=== PATIENT | female | born 1995 | race Caucasian/White ===

== ENCOUNTER 2022-04-16 17:22 | Inpatient (IN) | payer OTHER, SELFPAY ==
--- OUTSIDE RECORDS SUMMARY | 2022-04-16 18:29 | XMS REPORT | Continuity of Care Document ---
:1995 Author Organization [facility] t Address [address] [place] [address] Care Team Providers Name Role Phone Pcp, Does Not Have A Primary Care Physician JARON Attending Clinician Unavailable Jaron TAYLOR Attending Clinician Pob, Lab Main Attending Clinician Unavailable Doctor Unassigned, Name Attending Clinician Unavailable Payers Payer Name Policy Type Policy Number Effective Date Expiration Date Roly waldron [facility] STAR [id number] 2022 00:00:00 Problems Condition Condition Condition Status Onset Resolution Last Treating Co mments Source Name Details Category Date Date Treatment Clinician Date History of History of Disease Active U nivers gestationa gestationa 04-02 it y of l l 00:00: [place] hypertensi hypertensi 00 Me dical on on Branch Obesity in Obesity in Disease Active U nivers 03 ity of 00:00: [place] 00 Medical Branch Supervisio Supervisio Disease Active U nivers n of high n of high 04-02 ity of risk risk 00:00: [place] 00 Medi enrique in third in third Branch trimester trimester Allergies, Adverse Reactions, Alerts Allergy Allergy Status Severity Reaction(s) Onset Inactive Treating Comm ents Source Name Type Date Date Clinician NO KNOWN Drug Active Univers ALLERGIE Class ity of S [facility] Social History Social Habit Start Date Stop Date Quantity Comments Source ASSERTION 2021-08-19 University 00:00:00 [facility] Alcohol intake 2022-04-02 2022-04-02 Ex-drinker [facility] 00:00:00 00:00:00 (finding) [facility] Tobacco use and 2022-04-01 2022-04-01 Never used Universit y of exposure 00:00:00 00:00:00 [facility] Exposure to 2022-03-21 2022-03-31 Not sure [facility]-CoV-2 00:00:00 09:57:00 [place] Medical (event) Branch Sex Assigned At [birth year] Universit y of 00:00:00 00:00:00 [facility] Branch Smoking Status Start Date Stop Date Source Unknown if ever smoked Universit y of [facility] Never smoker [facility] Medications Ordered Filled Start Stop Current Ordering Indication Dosage Frequency Signature Comments Components Source Medication Medication Date Date Medication? Clinician (SIG) Name Name Yes Take by Unive rs vit,calc76/ 6-02 mouth. ity of iron/folic 09:04: [place] (PNV 29-1 31 Medical ORAL) Branch Yes Take by Unive rs vit,calc76/ 6-02 mouth. ity of iron/folic 09:04: [place] (PNV 29-1 31 Medical ORAL) Branch Yes Take by Unive rs vit,calc76/ 6-02 mouth. ity of iron/folic 09:04: [place] (PNV 29-1 31 Medical ORAL) Branch omeprazole Yes [id number] 40mg Take 1 Univers 40 mg 6-02 capsule by ity of capsule 00:00: mouth [place] 00 daily. Medical Branch omeprazole Yes [id number] 40mg Take 1 Univers 40 mg 6-02 capsule by ity of capsule 00:00: mouth [place] 00 daily. Medical Branch omeprazole Yes [id number] 40mg Take 1 Univers 40 mg 6-02 capsule by ity of capsule 00:00: mouth [place] 00 daily. Medical Branch Immunizations Ordered Filled Immunization Date Status Comments Sourc e Immunization Name Name TDAP 2022-04-01 Completed [facility] 00:00:00 [facility] TDAP 2022-04-01 Completed [facility] 00:00:00 [facility] TDAP 2022-04-01 Completed [facility] 00:00:00 [facility] Vital Signs Vital Name Observation Time Observation Value Comments Source Systolic blood 2022-04-01 13:34:00 127 mm[Hg] Univer sity of pressure [facility] Diastolic blood 2022-04-01 13:34:00 71 mm[Hg] [facility] [place] [facility] rsity of pressure [facility] Heart rate 2022-04-01 13:34:00 90 /min [facility] Body temperature 2022-04-01 13:34:00 36.89 Mallory [facility] Respiratory rate 2022-04-01 13:34:00 18 /min [facility] Body height 2022-04-01 13:34:00 160 cm [facility] Body weight 2022-04-01 13:34:00 93.895 kg [facility] BMI 2022-04-01 13:34:00 36.67 kg/m2 [facility] Procedures Procedure Date / Time Performed Performing Clinician Sourc e TDAP VACCINE, >11 YRS, 2022-04-01 14:30:35 Radha Salmeron [facility] ASSIGNMENT OF BENEFITS 2022-04-01 13:32:25 Doctor Unassigned, No [facility] POCT URINALYSIS W/O 2022-04-01 00:00:00 Radha Salmeron [facility] SPECIFIC GRAVITY [facility] Encounters Start End Encounter Admission Attending Care Care Encounter Source Date/Time Date/Time Type Type Clinicians Facility Department ID 2022-04-26 2022-04-26 Outpatient R RADHA SALMERON [facility] [id number] [facility] 16:00:00 16:00:00 [id number] [facility] 2022-04-26 2022-04-26 Outpatient R RADHA SALMERON [facility] [id number] [facility] 13:00:00 13:00:00 ity [facility] 2022-04-13 2022-04-13 Patient Radha Salmeron [facility] WOLF 1.2.840.114 [id number] Univers 00:00:00 00:00:00 Secure Msg RAMIREZ 350.1.13.10 ity of [place]2.[place] [id number] [place] [address] Branch 2022-04-02 2022-04-02 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, 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 Lab Main [facility] 1.2.8 40.114 [id number] [facility] 11:45:00 12:00:00 Visit Radha Salmeron 350.1.13.10 ity of [place].2.[place].2.[place] PROF[place] [id number] Ny dical NAL 353 [facility] 2022-04-02 2022-04-02 Outpatient R [facility] [id number] Univers 11:45:00 11:45:00 [id number] ity [facility] 2022-04-02 2022-04-02 Outpatient R RADHA SALMERON [facility] [id number] Univers 11:45:00 11:45:00 ity [facility] 2022-04-01 2022-04-01 Outpatient R RADHA SALMERON [facility] [id number] Univers 08:30:00 09:43:27 [facility] 2022-04-01 2022-04-01 Initial Radha Salmeron [facility] 1.2.840.114 [id number] Univers 08:30:00 09:43:27 JAMES 350.1.13.10 i ty of Visit [place].2.[place] [id number] [facility] 134 Branch 2022-04-01 2022-04-01 Orders Doctor TERI 1.2.840.114 [id number] Univers 00:00:00 00:00:00 Only Unassigned, MAGNUS 350.1.13.10 ity of Angie [facility] 4.2.7.2.686 [place] [id number] [facility] 009 Branch Results Test Description Test Time Test Comments Results Result Comments Source POCT URINALYSIS W/O SPECIFIC GRAVITY 2022-04-01 14:10:00 Test Item Value Reference Range Interpretation Comme nts POCT PH U (test code = 3254) n/a 5-8 POCT U LEUK EST (test code = 3263) n/a Negative - Negative POCT U NIT (test code = 3262) n/a Negative - Negative POCT U PROT (test code = 3259) neg Negative - Negative POCT U GLU (test code = 3256) neg Negative - Negative POCT U KETONE (test code = 3258) n/a Negative - Negative POCT U BLD (test code = 3257) n/a Negative - Negative [facility] [place] [facility]
[2022-04-16 18:59] LABS: Urine Appearance Cloudy (Clear); Urine Blood Negative (Negative); Urine Color Orange (Yellow); Urine Glucose Negative (Negative); Urine Protein 1+ (Negative); Urine Specific Gravity >=1.030 (1.005-1.030); Urine Urobilinogen 0.2 mg/dL (0.2-1.0); Urine pH 5.5 (5.0-7.0)
[2022-04-16 18:59] LABS: Absolute Lymphocytes (CBC) 2.2 K/uL (0.7-4.9); Hematocrit 38.2 % (36.0-45.0); Lymphocytes % 15.5 % (15.3-44.8); MPV 6.7 fL (7.6-11.3); RBC Red Blood Cell Count 4.38 M/uL (3.86-4.86)
[2022-04-16] MEDS ORDERED: OXYTOCIN/LR 20 UNIT/1,000 ML BAG IV ONE (19:02)
[2022-04-16 19:03] LABS: Barbiturates NEGATIVE (NEGATIVE); Benzodiazepines NEGATIVE (NEGATIVE); Cocaine NEGATIVE (NEGATIVE); METHAMPHETAM NEGATIVE (NEGATIVE); Methadone NEGATIVE (NEGATIVE); Opiates NEGATIVE (NEGATIVE); Phencyclidine NEGATIVE (NEGATIVE); THC Cannibis NEGATIVE (NEGATIVE)
[2022-04-16] MEDS ORDERED: METHYLERGONOVINE 0.2MG/ML AMP IM ONE (19:03)
[2022-04-16] MEDS ORDERED: CARBOPROST TROME 250 MCG/ML IM ONE (19:03)
[2022-04-16 19:07] LABS: Urine Bacteria <20 /HPF (<20); Urine Bilirubin 1+ (Negative); Urine Mucus 2+ /HPF (NONE SEEN); Urine RBC <5 /HPF (NONE SEEN)
[2022-04-16] MEDS ORDERED: PENICILLIN G POT 5 MU/VIAL IV ONE ×2 (19:14→22:31)
[2022-04-16] MEDS ORDERED: NA CHLORIDE 0.9% 50 ML ONE (19:14)
[2022-04-16] MEDS ORDERED: PENICILLIN 5 MU in NA CHLORIDE 0.9% 100 ML IV ONE (19:15)
[2022-04-16] MEDS ORDERED: OXYTOCIN/LR 20 UNIT/1,000 ML BAG IV SCH ×2 (19:36→23:45)
[2022-04-16] MEDS ORDERED: CARBOPROST TROME 250 MCG/ML IM PRN (20:08)
[2022-04-16] MEDS ORDERED: METHYLERGONOVINE 0.2MG/ML AMP IM PRN (20:08)
[2022-04-16] MEDS ORDERED: PROMETHAZINE INJ 25 MG/ML AMP IM PRN (20:08)
[2022-04-16] MEDS ORDERED: Ringers Lactate 1,000 ML IV PRN (20:08)
[2022-04-16] MEDS ORDERED: BUTORPHANOL 1 MG/ML INJ IV PRN (20:08)
[2022-04-16] MEDS ORDERED: LIDOCAINE 1% MPF 30 ML VIAL SQ ONE (20:20)
[2022-04-16] MEDS ORDERED: Ringers Lactate 1,000 ML IV SCH (21:00)
[2022-04-16 21:01] VITALS: BMI 36.5
[2022-04-16] MEDS ORDERED: NA CHLORIDE 0.9% 0 ML ONE (21:03)
[2022-04-16] MEDS ORDERED: NA CHLORIDE 0.9% 100 ML ONE (22:32)
--- NOTE | 2022-04-16 23:00 | PREOPHP ---
Date of Admission: 04/16/2022 History Of Present Illness: A 27-year-old 3, para 2, 36 weeks 2 days by best estimates, [place], was apparently seen by [facility] Mary 1 visit, says at first she had high blood pressure and therefore as a precaution on this she has been taking baby aspirin. Thought she had rupture of membranes 2 to 3 hours ago. Called [facility]. They told her to go to [facility]. She said she did not want to go to [place] and came here. Indeed, she has rupture of membran es. She is 4.5 to 5 cm, 70% effaced, vertex, -1 station, sandor very irregularly at this point. She does not know her beta strep status. We have offered her penicillin. She has no penicillin al lergies and she said she would like penicillin. We will move her to her room, start penicillin, star t light Pitocin. Anticipate delivery sometime later today. Family History: Noncontributory. Past Surgical History: No past surgeries. Social History: Denies drug taking. Physical Examination: HEENT: Clear. Pupils equal, round, reactive to light and accommodation. Conjunctivae well perfused . No oral, lingual, buccal lesions . Chest and Lungs: Grossly clear. Breasts: Not examined. Abdomen: 36-week size. Extremities: Clear without edema, cyanosis, or clubbing. Pelvic: As stated 4.5 to 5 cm, 70%, -1 station. Anticipate delivery sometime later today. NOAH/HI Voice ID: [id number]
[2022-04-16] MEDS ORDERED: LIDOCAINE 1% 20 ML MDV ONE (23:25)
[2022-04-16] MEDS ORDERED: ACETAMINOPHEN 500 MG TAB PO PRN (23:42)
[2022-04-16] MEDS ORDERED: DOCUSATE NA/SENNA CONC 1 TAB PO PRN (23:42)
[2022-04-16] MEDS ORDERED: DIPHENHYDRAMINE 25 MG TAB/CAP PO PRN (23:42)
[2022-04-16] MEDS ORDERED: Oxycodone HCl/Acetaminophen 1 TAB TAB PO PRN (23:42)
[2022-04-16] MEDS ORDERED: BISACODYL 10 MG RECTAL SUPP PR PRN (23:42)
--- NOTE | 2022-04-16 23:53 | PN ---
The patient is now on 18 milliunits sandor regularly. For a long time the patient was not contr acting well at all and was in no discomfort. She has just been given 1 mg of Stadol. She is on her second dose of penicillin. She is 7 cm 90% effaced, 0 station. Anticipate rapid delivery. We will check her in 15 minutes and see if we have time for an epidural. NOAH/HI Voice ID: [id number] Report ID: [id number]
[2022-04-17] MEDS: Oxycodone HCl/Acetaminophen 1 TAB TAB PO PRN ×3 (00:24→14:14)
--- NOTE | 2022-04-17 01:08 | DN ---
Surgeon: Kodi De La Torre MD History: A 27-year-old 3, para 2, came in from out of [facility] 1 time, experienced sponta neous rupture of membranes this morning, she called her [facility] people and they told her to go to [facility], she did not want to go to [place]. She came here. On admission, definite rupture of membranes, 4-5 cm vertex. FHTs normal, reactive. Vital signs are all stable. Unknown penicillin status. Patient requested penicillin. She received 1 to 1-1/2 doses during the labor. She received Stadol 1 mg IV, Phenergan 25 mg IM after reaching 6-7 cm went to [facility] spontaneous vaginal delivery, precipitous, but controlled of a 6-pound 11-ounce female, Apgars 9 and 9. No episiotomy. No laceration. Schultze delivery of the placenta inspected and noted to be intact and normal. Less than 300 cc blood loss. The patient tolerated all procedures well. Laboratory Data: The patient is A positive. SARS, negative. HIV nonreactive. Drug screen all nega tive. Final Diagnoses: Intrauterine gestation 36 weeks, approximately 3 days at time of delivery. Drop-in with minimal care. NOAH/SANTYL Voice ID: [id number] Report ID: [id number]
[2022-04-17] MEDS: IBUPROFEN 200 MG TAB PO PRN ×3 (02:37→18:21)
--- NOTE | 2022-04-17 19:27 | DS ---
Hospital Course: 27-year-old 3, para 2, followed antepartum at [facility] Clinic 1 visit, came in from [place]. Came to our institution with rupture of membranes, early labor. Says she did not want to go to [facility] in [place] or [place]. Was started on penicillin prophylaxis as she was unawa re of her strep status and was not allergic to penicillin. Received 1-1/2 doses during the labor. S tadol 1 mg IV, Phenergan 25 mg IM. When she reached 7, she went to complete precipitous, but control led vaginal delivery of a 6-pound 11-ounce female. Apgars 9 and 9. No episiotomy. No laceration. Schultze delivery of the placenta. Less than 300 cc blood loss. Rh positive, immune to Rubella. Un known strep. Negative COVID. afebrile, ambulating, voiding. Lochia is normal. She will be dismissed tomorrow. 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 Dr. Ramos apparently will be her grocery packer. Full dismissal i nstructions given. The patient has had her Tdap shot during the as well as her . Final Diagnoses: Intrauterine at 36 weeks 3 days, precipitous but controlled vaginal deliv iban. Penicillin prophylaxis. Follow up at [facility]. NOAH/HI Voice ID: [id number] Report ID: [id number]
[2022-04-17] MEDS ORDERED: PENICILLIN 2.5 MU in NA CHLORIDE 0.9% 100 ML IV SCH (22:55)
[2022-04-18] MEDS: IBUPROFEN 200 MG TAB PO PRN (07:24)
[2022-04-18 07:29] VITALS: TEMP 97.3
[2022-04-18 08:31] LABS: Urine Appearance CLEAR (Clear); Urine Bacteria NONE SEEN /HPF (<20); Urine Bilirubin NEGATIVE (Negative); Urine Blood TRACE (Negative); Urine Color YELLOW (Yellow); Urine Glucose NEGATIVE (Negative); Urine Protein NEGATIVE (Negative); Urine RBC <5 /HPF (NONE SEEN); Urine Specific Gravity 1.025 (1.005-1.030); Urine Urobilinogen 0.2 mg/dL (0.2-1.0)
[2022-04-18 09:58] VITALS: BP 140/83
[2022-04-21 02:41] LABS: HBsAG Nonreactive (Nonreactive)
== END 2022-04-18 10:25 | disposition home or self-care (01) | DRG 807 ==
LOC: L&D 17:22 → 2ND-WC 18:27
PROVIDERS: ADMIT Specialist; ATTEND Specialist
PROC: 10E0XZZ Delivery of Products of Conception, External Approach (ICD-10-PCS; principal; 2022-04-16)
DX: O99.824 Streptococcus B carrier state complicating childbirth (principal); Z37.0 Single live birth; Z3A.36 36 weeks gestation of pregnancy; Z20.822 Contact with and (suspected) exposure to COVID-19
CPT/HCPCS: 36415; 80307; 81001; 85025; 86762; 86850; 86900; 86901; 87340; G0433; J0595; J2210; J2540; J2550; J2590; U0003

== ENCOUNTER 2022-12-05 16:21 | Emergency (ER) | payer OTHER ==
--- OUTSIDE RECORDS SUMMARY | 2022-12-05 16:24 | XMS REPORT | Continuity of Care Document ---
:1995 Author Organization [facility] t Address [address] [place] [address] Care Team Providers Name Role Phone PCP, PATIENT DOES NOT HAVE A Primary Care Physician Unavaila TAYA Bustos Attending Clinician Unavailable TAYA STEVENS Attending Clinician Unavailable BRADEN SALMERON Attending Clinician Unavailable Braden Salmeron MD Attending Clinician Pob, Adc Lab Main Attending Clinician Unavailable Nurse, Shelly [facility] Attending Clinician Unavailable Case RNJaclyn Attending Clinician Unavailable Doctor Unassigned, [place] Attending Clinician Unavailable Payers Payer Name Policy Type Policy Number Effective Date Expiration Date S chivo [facility] STAR [id number] 2022 00:00:00 Problems Condition Condition Condition Status Onset Resolution Last Treating Co mments Source Name Details Category Date Date Treatment Clinician Date History of History of Disease Active U nivers gestationa gestationa 04-02 it y of l l 00:00: [place] hypertensi hypertensi 00 Me dical on on Branch Obesity in Obesity in Disease Active U nivers 04-02 ity of 00:00: [place] 00 Medical Branch Supervisio Supervisio Disease Active U nivers n of high n of high 03 ity of risk risk 00:00: [place] 00 Medi enrique in third in third Branch trimester trimester Allergies, Adverse Reactions, Alerts Allergy Allergy Status Severity Reaction(s) Onset Inactive Treating Comm ents Source Name Type Date Date Clinician NO KNOWN Drug Active Univers ALLERGIE Class ity of S [facility] [place] Social History Social Habit Start Date Stop Date Quantity Comments Source Exposure to 2022-06-26 2022-07-06 Not sure University of SARS-CoV-2 00:00:00 10:35:00 [place] [facility] (event) Branch Alcohol intake 2022-07-06 2022-07-06 Ex-drinker [facility] 00:00:00 00:00:00 (finding) [facility] [place] Tobacco use and 2022-06-07 2022-06-07 Smokeless tobacco Un iversity of exposure 00:00:00 00:00:00 non-user [facility] [place] Sex Assigned At [birth year] Universit y of 00:00:00 00:00:00 [facility] [place] Smoking Status Start Date Stop Date Source Never smoked tobacco [facility] Medications Ordered Filled Start Stop Current Ordering Indication Dosage Frequency Signature Comments Components Source Medication Medication Date Date Medication? Clinician (SIG) Name Name DULoxetine Yes [id number] 20mg Take 1 U nivers (CYMBALTA) 9-06 capsule by ity of 20 mg 00:00: mouth in [place] capsule 00 the Medical morning. Branch Yes Take by Clicknationer s vit,calc76/ 8-08 mouth. ity of iron/folic 16:04: [place] (PNV 29-1 56 Medical ORAL) Branch Yes Take by [employer] [place] s vit,calc76/ 8-08 mouth. ity of iron/folic 16:04: [place] (PNV 29-1 56 Medical ORAL) Branch norelgestro Yes [id number] 1{patch Apply 1 Univers min-ethinyl 8-08 } Patch to ity of estradiol 00:00: skin [place] 150-35 00 weekly. Medical mcg/24 hr Branch patch DULoxetine Yes [id number] 20mg Take 1 U nivers (CYMBALTA) 8-08 capsule by ity of 20 mg 00:00: mouth in [place] capsule 00 the Medical morning. Branch norelgestro Yes [id number] 1{patch Apply 1 Univers min-ethinyl 8-08 } Patch to ity of estradiol 00:00: skin [place] 150-35 00 weekly. Medical mcg/24 hr Branch patch DULoxetine 2021- No [id number] 20mg Take 1 Univers (CYMBALTA) 8-08 09-06 capsule by it y of 20 mg 00:00: 00:00 mouth in [place] capsule 00 :00 the Medical morning. Branch SERTraline 2021- No [id number] 50mg Take 2 Univers 25 mg 05-06 tablets by ity of tablet 00:00: 00:00 mouth [place] 00 :00 daily. Medical Branch omeprazole Yes [id number] 40mg Take 1 Univers 40 mg 6-02 capsule by ity of capsule 00:00: mouth [place] 00 daily. Medical Branch omeprazole Yes [id number] 40mg Take 1 Univers 40 mg 6-02 capsule by ity of capsule 00:00: mouth [place] 00 daily. Medical Branch Immunizations Ordered Filled Immunization Date Status Comments Sour e Immunization Name Name TD 2022-04-01 Completed [facility] 00:00:00 [facility] 2022-04-01 Completed [facility] 00:00:00 [facility] [place] Vital Signs Vital Name Observation Time Observation Value Comments Source Systolic blood 2022-07-06 16:12:00 137 mm[Hg] Univer sity [facility] Diastolic blood 2022-07-06 16:12:00 90 mm[Hg] [facility] Heart rate 2022-07-06 16:12:00 96 /min [facility] Body temperature 2022-07-06 16:12:00 37.06 Mallory [facility] Respiratory rate 2022-07-06 16:12:00 18 /min [facility] Body height 2022-07-06 16:12:00 161.3 cm [facility] Body weight 2022-07-06 16:12:00 81.466 kg [facility] BMI 2022-07-06 16:12:00 31.32 kg/m2 [facility] Systolic blood 2022-06-07 21:04:00 130 mm[Hg] Univer sity [facility] Diastolic blood 2022-06-07 21:04:00 87 mm[Hg] [facility] Heart rate 2022-06-07 21:02:00 75 /min [facility] Body temperature 2022-06-07 21:02:00 36.78 Mallory [facility] Respiratory rate 2022-06-07 21:02:00 18 /min [facility] Body height 2022-06-07 21:02:00 161.3 cm [facility] Body weight 2022-06-07 21:02:00 85.276 kg [facility] BMI 2022-06-07 21:02:00 32.78 kg/m2 [facility] Procedures This patient has no known procedures. Encounters Start End Encounter Admission Attending Care Care Encounter Source Date/Time Date/Time Type Type Clinicians Facility Department ID 2022-07-06 2022-07-06 Outpatient R BRADEN SALMERON [facility] [id number] Univers 10:30:00 [facility]30[facility] 2022-07-06 2022-07-06 Routine Braden Salmeron [place] 1.2.840.114 [id number] Univers 10:30:00 11:30:42 JAMES 350.1.13.10 i ty of Visit WOMEN'S 4.2.7.2.686 [facility] [id number] [address] 2022-06-22 2022-06-22 Outpatient R BRADEN SALMERON [facility] [id number] Univers 16:15:00 16:15:00 [facility] 2022-06-07 2022-06-07 Outpatient R BRADEN SALMERON [facility] [id number] Univers 16:15:00 16:27:50 [facility] 2022-06-07 2022-06-07 Routine Braden Salmeron [place] 1.2.840.114 [id number] Univers 16:15:00 16:27:50 JAMES 350.1.13.10 i ty of Visit WOMEN'S 4.2.7.2.686 [facility] [id number] [address] 2022-06-07 2022-06-07 Outpatient R BRADEN SALMERON [facility] [id number] Univers 16:15:00 16:27:50 [facility] 2022-05-22 2022-05-22 Material [employer] Deepa Vela Lab Main [facility] 1.2.8 40.114 [id number] Univers 10:45:00 11:00:00 Visit Braden Salmeron 350.1.13.10 ity [facility] 4.2.7.2.[place] [id number] Mo dic[address] 2022-05-22 2022-05-22 Outpatient R BRADEN SALMERON [facility] [id number] Univers 10:45:00 10:45:00 ity [facility] 2022-05-20 2022-05-20 Outpatient R BRADEN SALMERON [facility] [id number] Univers 16:15:00 16:15:00 ity [facility] 2022-05-06 2022-05-06 Outpatient R BRADEN SALMERON [facility] [id number] Univers 14:30:00 14:55:36 ity [facility] 2022-05-06 2022-05-06 Routine Braden Salmeron [facility] 1.2.840.114 [id number] Univers 14:30:00 14:55:36 JAMES 350.1.13.10 i ty of Visit [place] 4[place]2.7.2.[place] [id number] [address] 2022-04-26 2022-04-26 Outpatient R BRADEN SALMERON [facility] [id number] Univers 16:00:00 16:00:00 ity [facility] 2022-04-26 2022-04-26 Outpatient R BRADEN SALMERON [facility] [id number] Univers 13:00:00 13:00:00 ity [facility] 2022-04-21 2022-04-21 Nurse Nurse, Lkj [facility] 1.2.840.114 [id number] Univers 10:00:00 10:00:00 Visit Braden Salmeron 350.1.13.10 ity of [place] 4[place]2.[place] [id number] [address] 2022-04-21 2022-04-21 Outpatient R BRADEN SALMERON [facility] [id number] Univers 10:00:00 09:53:48 ity [facility] 2022-04-19 2022-04-19 Patient Case, Jaclyn [facility] 1.2.840.114 [id number] Univers 00:00:00 00:00:00 Secure Msg Ollie DEJESUS 350.1.13.10 ity [facility] 4.2.7.2.[place] [id number] Mo dical NAL 134 [facility] 2022-04-13 2022-04-13 Patient Braden Salmeron 1.2.840.114 [id number] Univers 00:00:00 00:00:00 Secure Msg JAMES 350.1.13.10 ity [place].2.[place] [facility] [id number] [address] 2022-04-02 2022-04-02 Material [employer] Mirian, Deepa Lab Main [facility] 1.2.8 40.114 [id number] Univers 11:45:00 12:00:00 Visit Braden Salmeron 350.1.13.10 ity of [place] 4.2.7.2.686 [place] [id number] [facility] 353 [facility] 2022-04-02 2022-04-02 Outpatient R BRADEN SALMERON [facility] [id number] Univers 11:45:00 11:45:00 ity of [facility] [place] 2022-04-01 2022-04-01 Outpatient R BRADEN SALMERON [facility] [id number] Univers 08:30:00 09:43:27 ity of [facility] [place] 2022-04-01 2022-04-01 Initial Braden Salmeron [facility] [place] 1.2.840.114 [id number] Univers 08:30:00 09:43:27 JAMES 350.1.13.10 i ty of Visit W[place] 4[place]2.7.2.[place] [id number] [address] 2022-04-01 2022-04-01 Orders Doctor TERI 1.2.840.114 [id number] Univers 00:00:00 00:00:00 Only Unassigned, MAGNUS 350.1.13.10 ity of [place] [facility] 4.2.7.2.686 [place] as [id number] Medi enrique 009 Branch Results This patient has no known results.
[2022-12-05 18:40] LABS: SARS-COV-2 RT PCR NEGATIVE (NEGATIVE)
--- NOTE | 2022-12-05 19:01 | ER ---
Nurse's Notes [facility] Name: Alyx Noriega Age: 27 yrs Sex: Female : 1995 Arrival Date: 12/05/2022 Time: 16:24 Bed 23 Private MD: Diagnosis: Streptococcal pharyngitis;Nasal congestion Presentation: 12/05 16:46 Chief complaint: Patient states: Sore throat for 1 day. Congestion for 1 week. ll1 Coronavirus screen: Vaccine status: Patient reports receiving the 2nd dose of the covid vaccine. Client denies travel out of the [place] in the last 14 days. congestion, sore throat, Client presents with at least one sign or symptom that may indicate coronavirus-19. Standard/surgical mask placed on the client. Ebola Screen: Patient denies travel to an Ebola-affected area in the 21 days before illness onset. Initial Sepsis Screen: Does the patient meet any 2 criteria? HR > 90 bpm. No. Patient's initial sepsis screen is negative. Does the patient have a suspected source of infection? Yes: Other: sore throat. Risk Assessment: Do you want to hurt yourself or someone else? Patient reports no desire to harm self or others. Onset of symptoms was November 29, 2022. 16:46 Method Of Arrival: Ambulatory ll1 16:46 Acuity: SHAWN 4 ll1 Historical: - Allergies: 16:46 No Known Allergies; ll1 - PMHx: 16:46 HTN during ; ll1 - PSHx: 16:46 None; ll1 - Immunization history:: Client reports receiving the 2nd dose of the Covid vaccine. - Social history:: Smoking status: Patient denies any tobacco usage or history of. Vital Signs: 16:46 BP 138 / 98; Pulse 116; Resp 18; Temp 98.6; Pulse Ox 100% ; Height 5 ft. 3 in. (160.02 ll1 cm); Pain 8/10; ED Course: 16:24 Patient arrived in ED. as 16:48 Triage completed. ll1 16:48 Arm band placed on. ll1 17:14 Johan Delacruz PA is PHCP. cp 17:14 Tavo Isidro MD is Attending Physician. cp 17:23 Cee Manley, GIGI is Primary Nurse. iw Administered Medications: No medications were administered Outcome: 19:00 Discharge ordered by . cp 19:17 Discharged to home ambulatory, with family. iw 19:17 Condition: good 19:17 Discharge instructions given to patient, family, Instructed on discharge instructions, follow up and referral plans. medication usage, Demonstrated understanding of instructions, follow-up care, medications, Prescriptions given X 1. 19:17 Patient left the ED. iw Signatures: Shereen Quinteros Irene RN RN iw Johan Delacruz PA PA cp Lewis, Lynsay, RN RN ll1
--- NOTE | 2022-12-05 19:01 | EDPHYS ---
Physician Documentation [facility] Name: Alyx Noriega Age: 27 yrs Sex: Female : 1995 Arrival Date: 12/05/2022 Time: 16:24 Bed 23 Private MD: ED Physician Tavo Isidro HPI: 12/05 17:30 This 27 yrs old Female presents to ER via Ambulatory with complaints of Sore Throat, cp Congestion. 17:30 The patient presents with sore throat, nasal congestion. The patient describes throat cp pain as constant. Onset: The symptoms/episode began/occurred 1 week(s) ago. 17:30 Associated signs and symptoms: Pertinent negatives diarrhea, dysphagia, fever, flu-like cp symptoms, vomiting. Historical: - Allergies: 16:46 No Known Allergies; ll1 - PMHx: 16:46 HTN during ; ll1 - PSHx: 16:46 None; ll1 - Immunization history:: Client reports receiving the 2nd dose of the Covid vaccine. - Social history:: Smoking status: Patient denies any tobacco usage or history of. ROS: 17:35 Constitutional: Negative for body aches, chills, fever, poor PO intake. cp 17:35 Eyes: Negative for injury, pain, redness, and discharge. cp 17:35 ENT: Positive for rhinorrhea, sore throat, Negative for drainage from ear(s), ear pain, difficulty swallowing, difficulty handling secretions. 17:35 Respiratory: Negative for cough, shortness of breath, wheezing. 17:35 Abdomen/GI: Negative for abdominal pain, vomiting, diarrhea, constipation. 17:35 : Negative for urinary symptoms, vaginal bleeding. 17:35 Neuro: Negative for altered mental status, headache, weakness. 17:35 All other systems are negative. Exam: 17:40 Constitutional: The patient appears in no acute distress, alert, awake, comfortable, cp non-toxic, well developed, well nourished. 17:40 Head/Face: Normocephalic, atraumatic. cp 17:40 Eyes: Periorbital structures: appear normal, Conjunctiva: normal, no exudate, no injection, Sclera: no appreciated abnormality, Lids and lashes: appear normal. 17:40 ENT: External ear(s): are unremarkable, Ear canal(s): are normal, clear, TM's: dullness, bilaterally, Nose: is normal, Mouth: Lips: moist, Oral mucosa: moist, Posterior pharynx: Airway: no evidence of obstruction, patent, Tonsils: bilaterally enlarged, with erythema, no exudate, Uvula: midline, erythema, that is moderate, exudate, is not appreciated. 17:40 Neck: ROM/movement: is normal, is supple, no meningismus, no nuchal rigidity, Lymph nodes: lymphadenopathy is appreciated, anterior cervical nodes. 17:40 Chest/axilla: Inspection: normal. 17:40 Cardiovascular: Rate: tachycardic, Rhythm: regular. 17:40 Respiratory: the patient does not display signs of respiratory distress, Respirations: normal, no use of accessory muscles, no retractions, labored breathing, is not present, Breath sounds: are clear throughout, no decreased breath sounds, no stridor, no wheezing. 17:40 Abdomen/GI: Exam negative for discomfort, distension, guarding, Inspection: abdomen appears normal. 17:40 Skin: no rash present. Vital Signs: 16:46 BP 138 / 98; Pulse 116; Resp 18; Temp 98.6; Pulse Ox 100% ; Height 5 ft. 3 in. (160.02 ll1 cm); Pain 8/10; MDM: 17:15 Patient medically screened. cp 18:00 Differential diagnosis: influenza, mononucleosis, peritonsillar abscess pharyngitis, cp retropharyngeal abcess tonsillitis, upper respiratory infection, uvulitis, COVID-19. 19:00 Data reviewed: vital signs, nurses notes, lab test result(s). cp 19:00 Consideration of Admission/Observation Escalation of care including cp admission/observation considered. Test considered but Not performed: Labs: cbc, bmp. Counseling: I had a detailed discussion with the patient and/or guardian regarding: the historical points, exam findings, and any diagnostic results supporting the discharge/admit diagnosis, lab results, to return to the emergency department if symptoms worsen or persist or if there are any questions or concerns that arise at home. 12/05 17:23 Order name: Strep; Complete Time: 18:36 cp 12/05 18:36 Interpretation: Reviewed. 12/05 17:23 Order name: COVID-19/FLU A+B; Complete Time: 18:59 cp 12/05 18:59 Interpretation: Reviewed. cp Administered Medications: No medications were administered Disposition Summary: 12/05/22 19:00 Discharge Ordered Location: Home cp Problem: new cp Symptoms: are unchanged cp Condition: Stable cp Diagnosis - Streptococcal pharyngitis cp - Nasal congestion cp Followup: cp - With: Private Physician - When: 2 - 3 days - Reason: Worsening of condition Discharge Instructions: - Discharge Summary Sheet cp - Strep Throat, Adult cp Forms: - Medication Reconciliation Form cp - Thank You Letter cp - Antibiotic Education cp - Prescription Opioid Use cp Prescriptions: - Amoxicillin 875 mg Oral Tablet - take 1 tablet by ORAL route every 12 hours for 10 days; 20 tablet; Refills: 0, cp Product Selection Permitted Signatures: Dispatcher [employer] EDMS Johan Delacruz PA PA cp Lewis, Lynsay RN RN ll1 Corrections: (The following items were deleted from the chart) 12/06 15:41 12/05 17:30 The patient presents with sore throat, cp cp
[2022-12-05 19:27] VITALS: BP 138/98; TEMP 98.6; O2SAT 100
== END 2022-12-05 19:17 | disposition home or self-care (01) ==
LOC: ER 16:21
DX: J02.0 Streptococcal pharyngitis (principal); R09.81 Nasal congestion; Z20.822 Contact with and (suspected) exposure to COVID-19
CPT/HCPCS: 87081; 0240U; 99282

== ENCOUNTER 2023-03-27 13:00 | Emergency (ER) | payer OTHER ==
--- OUTSIDE RECORDS SUMMARY | 2023-03-27 13:05 | XMS REPORT | Continuity of Care Document ---
:1995 Author Organization [facility] t Address [address] [place] [address] [address] [place] [address] Care Team Providers Name Role Phone PCP, PATIENT DOES NOT HAVE A Primary Care Physician Unavaila CAROLYN Bustos Attending Clinician Unavailable CAROLYN STEVENS Attending Clinician Unavailable Deborah Castellanos RN Attending Clinician Unavailable 2, [facility] Attending Clinician Unavailable Doctor Unassigned, [place] Attending Clinician Unavailable Pob, [facility] Main Attending Clinician Unavailable BRADEN SALMERON Attending Clinician Unavailable Braden Salmeron MD Attending Clinician Nurse, Shelly [facility] Attending Clinician Unavailable Jaclyn Fernandes RN Attending Clinician Unavailable CAROLYN STEVENS Admitting Clinician Unavailable Payers Payer Name Policy Type Policy Number Effective Date Expiration Date S chivo [facility] [id number] 2022 00:00:00 Problems Condition Condition Condition Status Onset Resolution Last Treating Co mments Source Name Details Category Date Date Treatment Clinician Date Gastroesop Gastroesop Disease Active U nivers hageal hageal 5- ity of reflux reflux 00:00: [place] disease disease 00 Medical without without Branch esophagiti esophagiti s s Missed Missed Disease Active Univers menses menses 2-08 ity of 00:00: [place] 00 Medical Branch Disease Active Uni vers examinatio examinatio 2-08 it y of n [place] test, [place] test, [place] positive positive 00 Medica l result result Branch History of History of Disease Active U nivers 2-08 it [place] of depression depression 00:00[place] , , 00 Medical currently currently Bran ch Disease Active Uni vers with with 04-02 ity of inconclusi inconclusi 00:00[place] ve ve 00 Medica l viability, viability, Br anch single or single or unspecifie unspecifie d fetus d fetus History of History of Disease Active U nivers gestationa gestationa 04-02 it y of l l 00:00: [place] hypertensi hypertensi 00 Me dical on on Branch Obesity in Obesity in Disease Active U nivers , , 04-02 [place] of antepartum antepartum [place] 00 [place] Supervisio Supervisio Disease Active U nivers n of other n of other 04-02 it y of high risk high risk [place] , [place] antepartum antepartum Br anch Allergies, Adverse Reactions, Alerts Allergy Allergy Status Severity Reaction(s) Onset Inactive Treating Comm ents Source Name Type Date Date Clinician NO KNOWN Drug Active Univers ALLERGIE Class ity of S [facility] Social History Social Habit Start Date Stop Date Quantity Comments Source ASSERTION 2022-11-12 [facility] 00:00:00 [facility] Exposure to 2023-02-18 2023-02-28 Not sure [facility] SARS-CoV-2 00:00:00 10:37:00 [facility] (event) [place] Alcohol intake 2023-02-28 2023-02-28 Ex-drinker [facility] 00:00:00 00:00:00 (finding) [facility] Tobacco use and 2022-06-07 2022-06-07 Smokeless tobacco Un iversity of exposure 00:00:00 00:00:00 non-user [facility] Sex Ass[birth year] At [birth year] Universit y of 00:00:00 00:00:00 [facility] Smoking Status Start Date Stop Date Source Never smoked tobacco [facility] Medications Ordered Filled Start Stop Current Ordering Indication Dosage Frequency Signature Comments Components Source Medication Medication Date Date Medication? Clinician (SIG) Name Name aspirin 81 Yes [id number] 81mg Take 1 Univers mg EC 5 tablet by ity of tablet 00:00: mouth in [place] 00 the Medical morning. Branch omeprazole Yes [id number] 40mg Take 1 Univers 40 mg 5-01 capsule by ity of capsule 00:00: mouth in [place] 00 the Medical morning. Branch PNV 67-iron 2022-0 Yes TAKE 1 Univ ers ps-folate 3-31 CAPSULE BY ity of no.1-dha 00:00: MOUTH IN [place] (VITAFOL 00 THE Medical ULTRA) 29 MORNING Branch mg iron- 1 mg-200 mg Cap PNV 67-iron 2022-0 Yes TAKE 1 Univ ers ps-folate 3-31 CAPSULE BY ity of no.1-dha 00:00: MOUTH IN [place] (VITAFOL 00 THE Medical ULTRA) 29 MORNING Branch mg iron- 1 mg-200 mg Cap PNV 67-iron 2022-0 Yes TAKE 1 Univ ers ps-folate 3-31 CAPSULE BY ity of no.1-dha 00:00: MOUTH IN [place] (VITAFOL 00 THE Medical ULTRA) 29 MORNING Branch mg iron- 1 mg-200 mg Cap PNV 67-iron 2022-0 Yes TAKE 1 Univ ers ps-folate 3-31 CAPSULE BY ity of no.1-dha 00:00: MOUTH IN [place] (VITAFOL 00 THE Medical ULTRA) 29 MORNING Branch mg iron- 1 mg-200 mg Cap PNV 67-iron 2022-0 Yes TAKE 1 Univ ers ps-folate 3-31 CAPSULE BY ity of no.1-dha 00:00: MOUTH IN [place] (VITAFOL 00 THE Medical ULTRA) 29 MORNING Branch mg iron- 1 mg-200 mg Cap PNV 67-iron 2022-0 Yes TAKE 1 Univ ers ps-folate 3-31 CAPSULE BY ity of no.1-dha 00:00: MOUTH IN [place] (VITAFOL 00 THE Medical ULTRA) 29 MORNING Branch mg iron- 1 mg-200 mg Cap PNV 67-iron 2022-0 Yes TAKE 1 Univ ers ps-folate 3-31 CAPSULE BY ity of no.1-dha 00:00: MOUTH IN [place] (VITAFOL 00 THE Medical ULTRA) 29 MORNING Branch mg iron- 1 mg-200 mg Cap ampicillin 2023-0 2023- Yes [id number] 500mg Take 1 Univers 500 mg 3-24 04-04 capsule by ity of capsule 00:00: 04:59 mouth [place] 00 :00 every 6 Medical (six) Branch hours for 10 days. ampicillin 2023-0 2023- Yes [id number] 500mg Take 1 Univers 500 mg 3-24 04-04 capsule by ity of capsule 00:00: 04:59 mouth [place] 00 :00 every 6 Medical (six) Branch hours for 10 days. ampicillin 2022-0 2022- Yes [id number] 500mg Take 1 Univers 500 mg 3-24 04-04 capsule by ity of capsule 00:00: 04:59 mouth [place] 00 :00 every 6 Medical (six) Branch hours for 10 days. ampicillin 2022- Yes [id number] 500mg Take 1 Univers 500 mg 3-24 04-04 capsule by ity of capsule 00:00: 04:59 mouth [place] 00 :00 every 6 Medical (six) Branch hours for 10 days. ampicillin 2022-2022- Yes [id number] 500mg Take 1 Univers 500 mg 3-24 04-04 capsule by ity of capsule 00:00: 04:59 mouth [place] 00 :00 every 6 Medical (six) Branch hours for 10 days. ampicillin 2022-2022- Yes [id number] 500mg Take 1 Univers 500 mg 3-24 04-04 capsule by ity of capsule 00:00: 04:59 mouth [place] 00 :00 every 6 Medical (six) Branch hours for 10 days. ampicillin 2022-2022- Yes [id number] 500mg Take 1 Univers 500 mg 3-24 04-04 capsule by ity of capsule 00:00: 04:59 mouth [place] 00 :00 every 6 Medical (six) Branch hours for 10 days. ampicillin 2022- Yes [id number] 500mg Take 1 Univers 500 mg 3-24 04-04 capsule by ity of capsule 00:00: 04:59 mouth [place] 00 :00 every 6 Medical (six) Branch hours for 10 days. cephALEXin 2022-0 2022- No [id number] 500mg Take 1 Univers 500 mg 3-22 03-24 capsule by ity of capsule 00:00: 00:00 mouth 4 [place] 00 :00 (four) Medical times Branch daily for 7 days. cephALEXin 2022-0 2022- No [id number] 500mg Take 1 Univers 500 mg 3-22 03-24 capsule by ity of capsule 00:00: 00:00 mouth 4 [place] 00 :00 (four) Medical times Branch daily for 7 days. 2022-2022- No Take by [facility] rs vit,calc76/ 2-08 02-08 mouth. ity o f iron/folic 11:19: 00:00 [place] (PNV 29-1 04 :00 Medical ORAL) Branch Yes [id number] 1{tbl} Take 1 U nivers vit 2-08 tablet by ity of no.130-iron 00:00: mouth in [place] -folic 00 the Medical ( morning. Branch VITAMIN) Yes [id number] 1{tbl} Take 1 U nivers vit 2-08 tablet by ity of no.130-iron 00:00: mouth in [place] -folic 00 the Medical ( morning. Branch VITAMIN) Yes [id number] 1{tbl} Take 1 U nivers vit 2-08 tablet by ity of no.130-iron 00:00: mouth in [place] -folic 00 the Medical ( morning. Branch VITAMIN) Yes [id number] 1{tbl} Take 1 U nivers vit 2-08 tablet by ity of no.130-iron 00:00: mouth in [place] -folic 00 the Medical ( morning. Branch VITAMIN) Yes [id number] 1{tbl} Take 1 U nivers vit 2-08 tablet by ity of no.130-iron 00:00: mouth in [place] -folic 00 the Medical ( morning. Branch VITAMIN) VITAFOL Yes TAKE 1 Univers ULTRA 29 mg 2-08 CAPSULE BY it y of iron- 1 00:00: MOUTH IN [place] mg-200 mg 00 THE Medical Cap MORNING Branch VITAFOL Yes TAKE 1 Univers ULTRA 29 mg 2-08 CAPSULE BY it y of iron- 1 00:00: MOUTH IN [place] mg-200 mg 00 THE Medical Cap MORNING Branch VITAFOL 0 Yes TAKE 1 Univers ULTRA 29 mg 2-08 CAPSULE BY it y of iron- 1 00:00: MOUTH IN [place] mg-200 mg 00 THE Medical Cap MORNING Branch VITAFOL 0 Yes TAKE 1 Univers ULTRA 29 mg 2-08 CAPSULE BY it y of iron- 1 00:00: MOUTH IN [place] mg-200 mg 00 THE Medical Cap MORNING Branch VITAFOL 2023-0 Yes TAKE 1 Univers ULTRA 29 mg 2-08 CAPSULE BY it y of iron- 1 00:00: MOUTH IN [place] mg-200 mg 00 THE Medical Cap MORNING Branch VITAFOL Yes TAKE 1 Univers ULTRA 29 mg 2-08 CAPSULE BY it y of iron- 1 00:00: MOUTH IN [place] mg-200 mg 00 THE Medical Cap MORNING Branch VITAFOL 2022- No TAKE 1 Univers ULTRA 29 mg 2-08 03-31 CAPSULE BY i ty of iron- 1 00:00: 00:00 MOUTH IN [place] mg-200 mg 00 :00 THE Medical Cap MORNING Branch VITAFOL 2022- No TAKE 1 Univers ULTRA 29 mg 2-08 03-31 CAPSULE BY i ty of iron- 1 00:00: 00:00 MOUTH IN [place] mg-200 mg 00 :00 THE Medical Cap MORNING Branch 2022- No [id number] 1{tbl} Take 1 Univers vit 2-08 03-22 tablet by ity of no.130-iron 00:00: 00:00 [place] -folic 00 :00 the Medical ( morning. Branch VITAMIN) amoxicillin Yes TAKE 1 Univ ers 875 mg 2-06 TABLET BY ity of tablet 00:00: MOUTH [place] 00 EVERY 12 Medical HOURS FOR Branch 10 DAYS amoxicillin 2022-0 Yes TAKE 1 Univ ers 875 mg 2-06 TABLET BY ity of tablet 00:00: MOUTH [place] 00 EVERY 12 Medical HOURS FOR Branch 10 DAYS amoxicillin 2022-0 Yes TAKE 1 Univ ers 875 mg 2-06 TABLET BY ity of tablet 00:00: MOUTH [place] 00 EVERY 12 Medical HOURS FOR Branch 10 DAYS amoxicillin 2022-0 Yes TAKE 1 Univ ers 875 mg 2-06 TABLET BY ity of tablet 00:00: MOUTH [place] 00 EVERY 12 Medical HOURS FOR Branch 10 DAYS amoxicillin 2022-0 Yes TAKE 1 Univ ers 875 mg 2-06 TABLET BY ity of tablet 00:00: MOUTH [place] 00 EVERY 12 Medical HOURS FOR Branch 10 DAYS amoxicillin 2022-0 2022- No TAKE 1 Uni vers 875 mg 2-06 03-22 TABLET BY ity of tablet 00:00: 00:00 MOUTH [place] 00 :00 EVERY 12 Medical HOURS FOR Branch 10 DAYS DULoxetine 2021-0 Yes [id number] 20mg Take 1 U nivers (CYMBALTA) 9-06 capsule by ity of 20 mg 00:00: mouth in [place] capsule 00 the Medical morning. Branch DULoxetine 2022-0 Yes [id number] 20mg Take 1 U nivers (CYMBALTA) 9-06 capsule by ity of 20 mg 00:00: mouth in [place] capsule 00 the Medical morning. Branch DULoxetine 2022-0 Yes [id number] 20mg Take 1 U nivers (CYMBALTA) 9-06 capsule by ity of 20 mg 00:00: mouth in [place] capsule 00 the Medical morning. Branch DULoxetine 2022-0 Yes [id number] 20mg Take 1 U nivers (CYMBALTA) 9-06 capsule by ity of 20 mg 00:00: mouth in [place] capsule 00 the Medical morning. Branch DULoxetine 2022-0 Yes [id number] 20mg Take 1 U nivers (CYMBALTA) 9-06 capsule by ity of 20 mg 00:00: mouth in [place] capsule 00 the Medical morning. Branch DULoxetine 2022-0 Yes [id number] 20mg Take 1 U nivers (CYMBALTA) 9-06 capsule by ity of 20 mg 00:00: mouth in [place] capsule 00 the Medical morning. Branch DULoxetine 2022-0 Yes [id number] 20mg Take 1 U nivers (CYMBALTA) 9-06 capsule by ity of 20 mg 00:00: mouth in [place] capsule 00 the Medical morning. Branch DULoxetine 2022-0 Yes [id number] 20mg Take 1 U nivers (CYMBALTA) 9-06 capsule by ity of 20 mg 00:00: mouth in [place] capsule 00 the Medical morning. Branch DULoxetine 2022-0 Yes [id number] 20mg Take 1 U nivers (CYMBALTA) 9-06 capsule by ity of 20 mg 00:00: mouth in [place] capsule 00 the Medical morning. Branch DULoxetine 2022-0 Yes [id number] 20mg Take 1 U nivers (CYMBALTA) 9-06 capsule by ity of 20 mg 00:00: mouth in [place] capsule 00 the Medical morning. Branch DULoxetine 2022-0 Yes [id number] 20mg Take 1 U nivers (CYMBALTA) 9-06 capsule by ity of 20 mg 00:00: mouth in [place] capsule 00 the Medical morning. Branch DULoxetine 2021-0 Yes [id number] 20mg Take 1 U nivers (CYMBALTA) 9-06 capsule by ity of 20 mg 00:00: mouth in [place] capsule 00 the Medical morning. Branch DULoxetine 2-0 Yes [id number] 20mg Take 1 U nivers (CYMBALTA) 9-06 capsule by ity of 20 mg 00:00: mouth in [place] capsule 00 the Medical morning. Branch DULoxetine 2021-0 Yes [id number] 20mg Take 1 U nivers (CYMBALTA) 9-06 capsule by ity of 20 mg 00:00: mouth in [place] capsule 00 the Medical morning. Branch DULoxetine 2021-0 Yes [id number] 20mg Take 1 U nivers (CYMBALTA) 9-06 capsule by ity of 20 mg 00:00: mouth in [place] capsule 00 the Medical morning. Branch DULoxetine 2021-0 Yes [id number] 20mg Take 1 U nivers (CYMBALTA) 9-06 capsule by ity of 20 mg 00:00: mouth in [place] capsule 00 the Medical morning. Branch DULoxetine 2021-0 Yes [id number] 20mg Take 1 U nivers (CYMBALTA) 9-06 capsule by ity of 20 mg 00:00: mouth in [place] capsule 00 the Medical morning. Branch DULoxetine 2021-0 Yes [id number] 20mg Take 1 U nivers (CYMBALTA) 9-06 capsule by ity of 20 mg 00:00: mouth in [place] capsule 00 the Medical morning. Branch DULoxetine 2021-0 Yes [id number] 20mg Take 1 U nivers (CYMBALTA) 9-06 capsule by ity of 20 mg 00:00: mouth in [place] capsule 00 the Medical morning. Branch DULoxetine 2021-0 Yes [id number] 20mg Take 1 U nivers (CYMBALTA) 9-06 capsule by ity of 20 mg 00:00: mouth in [place] capsule 00 the Medical morning. Branch 2021-0 Yes Take by Univer s vit,calc76/ 8-08 mouth. ity of iron/folic 16:04: [place] (PNV 29-1 56 Medical ORAL) Branch 2021-0 Yes Take by Univer s vit,calc76/ 8-08 mouth. ity of iron/folic 16:04: [place] (PNV 29-1 56 Medical ORAL) Branch norelgestro 0 Yes [id number] 1{patch Apply 1 Univers min-ethinyl 8-08 } Patch to ity of estradiol 00:00: skin [place] 150-35 00 weekly. Medical mcg/24 hr Branch patch DULoxetine 0 Yes [id number] 20mg Take 1 U nivers (CYMBALTA) 8-08 capsule by ity of 20 mg 00:00: mouth in [place] capsule 00 the Medical morning. Branch norelgestro 0 Yes [id number] 1{patch Apply 1 Univers min-ethinyl 8-08 } Patch to ity of estradiol 00:00: skin [place] 150-35 00 weekly. Medical mcg/24 hr Branch patch norelgestro 2022- No [id number] 1{patch Apply 1 Univers min-ethinyl 8-08 02-08 } Patch to ity of estradiol 00:00: 00:00 skin [place] 150-35 00 :00 weekly. Medical mcg/24 hr Branch patch DULoxetine 2021- No [id number] 20mg Take 1 Univers (CYMBALTA) 8-08 09-06 capsule by it y of 20 mg 00:00: 00:00 mouth in [place] capsule 00 :00 the Medical morning. Branch SERTraline 2021- No [id number] 50mg Take 2 Univers 25 mg 05-06 08-08 tablets by ity of tablet 00:00: 00:00 mouth [place] 00 :00 daily. Medical Branch omeprazole 2021-0 Yes [id number] 40mg Take 1 Univers 40 mg 6-02 capsule by ity of capsule 00:00: mouth [place] 00 daily. Medical Branch omeprazole 2021-0 Yes [id number] 40mg Take 1 Univers 40 mg 6-02 capsule by ity of capsule 00:00: mouth [place] 00 daily. Medical Branch omeprazole 2021-0 Yes [id number] 40mg Take 1 Univers 40 mg 6-02 capsule by ity of capsule 00:00: mouth [place] 00 daily. Medical Branch omeprazole 2021-0 Yes [id number] 40mg Take 1 Univers 40 mg 6-02 capsule by ity of capsule 00:00: mouth [place] 00 daily. Medical Branch omeprazole 2022-0 Yes [id number] 40mg Take 1 Univers 40 mg 6-02 capsule by ity of capsule 00:00: mouth [place] 00 daily. Medical Branch omeprazole 2021-0 Yes [id number] 40mg Take 1 Univers 40 mg 6-02 capsule by ity of capsule 00:00: mouth [place] 00 daily. Medical Branch omeprazole 2021-0 Yes [id number] 40mg Take 1 Univers 40 mg 6-02 capsule by ity of capsule 00:00: mouth [place] 00 daily. Medical Branch omeprazole 2021-0 Yes [id number] 40mg Take 1 Univers 40 mg 6-02 capsule by ity of capsule 00:00: mouth [place] 00 daily. Medical Branch omeprazole 2021-0 Yes [id number] 40mg Take 1 Univers 40 mg 6-02 capsule by ity of capsule 00:00: mouth [place] 00 daily. Medical Branch omeprazole 2021-0 Yes [id number] 40mg Take 1 Univers 40 mg 6-02 capsule by ity of capsule 00:00: mouth [place] 00 daily. Medical Branch omeprazole 2021-0 Yes [id number] 40mg Take 1 Univers 40 mg 6-02 capsule by ity of capsule 00:00: mouth [place] 00 daily. Medical Branch omeprazole 2021-0 Yes [id number] 40mg Take 1 Univers 40 mg 6-02 capsule by ity of capsule 00:00: mouth [place] 00 daily. Medical Branch omeprazole 2021-0 Yes [id number] 40mg Take 1 Univers 40 mg 6-02 capsule by ity of capsule 00:00: mouth [place] 00 daily. Medical Branch omeprazole 2021-0 Yes [id number] 40mg Take 1 Univers 40 mg 6-02 capsule by ity of capsule 00:00: mouth [place] 00 daily. Medical Branch omeprazole 2021-0 Yes [id number] 40mg Take 1 Univers 40 mg 6-02 capsule by ity of capsule 00:00: mouth [place] 00 daily. Medical Branch omeprazole 2021-0 Yes [id number] 40mg Take 1 Univers 40 mg 6-02 capsule by ity of capsule 00:00: mouth [place] 00 daily. Medical Branch omeprazole 2021-0 Yes [id number] 40mg Take 1 Univers 40 mg 6-02 capsule by ity of capsule 00:00: mouth [place] 00 daily. Medical Branch omeprazole 2022-0 Yes [id number] 40mg Take 1 Univers 40 mg 6-02 capsule by ity of capsule 00:00: mouth [place] 00 daily. Medical Branch omeprazole 2021-0 Yes [id number] 40mg Take 1 Univers 40 mg 6-02 capsule by ity of capsule 00:00: mouth [place] 00 daily. Medical Branch omeprazole 2021-0 Yes [id number] 40mg Take 1 Univers 40 mg 6-02 capsule by ity of capsule 00:00: mouth [place] 00 daily. Medical Branch omeprazole 0 3- No [id number] 40mg Take 1 Univers 40 mg 6-02 05- capsule by ity of capsule 00:00: 00:00 mouth [place] 00 :00 daily. Medical Branch Immunizations Ordered Filled Immunization Date Status Comments [facility] e Immunization Name Name Influenza Virus 2022-12-08 Completed Universit y of Vaccine Quad IM, 00:00:00 [place] Me dical Preserv and ABX Branch Free 6 MO-64 YRS Influenza Virus 2022-12-08 Completed Universit y of Vaccine Quad IM, 00:00:00 [place] Me dical Preserv and ABX Branch Free 6 MO-64 YRS Influenza Virus 2022-12-08 Completed Universit y of Vaccine Quad IM, 00:00:00 [place] Me dical Preserv and ABX Branch Free 6 MO-64 YRS Influenza Virus 2022-12-08 Completed Universit y of Vaccine Quad IM, 00:00:00 [place] Me dical Preserv and ABX Branch Free 6 MO-64 YRS Influenza Virus 2022-12-08 Completed Universit y of Vaccine Quad IM, 00:00:00 [place] Me dical Preserv and ABX Branch Free 6 MO-64 YRS Influenza Virus 2022-12-08 Completed Universit y of Vaccine Quad IM, 00:00:00 [place] Me dical Preserv and ABX Branch Free 6 MO-64 YRS Influenza Virus 2022-12-08 Completed Universit y of Vaccine Quad IM, 00:00:00 [place] Me dical Preserv and ABX Branch Free 6 MO-64 YRS Influenza Virus 2022-12-08 Completed Universit y of Vaccine Quad IM, 00:00:00 [place] Me dical Preserv and ABX Branch Free 6 MO-64 YRS Influenza Virus 2022-12-08 Completed Universit y of Vaccine Quad IM, 00:00:00 [place] Me dical Preserv and ABX Branch Free 6 MO-64 YRS Influenza Virus 2022-12-08 Completed Universit y of Vaccine Quad IM, 00:00:00 [place] Me dical Preserv and ABX Branch Free 6 MO-64 YRS Influenza Virus 2022-12-08 Completed Universit y of Vaccine Quad IM, 00:00:00 [place] Me dical Preserv and ABX Branch Free 6 MO-64 YRS Influenza Virus 2022-12-08 Completed Universit y of Vaccine Quad IM, 00:00:00 [place] Me dical Preserv and ABX Branch Free 6 MO-64 YRS Influenza Virus 2022-12-08 Completed Universit y of Vaccine Quad IM, 00:00:00 [place] Me dical Preserv and ABX Branch Free 6 MO-64 YRS Influenza Virus 2022-12-08 Completed Universit y of Vaccine Quad IM, 00:00:00 [place] Me dical Preserv and ABX Branch Free 6 MO-64 YRS Influenza Virus 2022-12-08 Completed Universit y of Vaccine Quad IM, 00:00:00 [place] Me dical Preserv and ABX Branch Free 6 MO-64 YRS Influenza Virus 2022-12-08 Completed Universit y of Vaccine Quad IM, 00:00:00 [place] Me dical Preserv and ABX Branch Free 6 MO-64 YRS Influenza Virus 2022-12-08 Completed Universit y of Vaccine Quad IM, 00:00:00 [place] Me dical Preserv and ABX Branch Free 6 MO-64 YRS Influenza Virus 2022-12-08 Completed Universit y of Vaccine Quad IM, 00:00:00 [place] Me dical Preserv and ABX Branch Free 6 MO-64 YRS Influenza Virus 2022-12-08 Completed Universit y of Vaccine Quad IM, 00:00:00 [place] Me dical Preserv and ABX Branch Free 6 MO-64 YRS TDAP 2022-04-01 Completed University of 00:00:00 [facility] TDAP 2022-04-01 Completed University of 00:00:00 [facility] TDAP 2022-04-01 Completed University of 00:00:00 [facility] TDAP 2022-04-01 Completed University of 00:00:00 [facility] TDAP 2022-04-01 Completed University of 00:00:00 [facility] TDAP 2022-04-01 Completed University of 00:00:00 [facility] TDAP 2022-04-01 Completed University of 00:00:00 [facility] TDAP 2022-04-01 Completed University of 00:00:00 [place] [facility] [place] TDAP 2022-04-01 Completed University of 00:00:00 [place] [facility] [place] TDAP 2022-04-01 Completed University of 00:00:00 [facility] TDAP 2022-04-01 Completed University of 00:00:00 [facility] TDAP 2022-04-01 Completed University of 00:00:00 [facility] TDAP 2022-04-01 Completed University of 00:00:00 [facility] TDAP 2022-04-01 Completed University of 00:00:00 [facility] TDAP 2022-04-01 Completed University of 00:00:00 [facility] TDAP 2022-04-01 Completed University of 00:00:00 [facility] TDAP 2022-04-01 Completed University of 00:00:00 [facility] TDAP 2022-04-01 Completed University of 00:00:00 [facility] TDAP 2022-04-01 Completed University of 00:00:00 [facility] TDAP 2022-04-01 Completed University of 00:00:00 [facility] TDAP 2022-04-01 Completed University of 00:00:00 [facility] SARS-COV-2 COVID-19 2021-08-08 Completed Unive rsity of PFIZER VACCINE 00:00:00 [facility] SARS-COV-2 COVID-19 2021-08-08 Completed Unive rsity of PFIZER VACCINE 00:00:00 [facility] SARS-COV-2 COVID-19 2021-08-08 Completed Unive rsity of PFIZER VACCINE 00:00:00 [facility] SARS-COV-2 COVID-19 2021-08-08 Completed Unive rsity of PFIZER VACCINE 00:00:00 [facility] SARS-COV-2 COVID-19 2021-08-08 Completed Unive rsity of PFIZER VACCINE 00:00:00 [facility] SARS-COV-2 COVID-19 2021-08-08 Completed Unive rsity of PFIZER VACCINE 00:00:00 [facility] SARS-COV-2 COVID-19 2021-08-08 Completed Unive rsity of PFIZER VACCINE 00:00:00 [facility] SARS-COV-2 COVID-19 2021-08-08 Completed Unive rsity of PFIZER VACCINE 00:00:00 [facility] SARS-COV-2 COVID-19 2021-08-08 Completed Unive rsity of PFIZER VACCINE 00:00:00 [facility] SARS-COV-2 COVID-19 2021-08-08 Completed Unive rsity of PFIZER VACCINE 00:00:00 [facility] SARS-COV-2 COVID-19 2021-08-08 Completed Unive rsity of PFIZER VACCINE 00:00:00 [facility] SARS-COV-2 COVID-19 2021-08-08 Completed Unive rsity of PFIZER VACCINE 00:00:00 [facility] SARS-COV-2 COVID-19 2021-08-08 Completed Unive rsity of PFIZER VACCINE 00:00:00 [facility] SARS-COV-2 COVID-19 2021-08-08 Completed Unive rsity of PFIZER VACCINE 00:00:00 [facility] SARS-COV-2 COVID-19 2021-08-08 Completed Unive rsity of PFIZER VACCINE 00:00:00 [facility] SARS-COV-2 COVID-19 2021-08-08 Completed Unive rsity of PFIZER VACCINE 00:00:00 [facility] SARS-COV-2 COVID-19 2021-08-08 Completed Unive rsity of PFIZER VACCINE 00:00:00 [facility] SARS-COV-2 COVID-19 2021-08-08 Completed Unive rsity of PFIZER VACCINE 00:00:00 [facility] SARS-COV-2 COVID-19 2021-08-08 Completed Unive rsity of PFIZER VACCINE 00:00:00 [facility] SARS-COV-2 COVID-19 2021-07-16 Completed Unive rsity of PFIZER VACCINE 00:00:00 [facility] SARS-COV-2 COVID-19 2021-07-16 Completed Unive rsity of PFIZER VACCINE 00:00:00 [facility] SARS-COV-2 COVID-19 2021-07-16 Completed Unive rsity of PFIZER VACCINE 00:00:00 [facility] SARS-COV-2 COVID-19 2021-07-16 Completed Unive rsity of PFIZER VACCINE 00:00:00 [facility] SARS-COV-2 COVID-19 2021-07-16 Completed Unive rsity of PFIZER VACCINE 00:00:00 [facility] SARS-COV-2 COVID-19 2021-07-16 Completed Unive rsity of PFIZER VACCINE 00:00:00 [facility] SARS-COV-2 COVID-19 2021-07-16 Completed Unive rsity of PFIZER VACCINE 00:00:00 [facility] SARS-COV-2 COVID-19 2021-07-16 Completed Unive rsity of PFIZER VACCINE 00:00:00 [facility] SARS-COV-2 COVID-19 2021-07-16 Completed Unive rsity of PFIZER VACCINE 00:00:00 [facility] SARS-COV-2 COVID-19 2021-07-16 Completed Unive rsity of PFIZER VACCINE 00:00:00 [facility] SARS-COV-2 COVID-19 2021-07-16 Completed Unive rsity of PFIZER VACCINE 00:00:00 [facility] SARS-COV-2 COVID-19 2021-07-16 Completed Unive rsity of PFIZER VACCINE 00:00:00 [facility] SARS-COV-2 COVID-19 2021-07-16 Completed Unive rsity of PFIZER VACCINE 00:00:00 [facility] SARS-COV-2 COVID-19 2021-07-16 Completed Unive rsity of PFIZER VACCINE 00:00:00 [facility] SARS-COV-2 COVID-19 2021-07-16 Completed Unive rsity of PFIZER VACCINE 00:00:00 [facility] SARS-COV-2 COVID-19 2021-07-16 Completed Unive rsity of PFIZER VACCINE 00:00:00 [facility] SARS-COV-2 COVID-19 2021-07-16 Completed Unive rsity of PFIZER VACCINE 00:00:00 [facility] SARS-COV-2 COVID-19 2021-07-16 Completed Unive rsity of PFIZER VACCINE 00:00:00 [facility] SARS-COV-2 COVID-19 2021-07-16 Completed Unive rsity of PFIZER VACCINE 00:00:00 [facility] Vital Signs Vital Name Observation Time Observation Value Comments Source Systolic blood 2023-02-28 15:44:00 127 mm[Hg] Univer sity of pressure [facility] Diastolic blood 2023-02-28 15:44:00 87 mm[Hg] Unive rsity of pressure [facility] Heart rate 2023-02-28 15:44:00 83 /min Universi ty of [facility] Body temperature 2023-02-28 15:44:00 36.83 [facility] Univ ersity of [facility] Respiratory rate 2023-02-28 15:44:00 17 /min Univ ersity of [facility] Body height 2023-02-28 15:44:00 161.3 cm Universi ty of [facility] Body weight 2023-02-28 15:44:00 85.73 kg [facility]i ty [facility] BMI 2023-02-28 15:44:00 32.95 kg/m2 [facility] Systolic blood 2023-01-19 14:20:00 132 mm[Hg] Univer sity of pressure [facility] Diastolic blood 2023-01-19 14:20:00 89 mm[Hg] Unive rsity of pressure [facility] Heart rate 2023-01-19 14:20:00 88 /min [facility] ty [facility] Body temperature 2023-01-19 14:20:00 36.67 [facility] Univ ersity of [facility] Respiratory rate 2023-01-19 14:20:00 16 /min Univ ersity of [facility] Body height 2023-01-19 14:20:00 161.3 cm Universi ty of [facility] Body weight 2023-01-19 14:20:00 84.46 kg Universi ty of [facility] BMI 2023-01-19 14:20:00 32.47 kg/m2 Universi ty of [facility] Oxygen saturation in 2023-01-19 14:20:00 98 /min [facility] Arterial blood by [facility] Pulse oximetry Branch Systolic blood 2022-12-08 16:01:00 134 mm[Hg] Univer sity of pressure [facility] Diastolic blood 2022-12-08 16:01:00 89 mm[Hg] Unive rsity of pressure [facility] Heart rate 2022-12-08 16:01:00 89 /min [facility] Body temperature 2022-12-08 16:01:00 36.67 [facility] Univ ersity of [facility] Respiratory rate 2022-12-08 16:01:00 18 /min Univ [facility] Body height 2022-12-08 16:01:00 161.3 cm [facility] Body weight 2022-12-08 16:01:00 83.008 kg [facility] BMI 2022-12-08 16:01:00 31.91 kg/m2 [facility] ty [facility] Systolic blood 2022-07-06 16:12:00 137 mm[Hg] Univer sity of pressure [facility] Diastolic blood 2022-07-06 16:12:00 90 mm[Hg] Unive rsity of pressure [facility] Heart rate 2022-07-06 16:12:00 96 /min Universi ty [facility] Body temperature 2022-07-06 16:12:00 37.06 [facility] Univ ers[facility] Respiratory rate 2022-07-06 16:12:00 18 /min Univ ersity of [facility] Body height 2022-07-06 16:12:00 161.3 cm [facility] Body weight 2022-07-06 16:12:00 81.466 kg [facility] BMI 2022-07-06 16:12:00 31.32 kg/m2 [facility] Systolic blood 2022-06-07 21:04:00 130 mm[Hg] Univer sity of [facility] Diastolic blood 2022-06-07 21:04:00 87 mm[Hg] Unive rsity of [facility] Heart rate 2022-06-07 21:02:00 75 /min [facility] Body temperature 2022-06-07 21:02:00 36.78 [facility] Respiratory rate 2022-06-07 21:02:00 18 /min Univ ersity of [facility] Body height 2022-06-07 21:02:00 161.3 cm [facility] Body weight 2022-06-07 21:02:00 85.276 kg [facility] BMI 2022-06-07 21:02:00 32.78 kg/m2 [facility] Procedures Procedure Date / Time Performing Clinician Source Performed POCT URINALYSIS W/O 2023-02-28 00:00:00 Carolyn Stevens [facility] ASSIGNMENT OF BENEFITS 2023-01-22 15:26:52 Doctor Unassigned, No [facility] URINE CULTURE 2023-01-19 14:30:00 Carolyn Stevens [facility] POCT URINALYSIS W/O 2023-01-19 00:00:00 Carolyn Stevens [facility] US FIRST 2022-12-20 17:48:00 [facility] [place] WEEKS WITH TRANSVAGINAL CBC WITH DIFF 2022-12-11 17:05:00 Carolyn Stevens [facility] ASSIGNMENT OF BENEFITS 2022-12-11 16:06:02 Doctor Unassigned, No [facility] FLU VACC ([phone]), 6 2022-12-08 16:15:24 Carolyn Stevens [facility] MO-62 YRS, .5ML, IM, Medical [facility] QUAD (FLUCELVAX) POCT TEST 2022-12-08 00:00:00 Carolyn Stevens [facility] POCT URINALYSIS W/O 2022-12-08 00:00:00 Carolyn Stevens [facility] Encounters Start End Encounter Admission Attending Care Care Encounter Source Date/Time Date/Time Type Type Clinicians Facility Department ID 2023-04-07 2023-04-07 Outpatient R CAROLYN STEVENS [facility] B [id number] Univers 10:00:00 10:00:00 CAROLYN STEVENS [facility] 2023-03-29 2023-03-29 Outpatient R CAROLYN STEVENS [facility] B [id number] Univers 09:30:00 09:30:00 CAROLYN STEVENS ity [facility] 2023-03-24 2023-03-24 Outpatient P [facility] [id number] Univers 08:00:00 08:00:00 [facility] 2023-02-28 2023-02-28 Outpatient R CAROLYN STEVENS [facility] B [id number] Univers 11:00:00 11:27:15 ANTONIOTAMELA AGUILARZANE downeycintia [facility] 2023-02-28 2023-02-28 Routine [facility] 1.2.840.114 [id number] Univers 11:00:00 11:27:15 Carolyn RAMIREZ 350.1.13.10 i ty [place] [id number] [address] 2023-02-16 2023-02-16 Out[facility] [id number] Univers 10:00:00 10:00:00 ANTONIOTAMELA AGUILARZANE [facility] 2023-02-16 2023-02-16 Telephone [facility] 1.2.840.11 4 [id number] Univers 00:00:00 00:00:00 Carolyn RAMIREZ 350.1.13.10 it y [place] [facility] [place] [facility] [id number] [address] 2023-02-16 2023-02-16 Telephone [facility] 1.2.840.11 4 [id number] Univers 00:00:00 00:00:00 Carolyn RAMIREZ 350.1.13.10 it [place] [id number] [address] 2023-02-07 2023-02-07 Telephone [facility] 1.2.840.11 4 [id number] Univers 00:00:00 00:00:00 Carolyn RAMIREZ 350.1.13.10 it [place] [id number] [address] 2023-01-312023-01-31 Telephone Emanuel [facility] 1.2.840.114 [id number] Univers 00:00:00 00:00:00 Deborah RAMIREZ 350.1.13.10 [place] [facility] [id number] [address] 2023-01-28 2023-01-28 [facility] 1.2.840.114 [id number] Univers 00:00:00 00:00:00 Carolyn JAMES 350.1.13.10 it [place] [id number] [address] 2023-01-26 2023-01-26 Telephone [facility] 1.2.840.11 4 [id number] Univers 00:00:00 00:00:00 Carolyn RAMIREZ 350.1.13.10 [place] [facility] [id number] [address] 2023-01-25 2023-01-25 Outpatient R CAROLYN STEVENS [facility] B [id number] Univers 09:15:00 10:24:30 CAROLYN STEVENS [facility] 2023-01-25 2023-01-25 Nutrition Professor 2, Adc Lab [facility] 1.2.840.114 [id number] Univers 09:15:00 10:24:30 Visit Carolyn Stevens 350.1.13. 10 ity [facility] [place] [id number] De dical REPLACED BY [facility] [address] [facility] 2023-01-24 2023-01-24 Telephone [facility] 1.2.840.11 4 [id number] Univers 00:00:00 00:00:00 Carolyn RAMIREZ 350.1.13.10 [place] [facility] [id number] [address] 2023-01-22 2023-01-22 Outpatient R CAROLYN STEVENS [facility] B [id number] Univers 10:45:00 10:45:00 ANTONIOCAROLYN AGUILAR [facility] 2023-01-22 2023-01-22 Orders Doctor TERI 1.2.840.114 [id number] Univers 00:00:00 00:00:00 Only Unassigned, MAGNUS 350.1.13.10 ity of [facility] 4.2.7.2.686 [place] [id number] [address] 2023-01-21 2023-01-21 Telephone JuliocamdenabbyGURPREET aguilar RICHLAND 1.2.840.11 4 [id number] Univers 00:00:00 00:00:00 Carolyn JAMES 350.1.13.10 it y of [facility]'S 4.2.7.2.686 [facility] s HEALTH [id number] [address] 2023-01-19 2023-01-19 Outpatient R RODNEYCAROLYN [facility] B [id number] Univers 09:30:00 10:23:44 RODNEYCAROLYNcintia [facility] 2023-01-19 2023-01-19 Routine [facility] 1.2.840.114 [id number] Univers 09:30:00 10:23:44 Carolyn RAMIREZ 350.1.13.10 i ty of Visit WOMEN'S 4.2.7.2.686 [facility] [id number] [address] 2023-01-18 2023-01-18 Outpatient R RODNEY CAROLYN [facility] B [id number] Univers 15:30:00 15:30:00 RODNEY CAROLYN helton [facility] 2023-01-05 2023-01-05 Outpatient R RODNEY CAROLYN [facility] B [id number] Univers 10:00:00 10:00:00 RODNEYCAROLYNcintia [facility] 2022-12-21 2022-12-21 Case Juliojonh [facility] 1.2.840.114 [id number] Univers 00:00:00 00:00:00 Management Carolyn RAMIREZ 350.1.13.10 ity of [facility] 4.2.7.2.686 [facility] [id number] [facility] CLINIC [address] 2022-12-20 2022-12-20 Outpatient R RODNEY CAROLYN [facility] B [id number] Univers 10:18:22 23:59:00 RODNEY TAMELAZANE danie [facility] 2022-12-20 2022-12-20 [facility] Juliocamdenjulieth [facility] 1.2.840.114 1 [id number] Univers 10:18:22 23:59:00 Encounter Carolyn ANJELICA 350.1.13.10 ity of [place] 4.2.7.2.686 [facility] [id number] [facility] [address] Branch 2022-12-16 2022-12-16 Outpatient R RODNEY CAROLYN [facility] [place] B [id number] Univers 00:00:00 00:00:00 CAROLYN STEVENS [facility] 2022-12-11 2022-12-11 Nutrition Professor Mirian, Deepa Lab Main [facility] 1.2.8 40.114 [id number] Univers 10:15:00 10:30:00 Visit Carolyn Stevens 350.1.13. 10 ity [facility] 4.2.7.2.686 [facility] [id number] [facility] [address] [facility] 2022-12-11 2022-12-11 Outpatient R RODNEY CAROLYN [facility] [place] B [id number] Univers 10:15:00 10:15:00 CAROLYN STEVENS [facility] 2022-12-11 2022-12-11 Orders Doctor TERI 1.2.840.114 [id number] Univers 00:00:00 00:00:00 Only Unassigned, MAGNUS 350.1.13.10 ity of [facility] 4.2.7.2.686 [place] [id number] [facility] [address] Branch 2022-12-08 2022-12-08 Outpatient R CAROLYN STEVENS [facility] [place] B [id number] Univers 10:00:00 10:26:11 TRITSCHLER[facility]22-[facility]-08 2022-12-08 Initial Rodney [facility] 1.2.840.114 [id number] Univers 10:00:00 10:26:11 Carolyn RAMIREZ 350.1.13.10 i ty [place] [id number] [address] 2022-07-06 2022-07-06 Outpatient R BRADEN SALMERON [facility] [id number] Univers 10:30:00 11:30:42 ity [facility] 2022-07-06 2022-07-06 Routine Braden Salmeron [facility] LUCIANO 1.2.840.114 [id number] Univers 10:30:00 11:30:42 JAMES 350.1.13.10 i ty [place] [id number] [address] 2022-06-22 2022-06-22 Outpatient R BRADEN SALMERON [facility] [id number] Univers 16:15:00 16:15:00 ity [facility] 2022-06-07 2022-06-07 Outpatient R BRADEN SALMERON [facility] [id number] Univers 16:15:00 16:27:50 ity [facility] 2022-06-07 2022-06-07 Routine Braden Salmeron [facility] [place] 1.2.840.114 [id number] Univers 16:15:00 16:27:50 JAMES 350.1.13.10 i ty [place] [id number] [address] 2022-06-07 2022-06-07 Outpatient R BRADEN SALMERON [facility] [id number] Univers 16:15:00 [facility]:27:[facility]22 2022-05-22 Nutrition Professor Mirian, Deepa Lab Main [facility] 1.2.8 40.114 [id number] Univers 10:45:00 11:00:00 Visit Braden Salmeron [facility]EL[facility].1.13.10 [facility] [place] [id number] De dical [address] 2022-05-22 2022-05-22 Outpatient R BRADEN SALMERON [facility] [id number] Univers 10:45:00 10:45:00 ity of [facility] 2022-05-20 2022-05-20 Outpatient R BRADEN SALMERON [facility] [id number] Univers 16:15:00 16:15:00 ity of [facility] 2022-05-06 2022-05-06 Outpatient R BRADEN SALMERON [facility] [id number] Univers 14:30:00 14:55:36 ity of [facility] 2022-05-06 2022-05-06 Routine Braden Salmeron [facility] 1.2.840.114 [id number] Univers 14:30:00 14:55:36 JAMES 350.1.13.10 i ty [place] [id number] [address] 2022-04-26 2022-04-26 Outpatient R BRADEN SALMERON [facility] [id number] Univers 16:00:00 16:00:00 ity of [facility] 2022-04-26 2022-04-26 Outpatient R BRADEN SALMERON [facility] [id number] Univers 13:00:00 13:00:00 ity of [facility] 2022-04-21 2022-04-21 Nurse Nurse, Lkj [facility] 1.2.840.114 [id number] Univers 10:00:00 10:00:00 Visit Braden Salmeron 350.1.13.10 [place] [id number] [address] 2022-04-21 2022-04-21 Outpatient R BRADEN SALMERON [facility] [id number] Univers 10:00:00 09:53:48 ity of [facility] 2022-04-19 2022-04-19 Patient CaseJaclyn [facility] 1.2.840.114 [id number] Univers 00:00:00 00:00:00 Secure Msinderjit DEJESUS 350.1.13.10 ity [place] [id number] De dical NAL [address] [facility] 2022-04-13 2022-04-13 Patient Braden Salmeron 1.2.840.114 [id number] Univers 00:00:00 00:00:00 Secure Msinderjit RAMIREZ 350.1.13.10 [place] [place] [id number] [address] 2022-04-02 2022-04-02 Nutrition Professor Mirian, Adc Lab Main [facility] 1.2.8 40.114 [id number] Univers 11:45:00 12:00:00 Visit Braden Salmeron 350.1.13.10 ity [place] [id number] De dic[address] 2022-04-02 2022-04-02 Outpatient R BRADEN SALMERON [facility] [id number] Univers 11:45:00 11:45:00 ity of [facility] 2022-04-01 2022-04-01 Outpatient R BRADEN SALMERON [facility] [id number] Univers 08:30:00 09:43:27 ity of [facility] 2022-04-01 2022-04-01 Initial Braden Salmeron [facility] 1.2.840.114 [id number] Univers 08:30:00 09:43:27 JAMES 350.1.13.10 i ty [place] [id number] [address] 2022-04-01 2022-04-01 Orders Doctor TERI 1.2.840.114 [id number] Univers 00:00:00 00:00:00 Only Unassigned, MAGNUS 350.1.13.10 ity of [place] 4.2.7.2.686 [place] [id number] [address] Results Test Description Test Time Test Comments Results Result Comments Source POCT URINALYSIS W/O SPECIFIC GRAVITY 2023-02-28 15:41:00 Test Item Value Reference Range Interpretation Comme nts POCT PH U (test code = 3254) n/a 5-8 POCT U LEUK EST (test code = 3263) n/a Negative - Negative POCT U NIT (test code = 3262) n/a Negative - Negative POCT U PROT (test code = 3259) negative Negative - Negative POCT U GLU (test code = 3256) negative Negative - Negative POCT U KETONE (test code = 3258) n/a Negative - Negative POCT U BLD (test code = 3257) n/a Negative - Negative [facility] W/O SPECIFIC [id number] 14:25:00 Test Item Value Reference Range Interpretation Comments POCT PH U (test code = 3254) 6 mg/dl 5-8 POCT U LEUK EST (test code = POSTIVE Negative - Negative 3263) POCT U NIT (test code = 3262) NEGATIVE Negative - Negative POCT U PROT (test code = 3259) TRACE Negative - Negative POCT U GLU (test code = 3256) NEGATIVE Negative - Negative POCT U KETONE (test code = 3258) POSITIVE Negative - Negative POCT U BLD (test code = 3257) NEGATIVE Negative - Negative [facility] [id number] 17:15:24 Test Item Value Reference Range Interpretation Comments WBC (test code = 8.26 See_Comment [Automated 4505-2) message] The sy stem which generated this result transmitted reference range : 4.30 - 11.10 10*3/?L. The reference range was not used to interpret this result as normal/abnormal . RBC (test code = 4.57 See_Comment [Automated 525-8) message] The sy stem which generated this result transmitted reference range : 3.93 - 5.25 10*6/?L. The reference range was not used to interpret this result as normal/abnormal . HGB (test code = 13.5 g/dL 11.6-15.0 718-7) HCT (test code = 41.1 % 35.7-45.2 4544-3) MCV (test code = 89.9 fL 80.6-95.5 787-2) MCH (test code = 29.5 pg 25.9-32.8 785-6) MCHC (test code = 32.8 g/dL 31.6-35.1 786-4) RDW-SD (test code = 42.5 fL 39.0-49.9 74292-2) RDW-CV (test code = 12.9 % 12.0-15.5 788-0) PLT (test code = 328 See_Comment [Automated 777-3) message] The sy stem which generated this result transmitted reference range : 166 - 358 10*3/ ?L. The reference r soni was not used to interpret this result as normal/abnormal . MPV (test code = 8.0 fL 9.5-12.9 L 06914-0) NRBC/100 WBC (test 0.0 See_Comment [Automat ed code = 3016010221) message] The system which generated this result transmitted reference range : 0.0 - 10.0 /100 WBCs. The refer ence range was not u sed to interpret th is result as normal/abnormal . NRBC x10^3 (test code See_Comment [Auto mated = [id number]) message] The s ystem which generated this result transmitted reference range : 10*3/?L. The reference range was not used to interpret this result as normal/abnormal . GRAN MAT (NEUT) % 63.5 % (test code = 770-8) IMM GRAN % (test code 0.20 % = 4810743207) LYMPH % (test code = 28.1 % 736-9) MONO % (test code = 5.9 % 5905-5) EOS % (test code = 1.8 % 713-8) BASO % (test code = 0.5 % 706-2) GRAN MAT x10^3(ANC) 5.24 10*3/uL 1.88-7.09 (test code = 7929582186) IMM GRAN x10^3 (test 0.00-0.06 code = 4437144341) LYMPH x10^3 (test code 2.32 10*3/uL 1.32-3.29 = 731-0) MONO x10^3 (test code 0.49 10*3/uL 0.33-0.92 = 742-7) EOS x10^3 (test code = 0.15 10*3/uL 0.03-0.39 711-2) BASO x10^3 (test code 0.04 10*3/uL 0.01-0.07 = 704-7) Lab Interpretation Abnormal (test code = 88978-7) [facility]/O SPECIFIC [id number] 16:10:00 Test Item Value Reference Range Interpretation Comments POCT PH U (test code = 3254) N/A 5-8 POCT U LEUK EST (test code = N/A Negative - Negative 3263) POCT U NIT (test code = 3262) N/A Negative - Negative POCT U PROT (test code = 3259) Negative Negative - Negative POCT U GLU (test code = 3256) Negative Negative - Negative POCT U KETONE (test code = 3258) N/A Negative - Negative POCT U BLD (test code = 3257) N/A Negative - Negative [facility] [id number] 16:09:00 Test Item Value Reference Range Interpretation Comments POCT PREG (test code = 1605) Positive On board controls acceptable with C Yes Line (test code = 3574) POCT PREG LOT # (test code = 3575) POCT PREG TEST DATE (test code = 3576) [facility]
[2023-03-27 14:54] LABS: SARS-CoV-2 Antigen Rapid Res Negative (Negative)
--- NOTE | 2023-03-27 15:08 | ER ---
Nurse's Notes [facility] Name: Alyx Noriega Age: 28 yrs Sex: Female : 1995 Arrival Date: 03/27/2023 Time: 13:00 Bed DIS5 Private MD: Diagnosis: Cough Presentation: 03/27 14:10 Chief complaint: Patient states: Cough for about a month, not getting better. Making nj1 her chest hurt. 20 wks , advised to come to ED by OBGYN. Has tried Robitussin with no relief. Coronavirus screen: Vaccine status: Patient reports receiving the 2nd dose of the covid vaccine. Ebola Screen: Patient denies travel to an Ebola-affected area in the 21 days before illness onset. Initial Sepsis Screen: Does the patient meet any 2 criteria? HR > 90 bpm. No. Patient's initial sepsis screen is negative. Does the patient have a suspected source of infection? No. Patient's initial sepsis screen is negative. Risk Assessment: Do you want to hurt yourself or someone else? Patient reports no desire to harm self or others. Onset of symptoms was January 2023. 14:10 Method Of Arrival: Ambulatory [facility] 14:10 Acuity: SHAWN 3 nj1 Historical: - Allergies: 14:15 No Known Allergies; nj1 - PMHx: 14:15 HTN during ; nj1 - PSHx: 14:15 None; nj1 - Immunization history:: Client reports receiving the 2nd dose of the Covid vaccine. - Social history:: Smoking status: Patient/guardian denies using tobacco, Stopped _ months ago 5. Screenin:36 [facility] ED Fall Risk Assessment (Adult) Score/Fall Risk Level 0 - 2 = Low Risk hb Oriented to surroundings, Maintained a safe environment. Abuse screen: Denies threats or abuse. Denies injuries from another. Nutritional screening: No deficits noted. Tuberculosis screening: No symptoms or risk factors identified. Assessment: 14:36 General: Appears in no apparent distress. Behavior is calm, cooperative. Pain: Pain hb currently is 5 out of 10 on a pain scale. Neuro: Level of Consciousness is awake, alert, obeys commands, Oriented to person, place, time, situation. Cardiovascular: Patient's skin is warm and dry. Respiratory: Respiratory effort is even, unlabored, Respiratory pattern is regular, symmetrical. 15:16 Reassessment: Patient appears in no apparent distress at this time. Patient and/or hb family updated on plan of care and expected duration. Pain level reassessed. Patient is alert, oriented x 3, equal unlabored respirations, skin warm/dry/pink. Vital Signs: 14:10 BP 115 / 82; Pulse 108; Resp 18; Temp 98.6; Pulse Ox 100% ; Weight 58.97 kg; Height 5 nj1 ft. 3 in. ; Pain 5/10; 14:10 Body Mass Index 23.03 (58.97 kg, 160.02 cm) nj1 14:10 Pain Scale: Adult ca1 ED Course: 13:03 Patient arrived in ED. am2 13:35 Johan Delacruz PA is PHCP. cp 13:35 Johan Esquivel MD is Attending Physician. cp 14:14 Triage completed. nj1 14:15 Arm band placed on left wrist. nj1 14:35 SARS RAPID Sent. hb 14:35 Influenza Screen (a \T\ B) Sent. hb 14:36 Patient has correct armband on for positive identification. hb 15:16 No provider procedures requiring assistance completed. Patient did not have IV access hb during this emergency room visit. Administered Medications: No medications were administered Medication: 14:37 VIS not applicable for this client. hb Outcome: 15:07 Discharge ordered by . cp 15:16 Discharged to home ambulatory. hb 15:16 Condition: stable 15:16 Discharge instructions given to patient, Instructed on discharge instructions, follow up and referral plans. medication usage, Demonstrated understanding of instructions, follow-up care, medications, Prescriptions given X 2. 15:17 Patient left the ED. hb Signatures: Johan Delacruz PA PA Radha Izquierdo, RN RN hb Nicolette Jain am2 Vania Cardoza RN RN nj1 Corrections: (The following items were deleted from the chart) 14:14 14:10 Pulse 108bpm; Resp 18bpm; Pulse Ox 100%; Temp 98.6F; 58.97 kg; Height 5 ft. 3 nj1 in.; BMI: 23.0; Pain 5/10, Adult; nj1 14:16 14:15 Social history: Smoking status: Patient denies any tobacco usage or history of. nj1 nj1
--- NOTE | 2023-03-27 15:08 | EDPHYS ---
Physician Documentation [facility] Name: Alyx Noriega Age: 28 yrs Sex: Female : 1995 Arrival Date: 03/27/2023 Time: 13:00 Bed DIS5 Private MD: ED Physician Johan Esquivel HPI: 03/27 14:25 This 28 yrs old Female presents to ER via Ambulatory with complaints of Cough, Chest cp Congestion, Chest Pain. 14:25 The patient or guardian reports cough, that is intermittent. Onset: The cp symptoms/episode began/occurred 1 month(s) ago. Severity of symptoms: in the emergency department the symptoms are unchanged, despite home interventions. Associated signs and symptoms: Pertinent positives: chest pain, with cough, Pertinent negatives: diarrhea, fever, sore throat, vomiting. Historical: - Allergies: 14:15 No Known Allergies; nj1 - PMHx: 14:15 HTN during ; nj1 - PSHx: 14:15 None; nj1 - Immunization history:: Client reports receiving the 2nd dose of the Covid vaccine. - Social history:: Smoking status: Patient/guardian denies using tobacco, Stopped _ months ago 5. ROS: 14:30 Constitutional: Negative for body aches, chills, fever, poor PO intake. cp 14:30 Eyes: Negative for injury, pain, redness, and discharge. cp 14:30 ENT: Negative for drainage from ear(s), ear pain, sore throat, difficulty swallowing, difficulty handling secretions. 14:30 Cardiovascular: Positive for chest pain, with cough, Negative for edema, palpitations. 14:30 Respiratory: Positive for cough, with no reported sputum, shortness of breath, Negative for wheezing. 14:30 Abdomen/GI: Negative for abdominal pain, vomiting, diarrhea, constipation, anorexia. 14:30 Back: Negative for pain at rest, pain with movement. 14:30 Neuro: Negative for altered mental status, dizziness, headache, syncope. 14:30 All other systems are negative. Exam: 14:33 Constitutional: The patient appears in no acute distress, alert, awake, cp non-diaphoretic, non-toxic, well developed, well nourished. 14:33 Head/Face: Normocephalic, atraumatic. cp 14:33 Eyes: Periorbital structures: appear normal, Conjunctiva: normal, no exudate, no injection, Sclera: no appreciated abnormality, Lids and lashes: appear normal, bilaterally. 14:33 ENT: External ear(s): are unremarkable, Ear canal(s): are normal, clear, TM's: dullness, bilaterally, Nose: is normal, Mouth: Lips: moist, Oral mucosa: pink and intact, moist, Posterior pharynx: Airway: no evidence of obstruction, patent, Tonsils: no enlargement, no erythema, no exudate. 14:33 Chest/axilla: Inspection: normal. 14:33 Cardiovascular: Rate: tachycardic, Rhythm: regular, Edema: is not appreciated, JVD: is not appreciated. 14:33 Respiratory: the patient does not display signs of respiratory distress, Respirations: normal, no use of accessory muscles, no retractions, labored breathing, is not present, Breath sounds: decreased breath sounds, are not appreciated, stridor, is not appreciated, wheezing: is not appreciated. 14:33 Abdomen/GI: Inspection: gravid appearance, is noted. Vital Signs: 14:10 BP 115 / 82; Pulse 108; Resp 18; Temp 98.6; Pulse Ox 100% ; Weight 58.97 kg; Height 5 nj1 ft. 3 in. ; Pain 5/10; 14:10 Body Mass Index 23.03 (58.97 kg, 160.02 cm) nj1 14:10 Pain Scale: Adult nj1 MDM: 14:19 Patient medically screened. [facility] 14:30 Differential Diagnosis: Bronchitis Influenza Upper Respiratory Infection Sinusitis cp Pharyngitis Otitis Media Viral Syndrome Pneumonia. 15:06 Data reviewed: vital signs, nurses notes, lab test result(s). 15:06 Counseling: I had a detailed discussion with the patient and/or guardian regarding: the cp historical points, exam findings, and any diagnostic results supporting the discharge/admit diagnosis, lab results, the need for outpatient follow up, an OB/Gyne specialist, to return to the emergency department if symptoms worsen or persist or if there are any questions or concerns that arise at home. 03/27 14:20 Order name: Influenza Screen (a \T\ B) 03/27 14:32 Order name: SARS RAPID; Complete Time: 14:56 hb 03/27 14:56 Interpretation: Reviewed. cp Administered Medications: No medications were administered Disposition Summary: 03/27/23 15:07 Discharge Ordered Location: Home cp Problem: new cp Symptoms: are unchanged cp Condition: Stable cp Diagnosis - Cough cp Followup: cp - With: Private Physician - When: 2 - 3 days - Reason: Worsening of condition Discharge Instructions: - Discharge Summary Sheet cp - Cough, Adult cp Forms: - Medication Reconciliation Form cp - Thank You Letter cp - Antibiotic Education cp - Prescription Opioid Use cp Prescriptions: - albuterol sulfate 90 mcg/actuation Inhalation HFA Aerosol Inhaler - inhale 1 puff by INHALATION route every 6 hours administer via ventilator; 1 cp unit; Refills: 0, Product Selection Permitted - Zithromax Z-Zan 250 mg Oral Tablet - take 1 tablet by ORAL route as directed for 5 days Day 1 - take two (2) tablets cp one time. Day 2, 3, 4 , 5 take one (1) tablet once daily.; 6 tablet; Refills: 0, Product Selection Permitted Signatures: Dispatcher [employer] EDMN Johan Esquivel MD MD cha Page, Corey, PA PA cp Vania Cardoza, RN RN nj1 Corrections: (The following items were deleted from the chart) 14:16 14:15 Social history: Smoking status: Patient denies any tobacco usage or history of. nj1 nj1
[2023-03-27 15:25] VITALS: BP 115/82; TEMP 98.6; O2SAT 100
== END 2023-03-27 15:17 | disposition home or self-care (01) ==
LOC: ER 13:00
DX: O99.512 Diseases of the respiratory system complicating pregnancy, second trimester (principal); R05.9 Cough, unspecified; O16.2 Unspecified maternal hypertension, second trimester; Z20.822 Contact with and (suspected) exposure to COVID-19
CPT/HCPCS: 36415; 87804; 87811; 99283

== ENCOUNTER 2024-06-10 11:50 | Emergency (ER) | payer OTHER ==
--- OUTSIDE RECORDS SUMMARY | 2024-06-10 11:58 | XMS REPORT | Continuity of Care Document ---
Author Name Unknown Address [address] [facility] [address] [place] [address] [facility] thconnect Address [address] [facility] [address] [place] [address] Care Team Providers Care Stave Jointer Name Role Phone Jayashree Rodriguez MD Primary Care Physician [phone] JAYASHREE RODRIGUEZ Attending Clinician UnavailJAYASHREE Leggett Attending Clinician UnavailVAISHALI Mtz Attending Clinician Unavailable VAISHALI CURTIS Attending Clinician Unavailable Doctor Unassigned, [place] Attending Clinician U MILE Sands Attending Clinician MILE Ramirez Attending Clinician Arlyn moran Pcp, Patient Does Not Have A Attending Clinician TAYA STEVENS Attending Clinician UnavailTAYA Ta Attending Clinician UnavailIDALIA Lee Attending Clinician Unavailable Idalia Grullon MD Attending Clinician [phone] [facility] Attending Clinician Unavailable Ultrasound, [facility] Attending Clinician UnavailFariba Guzman MD Attending Clinician [phone] FARIBA CALHOUN Attending Clinician Unavailable FARIBA CALHOUN Attending Clinician Unavailable Doctor Unassigned, [place] Attending Clinician [facility] Attending Clinician Unavailable MINERVA GONSALEZ Attending Clinician Unavailable MINEVRA GONSALEZ Attending Clinician Unavailable Minerva Gonsalez MD Attending Clinician [phone] Lab, Doc - Db Attending Clinician Unavailable Fariba Castellanos RN Attending Clinician Unavailantwon Vela, [facility] Attending Clinician UnavailBraden Velasquez MD Attending Clinician Unavailable BRADEN DHILLON Attending Clinician Unavailable Nurse, [facility] Attending Clinician Unavailable Case RN, Jaclyn Levin Attending Clinician Unavailable VAISHALI CURTIS Admitting Clinician Unavailable IDALIA GRULLON Admitting Clinician Unavailable Idalia Grullon MD Admitting Clinician [phone] Vaishali Curtis MD Admitting Clinician [phone] TAYA STEVENS Admitting Clinician Unavaila ble Payers Payer Name Policy Type Policy Number Effective Date Expirati on Date Source [facility] [id number] 2022 00:00:00 Problems Condition Name Condition Details Condition Category Status Onset Date Resolution Date Last Treatment Date Treating Clinician Comments Source Obesity (BMI 30-39.9) Obesity (BMI 30-39.9) Disease Active 03-23 00:00: 00 [facility] Mild pre-eclamp mireille in third trimester Mild pre-eclamp mireille in third trimester Disease Active 9- 00:00: 00 [facility] Gastroesop hageal reflux disease without esophagiti s Gastroesop hageal reflux disease without esophagiti s Disease Active 02-28 00:00: 00 [facility] with inconclusi ve viability, single or unspecifie d fetus with inconclusi ve viability, single or unspecifie d fetus Disease Active 6-03 00:00: 00 [facility] Encounter for routine follow-up Encounter for routine follow-up Disease Resolve d 2022-10 0-11 00:00: 00 2024-03-23 00:00:00 2024-03-23 13:22:44 [facility] Positive depression screening Positive depression screening Disease Resolve d 2022-10 0-11 00:00: 00 2024-03-23 00:00:00 2024-03-23 13:23:11 [facility] Depo-Prove ra contracept nell status Depo-Prove ra contracept nell status Disease Resolve d 2022-10 0-11 00:00: 00 2024-03-23 00:00:00 2024-03-23 13:22:49 [facility] Depressed mood with onset Depressed mood with onset Disease Resolve d 2022-0 9-20 00:00: 00 2024-03-23 00:00:00 2024-03-23 13:22:45 [facility] Visit for wound check Visit for wound check Disease Resolve d 3-0 9-20 00:00: 00 2024-03-23 00:00:00 2024-03-23 13:23:18 [facility] Liveborn , of jara , born in hospital by delivery Liveborn infant, of jara , born in hospital by delivery Disease Resolve d 2022-0 9-12 00:00: 00 2024-03-23 00:00:00 2024-03-23 13:22:35 [facility] Non-reassu ring heart tones complicati ng , antepartum Non-reassu ring heart tones complicati ng , antepartum Disease Resolve d 2022-0 9-11 00:00: 00 2024-03-23 00:00:00 2024-03-23 13:22:38 [facility] Poor growth affecting management of mother in third trimester Poor growth affecting management of mother in third trimester Disease Resolve d 2022-0 9-11 00:00: 00 2024-03-23 00:00:00 2024-03-23 13:23:08 [facility] 36 weeks gestation of 36 weeks gestation of Disease Resolve d 2022-0 9-11 00:00: 00 2024-03-23 00:00:00 2024-03-23 13:22:51 [facility] BV (bacterial vaginosis) BV (bacterial vaginosis) Disease Resolve d 2022-0 9-11 00:00: 00 2024-03-23 00:00:00 2024-03-23 13:23:00 [facility] Severe preeclamps ia, third trimester Severe preeclamps ia, third trimester Disease Resolve d 3-0 9-11 00:00: 00 2024-03-23 00:00:00 2024-03-23 13:23:15 [facility] BMI 32.0-32.9, adult BMI 32.0-32.9, adult Disease Resolve d 2022-0 8-25 00:00: 00 2024-03-23 00:00:00 2024-03-23 13:22:54 [facility] Insufficie nt care, third trimester Insufficie nt care, third trimester Disease Resolve d 0 8-01 00:00: 00 2024-03-23 00:00:00 2024-03-23 13:22:37 [facility] Uterine size-date discrepanc y in third trimester Uterine size-date discrepanc y in third trimester Disease Resolve d 0 8-01 00:00: 00 2024-03-23 00:00:00 2024-03-23 13:22:55 [facility] Preeclamps ia in period Preeclamps ia in period Disease Resolve d 0 8-01 00:00: 00 2024-03-23 00:00:00 2024-03-23 13:23:11 [facility] Group B streptococ enrique bacteriuri a Group B streptococ enrique bacteriuri a Disease Resolve d 0 8-01 00:00: 00 2024-03-23 00:00:00 2024-03-23 13:22:43 [facility] headache in third trimester headache in third trimester Disease Resolve d 0 8-01 00:00: 00 2024-03-23 00:00:00 2024-03-23 13:23:14 [facility] uterine contractio ns, antepartum , third trimester uterine contractio ns, antepartum , third trimester Disease Resolve d 0 8-01 00:00: 00 2024-03-23 00:00:00 2024-03-23 13:22:56 [facility] Inability to access health care due to transporta tion insecurity Inability to access health care due to transporta tion insecurity Disease Resolve d 2022-0 6-08 00:00: 00 2024-03-23 00:00:00 2024-03-23 13:22:39 [facility] Abdominal pain, epigastric Abdominal pain, epigastric Disease Resolve d 6-08 00:00: 00 2024-03-23 00:00:00 2024-03-23 13:22:50 [facility] Missed menses Missed menses Disease Resolve d 2-08 00:00: 00 2024-03-23 00:00:00 2024-03-23 13:23:01 [facility] examinatio n or test, positive result examinatio n or test, positive result Disease Resolve d 2-08 00:00: 00 2024-03-23 00:00:00 2024-03-23 13:23:12 [facility] History of depression , currently History of depression , currently Disease Resolve d 2-08 00:00: 00 2024-03-23 00:00:00 2024-03-23 13:22:41 [facility] History of gestationa l hypertensi on History of gestationa l hypertensi on Disease Resolve d 6-03 00:00: 00 2024-03-23 00:00:00 2024-03-23 13:22:42 [facility] Obesity in , antepartum Obesity in , antepartum Disease Resolve d 6-03 00:00: 00 2024-03-23 00:00:00 2024-03-23 13:23:07 [facility] Supervisio n of other high risk , antepartum Supervisio n of other high risk , antepartum Disease Resolve d 6-03 00:00: 00 2024-03-23 00:00:00 2024-03-23 13:23:16 [facility] Allergies, Adverse Reactions, Alerts Allergy Name Allergy Type Status Severity Reaction(s) Onset Date Inactive Date Treating Clinician Comments Source NO KNOWN ALLERGIE S Drug Class Active [facility] Social History Social Habit Start Date Stop Date Quantity Comments Source ASSERTION 2022-11-12 00:00:00 [facility] Gender identity [facility] Alcoholic beverage intake 2024-04-03 00:00:00 2024-04-03 00:00:00 Ex-drinker (finding) [facility] History of Social function 2024-04-03 00:00:00 2024-04-03 00:00:00 [facility] Alcohol intake 2023-08-10 00:00:00 2023-08-10 00:00:00 Ex-drinker (finding) [facility] Exposure to SARS-CoV-2 (event) 2023-02-18 00:00:00 2023-02-28 10:37:00 Not sure [facility] Tobacco use and exposure 2022-06-07 00:00:00 2022-06-07 00:00:00 Smokeless tobacco non-user [facility] Sex assigned at 1995 00:00:00 1995 00:00:00 [facility] Smoking Status Start Date Stop Date Source Never smoked tobacco [facility] Medications Ordered Medication Name Filled Medication Name Start Date Stop Date Current Medication? Ordering Clinician Indication Dosage Frequency Signature (SIG) Comments Components Source lisinopriL 5 mg tablet 04-03 00:00: 00 Yes [id number] 5mg Take 1 tablet by mouth in the morning. [facility] SERTraline 25 mg tablet 04-03 00:00: 00 Yes [id number] 25mg Take 1 tablet by mouth in the morning. [facility] medroxyPROG ESTERone (DEPO-PROVE RA) syringe 150 mg 03-23 19:00: 00 03-23 18:17 :00 No [id number] 150mg 150 mg, Intramuscu lar, ONCE, 1 dose, On Tue03/23/24 at 1400, Routine [facility] hydroCHLORO thiazide 12.5 mg tablet 07-29 00:00: 00 08-29 04:59 :00 No [id number] 12.5mg Take 1 tablet by mouth in the morning for 30 days. [facility] hydroCHLORO thiazide 12.5 mg tablet 07-20 00:00: 00 Yes [id number] 12.5mg Take 1 tablet by mouth in the morning. [facility] DULoxetine 20 mg capsule 07-20 00:00: 00 03-23 00:00 :00 No [id number] 20mg Take 1 capsule by mouth in the morning. [facility] hydroCHLORO thiazide (ESIDRIX) tablet 12.5 mg 07-16 23:00: 00 Yes 12.5mg 12.5 mg, Oral, DAILY, First dose on 07/16/23 at 1800, Until Discontinu ed, Routine [facility] hydroCHLORO thiazide 12.5 mg tablet 07-16 00:00: 00 Yes [id number] 12.5mg Take 1 tablet by mouth in the morning. [facility] docusate 100 mg capsule 07-16 00:00: 00 03-23 00:00 :00 No [id number] 200mg Take 2 capsules by mouth once daily as needed for Constipati on. [facility] ferrous sulfate 325 mg (65 mg iron) tablet 07-16 00:00: 00 03-23 00:00 :00 No [id number] 325mg Take 1 tablet by mouth in the morning and 1 tablet in the evening. [facility] ibuprofen 600 mg tablet 07-16 00:00: 00 03-23 00:00 :00 No [id number] 600mg Take 1 tablet by mouth every 6 (six) hours as needed (Pain). Take with food or milk. [facility] gabapentin 300 mg capsule 07-16 00:00: 00 03-23 00:00 :00 No [id number] 300mg Take 1 capsule by mouth in the morning and 1 capsule at noon and 1 capsule in the evening. [facility] HYDROcodone -acetaminop hen 5-325 mg tablet 07-16 00:00: 00 07-24 04:59 :00 No [id number] 1{tbl} Take 1 tablet by mouth every 6 (six) hours as needed (Pain scale above 4) for up to 7 days. Do not exceed 3 grams of acetaminop hen in 24 hours. Indication s: acute pain [facility] iopamidol (ISOVUE 370-500 mL) injection 80 mL 07-15 01:00: 00 07-15 01:00 :00 No [id number] 80mL 80 mL, Intravenou s, ONCE, 1 dose, On Tue07/14/23 at 2000, Routine [facility] butalbital- acetaminoph en-caff (ESGIC) 50-325-40 mg tablet 1 tablet 07-14 21:00: 00 07-14 20:27 :00 No 1{tbl} 1 tablet, Oral, ONCE, 1 dose, On Tue07/14/23 at 1600, Routine [facility] magnesium sulfate in water for injection 20 gram/500 mL (4 %) IV infusion 07-14 17:30: 00 Yes 2g/h 2 g/hr (50 mL/hr), IV Infusion, CONTINUOUS , Starting on Tue07/14/23 at 1230, Until Discontinu ed, ZARI [facility] D5W-LR IV infusion 1,000 mL 07-14 17:00: 00 Yes 1000mL at 75 mL/hr, IV Infusion, CONTINUOUS , Starting on Tue07/14/23 at 1200, Until Discontinu ed, ZARI [facility] calcium gluconate 100 mg/mL (10%) injection 1,000 mg 07-14 16:50: 30 Yes 1000mg 1,000 mg, Slow IV Push, PRN - SEE INSTRUCTIO NS, Starting on Tue07/14/23 at 1150, Until Discontinu ed, Routine, magnesium toxicity [facility] magnesium sulfate 4 mEq/mL (50 %) injection 32.48 mEq 07-14 16:50: 30 Yes 4g 32.48 mEq (4 g), Slow IV Push, PRN - SEE INSTRUCTIO NS, Starting on Tue07/14/23 at 1150, Until Discontinu ed, Routine, For seizure activity (patient not on magnesium sulfate) [facility] magnesium sulfate 4 mEq/mL (50 %) injection 16.24 mEq 07-14 16:50: 30 Yes 2g 16.24 mEq (2 g), Slow IV Push, PRN - SEE INSTRUCTIO NS, 2 doses, Starting on Tue07/14/23 at 1150, Until Discontinu ed, Routine, For seizure activity (patient already on magnesium sulfate) [facility] medroxyPROG ESTERone (DEPO-PROVE RA) injection 150 mg 07-14 14:15: 00 Yes 150mg 150 mg, Intramuscu lar, [id number], First dose on Tue07/14/23 at 0915, Until Discontinu ed, Routine [facility] cyclobenzap rine (FLEXERIL) tablet 5 mg 07-14 13:30: 00 07-14 18:53 :27 No 5mg 5 mg, Oral, TID, First dose on Tue07/14/23 at 0830, Until Discontinu ed, [facility] 600 mg 07-14 05:00: 00 Yes 600mg 600 mg, Oral, Q6H ABX, First dose on Tue07/14/23 at 0000, Until Discontinu ed, Routine [facility] acetaminoph en (TYLENOL) tablet 650 mg 07-13 19:00: 00 Yes 650mg 650 mg, Oral, Q6H ABX, First dose on Tue07/13/23 at 1400, Until Discontinu ed, [facility] HYDROcodone -acetaminop hen (NORCO 5) 5-325 mg tablet 1 tablet 07-12 23:00: 00 Yes 1{tbl} 1 tablet, Oral, Q6HPRN, Starting on Tue07/12/23 at 1800, Until Discontinu ed, Routine, Pain (scale 7-10), Alternate with Ibuprofen [facility] lactated ringers IV infusion 500 mL 07-12 22:15: 00 Yes 500mL at 250 mL/hr, 500 mL, IV Infusion, CONTINUOUS , Starting on Tue07/12/23 at 1715, Until Discontinu ed, [facility] acetaminoph en ADULT (OFIRMEV) injection 1,000 mg 07-12 19:00: 00 07-12 21:49 :22 No 1000mg 1,000 mg, IV Infusion, at 400 mL/hr Administer over 15 Minutes, Q8H, 3 doses, First dose on Tue07/12/23 at 1400, Last dose on Tue07/13/23 at 0600, Routine
Indicatio n: Perioperat nell Patient [facility] ketorolac (TORADOL) injection 30 mg 07-12 13:30: 00 07-13 13:29 :00 No 30mg 30 mg, Slow IV Push, Q6H ABX, 4 doses, First dose on Tue07/12/23 at 0830, Last dose on Tue07/13/23 at 0230, Routine [facility] gabapentin (NEURONTIN) capsule 300 mg 07-12 13:00: 00 Yes 300mg 300 mg, Oral, TID, First dose on Tue07/12/23 at 0800, Until Discontinu ed, Routine [facility] sodium chloride 0.9 % irrigation solution 07-12 12:53: 00 Yes PRN, Starting on Tue07/12/23 at 0753, Until Discontinu ed, Intra-op [facility] lactated ringers IV infusion 1,000 mL 07-12 12:00: 00 07-12 17:19 :02 No 1000mL at 125 mL/hr, 1,000 mL, IV Infusion, ONCE, 1 dose, On Tue07/12/23 at 0700, Routine [facility] ondansetron (ZOFRAN (PF)) injection 4 mg 07-12 11:45: 00 07-12 12:21 :00 No 4mg 4 mg, Slow IV Push, ONCE, 1 dose, On Tue07/12/23 at 0645, Routine [facility] mupirocin (BACTROBAN OINT) 2 % skin ointment 07-12 11:43: 00 Yes Intra-op [facility] diphenhydrA MINE (BENADRYL) tablet 25 mg 2023-0 9-12 11:29: 42 07-13 23:13 :54 No 25mg 25 mg, Oral, Q4HPRN, Starting on Tue07/12/23 at 0629, Until 07/13/23 at 1813, Routine, Itching [facility] naloxone (NARCAN) injection 0.4 mg 07-12 11:29: 18 07-14 23:14 :19 No .4mg 0.4 mg, Slow IV Push, PRN - SEE INSTRUCTIO NS, Starting on Tue07/12/23 at 0629, Until Claudia 07/14/23 at 1814, Routine, Analgesia Recovery [facility] rho(D) immune globulin (RHOGAM) syringe 300 mcg 07-12 11:06: 17 Yes 300ug 300 mcg, Intramuscu lar, ONCE, For 1 dose, Conditiona l, Routine [facility] diphenhydrA MINE (BENADRYL) injection 25 mg 07-12 11:04: 41 Yes 25mg 25 mg, Slow IV Push, Q6HPRN, Starting on Tue07/12/23 at 0604, Until Discontinu ed, Routine, Itching [facility] diphenhydrA MINE (BENADRYL) tablet 25 mg 07-12 11:04: 41 Yes 25mg 25 mg, Oral, Q6HPRN, Starting on Tue07/12/23 at 0604, Until Discontinu ed, Routine, Sleep, Itching [facility] ondansetron (ZOFRAN (PF)) injection 4 mg 07-12 11:04: 41 Yes 4mg 4 mg, Slow IV Push, Q8HPRN, Starting on Tue07/12/23 at 0604, Until Discontinu ed, Routine, Nausea and Vomiting (N/V) [facility] bisacodyL (DULCOLAX) suppository 10 mg 07-12 11:04: 41 Yes 10mg 10 mg, Rectal, QDAILYPRN, Starting on Tue07/12/23 at 0604, Until Discontinu ed, Routine, Constipati on [facility] simethicone (GAS RELIEF (SIMETHICON E)) chewable tablet 160 mg 07-12 11:04: 41 Yes 160mg 160 mg, Oral, PC+HSPRN, Starting on Tue07/12/23 at 0604, Until Discontinu ed, Routine, Gas [facility] docusate (COLACE) capsule 200 mg 07-12 11:04: 41 Yes 200mg 200 mg, Oral, QDAILYPRN, Starting on Tue07/12/23 at 0604, Until Discontinu ed, Routine, Constipati on [facility] magnesium hydroxide (MILK OF MAGNESIA) 400 mg/5 mL suspension 30 mL 07-12 11:04: 41 Yes 30mL 30 mL, Oral, QDAILYPRN, Starting on Tue07/12/23 at 0604, Until Discontinu ed, Routine, Constipati on [facility] lactated ringers IV infusion 1,000 mL 07-12 11:04: 41 Yes 1000mL at 125 mL/hr, 1,000 mL, IV Infusion, PRN, 1 dose, Starting on Tue07/12/23 at 0604, Until Discontinu ed, Routine [facility] metroNIDAZO LE (FLAGYL) tablet 500 mg 07-12 10:00: 00 07-15 21:59 :00 No 500mg 500 mg, Oral, Q12H ABX, 7 doses, First dose (after last reorder) on Tue07/12/23 at 0500, Last dose on Tue07/15/23 at 0500, Routine
Reason for Anti-Infec tive: Documented Infection< br>Documen hemalatha Infection Site: Other
O ther site: BV
Dura tion of Therapy: Other (see Comments) [facility] sodium citrate-cit selina acid (BICITRA) 500-334 mg/5 mL solution 30 mL 07-12 09:53: 29 07-12 10:30 :00 No 30mL 30 mL, Oral, PRE-PROCED URE ONCE, 1 dose, Starting on Tue07/12/23 at 0453, Until Tue07/12/23 at 0530, Routine, Surgery/Pr ocedure [facility] lactated ringers IV infusion 500 mL 07-12 06:55: 00 07-12 06:58 :04 No 500mL at 999 mL/hr, 500 mL, IV Infusion, ONCE, 1 dose, On Tue07/12/23 at 0200, STAT [facility] lactated ringers IV infusion 500 mL 07-12 04:22: 00 07-12 04:27 :12 No 500mL at 999 mL/hr, 500 mL, IV Infusion, ONCE, 1 dose, On Tue07/11/23 at 2330, STAT [facility] betamethaso ne acet,sod phos (CELESTONE SOLUSPAN) 6 mg/mL injection 12 mg 07-11 23:00: 00 07-12 11:06 :15 No 12mg 12 mg, Intramuscu lar, Q24H, First dose on Tue07/11/23 at 1800, Until Discontinu ed, Routine [facility] metroNIDAZO LE (FLAGYL) tablet 500 mg 07-11 23:00: 00 07-11 22:04 :00 No 500mg 500 mg, Oral, ONCE, 1 dose, On Tue07/11/23 at 1800, Routine
Reason for Anti-Infec tive: Documented Infection< br>Documen hemalatha Infection Site: Urine
D uration of Therapy: Other (see Comments) [facility] NaCl 0.9% (NS) bolus infusion 1,000 mL 07-11 21:48: 00 07-11 22:05 :00 No 1000mL at 999 mL/hr, 1,000 mL, IV Infusion, ONCE, 1 dose, On Tue07/11/23 at 1700, STAT [facility] OMEPRAZOLE 40 mg capsule 07-07 00:00: 00 04-03 00:00 :00 No [id number] 40mg Take 1 capsule by mouth in the morning [facility] metroNIDAZO LE (FLAGYL) tablet 500 mg 06-08 22:00: 00 06-08 22:16 :00 No 500mg 500 mg, Oral, ONCE, 1 dose, On Tue06/08/23 at 1700, Routine
Reason for Anti-Infec tive: Empiric Therapy for Suspected Infection< br>Empiric Therapy Site: Pelvic
Duration of therapy: 5 days [facility] metroNIDAZO LE (FLAGYL) 500 mg tablet 06-08 00:00: 00 06-26 00:00 :00 No [id number] 500mg Take 1 tablet by mouth every 12 (twelve) hours. [facility] OMEPRAZOLE 40 mg capsule 05-18 00:00: 00 07-07 00:00 :00 No [id number] 40mg Take 1 capsule by mouth in the morning [facility] PNV 67-iron ps-folate no.1-dha (VITAFOL ULTRA) 29 mg iron- 1 mg-200 mg Cap 04-27 00:00: 00 Yes Take 1 capsule by mouth in the morning [facility] PNV 67-iron ps-folate no.1-dha (VITAFOL ULTRA) 29 mg iron- 1 mg-200 mg Cap - 00:00: 00 03-23 00:00 :00 No Take 1 capsule by mouth in the morning [facility] aspirin 81 mg EC tablet 5- 00:00: 00 07-16 00:00 :00 No [id number] 81mg Take 1 tablet by mouth in the morning. [facility] omeprazole 40 mg capsule 5- 00:00: 00 05-18 00:00 :00 No [id number] 40mg Take 1 capsule by mouth in the morning. [facility] PNV 67-iron ps-folate no.1-dha (VITAFOL ULTRA) 29 mg iron- 1 mg-200 mg Cap 3-31 00:00: 00 04-27 00:00 :00 No TAKE 1 CAPSULE BY MOUTH IN THE MORNING [facility] ampicillin 500 mg capsule 3-24 00:00: 00 02-01 04:59 :00 No [id number] 500mg Take 1 capsule by mouth every 6 (six) hours for 10 days. [facility] cephALEXin 500 mg capsule - 00:00: 00 01-21 00:00 :00 No [id number] 500mg Take 1 capsule by mouth 4 (four) times daily for 7 days. [facility] vit,calc76/ iron/folic (PNV 29-1 ORAL) 2- 11:19: 04 12-08 00:00 :00 No Take by mouth. [facility] VITAFOL ULTRA 29 mg iron- 1 mg-200 mg Cap 2- 00:00: 00 01-28 00:00 :00 No TAKE 1 CAPSULE BY MOUTH IN THE MORNING [facility] vit no.130-iron -folic ( VITAMIN) 2- 00:00: 00 01-19 00:00 :00 No [id number] 1{tbl} Take 1 tablet by mouth in the morning. [facility] amoxicillin 875 mg tablet 2- 00:00: 00 01-19 00:00 :00 No TAKE 1 TABLET BY MOUTH EVERY 12 HOURS FOR 10 DAYS [facility] DULoxetine (CYMBALTA) 20 mg capsule 9- 00:00: 00 04-03 00:00 :00 No [id number] 20mg Take 1 capsule by mouth in the morning. [facility] vit,calc76/ iron/folic (PNV 29-1 ORAL) 8-08 16:04: 56 Yes Take by mouth. [facility] DULoxetine (CYMBALTA) 20 mg capsule 8- 00:00: 00 Yes [id number] 20mg Take 1 capsule by mouth in the morning. [facility] norelgestro min-ethinyl estradiol 150-35 mcg/24 hr patch 8- 00:00: 00 12-08 00:00 :00 No [id number] 1{patch } Apply 1 Patch to skin weekly. [facility] SERTraline 25 mg tablet 05-06 00:00: 00 06-07 00:00 :00 No [id number] 50mg Take 2 tablets by mouth daily. [facility] omeprazole 40 mg capsule 04-01 00:00: 00 02-28 00:00 :00 No [id number] 40mg Take 1 capsule by mouth daily. [facility] Immunizations Ordered Immunization Name Filled Immunization Name Date Status Comments Source TDAP 2023-06-24 00:00:00 Completed [facility] TDAP 2023-06-24 00:00:00 Completed [facility] TDAP 2023-06-24 00:00:00 Completed [facility] TDAP 2023-06-24 00:00:00 Completed [facility] TDAP 2023-06-24 00:00:00 Completed [facility] TDAP 2023-06-24 00:00:00 Completed [facility] TDAP 2023-06-24 00:00:00 Completed [facility] TDAP 2023-06-24 00:00:00 Completed [facility] TDAP 2023-06-24 00:00:00 Completed [facility] TDAP 2023-06-24 00:00:00 Completed [facility] TDAP 2023-06-24 00:00:00 Completed [facility] TDAP 2023-06-24 00:00:00 Completed [facility] TDAP 2023-06-24 00:00:00 Completed [facility] TDAP 2023-06-24 00:00:00 Completed [facility] TDAP 2023-06-24 00:00:00 Completed [facility] TDAP 2023-06-24 00:00:00 Completed [facility] TDAP 2023-06-24 00:00:00 Completed [facility] TDAP 2023-06-24 00:00:00 Completed [facility] Influenza Virus Vaccine Quad IM, Preserv and ABX Free 6 MO-64 YRS 2022-12-08 00:00:00 Completed [facility] Influenza Virus Vaccine Quad IM, Preserv and ABX Free 6 MO-64 YRS (FLUCELVAX) 2022-12-08 00:00:00 Completed [facility] Influenza Virus Vaccine Quad IM, Preserv and ABX Free 6 MO-64 YRS (FLUCELVAX) 2022-12-08 00:00:00 Completed [facility] Influenza Virus Vaccine Quad IM, Preserv and ABX Free 6 MO-64 YRS (FLUCELVAX) 2022-12-08 00:00:00 Completed [facility] Influenza Virus Vaccine Quad IM, Preserv and ABX Free 6 MO-64 YRS (FLUCELVAX) 2022-12-08 00:00:00 Completed [facility] Influenza Virus Vaccine Quad IM, Preserv and ABX Free 6 MO-64 YRS (FLUCELVAX) 2022-12-08 00:00:00 Completed [facility] Influenza Virus Vaccine Quad IM, Preserv and ABX Free 6 MO-64 YRS (FLUCELVAX) 2022-12-08 00:00:00 Completed [facility] Influenza Virus Vaccine Quad IM, Preserv and ABX Free 6 MO-64 YRS (FLUCELVAX) 2022-12-08 00:00:00 Completed [facility] Influenza Virus Vaccine Quad IM, Preserv and ABX Free 6 MO-64 YRS (FLUCELVAX) 2022-12-08 00:00:00 Completed [facility] Influenza Virus Vaccine Quad IM, Preserv and ABX Free 6 MO-64 YRS (FLUCELVAX) 2022-12-08 00:00:00 Completed [facility] Influenza Virus Vaccine Quad IM, Preserv and ABX Free 6 MO-64 YRS (FLUCELVAX) 2022-12-08 00:00:00 Completed [facility] Influenza Virus Vaccine Quad IM, Preserv and ABX Free 6 MO-64 YRS (FLUCELVAX) 2022-12-08 00:00:00 Completed [facility] Influenza Virus Vaccine Quad IM, Preserv and ABX Free 6 MO-64 YRS 2022-12-08 00:00:00 Completed [facility] Influenza Virus Vaccine Quad IM, Preserv and ABX Free 6 MO-64 YRS 2022-12-08 00:00:00 Completed [facility] Influenza Virus Vaccine Quad IM, Preserv and ABX Free 6 MO-64 YRS 2022-12-08 00:00:00 Completed [facility] Influenza Virus Vaccine Quad IM, Preserv and ABX Free 6 MO-64 YRS 2022-12-08 00:00:00 Completed [facility] Influenza Virus Vaccine Quad IM, Preserv and ABX Free 6 MO-64 YRS 2022-12-08 00:00:00 Completed [facility] Influenza Virus Vaccine Quad IM, Preserv and ABX Free 6 MO-64 YRS 2022-12-08 00:00:00 Completed [facility] Influenza Virus Vaccine Quad IM, Preserv and ABX Free 6 MO-64 YRS 2022-12-08 00:00:00 Completed [facility] Influenza Virus Vaccine Quad IM, Preserv and ABX Free 6 MO-64 YRS 2022-12-08 00:00:00 Completed [facility] Influenza Virus Vaccine Quad IM, Preserv and ABX Free 6 MO-64 YRS 2022-12-08 00:00:00 Completed [facility] Influenza Virus Vaccine Quad IM, Preserv and ABX Free 6 MO-64 YRS 2022-12-08 00:00:00 Completed [facility] Influenza Virus Vaccine Quad IM, Preserv and ABX Free 6 MO-64 YRS 2022-12-08 00:00:00 Completed [facility] Influenza Virus Vaccine Quad IM, Preserv and ABX Free 6 MO-64 YRS 2022-12-08 00:00:00 Completed [facility] Influenza Virus Vaccine Quad IM, Preserv and ABX Free 6 MO-64 YRS 2022-12-08 00:00:00 Completed [facility] Influenza Virus Vaccine Quad IM, Preserv and ABX Free 6 MO-64 YRS 2022-12-08 00:00:00 Completed [facility] Influenza Virus Vaccine Quad IM, Preserv and ABX Free 6 MO-64 YRS 2022-12-08 00:00:00 Completed [facility] Influenza Virus Vaccine Quad IM, Preserv and ABX Free 6 MO-64 YRS 2022-12-08 00:00:00 Completed [facility] Influenza Virus Vaccine Quad IM, Preserv and ABX Free 6 MO-64 YRS 2022-12-08 00:00:00 Completed [facility] Influenza Virus Vaccine Quad IM, Preserv and ABX Free 6 MO-64 YRS 2022-12-08 00:00:00 Completed [facility] Influenza Virus Vaccine Quad IM, Preserv and ABX Free 6 MO-64 YRS 2022-12-08 00:00:00 Completed [facility] Influenza Virus Vaccine Quad IM, Preserv and ABX Free 6 MO-64 YRS 2022-12-08 00:00:00 Completed [facility] Influenza Virus Vaccine Quad IM, Preserv and ABX Free 6 MO-64 YRS 2022-12-08 00:00:00 Completed [facility] Influenza Virus Vaccine Quad IM, Preserv and ABX Free 6 MO-64 YRS 2022-12-08 00:00:00 Completed [facility] Influenza Virus Vaccine Quad IM, Preserv and ABX Free 6 MO-64 YRS 2022-12-08 00:00:00 Completed [facility] Influenza Virus Vaccine Quad IM, Preserv and ABX Free 6 MO-64 YRS 2022-12-08 00:00:00 Completed [facility] Influenza Virus Vaccine Quad IM, Preserv and ABX Free 6 MO-64 YRS 2022-12-08 00:00:00 Completed [facility] Influenza Virus Vaccine Quad IM, Preserv and ABX Free 6 MO-64 YRS 2022-12-08 00:00:00 Completed [facility] Influenza Virus Vaccine Quad IM, Preserv and ABX Free 6 MO-64 YRS 2022-12-08 00:00:00 Completed [facility] Influenza Virus Vaccine Quad IM, Preserv and ABX Free 6 MO-64 YRS 2022-12-08 00:00:00 Completed [facility] Influenza Virus Vaccine Quad IM, Preserv and ABX Free 6 MO-64 YRS 2022-12-08 00:00:00 Completed [facility] Influenza Virus Vaccine Quad IM, Preserv and ABX Free 6 MO-64 YRS 2022-12-08 00:00:00 Completed [facility] Influenza Virus Vaccine Quad IM, Preserv and ABX Free 6 MO-64 YRS 2022-12-08 00:00:00 Completed [facility] Influenza Virus Vaccine Quad IM, Preserv and ABX Free 6 MO-64 YRS 2022-12-08 00:00:00 Completed [facility] Influenza Virus Vaccine Quad IM, Preserv and ABX Free 6 MO-64 YRS 2022-12-08 00:00:00 Completed [facility] Influenza Virus Vaccine Quad IM, Preserv and ABX Free 6 MO-64 YRS 2022-12-08 00:00:00 Completed [facility] Influenza Virus Vaccine Quad IM, Preserv and ABX Free 6 MO-64 YRS 2022-12-08 00:00:00 Completed [facility] Influenza Virus Vaccine Quad IM, Preserv and ABX Free 6 MO-64 YRS 2022-12-08 00:00:00 Completed [facility] Influenza Virus Vaccine Quad IM, Preserv and ABX Free 6 MO-64 YRS 2022-12-08 00:00:00 Completed [facility] Influenza Virus Vaccine Quad IM, Preserv and ABX Free 6 MO-64 YRS 2022-12-08 00:00:00 Completed [facility] Influenza Virus Vaccine Quad IM, Preserv and ABX Free 6 MO-64 YRS 2022-12-08 00:00:00 Completed [facility] Influenza Virus Vaccine Quad IM, Preserv and ABX Free 6 MO-64 YRS 2022-12-08 00:00:00 Completed [facility] Influenza Virus Vaccine Quad IM, Preserv and ABX Free 6 MO-64 YRS 2022-12-08 00:00:00 Completed [facility] TDAP 2022-04-01 00:00:00 Completed [facility] TDAP 2022-04-01 00:00:00 Completed [facility] TDAP 2022-04-01 00:00:00 Completed [facility] TDAP 2022-04-01 00:00:00 Completed [facility] TDAP 2022-04-01 00:00:00 Completed [facility] TDAP 2022-04-01 00:00:00 Completed [facility] TDAP 2022-04-01 00:00:00 Completed [facility] TDAP 2022-04-01 00:00:00 Completed [facility] TDAP 2022-04-01 00:00:00 Completed [facility] TDAP 2022-04-01 00:00:00 Completed [facility] TDAP 2022-04-01 00:00:00 Completed [facility] TDAP 2022-04-01 00:00:00 Completed [facility] TDAP 2022-04-01 00:00:00 Completed [facility] TDAP 2022-04-01 00:00:00 Completed [facility] TDAP 2022-04-01 00:00:00 Completed [facility] TDAP 2022-04-01 00:00:00 Completed [facility] TDAP 2022-04-01 00:00:00 Completed [facility] TDAP 2022-04-01 00:00:00 Completed [facility] TDAP 2022-04-01 00:00:00 Completed [facility] TDAP 2022-04-01 00:00:00 Completed [facility] TDAP 2022-04-01 00:00:00 Completed [facility] TDAP 2022-04-01 00:00:00 Completed [facility] TDAP 2022-04-01 00:00:00 Completed [facility] TDAP 2022-04-01 00:00:00 Completed [facility] TDAP 2022-04-01 00:00:00 Completed [facility] TDAP 2022-04-01 00:00:00 Completed [facility] TDAP 2022-04-01 00:00:00 Completed [facility] TDAP 2022-04-01 00:00:00 Completed [facility] TDAP 2022-04-01 00:00:00 Completed [facility] TDAP 2022-04-01 00:00:00 Completed [facility] TDAP 2022-04-01 00:00:00 Completed [facility] TDAP 2022-04-01 00:00:00 Completed [facility] TDAP 2022-04-01 00:00:00 Completed [facility] TDAP 2022-04-01 00:00:00 Completed [facility] TDAP 2022-04-01 00:00:00 Completed [facility] TDAP 2022-04-01 00:00:00 Completed [facility] TDAP 2022-04-01 00:00:00 Completed [facility] TDAP 2022-04-01 00:00:00 Completed [facility] TDAP 2022-04-01 00:00:00 Completed [facility] TDAP 2022-04-01 00:00:00 Completed [facility] TDAP 2022-04-01 00:00:00 Completed [facility] TDAP 2022-04-01 00:00:00 Completed [facility] TDAP 2022-04-01 00:00:00 Completed [facility] TDAP 2022-04-01 00:00:00 Completed [facility] TDAP 2022-04-01 00:00:00 Completed [facility] TDAP 2022-04-01 00:00:00 Completed [facility] TDAP 2022-04-01 00:00:00 Completed [facility] TDAP 2022-04-01 00:00:00 Completed [facility] TDAP 2022-04-01 00:00:00 Completed [facility] TDAP 2022-04-01 00:00:00 Completed [facility] TDAP 2022-04-01 00:00:00 Completed [facility] TDAP 2022-04-01 00:00:00 Completed [facility] TDAP 2022-04-01 00:00:00 Completed [facility] TDAP 2022-04-01 00:00:00 Completed [facility] TDAP 2022-04-01 00:00:00 Completed [facility] SARS-COV-2 COVID-19 PFIZER VACCINE 2021-08-08 00:00:00 Completed [facility] SARS-COV-2 COVID-19 PFIZER VACCINE 2021-08-08 00:00:00 Completed [facility] SARS-COV-2 COVID-19 PFIZER VACCINE 2021-08-08 00:00:00 Completed [facility] SARS-COV-2 COVID-19 PFIZER VACCINE 2021-08-08 00:00:00 Completed [facility] SARS-COV-2 COVID-19 PFIZER VACCINE 2021-08-08 00:00:00 Completed [facility] SARS-COV-2 COVID-19 PFIZER VACCINE 2021-08-08 00:00:00 Completed [facility] SARS-COV-2 COVID-19 PFIZER VACCINE 2021-08-08 00:00:00 Completed [facility] SARS-COV-2 COVID-19 PFIZER VACCINE 2021-08-08 00:00:00 Completed [facility] SARS-COV-2 COVID-19 PFIZER VACCINE 2021-08-08 00:00:00 Completed [facility] SARS-COV-2 COVID-19 PFIZER VACCINE 2021-08-08 00:00:00 Completed [facility] SARS-COV-2 COVID-19 PFIZER VACCINE 2021-08-08 00:00:00 Completed [facility] SARS-COV-2 COVID-19 PFIZER VACCINE 2021-08-08 00:00:00 Completed [facility] SARS-COV-2 COVID-19 PFIZER VACCINE 2021-08-08 00:00:00 Completed [facility] SARS-COV-2 COVID-19 PFIZER VACCINE 2021-08-08 00:00:00 Completed [facility] SARS-COV-2 COVID-19 PFIZER VACCINE 2021-08-08 00:00:00 Completed [facility] SARS-COV-2 COVID-19 PFIZER VACCINE 2021-08-08 00:00:00 Completed [facility] SARS-COV-2 COVID-19 PFIZER VACCINE 2021-08-08 00:00:00 Completed [facility] SARS-COV-2 COVID-19 PFIZER VACCINE 2021-08-08 00:00:00 Completed [facility] SARS-COV-2 COVID-19 PFIZER VACCINE 2021-08-08 00:00:00 Completed [facility] SARS-COV-2 COVID-19 PFIZER VACCINE 2021-08-08 00:00:00 Completed [facility] SARS-COV-2 COVID-19 PFIZER VACCINE 2021-08-08 00:00:00 Completed [facility] SARS-COV-2 COVID-19 PFIZER VACCINE 2021-08-08 00:00:00 Completed [facility] SARS-COV-2 COVID-19 PFIZER VACCINE 2021-08-08 00:00:00 Completed [facility] SARS-COV-2 COVID-19 PFIZER VACCINE 2021-08-08 00:00:00 Completed [facility] SARS-COV-2 COVID-19 PFIZER VACCINE 2021-08-08 00:00:00 Completed [facility] SARS-COV-2 COVID-19 PFIZER VACCINE 2021-08-08 00:00:00 Completed [facility] SARS-COV-2 COVID-19 PFIZER VACCINE 2021-08-08 00:00:00 Completed [facility] SARS-COV-2 COVID-19 PFIZER VACCINE 2021-08-08 00:00:00 Completed [facility] SARS-COV-2 COVID-19 PFIZER VACCINE 2021-08-08 00:00:00 Completed [facility] SARS-COV-2 COVID-19 PFIZER VACCINE 2021-08-08 00:00:00 Completed [facility] SARS-COV-2 COVID-19 PFIZER VACCINE 2021-08-08 00:00:00 Completed [facility] SARS-COV-2 COVID-19 PFIZER VACCINE 2021-08-08 00:00:00 Completed [facility] SARS-COV-2 COVID-19 PFIZER VACCINE 2021-08-08 00:00:00 Completed [facility] SARS-COV-2 COVID-19 PFIZER VACCINE 2021-08-08 00:00:00 Completed [facility] SARS-COV-2 COVID-19 PFIZER VACCINE 2021-08-08 00:00:00 Completed [facility] SARS-COV-2 COVID-19 PFIZER VACCINE 2021-08-08 00:00:00 Completed [facility] SARS-COV-2 COVID-19 PFIZER VACCINE 2021-08-08 00:00:00 Completed [facility] SARS-COV-2 COVID-19 PFIZER VACCINE 2021-08-08 00:00:00 Completed [facility] SARS-COV-2 COVID-19 PFIZER VACCINE 2021-08-08 00:00:00 Completed [facility] SARS-COV-2 COVID-19 PFIZER VACCINE 2021-08-08 00:00:00 Completed [facility] SARS-COV-2 COVID-19 PFIZER VACCINE 2021-08-08 00:00:00 Completed [facility] SARS-COV-2 COVID-19 PFIZER VACCINE 2021-08-08 00:00:00 Completed [facility] SARS-COV-2 COVID-19 PFIZER VACCINE 2021-08-08 00:00:00 Completed [facility] SARS-COV-2 COVID-19 PFIZER VACCINE 2021-08-08 00:00:00 Completed [facility] SARS-COV-2 COVID-19 PFIZER VACCINE 2021-08-08 00:00:00 Completed [facility] SARS-COV-2 COVID-19 PFIZER VACCINE 2021-08-08 00:00:00 Completed [facility] SARS-COV-2 COVID-19 PFIZER VACCINE 2021-08-08 00:00:00 Completed [facility] SARS-COV-2 COVID-19 PFIZER VACCINE 2021-08-08 00:00:00 Completed [facility] SARS-COV-2 COVID-19 PFIZER VACCINE 2021-08-08 00:00:00 Completed [facility] SARS-COV-2 COVID-19 PFIZER VACCINE 2021-08-08 00:00:00 Completed [facility] SARS-COV-2 COVID-19 PFIZER VACCINE 2021-08-08 00:00:00 Completed [facility] SARS-COV-2 COVID-19 PFIZER VACCINE 2021-08-08 00:00:00 Completed [facility] SARS-COV-2 COVID-19 PFIZER VACCINE 2021-08-08 00:00:00 Completed [facility] SARS-COV-2 COVID-19 PFIZER VACCINE 2021-07-16 00:00:00 Completed [facility] SARS-COV-2 COVID-19 PFIZER VACCINE 2021-07-16 00:00:00 Completed [facility] SARS-COV-2 COVID-19 PFIZER VACCINE 2021-07-16 00:00:00 Completed [facility] SARS-COV-2 COVID-19 PFIZER VACCINE 2021-07-16 00:00:00 Completed [facility] SARS-COV-2 COVID-19 PFIZER VACCINE 2021-07-16 00:00:00 Completed [facility] SARS-COV-2 COVID-19 PFIZER VACCINE 2021-07-16 00:00:00 Completed [facility] SARS-COV-2 COVID-19 PFIZER VACCINE 2021-07-16 00:00:00 Completed [facility] SARS-COV-2 COVID-19 PFIZER VACCINE 2021-07-16 00:00:00 Completed [facility] SARS-COV-2 COVID-19 PFIZER VACCINE 2021-07-16 00:00:00 Completed [facility] SARS-COV-2 COVID-19 PFIZER VACCINE 2021-07-16 00:00:00 Completed [facility] SARS-COV-2 COVID-19 PFIZER VACCINE 2021-07-16 00:00:00 Completed [facility] SARS-COV-2 COVID-19 PFIZER VACCINE 2021-07-16 00:00:00 Completed [facility] SARS-COV-2 COVID-19 PFIZER VACCINE 2021-07-16 00:00:00 Completed [facility] SARS-COV-2 COVID-19 PFIZER VACCINE 2021-07-16 00:00:00 Completed [facility] SARS-COV-2 COVID-19 PFIZER VACCINE 2021-07-16 00:00:00 Completed [facility] SARS-COV-2 COVID-19 PFIZER VACCINE 2021-07-16 00:00:00 Completed [facility] SARS-COV-2 COVID-19 PFIZER VACCINE 2021-07-16 00:00:00 Completed [facility] SARS-COV-2 COVID-19 PFIZER VACCINE 2021-07-16 00:00:00 Completed [facility] SARS-COV-2 COVID-19 PFIZER VACCINE 2021-07-16 00:00:00 Completed [facility] SARS-COV-2 COVID-19 PFIZER VACCINE 2021-07-16 00:00:00 Completed [facility] SARS-COV-2 COVID-19 PFIZER VACCINE 2021-07-16 00:00:00 Completed [facility] SARS-COV-2 COVID-19 PFIZER VACCINE 2021-07-16 00:00:00 Completed [facility] SARS-COV-2 COVID-19 PFIZER VACCINE 2021-07-16 00:00:00 Completed [facility] SARS-COV-2 COVID-19 PFIZER VACCINE 2021-07-16 00:00:00 Completed [facility] SARS-COV-2 COVID-19 PFIZER VACCINE 2021-07-16 00:00:00 Completed [facility] SARS-COV-2 COVID-19 PFIZER VACCINE 2021-07-16 00:00:00 Completed [facility] SARS-COV-2 COVID-19 PFIZER VACCINE 2021-07-16 00:00:00 Completed [facility] SARS-COV-2 COVID-19 PFIZER VACCINE 2021-07-16 00:00:00 Completed [facility] SARS-COV-2 COVID-19 PFIZER VACCINE 2021-07-16 00:00:00 Completed [facility] SARS-COV-2 COVID-19 PFIZER VACCINE 2021-07-16 00:00:00 Completed [facility] SARS-COV-2 COVID-19 PFIZER VACCINE 2021-07-16 00:00:00 Completed [facility] SARS-COV-2 COVID-19 PFIZER VACCINE 2021-07-16 00:00:00 Completed [facility] SARS-COV-2 COVID-19 PFIZER VACCINE 2021-07-16 00:00:00 Completed [facility] SARS-COV-2 COVID-19 PFIZER VACCINE 2021-07-16 00:00:00 Completed [facility] SARS-COV-2 COVID-19 PFIZER VACCINE 2021-07-16 00:00:00 Completed [facility] SARS-COV-2 COVID-19 PFIZER VACCINE 2021-07-16 00:00:00 Completed [facility] SARS-COV-2 COVID-19 PFIZER VACCINE 2021-07-16 00:00:00 Completed [facility] SARS-COV-2 COVID-19 PFIZER VACCINE 2021-07-16 00:00:00 Completed [facility] SARS-COV-2 COVID-19 PFIZER VACCINE 2021-07-16 00:00:00 Completed [facility] SARS-COV-2 COVID-19 PFIZER VACCINE 2021-07-16 00:00:00 Completed [facility] SARS-COV-2 COVID-19 PFIZER VACCINE 2021-07-16 00:00:00 Completed [facility] SARS-COV-2 COVID-19 PFIZER VACCINE 2021-07-16 00:00:00 Completed [facility] SARS-COV-2 COVID-19 PFIZER VACCINE 2021-07-16 00:00:00 Completed [facility] SARS-COV-2 COVID-19 PFIZER VACCINE 2021-07-16 00:00:00 Completed [facility] SARS-COV-2 COVID-19 PFIZER VACCINE 2021-07-16 00:00:00 Completed [facility] SARS-COV-2 COVID-19 PFIZER VACCINE 2021-07-16 00:00:00 Completed [facility] SARS-COV-2 COVID-19 PFIZER VACCINE 2021-07-16 00:00:00 Completed [facility] SARS-COV-2 COVID-19 PFIZER VACCINE 2021-07-16 00:00:00 Completed [facility] SARS-COV-2 COVID-19 PFIZER VACCINE 2021-07-16 00:00:00 Completed [facility] SARS-COV-2 COVID-19 PFIZER VACCINE 2021-07-16 00:00:00 Completed [facility] SARS-COV-2 COVID-19 PFIZER VACCINE 2021-07-16 00:00:00 Completed [facility] SARS-COV-2 COVID-19 PFIZER VACCINE 2021-07-16 00:00:00 Completed [facility] SARS-COV-2 COVID-19 PFIZER VACCINE 2021-07-16 00:00:00 Completed [facility] TDAP Unknown Completed [facility] SARS-COV-2 COVID-19 PFIZER VACCINE Unknown Completed [facility] SARS-COV-2 COVID-19 PFIZER VACCINE Unknown Completed [facility] Influenza Virus Vaccine Quad IM, Preserv and ABX Free 6 MO-64 YRS (FLUCELVAX) Unknown Completed [facility] TDAP Unknown Completed [facility] TDAP Unknown Completed [facility] SARS-COV-2 COVID-19 PFIZER VACCINE Unknown Completed [facility] SARS-COV-2 COVID-19 PFIZER VACCINE Unknown Completed [facility] Influenza Virus Vaccine Quad IM, Preserv and ABX Free 6 MO-64 YRS (FLUCELVAX) Unknown Completed [facility] TDAP Unknown Completed [facility] TDAP Unknown Completed [facility] SARS-COV-2 COVID-19 PFIZER VACCINE Unknown Completed [facility] SARS-COV-2 COVID-19 PFIZER VACCINE Unknown Completed [facility] Influenza Virus Vaccine Quad IM, Preserv and ABX Free 6 MO-64 YRS (FLUCELVAX) Unknown Completed [facility] TDAP Unknown Completed [facility] SARS-COV-2 COVID-19 PFIZER VACCINE Unknown Completed [facility] SARS-COV-2 COVID-19 PFIZER VACCINE Unknown Completed [facility] Influenza Virus Vaccine Quad IM, Preserv and ABX Free 6 MO-64 YRS (FLUCELVAX) Unknown Completed [facility] TDAP Unknown Completed [facility] SARS-COV-2 COVID-19 PFIZER VACCINE Unknown Completed [facility] SARS-COV-2 COVID-19 PFIZER VACCINE Unknown Completed [facility] Influenza Virus Vaccine Quad IM, Preserv and ABX Free 6 MO-64 YRS (FLUCELVAX) Unknown Completed [facility] TDAP Unknown Completed [facility] SARS-COV-2 COVID-19 PFIZER VACCINE Unknown Completed [facility] SARS-COV-2 COVID-19 PFIZER VACCINE Unknown Completed [facility] Influenza Virus Vaccine Quad IM, Preserv and ABX Free 6 MO-64 YRS (FLUCELVAX) Unknown Completed [facility] TDAP Unknown Completed [facility] SARS-COV-2 COVID-19 PFIZER VACCINE Unknown Completed [facility] SARS-COV-2 COVID-19 PFIZER VACCINE Unknown Completed [facility] Influenza Virus Vaccine Quad IM, Preserv and ABX Free 6 MO-64 YRS (FLUCELVAX) Unknown Completed [facility] TDAP Unknown Completed [facility] SARS-COV-2 COVID-19 PFIZER VACCINE Unknown Completed [facility] SARS-COV-2 COVID-19 PFIZER VACCINE Unknown Completed [facility] TDAP Unknown Completed [facility] SARS-COV-2 COVID-19 PFIZER VACCINE Unknown Completed [facility] SARS-COV-2 COVID-19 PFIZER VACCINE Unknown Completed [facility] TDAP Unknown Completed [facility] SARS-COV-2 COVID-19 PFIZER VACCINE Unknown Completed [facility] SARS-COV-2 COVID-19 PFIZER VACCINE Unknown Completed [facility] Influenza Virus Vaccine Quad IM, Preserv and ABX Free 6 MO-64 YRS (FLUCELVAX) Unknown Completed [facility] TDAP Unknown Completed [facility] TDAP Unknown Completed [facility] SARS-COV-2 COVID-19 PFIZER VACCINE Unknown Completed [facility] SARS-COV-2 COVID-19 PFIZER VACCINE Unknown Completed [facility] Influenza Virus Vaccine Quad IM, Preserv and ABX Free 6 MO-64 YRS (FLUCELVAX) Unknown Completed [facility] TDAP Unknown Completed [facility] TDAP Unknown Completed [facility] SARS-COV-2 COVID-19 PFIZER VACCINE Unknown Completed [facility] SARS-COV-2 COVID-19 PFIZER VACCINE Unknown Completed [facility] Influenza Virus Vaccine Quad IM, Preserv and ABX Free 6 MO-64 YRS (FLUCELVAX) Unknown Completed [facility] TDAP Unknown Completed [facility] TDAP Unknown Completed [facility] SARS-COV-2 COVID-19 PFIZER VACCINE Unknown Completed [facility] SARS-COV-2 COVID-19 PFIZER VACCINE Unknown Completed [facility] Influenza Virus Vaccine Quad IM, Preserv and ABX Free 6 MO-64 YRS (FLUCELVAX) Unknown Completed [facility] TDAP Unknown Completed [facility] TDAP Unknown Completed [facility] SARS-COV-2 COVID-19 PFIZER VACCINE Unknown Completed [facility] SARS-COV-2 COVID-19 PFIZER VACCINE Unknown Completed [facility] Influenza Virus Vaccine Quad IM, Preserv and ABX Free 6 MO-64 YRS (FLUCELVAX) Unknown Completed [facility] TDAP Unknown Completed [facility] TDAP Unknown Completed [facility] SARS-COV-2 COVID-19 PFIZER VACCINE Unknown Completed [facility] SARS-COV-2 COVID-19 PFIZER VACCINE Unknown Completed [facility] Influenza Virus Vaccine Quad IM, Preserv and ABX Free 6 MO-64 YRS (FLUCELVAX) Unknown Completed [facility] TDAP Unknown Completed [facility] TDAP Unknown Completed [facility] SARS-COV-2 COVID-19 PFIZER VACCINE Unknown Completed [facility] SARS-COV-2 COVID-19 PFIZER VACCINE Unknown Completed [facility] Influenza Virus Vaccine Quad IM, Preserv and ABX Free 6 MO-64 YRS (FLUCELVAX) Unknown Completed [facility] TDAP Unknown Completed [facility] TDAP Unknown Completed [facility] SARS-COV-2 COVID-19 PFIZER VACCINE Unknown Completed [facility] SARS-COV-2 COVID-19 PFIZER VACCINE Unknown Completed [facility] Influenza Virus Vaccine Quad IM, Preserv and ABX Free 6 MO-64 YRS (FLUCELVAX) Unknown Completed [facility] TDAP Unknown Completed [facility] TDAP Unknown Completed [facility] SARS-COV-2 COVID-19 PFIZER VACCINE Unknown Completed [facility] SARS-COV-2 COVID-19 PFIZER VACCINE Unknown Completed [facility] Influenza Virus Vaccine Quad IM, Preserv and ABX Free 6 MO-64 YRS (FLUCELVAX) Unknown Completed [facility] TDAP Unknown Completed [facility] TDAP Unknown Completed [facility] SARS-COV-2 COVID-19 PFIZER VACCINE Unknown Completed [facility] SARS-COV-2 COVID-19 PFIZER VACCINE Unknown Completed [facility] Influenza Virus Vaccine Quad IM, Preserv and ABX Free 6 MO-64 YRS (FLUCELVAX) Unknown Completed [facility] TDAP Unknown Completed [facility] TDAP Unknown Completed [facility] SARS-COV-2 COVID-19 PFIZER VACCINE Unknown Completed [facility] SARS-COV-2 COVID-19 PFIZER VACCINE Unknown Completed [facility] Influenza Virus Vaccine Quad IM, Preserv and ABX Free 6 MO-64 YRS (FLUCELVAX) Unknown Completed [facility] TDAP Unknown Completed [facility] Vital Signs Vital Name Observation Time Observation Value Comments S chivo Systolic blood pressure 2024-04-03 19:02:00 137 mm[Hg] [facility] Diastolic blood pressure 2024-04-03 19:02:00 89 mm[Hg] [facility] Heart rate 2024-04-03 19:02:00 100 /min [facility] Body temperature 2024-04-03 19:02:00 36.44 Mallory [facility] Respiratory rate 2024-04-03 19:02:00 18 /min [facility] Body height 2024-04-03 19:02:00 153.7 cm [facility] Body weight 2024-04-03 19:02:00 90.22 kg [facility] BMI 2024-04-03 19:02:00 38.21 kg/m2 [facility] Oxygen saturation in Arterial blood by Pulse oximetry 2024-04-03 19:02:00 100 /min [facility] Systolic blood pressure 2024-03-23 18:00:00 134 mm[Hg] [facility] Diastolic blood pressure 2024-03-23 18:00:00 96 mm[Hg] [facility] Heart rate 2024-03-23 17:59:00 88 /min [facility] Body temperature 2024-03-23 17:59:00 36.67 Mallory [facility] Respiratory rate 2024-03-23 17:59:00 18 /min [facility] Body height 2024-03-23 17:59:00 160 cm [facility] Body weight 2024-03-23 17:59:00 90.175 kg [facility] BMI 2024-03-23 17:59:00 35.22 kg/m2 [facility] Systolic blood pressure 2023-08-10 16:24:00 122 mm[Hg] [facility] Diastolic blood pressure 2023-08-10 16:24:00 82 mm[Hg] [facility] Heart rate 2023-08-10 16:24:00 90 /min [facility] Respiratory rate 2023-08-10 16:24:00 18 /min [facility] Body height 2023-08-10 16:24:00 161.3 cm [facility] Body weight 2023-08-10 16:24:00 83.008 kg [facility] BMI 2023-08-10 16:24:00 31.91 kg/m2 [facility] Systolic blood pressure 2023-07-20 18:47:00 131 mm[Hg] [facility] Diastolic blood pressure 2023-07-20 18:47:00 89 mm[Hg] [facility] Heart rate 2023-07-20 18:47:00 71 /min [facility] Body temperature 2023-07-20 18:47:00 36.5 Mallory [facility] Respiratory rate 2023-07-20 18:47:00 16 /min [facility] Body height 2023-07-20 18:47:00 161.3 cm [facility] Body weight 2023-07-20 18:47:00 84.823 kg [facility] BMI 2023-07-20 18:47:00 32.61 kg/m2 [facility] Systolic blood pressure 2023-07-16 13:00:00 139 mm[Hg] [facility] Diastolic blood pressure 2023-07-16 13:00:00 88 mm[Hg] [facility] Heart rate 2023-07-16 13:00:00 77 /min [facility] Body temperature 2023-07-16 13:00:00 37.17 Mallory [facility] Respiratory rate 2023-07-16 13:00:00 18 /min [facility] Oxygen saturation in Arterial blood by Pulse oximetry 2023-07-16 13:00:00 100 /min [facility] Body height 2023-07-11 17:29:00 161.3 cm [facility] Body weight 2023-07-11 17:29:00 87.998 kg [facility] BMI 2023-07-11 17:29:00 33.83 kg/m2 [facility] Systolic blood pressure 2023-07-13 00:35:00 132 mm[Hg] [facility] Diastolic blood pressure 2023-07-13 00:35:00 77 mm[Hg] [facility] Heart rate 2023-07-13 00:35:00 82 /min [facility] Body temperature 2023-07-13 00:35:00 36.72 Mallory [facility] Respiratory rate 2023-07-13 00:35:00 16 /min [facility] Oxygen saturation in Arterial blood by Pulse oximetry 2023-07-12 22:52:00 98 /min [facility] Body height 2023-07-11 17:29:00 161.3 cm [facility] Body weight 2023-07-11 17:29:00 87.998 kg [facility] BMI 2023-07-11 17:29:00 33.83 kg/m2 [facility] Systolic blood pressure 2023-07-08 14:48:00 122 mm[Hg] [facility] Diastolic blood pressure 2023-07-08 14:48:00 82 mm[Hg] [facility] Heart rate 2023-07-08 14:48:00 73 /min [facility] Body temperature 2023-07-08 14:48:00 36.78 Mallory [facility] Respiratory rate 2023-07-08 14:48:00 18 /min [facility] Body height 2023-07-08 14:48:00 161.3 cm [facility] Body weight 2023-07-08 14:48:00 88.542 kg [facility] BMI 2023-07-08 14:48:00 34.04 kg/m2 [facility] Oxygen saturation in Arterial blood by Pulse oximetry 2023-07-08 14:48:00 99 /min [facility] Systolic blood pressure 2023-07-05 15:00:00 119 mm[Hg] [facility] Diastolic blood pressure 2023-07-05 15:00:00 79 mm[Hg] [facility] Heart rate 2023-07-05 14:10:00 70 /min [facility] Respiratory rate 2023-07-05 14:10:00 18 /min [facility] Body height 2023-07-05 14:10:00 161.3 cm [facility] Body weight 2023-07-05 14:10:00 88.451 kg [facility] BMI 2023-07-05 14:10:00 34.00 kg/m2 [facility] Systolic blood pressure 2023-07-01 15:57:00 115 mm[Hg] [facility] Diastolic blood pressure 2023-07-01 15:57:00 79 mm[Hg] [facility] Heart rate 2023-07-01 15:57:00 89 /min [facility] Body temperature 2023-07-01 15:57:00 36.72 Mallory [facility] Respiratory rate 2023-07-01 15:57:00 18 /min [facility] Body height 2023-07-01 15:57:00 161.3 cm [facility] Body weight 2023-07-01 15:57:00 87.998 kg [facility] BMI 2023-07-01 15:57:00 33.83 kg/m2 [facility] Systolic blood pressure 2023-06-28 15:42:00 123 mm[Hg] [facility] Diastolic blood pressure 2023-06-28 15:42:00 80 mm[Hg] [facility] Heart rate 2023-06-28 15:42:00 76 /min [facility] Body temperature 2023-06-28 15:42:00 36.83 Mallory [facility] Respiratory rate 2023-06-28 15:42:00 18 /min [facility] Body height 2023-06-28 15:42:00 161.3 cm [facility] Body weight 2023-06-28 15:42:00 87.998 kg [facility] BMI 2023-06-28 15:42:00 33.83 kg/m2 [facility] Systolic blood pressure 2023-06-24 20:06:00 124 mm[Hg] [facility] Diastolic blood pressure 2023-06-24 20:06:00 84 mm[Hg] [facility] Heart rate 2023-06-24 20:06:00 78 /min [facility] Body temperature 2023-06-24 20:06:00 36.78 Mallory [facility] Respiratory rate 2023-06-24 20:06:00 18 /min [facility] Body height 2023-06-24 20:06:00 160 cm [facility] Body weight 2023-06-24 20:06:00 87.726 kg [facility] BMI 2023-06-24 20:06:00 34.26 kg/m2 [facility] Heart rate 2023-06-08 21:15:00 90 /min [facility] Oxygen saturation in Arterial blood by Pulse oximetry 2023-06-08 21:15:00 99 /min [facility] Systolic blood pressure 2023-06-08 21:00:00 116 mm[Hg] [facility] Diastolic blood pressure 2023-06-08 21:00:00 75 mm[Hg] [facility] Respiratory rate 2023-06-08 21:00:00 18 /min [facility] Body temperature 2023-06-08 20:30:00 37 Mallory [facility] Body height 2023-06-08 20:30:00 160 cm [facility] Body weight 2023-06-08 20:30:00 86.637 kg [facility] BMI 2023-06-08 20:30:00 33.83 kg/m2 [facility] Systolic blood pressure 2023-06-01 02:15:00 112 mm[Hg] [facility] Diastolic blood pressure 2023-06-01 02:15:00 60 mm[Hg] [facility] Heart rate 2023-06-01 02:15:00 73 /min [facility] Oxygen saturation in Arterial blood by Pulse oximetry 2023-06-01 02:15:00 99 /min [facility] Respiratory rate 2023-06-01 01:00:00 16 /min [facility] Body weight 2023-05-31 23:50:00 86.818 kg 191.4lb [facility] BMI 2023-05-31 23:50:00 32.85 kg/m2 [facility] Systolic blood pressure 2023-05-31 21:13:00 121 mm[Hg] [facility] Diastolic blood pressure 2023-05-31 21:13:00 79 mm[Hg] [facility] Heart rate 2023-05-31 21:13:00 76 /min [facility] Body temperature 2023-05-31 21:13:00 36.67 Mallory [facility] Respiratory rate 2023-05-31 21:13:00 16 /min [facility] Body height 2023-05-31 21:13:00 162.6 cm [facility] Body weight 2023-05-31 21:13:00 87.771 kg [facility] BMI 2023-05-31 21:13:00 33.21 kg/m2 [facility] Oxygen saturation in Arterial blood by Pulse oximetry 2023-05-31 21:13:00 100 /min [facility] Systolic blood pressure 2023-04-07 14:52:00 128 mm[Hg] [facility] Diastolic blood pressure 2023-04-07 14:52:00 84 mm[Hg] [facility] Heart rate 2023-04-07 14:52:00 84 /min [facility] Respiratory rate 2023-04-07 14:52:00 18 /min [facility] Body height 2023-04-07 14:52:00 161.3 cm [facility] Body weight 2023-04-07 14:52:00 88.134 kg [facility] BMI 2023-04-07 14:52:00 33.88 kg/m2 [facility] Systolic blood pressure 2023-02-28 15:44:00 127 mm[Hg] [facility] Diastolic blood pressure 2023-02-28 15:44:00 87 mm[Hg] [facility] Heart rate 2023-02-28 15:44:00 83 /min [facility] Body temperature 2023-02-28 15:44:00 36.83 Mallory [facility] Respiratory rate 2023-02-28 15:44:00 17 /min [facility] Body height 2023-02-28 15:44:00 161.3 cm [facility] Body weight 2023-02-28 15:44:00 85.73 kg [facility] BMI 2023-02-28 15:44:00 32.95 kg/m2 [facility] Systolic blood pressure 2023-01-19 14:20:00 132 mm[Hg] [facility] Diastolic blood pressure 2023-01-19 14:20:00 89 mm[Hg] [facility] Heart rate 2023-01-19 14:20:00 88 /min [facility] Body temperature 2023-01-19 14:20:00 36.67 Mallory [facility] Respiratory rate 2023-01-19 14:20:00 16 /min [facility] Body height 2023-01-19 14:20:00 161.3 cm [facility] Body weight 2023-01-19 14:20:00 84.46 kg [facility] BMI 2023-01-19 14:20:00 32.47 kg/m2 [facility] Oxygen saturation in Arterial blood by Pulse oximetry 2023-01-19 14:20:00 98 /min [facility] Systolic blood pressure 2022-12-08 16:01:00 134 mm[Hg] [facility] Diastolic blood pressure 2022-12-08 16:01:00 89 mm[Hg] [facility] Heart rate 2022-12-08 16:01:00 89 /min [facility] Body temperature 2022-12-08 16:01:00 36.67 Mallory [facility] Respiratory rate 2022-12-08 16:01:00 18 /min [facility] Body height 2022-12-08 16:01:00 161.3 cm [facility] Body weight 2022-12-08 16:01:00 83.008 kg [facility] BMI 2022-12-08 16:01:00 31.91 kg/m2 [facility] Systolic blood pressure 2022-07-06 16:12:00 137 mm[Hg] [facility] Diastolic blood pressure 2022-07-06 16:12:00 90 mm[Hg] [facility] Heart rate 2022-07-06 16:12:00 96 /min [facility] Body temperature 2022-07-06 16:12:00 37.06 Mallory [facility] Respiratory rate 2022-07-06 16:12:00 18 /min [facility] Body height 2022-07-06 16:12:00 161.3 cm [facility] Body weight 2022-07-06 16:12:00 81.466 kg [facility] BMI 2022-07-06 16:12:00 31.32 kg/m2 [facility] Systolic blood pressure 2022-06-07 21:04:00 130 mm[Hg] [facility] Diastolic blood pressure 2022-06-07 21:04:00 87 mm[Hg] [facility] Heart rate 2022-06-07 21:02:00 75 /min [facility] Body temperature 2022-06-07 21:02:00 36.78 Mallory [facility] Respiratory rate 2022-06-07 21:02:00 18 /min [facility] Body height 2022-06-07 21:02:00 161.3 cm [facility] Body weight 2022-06-07 21:02:00 85.276 kg [facility] BMI 2022-06-07 21:02:00 32.78 kg/m2 [facility] Procedures Procedure Date / Time Performed Performing Clinician Source POCT TEST 2024-03-23 18:02:00 Adum, Vaishali Tadeo [facility] CT HEAD W CONTRAST 2023-07-15 00:43:00 Adum, Vaishali Tadeo [facility] CT HEAD WO CONTRAST 2023-07-15 00:42:00 Adum, Vaishali Tadeo [facility] SGOT (ASPARTATE AMINO TRANSFER) 2023-07-14 17:16:00 Adum, Vaishali Tadeo [facility] CREATININE 2023-07-14 17:16:00 [facility](SGPT 2023-07-14 17:16:00 Adum, Vaishali Tadeo [facility] LACTATE DEHYDROGENASE 2023-07-14 17:16:00 Adum, Vaishali Tadeo [facility] URIC ACID 2023-07-14 17:16:00 Adum, Vaishali Tadeo [facility] CBC WITH DIFF 2023-07-14 17:16:00 Adum, Vaishali Tadeo [facility] CBC WITH DIFF 2023-07-13 09:47:00 GrullonIdalia Juan José [facility] CBC WITH DIFF 2023-07-13 09:47:00 GrullonJazmynen [facility] HEPATITIS B SURFACE ANTIGEN 2023-07-12 10:03:00 GrullonIdalia [facility] HB ABO GROUPING 2023-07-12 10:03:00 Chauncey Idalia [facility] RHO (D) IMMUNE GLOBULIN 2023-07-12 10:03:00 Chauncey Idalia [facility] ADC OR MIKE ONLY - RPR 2023-07-12 10:03:00 Chauncey Idaliakayy Can [facility] HIV 1/2 AG-AB WITH REFLEX 2023-07-12 10:03:00 GrullonIdalia [facility] HEPATITIS B SURFACE ANTIGEN 2023-07-12 10:03:00 GrullonIdalia [facility] HB ABO GROUPING 2023-07-12 10:03:00 GrullonIdalia [facility] RHO (D) IMMUNE GLOBULIN 2023-07-12 10:03:00 Chauncey Idalia [facility] ADC OR MIKE ONLY - RPR 2023-07-12 10:03:00 Chauncey Idalia [facility] HIV 1/2 AG-AB WITH REFLEX 2023-07-12 10:03:00 Chauncey Idalia [facility] LACTATE DEHYDROGENASE 2023-07-12 00:14:00 Idalia Grullon [facility] CBC WITH DIFF 2023-07-12 00:14:00 Idalia Grullon [facility] URINALYSIS 2023-07-12 00:14:00 Idalia Grullon [facility] PROTEIN CREAT RATIO URINE RANDOM 2023-07-12 00:14:00 Idalia Grullon [facility] LACTATE DEHYDROGENASE 2023-07-12 00:14:00 Idalia Grullon [facility] CBC WITH DIFF 2023-07-12 00:14:00 Idalia Grullon [facility] URINALYSIS 2023-07-12 00:14:00 Idalia Grullon [facility] PROTEIN CREAT RATIO URINE RANDOM 2023-07-12 00:14:00 Idalia Grullon [facility] US BIOPHYSICAL PROFILE 2023-07-11 23:33:11 Idalia Grullon [facility] US BIOPHYSICAL PROFILE 2023-07-11 23:33:11 Idalia Grullon [facility] US PELVIS > 14 WEEKS 2023-07-11 23:32:57 Idalia Grullon [facility] US PELVIS > 14 WEEKS 2023-07-11 23:32:57 Idalia Grullon [facility] ADC CLC OR LCC ONLY - WET PREP 2023-07-11 19:54:00 Idalia Grullon [facility] ADC CLC OR LCC ONLY - WET PREP 2023-07-11 19:54:00 Idalia Grullon [facility] SGOT (ASPARTATE AMINO TRANSFER) 2023-07-11 19:02:00 Idalia Grullon [facility] CREATININE 2023-07-11 19:02:00 Idalia Grullon [facility] ALANINE AMINO TRANSFERASE(SGPT 2023-07-11 19:02:00 Idalia Grullon [facility] URIC ACID 2023-07-11 19:02:00 Idalia Grullon [facility] CBC WITH DIFF 2023-07-11 19:02:00 Idalia Grullon [facility] HB ABO GROUPING 2023-07-11 19:02:00 Idalia Grullon [facility] EXTRA TUBE LT. GREEN 2023-07-11 19:02:00 Idalia Grullon [facility] EXTRA TUBE RED 2023-07-11 19:02:00 Grullon, Idalia Cam [facility] SGOT (ASPARTATE AMINO TRANSFER) 2023-07-11 19:02:00 Idalia Grullon [facility] CREATININE 2023-07-11 19:02:00 Idalia Grullon [facility] ALANINE AMINO TRANSFERASE(SGPT 2023-07-11 19:02[facility]-11 19:02:00 Idalia Grullon [facility] CBC WITH DIFF 2023-07-11 19:02:00 Idalia Grullon [facility] HB ABO GROUPING 2023-07-11 19:02:00 Grullon [facility] EXTRA TUBE LT. GREEN 2023-07-11 19:02:00 Idalia Grullon [facility] EXTRA TUBE RED 2023-07-11 19:02[facility] 2023-07-11 17:03:55 Docto r Unassigned, [place] [facility] ASSIGNMENT OF BENEFITS 2023-07-11 17:03:55 Docto r Unassigned, [place] [facility] CONSENT/REFUSAL FOR DIAGNOSIS AND TREATMENT 2023-07-11 17:03:12 Doctor Unassigned, [place] [facility] CONSENT/REFUSAL FOR DIAGNOSIS AND TREATMENT 2023-07-11 17:03:12 Doctor Unassigned, [place] [facility] NON-STRESS TEST 2023-07-08 15:30:30 Adum, Vaishali Tadeo [facility] POCT URINALYSIS W/O SPECIFIC GRAVITY 2023-07-08 00:00:00 Adum, Vaishali Tadeo [facility] SECOND AND THIRD TRIMESTER ULTRASOUND 2023-07-05 16:16:00 Taya Stevens [facility] NON-STRESS TEST 2023-07-05 15:01:00 Adum, Vaishali Tadeo [facility] DSU PRE-OP 2023-07-05 05:01:00 Doctor Unass igned, [place] [facility] POCT URINALYSIS W/O SPECIFIC GRAVITY 2023-07-05 00:00:00 Adum, Vaishali Tadeo [facility] NON-STRESS TEST 2023-07-01 18:21:34 Adum, Vaishali Tadeo [facility] POCT URINALYSIS W/O SPECIFIC GRAVITY 2023-07-01 00:00:00 Adum, Vaishali Tadeo [facility] NON-STRESS TEST 2023-06-28 16:23:32 Adum, Vaishali Tadeo [facility] CBC WITH DIFF 2023-06-28 15:28:00 Taya Stevens [facility] NON-STRESS TEST 2023-06-24 22:07:08 Adum, Vaishali Tadeo [facility] TDAP VACCINE, >11 YRS, IM 2023-06-24 17:42:22 Adum, Vaishali Carlyle [facility] URINE CULTURE 2023-06-24 17:42:00 Adum, Vaishali Tadeo [facility] SECOND AND THIRD TRIMESTER ULTRASOUND 2023-06-17 14:35:00 Taya Stevens [facility] NON-STRESS TEST 2023-06-08 22:51:08 Idalia Grullon m [facility] ADC ONLY - FERN TEST 2023-06-08 20:28:00 Idalia Grullon [facility] ASSIGNMENT OF BENEFITS 2023-06-08 19:39:56 Docto r Unassigned, [place] [facility] CONSENT/REFUSAL FOR DIAGNOSIS AND TREATMENT 2023-06-08 19:39:37 Doctor Unassigned, [place] [facility] ADC CLC OR LCC ONLY - WET PREP 2023-06-01 00:45:00 Adum, Vaishali Carlyle [facility] POCT URINALYSIS W/O SPECIFIC GRAVITY 2023-05-31 00:00:00 Taya Stevens [facility] POCT URINALYSIS W/O SPECIFIC GRAVITY 2023-04-07 14:55:00 [facility] ASSIGNMENT OF BENEFITS 2023-04-07 14:42:10 Docto r Unassigned, [place] [facility] POCT URINALYSIS W/O SPECIFIC GRAVITY 2023-02-28 00:00:00 Taya Stevens [facility] ASSIGNMENT OF BENEFITS 2023-01-22 15:26:52 Docto r Unassigned, [place] [facility] URINE CULTURE 2023-01-19 14:30:00 Taya Stevens [facility] POCT URINALYSIS W/O SPECIFIC GRAVITY 2023-01-19 00:00:00 Taya Stevens [facility] US FIRST TRIMESTER LESS THAN 14 WEEKS WITH TRANSVAGINAL 2022-12-20 17:48:00 Taya Stevens [facility] CBC WITH DIFF 2022-12-11 17:05:00 [facility] 2022-12-11 16:06:02 Docto r Unassigned, [place] [facility] FLU VACC ([id number]), 6 MO-64 YRS, .5ML, IM, QUAD (FLUCELVAX) 2022-12-08 16:15:24 Taya Stevens [facility] POCT TEST 2022-12-08 00:00:00 Acacia Stevens [facility] POCT URINALYSIS W/O SPECIFIC GRAVITY 2022-12-08 00:00:00 Taya Stevens [facility] SECTION Idalia Grullon [facility] SECTION Idalia Grullon [facility] Encounters Start Date/Time End Date/Time Encounter Type Admission Type Attending Clinicians Care Facility Care Department Encounter ID Source 2023-05-31 22:52:15 Outpatient P [facility] [id number] [facility] 2024-06-26 13:40:00 2024-06-26 13:40:00 Outpatient R OBI-DEE , JAYASHREE OBI-DEE , JAYASHREE [facility] [id number] [facility] 2024-06-15 09:00:00 2024-06-15 09:00:00 Outpatient R ADUMVAISHALI ADVAISHALI PANTOJA [facility] [id number] [facility] 2024-05-08 00:00:00 2024-06-09 18:20:43 Patient Secure Msg Doctor Unassigned, [place] Doctor Unassigned, [place] [facility] 1.2.840.114 350.1.13.10 4.2.7.2.686 [id number] [facility] 2024-05-31 14:40:00 2024-05-31 14:40:00 Outpatient R OBI-DEE , JAYASHREE OBI-DEE , JAYASHREE [facility] [id number] [facility] 2024-05-08 09:40:00 2024-05-08 09:40:00 Outpatient R OBI-DEE , JAYASHREE OBI-DEE , JAYASHREE [facility] [id number] [facility] 2024-05-01 15:45:00 2024-05-01 15:45:00 Outpatient R ADUM, VAISHALI ADUM, VAISHALI [facility] [id number] [facility] 2024-04-30 10:40:00 2024-04-30 10:40:00 Outpatient R OBI-DEE , JAYASHREE OBI-DEE , JAYASHREE [facility] [id number] [facility] 2024-04-19 08:40:00 2024-04-19 08:40:00 Outpatient R OBI-DEE , JAYASHREE OBI-DEE , JAYASHREE [facility] [id number] [facility] 2024-04-16 13:40:00 2024-04-16 13:40:00 Outpatient R OBI-DEE , JAYASHREE OBI-DEE , JAYASHREE [facility] [id number] [facility] 2024-04-03 14:20:00 2024-04-03 14:52:34 Outpatient R OBI-DEE , JAYASHREE OBI-DEE , JAYASHREE [facility] [id number] [facility] 2024-04-03 14:20:00 2024-04-03 14:52:34 Office Visit Jayashree Rodriguez [facility] 1..840.114 350.1.13.10 4.2.7.2.686 [id number] [facility] 2024-03-23 13:00:00 2024-03-23 13:33:59 Outpatient R KIRSTEN [facility] [id number] [facility] 2024-03-23 13:00:00 2024-03-23 13:33:59 Office Visit Kirsten [facility] 1..840.114 350.1.13.10 4.2.7.2.686 [id number] 134 [id number] [facility] 2023-12-27 15:30:00 2023-12-27 15:30:00 Outpatient R VINCENZO-SABA S, MILE VINCENZO-SABA S, MILE [facility] [id number] [facility] 2023-11-10 10:30:00 2023-11-10 10:30:00 Outpatient R KIRSTEN [facility] [id number] [facility] 2023-10-20 00:00:00 2023-10-20 00:00:00 Patient Secure Msg Pcp, Patient Does Not Have A [facility] 1..840.114 350.1.13.10 4.2.7.2.686 [id number] [id number] [facility] 2023-09-14 00:00:00 2023-09-14 00:00:00 Patient Secure Msg Kirsten [facility] 1.2.840.114 350.1.13.10 4.2.7.2.686 [id number] 134 [id number] [facility] 2023-08-30 13:00:00 2023-08-30 13:00:00 Outpatient R KIRSTEN [facility] [id number] [facility] 2023-08-17 11:00:00 2023-08-17 11:00:00 Outpatient R KIRSTEN VAISHALI [facility] [id number] [facility] 2023-08-10 11:15:00 2023-08-10 11:33:50 Outpatient R TAYA STEVENS [facility]ERY[facility] [id number] [facility] 2023-08-10 11:15:00 2023-08-10 11:33:50 Routine Visit Taya Stevens [facility] 1..840.114 350.1.13.10 4.2.7.2.686 [id number] 134 [id number] [facility] 2023-08-03 13:45:00 2023-08-03 14:00:00 Routine Visit Vaishali Curtis [facility] 1..840.114 350.1.13.10 4.2.7.2.686 [id number] 134 [id number] [facility] 2023-08-03 13:45:00 2023-08-03 13:45:00 Outpatient Latasha CURTIS VAISHALI [facility] [id number] [facility] 2023-07-29 00:00:00 2023-07-29 00:00:00 Refill Taya Stevens [facility] 1..840.114 350.1.13.10 4.2.7.2.686 [id number] 134 [id number] [facility] 2023-07-20 13:30:00 2023-07-20 14:07:41 Outpatient R KIRSTEN VAISHALI [facility] [id number] [facility] 2023-07-20 13:30:00 2023-07-20 14:07:41 Nurse Visit Taya Stevens Vivian L [facility] 1.2.84.114 350.1.13.10 4.2.7.2.686 [id number] 134 [id number] [facility] 2023-07-11 12:08:00 2023-07-16 09:35:00 Inpatient X IDALIA GRULLON [facility] [id number] [facility] 2023-07-11 12:08:00 2023-07-16 09:35:00 Hospital Encounter Idalia Grullon [facility] 1.840.114 350.1.13.10 4.2.7.2.686 [id number] [facility] 2023-07-15 10:00:00 2023-07-15 10:00:[address] [facility] [id number] [facility] 2023-07-12 09:00:00 2023-07-12 09:00:[address] [facility] [id number] [facility] 2023-07-12 00:00:00 2023-07-12 00:00:00 Surgery Idalia Grullon [facility] 1.84.114 350.1.13.10 4.2.7.2.686 [id number] [facility] 2023-07-11 00:00:00 2023-07-11 00:00:00 Telephone Vaishali Curtis [facility] 1.284.114 350.1.13.10 4.2.7.2.686 [id number] 134 [id number] [facility] 2023-07-08 10:00:00 2023-07-08 10:40:12 Outpatient R VAISHALI CURTIS [facility] [id number] [facility] 2023-07-08 10:00:00 2023-07-08 10:40:12 Routine Visit Room, 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 [id number] [facility] 2023-07-05 09:00:00 2023-07-05 09:58:21 Routine Visit Room, [facility] 1.2840.114 350.1.13.10 4.2.7.2.686 [id number] 134 [id number] [facility] 2023-07-05 00:00:00 2023-07-05 00:00:00 Orders Only Doctor Unassigned, [place] [facility] 1.2840.114 350.1.13.10 4.2.7.2.686 [id number] [facility] 2023-07-01 11:00:00 2023-07-01 12:03:08 Outpatient R KIRSTEN [facility] [id number] [facility] 2023-07-01 11:00:00 2023-07-01 12:03:08 [facility] L [facility] 1.2.840.114 350.1.13.10 4.2.7.2.686 [id number] 134 [id number] [facility] 2023-07-01 00:00:00 2023-07-01 00:00:00 Telephone Adum, Vaishali Tadeo [facility] 1.2.840.114 350.1.13.10 4.2.7.2.686 [id number] 134 [id number] [facility] 2023-06-28 10:00:00 2023-06-28 11:21:37 Outpatient R ADUM, VAISHALI [facility] [id number] [facility] 2023-06-28 10:00:00 2023-06-28 11:21:37 Routine Visit Room, [facility] N[facility] Adum, Vaishali Tadeo [facility] 1.2840.114 350.1.13.10 4.2.7.2.686 [id number] 134 [id number] [facility] 2023-06-28 09:30:00 2023-06-28 09:45:00 Student Financial Services Counselor Visit 2, [facility] Adum, Vaishali Tadeo [facility] 1.2.840.114 350.1.13.10 4.2.7.2.686 [id number] [facility] 2023-06-28 00:00:00 2023-06-28 00:00:00 Patient Secure Msg Taya Stevens [facility] 1.2840.114 350.1.13.10 4.2.7.2.686 [id number] 134 [id number] [facility] 2023-06-28 00:00:00 2023-06-28 00:00:00 Patient Secure Msg Doctor Unassigned, [place] [facility] 1.2840.114 350.1.13.10 4.2.7.2.686 [id number] 134 [id number] [facility] 2023-06-24 11:00:00 2023-06-24 13:49:21 Outpatient R VAISHALI CURTIS [facility] [id number] [facility] 2023-06-24 11:00:00 2023-06-24 13:49:21 Routine Visit Room, [facility] Vaishali Curtis [facility] 1.840.114 350.1.13.10 4.2.7.2.686 [id number] 134 [id number] [facility] 2023-06-21 10:00:00 2023-06-21 10:00:[address] [facility] [id number] [facility] 2023-06-21 00:00:00 2023-06-21 00:00:00 [facility] 1.840.114 350.1.13.10 4.2.7.2.686 [id number] 134 [id number] [facility] 2023-06-20 16:00:00 2023-06-20 16:00:00 Outpatient R ANTONIOJEFFTAYA [facility] [id number] [facility] 2023-06-20 00:00:00 2023-06-20 00:00:00 Case Management [facility] 1..114 350.1.13.10 4.2.7.2.686 [id number] 134 [id number] [facility] 2023-06-20 00:00:00 2023-06-20 00:00:00 [facility] 1.840.114 350.1.13.10 4.2.7.2.686 [id number] 134 [id number] [facility] 2023-06-20 00:00:00 2023-06-20 00:00:00 Telephone ElyTaya borja [facility] 1..114 350.1.13.10 4.2.7.2.686 [id number] 134 [id number] [facility] 2023-06-17 08:45:00 2023-06-17 09:31:22 Outpatient P [facility] [id number] [facility] 2023-06-17 08:45:00 2023-06-17 09:31:22 Student Financial Services Counselor Visit Ultrasound, Minerva Mcdonald [facility] WATER MANA[employer] [facility] 1.84.114 350.1.13.10 4.2.7.2.686 [id number] [facility] 2023-06-15 16:00:00 2023-06-15 16:00:00 Outpatient R ELYTAYA BORJA ELYERINGISELEJEFF [facility] [id number] [facility] 2023-06-08 15:05:00 2023-06-08 17:55:00 Outpatient P IDALIA GRULLON [facility] [id number] [facility] 2023-06-08 15:05:00 2023-06-08 17:55:00 Hospital Encounter Idalia Grullon [facility] 1.84.114 350.1.13.10 4.2.7.2.686 [id number] [facility] 2023-06-06 00:00:00 2023-06-06 00:00:00 Patient Secure Msg BensongiseleTamela aguilarzane [facility] 1.840.114 350.1.13.10 4.2.7.2.686 [id number] 134 [id number] [facility] 2023-06-01 00:00:00 2023-06-01 00:00:00 Patient Secure Msg [facility] 1.840.114 350.1.13.10 4.2.7.2.686 [id number] 134 [id number] [facility] 2023-05-31 18:40:00 2023-05-31 21:50:00 Outpatient P ADVAISHALI PANTOJA [facility] [id number] [facility] 2023-05-31 18:40:00 2023-05-31 21:50:00 Hospital Encounter Vaishali Curtis [facility] 1.840.114 350.1.13.10 4.2.7.2.686 [id number] [facility] 2023-05-31 16:15:00 2023-05-31 16:46:40 Outpatient R RODNEYTAMELAZANE [facility] [id number] [facility] 2023-05-31 16:15:00 2023-05-31 16:46:40 Routine Visit Rodney [facility] 1.840.114 350.1.13.10 4.2.7.2.686 [id number] [facility] 2023-05-27 08:15:00 2023-05-27 08:15:00 Outpatient R MILE BRODERICK SMILE [facility] [id number] [facility] 2023-05-27 00:00:00 2023-05-27 00:00:00 Telephone Rodney [facility] 1..840.114 350.1.13.10 4.2.7.2.686 [id number] 134 [id number] [facility] 2023-05-18 00:00:00 2023-05-18 00:00:00 Refill [facility] 1.2840.114 350.1.13.10 4.2.7.2.686 [id number] 134 [id number] [facility] 2023-05-17 11:15:00 2023-05-17 11:15:[address] [facility] [id number] [facility] 2023-05-12 11:30:00 2023-05-12 23:59:00 Hospital Encounter Taya Stevens [facility] 1.2840.114 350.1.13.10 4.2.7.2.686 [id number] [facility] 2023-05-12 00:00:00 2023-05-12 23:59:00 Outpatient R TAYA STEVENS [facility]ERY[facility] [id number] [facility] 2023-05-09 11:00:00 2023-05-09 11:00:00 Outpatient R TAYA STEVENS [facility]ERY[facility] [id number] [facility] 2023-04-27 00:00:00 2023-04-27 00:00:00 Refill Rodney [facility] 1.2840.114 350.1.13.10 4.2.7.2.686 [id number] 134 [id number] [facility] 2023-04-27 00:00:00 2023-04-27 00:00:00 Refill Taya Stevens [facility] 1.2840.114 350.1.13.10 4.2.7.2.686 [id number] 134 [id number] [facility] 2023-04-13 12:00:00 2023-04-13 12:15:00 Student Financial Services Counselor Visit Lab, Doc Engjeff [facility] Sheldon?[facility] 1.2840.114 350.1.13.10 4.2.7.2.686 [id number] [facility] 2023-04-13 12:00:00 2023-04-13 12:00:00 Outpatient R TAYA STEVENS [facility] [id number] [facility] 2023-04-13 00:00:00 2023-04-13 00:00:00 Patient Secure Msg Rodney [facility] 1.840.114 350.1.13.10 4.2.7.2.686 [id number] [facility] 2023-04-13 00:00:00 2023-04-13 00:00:00 Patient Secure Msg Doctor Unassigned, [place] [facility] 1.840.114 350.1.13.10 4.2.7.2.686 [id number] [facility] 2023-04-07 10:00:00 2023-04-07 10:29:09 Outpatient R [facility]A [facility] [id number] [facility] 2023-04-07 10:00:00 2023-04-07 10:29:09 Routine Visit [facility] 1.20.114 350.1.13.10 4.2.7.2.686 [id number] 134 [id number] [facility] 2023-04-07 00:00:00 2023-04-07 00:00:00 Orders Only Doctor Unassigned, [place] [facility] 1.2840.114 350.1.13.10 4.2.7.2.686 [id number] [facility] 2023-03-29 09:30:00 2023-03-29 09:30:00 Outpatient R TRITSCHLER, CHERTAYA DUARTE [facility] [id number] [facility] 2023-03-24 08:00:00 2023-03-24 08:00:[address] [facility] [id number] [facility] 2023-03-01 00:00:00 2023-03-01 00:00:00 Patient Secure Msg Taya Stevens [facility] 1.2.840.114 350.1.13.10 4.2.7.2.686 [id number] 134 [id number] [facility] 2023-02-28 11:00:00 2023-02-28 11:27:15 [facility] [id number] 2023-02-28 11:00:00 2023-02-28 11:27:15 Routine Visit Rodney Taya [facility] 1.2840.114 350.1.13.10 4.2.7.2.686 [id number] 134 [id number] [facility] 2023-02-16 10:00:00 2023-02-16 10:00:00 Outpatient R TAYA STEVENS [facility]ERY[facility] [id number] [facility] 2023-02-16 00:00:00 2023-02-16 00:00:00 Telephone [facility] Taya [facility] 1.2.840.114 350.1.13.10 4.2.7.2.686 [id number] 134 [id number] [facility] 2023-02-16 00:00:00 2023-02-16 00:00:00 Telephone [facility] 1.2.840.114 350.1.13.10 4.2.7.2.686 [id number] 134 [id number] [facility] 2023-02-07 00:00:00 2023-02-07 00:00:00 Telephone Rodney Tamelazane [facility] 1.2.840.114 350.1.13.10 4.2.7.2.686 [id number] 134 [id number] [facility] 2023-01-31 00:00:00 2023-01-31 00:00:00 Telephone Fariba Castellanos [facility] 1.2.840.114 350.1.13.10 4.2.7.2.686 [id number] 134 [id number] [facility] 2023-01-28 00:00:00 2023-01-28 00:00:00 Refill Rodney [facility] 1.2.840.114 350.1.13.10 4.2.7.2.686 [id number] 134 [id number] [facility] 2023-01-26 00:00:00 2023-01-26 00:00:00 [facility]phone [facility] 1.2.840.114 350.1.13.10 4.2.7.2.686 [id number] 134 [id number] [facility] 2023-01-25 09:15:00 2023-01-25 10:24:30 Outpatient R TAYA STEVENS [facility]ERY[facility] [id number] [facility] 2023-01-25 09:15:00 2023-01-25 10:24:30 Student Financial Services Counselor Visit 2, [facility] Lab Taya Stevens [facility] 1.2.840.114 350.1.13.10 4.2.7.2.686 [id number] [facility] 2023-01-24 00:00:00 2023-01-24 00:00:00 Telephone Rodney [facility] 1.2.840.114 350.1.13.10 4.2.7.2.686 [id number] 134 [id number] [facility] 2023-01-22 10:45:00 2023-01-22 10:45:00 Outpatient R ELYERINGISELETAYA AGUILAR TAYA STEVENS [facility] [id number] [facility] 2023-01-22 00:00:00 2023-01-22 00:00:00 Orders Only Doctor Unassigned, [place] [facility] 1.2.840.114 350.1.13.10 4.2.7.2.686 [id number] [facility] 2023-01-21 00:00:00 2023-01-21 00:00:00 Telephone Taya Stevens [facility] 1.2.840.114 350.1.13.10 4.2.7.2.686 [id number] 134 [id number] [facility] 2023-01-19 09:30:00 2023-01-19 10:23:44 Outpatient R RODNEY TAYA LI [facility] [id number] [facility] 2023-01-19 09:30:00 2023-01-19 10:23:44 Routine Visit Taya Stevens [facility] 1.2.840.114 350.1.13.10 4.2.7.2.686 [id number] [facility] 2023-01-18 15:30:00 2023-01-18 15:30:00 Outpatient R TAYA STEVENS [facility] [id number] [facility] 2023-01-05 10:00:00 2023-01-05 10:00:00 Outpatient R TAYA STEVENS [facility] [id number] [facility] 2022-12-21 00:00:00 2022-12-21 00:00:00 Case Management Taya Stevens [facility] 1..114 350.1.13.10 4.2.7.2.686 [id number] [facility] 2022-12-20 10:18:22 2022-12-20 23:59:00 Outpatient R TAYA STEVENS [facility] [id number] [facility] 2022-12-20 10:18:22 2022-12-20 23:59:00 Hospital Encounter Taya Stevens [facility] 1.84.114 350.1.13.10 4.2.7.2.686 [id number] [facility] 2022-12-16 00:00:00 2022-12-16 00:00:00 Outpatient R TAYA STEVENS [facility] [id number] [facility] 2022-12-11 10:15:00 2022-12-11 10:30:00 Student Financial [employer] Counselor Visit Pob, Adc Lab Main Taya Stevens [facility] 1.840.114 350.1.13.10 4.2.7.2.686 [id number] [facility] 2022-12-11 10:15:00 2022-12-11 10:15:00 Outpatient R TAYA STEVENS [facility] [id number] [facility] 2022-12-11 00:00:00 2022-12-11 00:00:00 Orders Only Doctor Unassigned, [place] [facility] 1.840.114 350.1.13.10 4.2.7.2.686 [id number] [facility] 2022-12-08 10:00:00 2022-12-08 10:26:11 Outpatient R TAYA STEVENS [facility] [id number] [facility] 2022-12-08 10:00:00 2022-12-08 10:26:11 Initial Visit Taya Stevens [facility] 1.2.840.114 350.1.13.10 4.2.7.2.686 [id number] [facility] 2022-08-03 00:00:00 2022-08-03 00:00:00 Patient Secure Msg Alejo Braden [facility] 1.20.114 350.1.13.10 4.2.7.2.686 [id number] 134 [id number] [facility] 2022-07-06 10:30:00 2022-07-06 11:30:42 Outpatient R BRADEN [facility] [id number] [facility] 2022-07-06 10:30:00 2022-07-06 11:30:42 Routine Visit Alejo Braden [facility] 1.20.114 350.1.13.10 4.2.7.2.686 [id number] [facility] 2022-06-22 16:15:00 2022-06-22 16:15:00 Outpatient R BRADEN [facility] [id number] [facility] 2022-06-07 16:15:00 2022-06-07 16:27:50 Outpatient R BRADEN [facility] [id number] [facility] 2022-06-07 16:15:00 2022-06-07 16:27:50 Routine Visit Alejo Braden [facility] 1.2840.114 350.1.13.10 4.2.7.2.686 [id number] [facility] 2022-06-07 16:15:00 2022-06-07 16:27:50 Outpatient R BRADEN [facility] [id number] [facility] 2022-05-22 10:45:00 2022-05-22 11:00:00 Student Financial Services Counselor Visit Mirian, Deepa Lab Main Braden Dhillon [facility] 1..840.114 350.1.13.10 4.2.7.2.686 [id number] [facility] 2022-05-22 10:45:00 2022-05-22 10:45:00 Outpatient [address] [facility] [id number] [facility] 2022-05-20 16:15:00 2022-05-20 16:15:00 Outpatient R [facility] [id number] [facility] 2022-05-06 14:30:00 2022-05-06 14:55:36 Outpatient [address] [facility] [id number] [facility] 2022-05-06 14:30:00 2022-05-06 14:55:36 Routine Visit Braden Dhillon [facility] 1..840.114 350.1.13.10 4.2.7.2.686 [id number] 134 [id number] [facility] 2022-04-28 00:00:00 2022-04-28 00:00:00 Patient Secure Msg Braden Dhillon [facility] 1..840.114 350.1.13.10 4.2.7.2.686 [id number] 134 [id number] [facility] 2022-04-26 16:00:00 2022-04-26 16:00:00 Outpatient [address] [facility] [id number] [facility] 2022-04-26 13:00:00 2022-04-26 13:00:00 Outpatient [address] [facility] [id number] [facility] 2022-04-21 10:00:00 2022-04-21 10:00:00 Nurse Visit Nurse, José [facility]j [facility] Braden Dhillon [facility] 1.284.114 350.1.13.10 4.2.7.2.686 [id number] 134 [id number] [facility] 2022-04-21 10:00:00 2022-04-21 09:53:[address] [facility] [id number] [facility] 2022-04-19 00:00:00 2022-04-19 00:00:00 Patient Secure Jaclyn Hameed [facility] 1.2.840.114 350.1.13.10 4.2.7.2.686 [id number] [facility] 2022-04-13 00:00:00 2022-04-13 00:00:00 Patient Secure Braden Pierre [facility] 1.2840.114 350.1.13.10 4.2.7.2.686 [id number] 134 [id number] [facility] 2022-04-02 11:45:00 2022-04-02 12:00:00 Student Financial Services Counselor Visit Pob, Adc Lab Main Alejo Braden [facility] 1..840.114 350.1.13.10 4.2.7.2.686 [id number] [facility] 2022-04-02 11:45:00 2022-04-02 11:45:00 Outpatient R [address] [id number] [facility] 2022-04-01 08:30:00 2022-04-01 09:43:27 Outpatient R [facility] [id number] [facility] 2022-04-01 08:30:00 2022-04-01 09:43:27 Initial Visit Braden Dhillon [facility] 1.114 350.1.13.10 4.2.7.2.686 [id number] 134 [id number] [facility] 2022-04-01 00:00:00 2022-04-01 00:00:00 Orders Only Doctor Unassigned, [place] [facility] 1.840.114 350.1.13.10 4.2.7.2.686 [id number] [facility] Results Test Description Test Time Test Comments Results Result Co mments Source [facility] [id number] 18:03:00* Test Item Value Reference Range Interpretation Comme nts POCT PREG (test code = 1605) Negative On board controls acceptable with C Line (test code = 3574) Yes POCT PREG LOT # (test code = 3575) POCT PREG TEST DATE ( test code = 3576) [facility] Hlwa9220-75-90 18:03:00* Test Item Value Reference Range Interpretation Comme nts POCT PREG (test code = 1605) Negative On board controls acceptable with C Line (test code = 3574) Yes POCT PREG LOT # (test code = 3575) POCT PREG TEST DATE ( test code = 3576) [facility] [id number] 18:03:00* Test Item Value Reference Range Interpretation Comme nts POCT PREG (test code = 1605) Negative On board controls acceptable with C Line (test code = 3574) Yes POCT PREG LOT # (test code = 3575) POCT PREG TEST DATE ( test code = 3576) [facility] with Hvimmoyuugpr3892-47-94 11:42:01* Test Item Value Reference Range Interpretation Comme nts WBC (test code = 6690-2) 17.25 See_Comment H [Automated message] The system which generated this result transmitted reference range: 4.30 - 11.10 10*3/?L. The reference range was not used to interpret this result as normal/abnormal. RBC (test code = 789-8) 3.50 See_Comment L [Automated message] The system which generated this result transmitted reference range: 3.93 - 5.25 10*6/?L. The reference range was not used to interpret this result as normal/abnormal. HGB (test code = 718-7) 10.3 g/dL 11.6-15.0 L HCT (test code = 4544-3) 31.1 % 35.7-45.2 L MCV (test code = 787-2) 88.9 fL 80.6-95.5 MCH (test code = 785-6) 29.4 pg 25.9-32.8 MCHC (test code = 786-4) 33.1 g/dL 31.6-35.1 RDW-SD (test code = 17919-3) 43.9 fL 39.0-49.9 RDW-CV (test code = 788-0) 13.5 % 12.0-15.5 PLT (test code = 777-3) 267 See_Comment [Automated message] The system which generated this result transmitted reference range: 166 - 358 10*3/?L. The reference range was not used to interpret this result as normal/abnormal. MPV (test code = 02765-8) 9.2 fL 9.5-12.9 L NRBC/100 WBC (test code = 1627704481) 0.0 See_Comment [Automated message] The system which generated this result transmitted reference range: 0.0 - 10.0 /100 WBCs. The reference range was not used to interpret this result as normal/abnormal. NRBC x10^3 (test code = 0345276896) See_Comment [Automated message] The system which generated this result transmitted reference range: 10*3/?L. The reference range was not used to interpret this result as normal/abnormal. GRAN MAT (NEUT) % (test code = 770-8) 83.2 % IMM GRAN % (test code = 1179055155) 0.70 % LYMPH % (test code = 736-9) 9.9 % MONO % (test code = 5905-5) 6.1 % EOS % (test code = 713-8) 0.0 % BASO % (test code = 706-2) 0.1 % GRAN MAT x10^3(ANC) (test code = 4278706692) 14.35 10*3/uL 1.88-7.09 H IMM GRAN x10^3 (test code = 7074538585) 0.12 10*3/uL 0.00-0.06 H LYMPH x10^3 (test code = 731-0) 1.71 10*3/uL 1.32-3.29 MONO x10^3 (test code = 742-7) 1.05 10*3/uL 0.33-0.92 H EOS x10^3 (test code = 711-2) 0.03-0.39 L BASO x10^3 (test code = 704-7) 0.01-0.07 Lab Interpretation (test code = 19371-1) Abnormal [facility] with Nerjdzaeknoa7661-72-37 11:42:01* Test Item Value Reference Range Interpretation Comme nts WBC (test code = 6690-2) 17.25 See_Comment H [Automated message] The system which generated this result transmitted reference range: 4.30 - 11.10 10*3/?L. The reference range was not used to interpret this result as normal/abnormal. RBC (test code = 789-8) 3.50 See_Comment L [Automated message] The system which generated this result transmitted reference range: 3.93 - 5.25 10*6/?L. The reference range was not used to interpret this result as normal/abnormal. HGB (test code = 718-7) 10.3 g/dL 11.6-15.0 L HCT (test code = 4544-3) 31.1 % 35.7-45.2 L MCV (test code = 787-2) 88.9 fL 80.6-95.5 MCH (test code = 785-6) 29.4 pg 25.9-32.8 MCHC (test code = 786-4) 33.1 g/dL 31.6-35.1 RDW-SD (test code = 30196-3) 43.9 fL 39.0-49.9 RDW-CV (test code = 788-0) 13.5 % 12.0-15.5 PLT (test code = 777-3) 267 See_Comment [Automated message] The system which generated this result transmitted reference range: 166 - 358 10*3/?L. The reference range was not used to interpret this result as normal/abnormal. MPV (test code = 58835-4) 9.2 fL 9.5-12.9 L NRBC/100 WBC (test code = 0422878244) 0.0 See_Comment [Automated message] The system which generated this result transmitted reference range: 0.0 - 10.0 /100 WBCs. The reference range was not used to interpret this result as normal/abnormal. NRBC x10^3 (test code = 9435955086) See_Comment [Automated message] The system which generated this result transmitted reference range: 10*3/?L. The reference range was not used to interpret this result as normal/abnormal. GRAN MAT (NEUT) % (test code = 770-8) 83.2 % IMM GRAN % (test code = 9551468455) 0.70 % LYMPH % (test code = 736-9) 9.9 % MONO % (test code = 5905-5) 6.1 % EOS % (test code = 713-8) 0.0 % BASO % (test code = 706-2) 0.1 % GRAN MAT x10^3(ANC) (test code = 6348258663) 14.35 10*3/uL 1.88-7.09 H IMM GRAN x10^3 (test code = 6264056534) 0.12 10*3/uL 0.00-0.06 H LYMPH x10^3 (test code = 731-0) 1.71 10*3/uL 1.32-3.29 MONO x10^3 (test code = 742-7) 1.05 10*3/uL 0.33-0.92 H EOS x10^3 (test code = 711-2) 0.03-0.39 L BASO x10^3 (test code = 704-7) 0.01-0.07 Lab Interpretation (test code = 92586-9) Abnormal [facility] OR MIKE CERVANTES - [id number] 09:05:14* Test Item Value Reference Range Interpretation Comme nts RPR (Qualitative) (test code = 80188-9) Nonreactive Nonreactive Lab Interpretation (test cod e = 77012-6) Normal [facility] OR MIKE ONLY - [id number] 09:05:14* Test Item Value Reference Range Interpretation Comme nts RPR (Qualitative) (test code = 95645-5) Nonreactive Nonreactive Lab Interpretation (test cod e = 81589-6) Normal [facility] B Surface Ycqzwiy2681-81-23 15:36:07 * Test Item Value Reference Range Interpretation Comme nts HBsAg Semi-Quantitative (fran t code = 5195-3) 0.09 Negative [facility] B Surface Oahhlgb2814-24-38 15:36:07 * Test Item Value Reference Range Interpretation Comme nts HBsAg Semi-Quantitative (fran t code = 5195-3) 0.09 Negative [facility] IMMUNE KWUMWRZN8118-17-94 13:36:45* Test Item Value Reference Range Interpretation Comme nts RHIG CANDIDATE? (test code = 5188) No- see comment Patient is not a candidate for RhIg- Patient is Rh Positive.Performed at [facility] Laboratory [facility] Blood [address] [place] [address] Free: [phone] No. [id number] [facility] (D) IMMUNE KCQKNHOM4215-92-93 13:36:45* Test Item Value Reference Range Interpretation Comme nts RHIG CANDIDATE? (test code = 5188) No- see comment Patient is not a candidate for RhIg- Patient is Rh Positive.Performed at [facility] Laboratory [facility] Blood [address] [place] [address] Free: [phone] No. [id number] [facility] WITH [id number] 12:18:35* Test Item Value Reference Range Interpretation Comme nts HIV Semi-quantitative (test code = 67674-6) 0.11 Negative SOHEILA (test code = SOHEILA) Non-reactive for HIV-1 antigen and HIV-1/HIV-2 antibodies. ?No laboratory evidence of HIV infection. ?Repeat in 2-4 weeks if acute HIV infection is suspected. [facility] WITH MODTDQ9026-22-64 12:18:35* Test Item Value Reference Range Interpretation Comme nts HIV Semi-quantitative (test code = 82408-1) 0.11 Negative SOHEILA (test code = SOHEILA) Non-reactive for HIV-1 antigen and HIV-1/HIV-2 antibodies. ?No laboratory evidence of HIV infection. ?Repeat in 2-4 weeks if acute HIV infection is suspected. [facility] Screen - ONCE [id number] 10:27:00 * Test Item Value Reference Range Interpretation Comme nts ABO & RH (test code = 20) A Positive IAT (test code = 1185) Negative [facility] - ONCE [id number] 10:27:00 * Test Item Value Reference Range Interpretation Comme nts ABO & RH (test code = 20) A Positive IAT (test code = 1185) Negative [facility] CenterLactate Yzflmtwitwmak5322-46-19 00:42:06* Test Item Value Reference Range Interpretation Comme nts LDH (test code = 6701715577) 156 U/L 120-246 Lab Interpretation (test cod e = 92060-8) Normal [facility] CenterLaprate Hnbmbnkechltd4001-90-07 00:42:06* Test Item Value Reference Range Interpretation Comme nts LDH (test code = 3282986352) 156 U/L 120-246 Lab Interpretation (test cod e = 55068-4) Normal [facility] with Waofwrlqugbx3200-46-78 00:35:26* Test Item Value Reference Range Interpretation Comme nts WBC (test code = 6690-2) 11.06 See_Comment [Automated messa ge] The system which generated this result transmitted reference range: 4.30 - 11.10 10*3/?L. The reference range was not used to interpret this result as normal/abnormal. RBC (test code = 789-8) 3.97 See_Comment [Automated messa ge] The system which generated this result transmitted reference range: 3.93 - 5.25 10*6/?L. The reference range was not used to interpret this result as normal/abnormal. HGB (test code = 718-7) 11.5 g/dL 11.6-15.0 L HCT (test code = 4544-3) 34.8 % 35.7-45.2 L MCV (test code = 787-2) 87.7 fL 80.6-95.5 MCH (test code = 785-6) 29.0 pg 25.9-32.8 MCHC (test code = 786-4) 33.0 g/dL 31.6-35.1 RDW-SD (test code = 34899-7) 44.5 fL 39.0-49.9 RDW-CV (test code = 788-0) 13.8 % 12.0-15.5 PLT (test code = 777-3) 267 See_Comment [Automated Talentwirea ge] The system which generated this result transmitted reference range: 166 - 358 10*3/?L. The reference range was not used to interpret this result as normal/abnormal. MPV (test code = 87087-8) 8.4 fL 9.5-12.9 L NRBC/100 WBC (test code = 1626158742) 0.0 See_Comment [Automated Teladoc ssage] The system which generated this result transmitted reference range: 0.0 - 10.0 /100 WBCs. The reference range was not used to interpret this result as normal/abnormal. NRBC x10^3 (test code = 3101402304) See_Comment [Automated Talentwirea ge] The system which generated this result transmitted reference range: 10*3/?L. The reference range was not used to interpret this result as normal/abnormal. GRAN MAT (NEUT) % (test code = 770-8) 83.7 % IMM GRAN % (test code = 2144259616) 0.50 % LYMPH % (test code = 736-9) 12.8 % MONO % (test code = 5905-5) 2.3 % EOS % (test code = 713-8) 0.4 % BASO % (test code = 706-2) 0.3 % GRAN MAT x10^3(ANC) (test code = 2312237841) 9.26 10*3/uL 1.88-7.09 H IMM GRAN x10^3 (test code = 7790452622) 0.06 10*3/uL 0.00-0.06 LYMPH x10^3 (test code = 731-0) 1.42 10*3/uL 1.32-3.29 MONO x10^3 (test code = 742-7) 0.25 10*3/uL 0.33-0.92 L EOS x10^3 (test code = 711-2) 0.04 10*3/uL 0.03-0.39 BASO x10^3 (test code = 704-7) 0.03 10*3/uL 0.01-0.07 Lab Interpretation (test code = 54293-9) Abnormal [facility] with Jeiamsxqjeeh8291-67-62 00:35:26* Test Item Value Reference Range Interpretation Comme nts WBC (test code = 6690-2) 11.06 See_Comment [Automated Talentwirea PicLyf] The system which generated this result transmitted reference range: 4.30 - 11.10 10*3/?L. The reference range was not used to interpret this result as normal/abnormal. RBC (test code = 789-8) 3.97 See_Comment [Automated Talentwirea PicLyf] The system which generated this result transmitted reference range: 3.93 - 5.25 10*6/?L. The reference range was not used to interpret this result as normal/abnormal. HGB (test code = 718-7) 11.5 g/dL 11.6-15.0 L HCT (test code = 4544-3) 34.8 % 35.7-45.2 L MCV (test code = 787-2) 87.7 fL 80.6-95.5 MCH (test code = 785-6) 29.0 pg 25.9-32.8 MCHC (test code = 786-4) 33.0 g/dL 31.6-35.1 RDW-SD (test code = 35552-5) 44.5 fL 39.0-49.9 RDW-CV (test code = 788-0) 13.8 % 12.0-15.5 PLT (test code = 777-3) 267 See_Comment [Automated Talentwirea ge] The system which generated this result transmitted reference range: 166 - 358 10*3/?L. The reference range was not used to interpret this result as normal/abnormal. MPV (test code = 44859-5) 8.4 fL 9.5-12.9 L NRBC/100 WBC (test code = 9780580604) 0.0 See_Comment [Automated me ssage] The system which generated this result transmitted reference range: 0.0 - 10.0 /100 WBCs. The reference range was not used to interpret this result as normal/abnormal. NRBC x10^3 (test code = 4877854313) See_Comment [Automated messa ge] The system which generated this result transmitted reference range: 10*3/?L. The reference range was not used to interpret this result as normal/abnormal. GRAN MAT (NEUT) % (test code = 770-8) 83.7 % IMM GRAN % (test code = 5678840141) 0.50 % LYMPH % (test code = 736-9) 12.8 % MONO % (test code = 5905-5) 2.3 % EOS % (test code = 713-8) 0.4 % BASO % (test code = 706-2) 0.3 % GRAN MAT x10^3(ANC) (test code = 6428299728) 9.26 10*3/uL 1.88-7.09 H IMM GRAN x10^3 (test code = 7135981970) 0.06 10*3/uL 0.00-0.06 LYMPH x10^3 (test code = 731-0) 1.42 10*3/uL 1.32-3.29 MONO x10^3 (test code = 742-7) 0.25 10*3/uL 0.33-0.92 L EOS x10^3 (test code = 711-2) 0.04 10*3/uL 0.03-0.39 BASO x10^3 (test code = 704-7) 0.03 10*3/uL 0.01-0.07 Lab Interpretation (test code = 95541-3) Abnormal [facility] Center[facility] Mcffr2692-17-14 00:04:42* Test Item Value Reference Range Interpretation Comme nts URIC ACID (test code = 8316432345) 4.2 mg/dL 2.9-6.0 Lab Interpretation (test cod e = 17027-8) Normal [facility] (Asparate Amino Transfer)2023-07-12 00:04:42* Test Item Value Reference Range Interpretation Comme nts AST(SGOT) (test code = 5429562877) 31 U/L 13-40 Lab Interpretation (test cod e = 60001-7) Normal [facility] CenterAlanine Amino Transferase (SGPT)2023-07-12 00:04:42* Test Item Value Reference Range Interpretation Comme nts ALTv (test code = 1742-6) 23 U/L 5-35 Lab Interpretation (test cod e = 74046-1) Normal [facility] CenterU[facility] Nicgb7651-15-11 00:04:42* Test Item Value Reference Range Interpretation Comme nts URIC ACID (test code = 1758836939) 4.2 mg/dL 2.9-6.0 Lab Interpretation (test cod e = 06905-8) [facility]2023-[facility]-12 00:04:42* Test Item Value Reference Range Interpretation Comme nts AST(SGOT) (test code = 6045717572) 31 U/L 13-40 Lab Interpretation (test cod e = 49378-9) Normal [facility] CenterAl[facility] Amin[facility] Transferase (SGPT)2023-07-12 00:04:42* Test Item Value Reference Range Interpretation Comme nts ALTv (test code = 1742-6) 23 U/L 5-35 Lab Interpretation (test cod e = 74150-2) Normal [facility] CenterSerum Eqczsdyveh9766-02-31 00:04:21* Test Item Value Reference Range Interpretation Comme [facility] CREATININE (test code = 8358930515) 0.46 mg/dL 0.50-1.04 L eGFR (test code = 0291741997) 159.5 mL/min/1.73m2 SOHEILA (test code = SOHEILA) Association of Glomerular Filtration Rate (GFR) and Staging of Kidney Disease* + --+ --+ ------+| GFR (mL/min/1.73 m2) ?| With Kidney Damage ?| ?Without Kidney Damage+ --------+ --------+ +| ?>90 ?| ?Stage one ?| ? Normal ?+ ---+ ---+ -------+| ?60-89 ?| ?Stage two ?| ? Decreased GFR ? + --+ --+ ------+| ?30-59 ?| ?Stage three ?| ? Stage three ? + --+ --+ ------+| ?15-29 ?| ?Stage four ? | ? Stage four ?+ ---+ ---+ -------+| ?<15 (or dialysis) ? ?| ?Stage five ? | ? Stage five ?+ ---+ ---+ -------+ *Each stage assumes the associated GFR level has been in effect for at least three months. ?Stages 1 to 5, with or without kidney disease, indicate chronic kidney disease. Notes: Determination of stages one and two (with eGFR >59mL/min/1.73 m2) requires estimation of kidney damage for at least three months as defined by structural or functional abnormalities of the kidney, manifested by either:Pathological abnormalities or Markers of kidney damage (including abnormalities in the composition of the blood or urine or abnormalities in imaging tests). Lab Interpretation (test code = 45624-3) Abnormal [facility] Faqlmpatvl3020-30-95 00:04:21* Test Item Value Reference Range Interpretation Comme nts CREATININE (test code = 0269738617) 0.46 mg/dL 0.50-1.04 L eGFR (test code = 4785338233) 159.5 mL/min/1.73m2 SOHEILA (test code = SOHEILA) Association of Glomerular Filtration Rate (GFR) and Staging of Kidney Disease* + --+ --+ ------+| GFR (mL/min/1.73 m2) ?| With Kidney Damage ?| ?Without Kidney Damage+ --------+ --------+ +| ?>90 ?| ?Stage one ?| ? Normal ?+ ---+ ---+ -------+| ?60-89 ?| ?Stage two ?| ? Decreased GFR ? + --+ --+ ------+| ?30-59 ?| ?Stage three ?| ? Stage three ? + --+ --+ ------+| ?15-29 ?| ?Stage four ? | ? Stage four ?+ ---+ ---+ -------+| ?<15 (or dialysis) ? ?| ?Stage five ? | ? Stage five ?+ ---+ ---+ -------+ *Each stage assumes the associated GFR level has been in effect for at least three months. ?Stages 1 to 5, with or without kidney disease, indicate chronic kidney disease. Notes: Determination of stages one and two (with eGFR >59mL/min/1.73 m2) requires estimation of kidney damage for at least three months as defined by structural or functional abnormalities of the kidney, manifested by either:Pathological abnormalities or Markers of kidney damage (including abnormalities in the composition of the blood or urine or abnormalities in imaging tests). Lab Interpretation (test code = 56586-8) Abnormal [facility] WITH FWLS2606-68-78 19:42:18* Test Item Value Reference Range Interpretation Comme nts WBC (test code = 6690-2) 7.45 See_Comment [Automated Talentwirea PicLyf] The system which generated this result transmitted reference range: 4.30 - 11.10 10*3/?L. The reference range was not used to interpret this result as normal/abnormal. RBC (test code = 789-8) 3.82 See_Comment L [Automated messa PicLyf] The system which generated this result transmitted reference range: 3.93 - 5.25 10*6/?L. The reference range was not used to interpret this result as normal/abnormal. HGB (test code = 718-7) 11.0 g/dL 11.6-15.0 L HCT (test code = 4544-3) 33.0 % 35.7-45.2 L MCV (test code = 787-2) 86.4 fL 80.6-95.5 MCH (test code = 785-6) 28.8 pg 25.9-32.8 MCHC (test code = 786-4) 33.3 g/dL 31.6-35.1 RDW-SD (test code = 71058-8) 42.7 fL 39.0-49.9 RDW-CV (test code = 788-0) 13.7 % 12.0-15.5 PLT (test code = 777-3) 259 See_Comment [Automated Talentwirea PicLyf] The system which generated this result transmitted reference range: 166 - 358 10*3/?L. The reference range was not used to interpret this result as normal/abnormal. MPV (test code = 24167-2) 8.5 fL 9.5-12.9 L NRBC/100 WBC (test code = 3073618911) 0.0 See_Comment [Automated me ssage] The system which generated this result transmitted reference range: 0.0 - 10.0 /100 WBCs. The reference range was not used to interpret this result as normal/abnormal. NRBC x10^3 (test code = 8152940010) See_Comment [Automated messa ge] The system which generated this result transmitted reference range: 10*3/?L. The reference range was not used to interpret this result as normal/abnormal. GRAN MAT (NEUT) % (test code = 770-8) 70.0 % IMM GRAN % (test code = 9840238794) 0.30 % LYMPH % (test code = 736-9) 23.6 % MONO % (test code = 5905-5) 5.2 % EOS % (test code = 713-8) 0.8 % BASO % (test code = 706-2) 0.1 % GRAN MAT x10^3(ANC) (test code = 3238560613) 5.21 10*3/uL 1.88-7.09 IMM GRAN x10^3 (test code = 7624686396) 0.00-0.06 LYMPH x10^3 (test code = 731-0) 1.76 10*3/uL 1.32-3.29 MONO x10^3 (test code = 742-7) 0.39 10*3/uL 0.33-0.92 EOS x10^3 (test code = 711-2) 0.06 10*3/uL 0.03-0.39 BASO x10^3 (test code = 704-7) 0.01-0.07 Lab Interpretation (test code = 69209-1) Abnormal [facility] WITH PGLL2659-15-36 19:42:18* Test Item Value Reference Range Interpretation Comme nts WBC (test code = 6690-2) 7.45 See_Comment [Automated messa ge] The system which generated this result transmitted reference range: 4.30 - 11.10 10*3/?L. The reference range was not used to interpret this result as normal/abnormal. RBC (test code = 789-8) 3.82 See_Comment L [Automated messa ge] The system which generated this result transmitted reference range: 3.93 - 5.25 10*6/?L. The reference range was not used to interpret this result as normal/abnormal. HGB (test code = 718-7) 11.0 g/dL 11.6-15.0 L HCT (test code = 4544-3) 33.0 % 35.7-45.2 L MCV (test code = 787-2) 86.4 fL 80.6-95.5 MCH (test code = 785-6) 28.8 pg 25.9-32.8 MCHC (test code = 786-4) 33.3 g/dL 31.6-35.1 RDW-SD (test code = 79660-4) 42.7 fL 39.0-49.9 RDW-CV (test code = 788-0) 13.7 % 12.0-15.5 PLT (test code = 777-3) 259 See_Comment [Automated [employer] ge] The system which generated this result transmitted reference range: 166 - 358 10*3/?L. The reference range was not used to interpret this result as normal/abnormal. MPV (test code = 74353-8) 8.5 fL 9.5-12.9 L NRBC/100 WBC (test code = [id number]) 0.0 See_Comment [Automated Teladoc ssage] The system which generated this result transmitted reference range: 0.0 - 10.0 /100 WBCs. The reference range was not used to interpret this result as normal/abnormal. NRBC x10^3 (test code = 5911115561) See_Comment [Automated Talentwirea ge] The system which generated this result transmitted reference range: 10*3/?L. The reference range was not used to interpret this result as normal/abnormal. GRAN MAT (NEUT) % (test code = 770-8) 70.0 % IMM GRAN % (test code = 6496236997) 0.30 % LYMPH % (test code = 736-9) 23.6 % MONO % (test code = 5905-5) 5.2 % EOS % (test code = 713-8) 0.8 % BASO % (test code = 706-2) 0.1 % GRAN MAT x10^3(ANC) (test code = 8933167530) 5.21 10*3/uL 1.88-7.09 IMM GRAN x10^3 (test code = 3998108618) 0.00-0.06 LYMPH x10^3 (test code = 731-0) 1.76 10*3/uL 1.32-3.29 MONO x10^3 (test code = 742-7) 0.39 10*3/uL 0.33-0.92 EOS x10^3 (test code = 711-2) 0.06 10*3/uL 0.03-0.39 BASO x10^3 (test code = 704-7) 0.01-0.07 Lab Interpretation (test code = 94240-9) [facility] [id number] 19:35:00* Test Item Value Reference Range Interpretation Comme nts ABO & RH (test code = 20) A Positive IAT (test code = 1185) Negative [facility] and Screen - ONCE [id number] 19:35:00* Test Item Value Reference Range Interpretation Comme nts ABO & RH (test code = 20) A Positive IAT (test code = 1185) [facility] [id number] 14:44:00* Test Item Value Reference Range Interpretation Comme nts POCT PH U (test code = 3254) n/a 5-8 POCT U LEUK EST (test code = 3263) n/a Negative - Negative POCT U NIT (test code = 3262) n/a Negative - Negati ve POCT U PROT (test code = 3259) negative Negative - Negat nell POCT U GLU (test code = 3256) negative Negative - Negati ve POCT U KETONE (test code = 3258) n/a Negative - Neg ative POCT U BLD (test code = 3257) n/a Negative - Negati ve [facility] SPECIFIC [id number] 14:44:00* Test Item Value Reference Range Interpretation Comme nts POCT PH U (test code = 3254) N/A 5-8 POCT U LEUK EST (test code = 3263) N/A Negative - Negative POCT U NIT (test code = 3262) N/A Negative - Negati ve POCT U PROT (test code = 3259) Negative Negative - Negat nell POCT U GLU (test code = 3256) 1+ Negative - Negati ve POCT U KETONE (test code = 3258) N/A Negative - Neg ative POCT U BLD (test code = 3257) N/A Negative - Negati ve [facility] URINALYSIS W/O SPECIFIC [id number] 16:17:00* Test Item Value Reference Range Interpretation Comme nts POCT PH U (test code = 3254) n/a 5-8 POCT U LEUK EST (test code = 3263) n/a Negative - Negative POCT U NIT (test code = 3262) n/a Negative - Negati ve POCT U PROT (test code = 3259) negative Negative - Negat nell POCT U GLU (test code = 3256) negative Negative - Negati ve POCT U KETONE (test code = 3258) n/a Negative - Neg ative POCT U BLD (test code = 3257) n/a Negative - Negati ve [facility] URINALYSIS W/O SPECIFIC [id number] 21:15:00* Test Item Value Reference Range Interpretation Comme nts POCT PH U (test code = 3254) n/a 5-8 POCT U LEUK EST (test code = 3263) n/a Negative - Negative POCT U NIT (test code = 3262) n/a Negative - Negati ve POCT U PROT (test code = 3259) negative Negative - Negat nell POCT U GLU (test code = 3256) negative Negative - Negati ve POCT U KETONE (test code = 3258) n/a Negative - Neg ative POCT U BLD (test code = 3257) n/a Negative - Negati ve [facility] URINALYSIS W/O SPECIFIC [id number] 14:56:00* Test Item Value Reference Range Interpretation Comme nts POCT PH U (test code = 3254) na 5-8 POCT U LEUK EST (test code = 3263) na Negative - Negative POCT U NIT (test code = 3262) na Negative - Negative POCT U PROT (test code = 3259) trace Negative - Negative POCT U GLU (test code = 3256) negative Negative - Negative POCT U KETONE (test code = 3258) na Negative - Negative POCT U BLD (test code = 3257) na Negative - Negative SOHEILA (test code = SOHEILA) accurate developme nt and interpretation of all internal controls Lab Interpretation (test code = 62442-7) Abnormal [facility] URINALYSIS W/O SPECIFIC [id number] 15:41:00* Test Item Value Reference Range Interpretation Comme nts POCT PH U (test code = 3254) n/a 5-8 POCT U LEUK EST (test code = 3263) n/a Negative - Negative POCT U NIT (test code = 3262) n/a Negative - Negati ve POCT U PROT (test code = 3259) negative Negative - Negat nell POCT U GLU (test code = 3256) negative Negative - Negati ve POCT U KETONE (test code = 3258) n/a Negative - Neg ative POCT U BLD (test code = 3257) n/a Negative - Negati ve [facility] URINALYSIS W/O SPECIFIC [id number] 14:25:00* Test Item Value Reference Range Interpretation Comme nts POCT PH U (test code = 3254) 6 mg/dl 5-8 POCT U LEUK EST (test code = 3263) POSTIVE Negative - Negative POCT U NIT (test code = 3262) NEGATIVE Negative - Negati ve POCT U PROT (test code = 3259) TRACE Negative - Negat nell POCT U GLU (test code = 3256) NEGATIVE Negative - Negati ve POCT U KETONE (test code = 3258) POSITIVE Negative - Neg ative POCT U BLD (test code = 3257) NEGATIVE Negative - Negati ve [facility] WITH [id number] 17:15:24* Test Item Value Reference Range Interpretation Comme nts WBC (test code = 6690-2) 8.26 See_Comment [Automated messa ge] The system which generated this result transmitted reference range: 4.30 - 11.10 10*3/?L. The reference range was not used to interpret this result as normal/abnormal. RBC (test code = 789-8) 4.57 See_Comment [Automated [employer]entwirea ge] The system which generated this result transmitted reference range: 3.93 - 5.25 10*6/?L. The reference range was not used to interpret this result as normal/abnormal. HGB (test code = 718-7) 13.5 g/dL 11.6-15.0 HCT (test code = 4544-3) 41.1 % 35.7-45.2 MCV (test code = 787-2) 89.9 fL 80.6-95.5 MCH (test code = 785-6) 29.5 pg 25.9-32.8 MCHC (test code = 786-4) 32.8 g/dL 31.6-35.1 RDW-SD (test code = 87931-0) 42.5 fL 39.0-49.9 RDW-CV (test code = 788-0) 12.9 % 12.0-15.5 PLT (test code = 777-3) 328 See_Comment [Automated [employer]entwirea ge] The system which generated this result transmitted reference range: 166 - 358 10*3/?L. The reference range was not used to interpret this result as normal/abnormal. MPV (test code = 79502-9) 8.0 fL 9.5-12.9 L NRBC/100 WBC (test code = 2350391744) 0.0 See_Comment [Automated Teladoc ssage] The system which generated this result transmitted reference range: 0.0 - 10.0 /100 WBCs. The reference range was not used to interpret this result as normal/abnormal. NRBC x10^3 (test code = 8070479940) See_Comment [Automated [employer] ge] The system which generated this result transmitted reference range: 10*3/?L. The reference range was not used to interpret this result as normal/abnormal. GRAN MAT (NEUT) % (test code = 770-8) 63.5 % IMM GRAN % (test code = 3828749251) 0.20 % LYMPH % (test code = 736-9) 28.1 % MONO % (test code = 5905-5) 5.9 % EOS % (test code = 713-8) 1.8 % BASO % (test code = 706-2) 0.5 % GRAN MAT x10^3(ANC) (test code = 3260156468) 5.24 10*3/uL 1.88-7.09 IMM GRAN x10^3 (test code = 7188821615) 0.00-0.06 LYMPH x10^3 (test code = 731-0) 2.32 10*3/uL 1.32-3.29 MONO x10^3 (test code = 742-7) 0.49 10*3/uL 0.33-0.92 EOS x10^3 (test code = 711-2) 0.15 10*3/uL 0.03-0.39 BASO x10^3 (test code = 704-7) 0.04 10*3/uL 0.01-0.07 Lab Interpretation (test code = 17147-8) [facility]normal [facility] SPECIFIC [id number] 16:10:00* Test Item Value Reference Range Interpretation Comme nts POCT PH U (test code = 3254) N/A 5-8 POCT U LEUK EST (test code = 3263) N/A Negative - Negative POCT U NIT (test code = 3262) N/A Negative - Negati ve POCT U PROT (test code = 3259) Negative Negative - Negat nell POCT U GLU (test code = 3256) Negative Negative - Negati ve POCT U KETONE (test code = 3258) N/A Negative - Neg ative POCT U BLD (test code = 3257) N/A Negative - Negati ve [facility] [id number] 16:09:00* Test Item Value Reference Range Interpretation Comme nts POCT PREG (test code = 1605) Positive On board controls acceptable with C Line (test code = 3574) Yes POCT PREG LOT # (test code = 3575) POCT PREG TEST DATE ( test code = 3576) [facility] History and Physical Notes Date/Time Note Provider Source 2023-07-11 17:18:51 Formatting of this n ote is different from the original. TRIAGE HISTORY & PHYSICAL IDENTIFYING DATA Modesto Noriega is 28 year old, /White, 36w3d, female with CINDY 08/05/2023, by Last Menstrual Period. : 1995 Primary Care Physician: PATIENT DOES NOT HAVE A PCP CHIEF COMPLAINT cramping HISTORY OF PRESENT ILLNESS Modesto Noriega is a 28 year old female @ 36w3d presented for cramping. +FM. No VB, LOF, or CTX. No pre-eclampsia sx or other complaints. PAST OBSTETRIC HISTORY OB History Para Term AB Living 4 3 2 1 3 SAB IAB Ectopic Multiple Live Births 3 # Outcome Date GA Lbr Mitchel/2nd Weight Sex Delivery Anes PTL Lv 4 Current 3 04/12/22 32w0d 3487 g NORMAL SPONT NATALIA 2 Term 05/30/21 3941 g M NORMAL SPONT NATALIA 1 Term 01/10/13 3629 g F Vag-Spont NATALIA PAST MEDICAL HISTORY Problem list: Patient Active Problem List Diagnosis Date Noted Maternal care for decelerations during 07/11/2023 Poor growth affecting management of mother in third trimester 07/11/2023 36 weeks gestation of 07/11/2023 BV (bacterial vaginosis) 07/11/2023 Obesity (BMI 30-39.9) 06/24/2023 Insufficient care, third trimester 05/31/2023 Uterine size-date discrepancy in third trimester 05/31/2023 Preeclampsia in period 05/31/2023 Group B streptococcal bacteriuria 05/31/2023 headache in third trimester 05/31/2023 uterine contractions, antepartum, third trimester 05/31/2023 Inability to access health care due to transportation insecurity 04/07/2023 Abdominal pain, epigastric 04/07/2023 Gastroesophageal reflux disease without esophagitis 02/28/2023 Missed menses 12/08/2022 examination or test, positive result 12/08/2022 History of depression, currently 12/08/2022 History of gestational hypertension 04/02/2022 Obesity in , antepartum 04/02/2022 Supervision of other high risk , antepartum 04/02/2022 Operations: No past surgical history on file. No past medical history on file. CURRENT HEALTH STATUS Medications: Current Facility-Administered Medications Medication Dose Route Frequency Last Rate Last Admin betamethasone acet,sod phos (CELESTONE SOLUSPAN) 6 mg/mL injection 12 mg 12 mg Intramuscular Q24H 12 mg at 07/11/23 1704 NaCl 0.9% (NS) injection 5 mL 5 mL Slow IV Push PRN - SEE INSTRUCTIONS Allergies and drug reactions: Patient has no known allergies. HOME MEDICATIONS Medications Prior to Admission Medication Sig Dispense Refill Last Dose OMEPRAZOLE 40 mg capsule Take 1 capsule by mouth in the morning 30 capsule 0 Taking Differently PNV 67-iron ps-folate no.1-dha (VITAFOL ULTRA) 29 mg iron- 1 mg-200 mg Cap Take 1 capsule by mouth in the morning 90 capsule 1 Taking aspirin 81 mg EC tablet Take 1 tablet by mouth in the morning. 30 tablet 3 Taking DULoxetine (CYMBALTA) 20 mg capsule Take 1 capsule by mouth in the morning. 90 capsule 3 Taking SOCIAL HISTORY Tobacco History: Social History Tobacco Use Smoking Status Never Smokeless Tobacco Never Drug History: Social History Substance and Sexual Activity Drug Use Never Alcohol History: Social History Substance and Sexual Activity Alcohol Use Not Currently FAMILY HISTORY Family History Problem Relation Age of Onset No Significant Medical Problems Mother No Significant Medical Problems Father REVIEW OF SYSTEMS General: negative Constitutional: negative Eyes: negative ENT/Mouth: negative Cardiovascular: negative Respiratory: negative Gastrointestinal:negative Genitourinary: see HPI Musculoskeletal: negative Skin/breast: negative Neurological: negative Psychiatric: negative Endocrine: negative Hemat/Lymph: negative Allergic/Immuno:none VITAL SIGNS BP: (107-155)/(76-96) Temp: [36.8 ?C (98.3 ?F)-37 ?C (98.6 ?F)] Temp source: Oral (07/11 1229) Pulse: [81-102] Resp: [18] SpO2: [97 %-100 %] Height: [161.3 cm (5' 3.5")] Weight: [88 kg (194 lb)] BMI (calculated): [0-33.83] PHYSICAL EXAMINATIONS Gen: alert and oriented, well appearing, no distress CV: RRR, normal S1/S2, no m/r/g Resp: normal work of breathing, lungs CTAB Abd: gravid, soft, NTTP Ext: no calf tenderness or edema : SVE /-2 by BULK SAUSAGE CASING TIER OFF OF LABORATORY, PATHOLOGY, AND RADIOLOGY DATA Lab results: Type & Screen HIV Hep B Syphilis Chlamydia ABO & RH Date Value Ref Range Status 07/11/2023 A Positive Final No results found for: "HIVMULTIPLEX" No components found for: "HBSHBSAG" No results found for: "SYPIGG" C. trachomatis Nucleic Acid Date Value Ref Range Status 07/05/2023 Negative Negative Final IAT Date Value Ref Range Status 07/11/2023 Negative Final Varicella Rubella Glucose Group B Strep CBC VZV IgG antibody Date Value Ref Range Status 01/25/2023 Negative Negative Final Rubella screen IgG Date Value Ref Range Status 01/25/2023 Equivocal Negative Final GLUC 1 HR Date Value Ref Range Status 06/28/2023 94 (L) 120 - 170 mg/dL Final No results found for: "CGBS" HGB Date Value Ref Range Status 07/11/2023 11.0 (L) 11.6 - 15.0 g/dL Final HCT Date Value Ref Range Status 07/11/2023 33.0 (L) 35.7 - 45.2 % Final PLT Date Value Ref Range Status 07/11/2023 259 166 - 358 10*3/?L Final Active Hospital Problems Diagnosis Date Noted Maternal care for decelerations during 07/11/2023 Poor growth affecting management of mother in third trimester 07/11/2023 36 weeks gestation of 07/11/2023 BV (bacterial vaginosis) 07/11/2023 Group B streptococcal bacteriuria 05/31/2023 uterine contractions, antepartum, third trimester 05/31/2023 Supervision of other high risk , antepartum 04/02/2022 Resolved Hospital Problems No resolved problems to display. Present on Admission: Group B streptococcal bacteriuria Supervision of other high risk , antepartum uterine contractions, antepartum, third trimester Maternal care for decelerations during Poor growth affecting management of mother in third trimester 36 weeks gestation of ASSESSMENT AND PLAN Modesto Noriega is a 28 year old at 36w3d who presents with cramping. contractions -Irregular -SVE remained at 1 cm -Positive BV: Flagyl prescribed -GBS positive: Will need antibiotics intrapartum decel -Prolonged decel down to the 60s for 4 minutes from baseline of 130s at 1321. Another decel down to the 90s for 1 minute noted at 1516. In between the decels, strip reactive. -BPP ordered -BMZ #1 given FGR -EFW 3 pounds 10 ounces on 06/17/2023, 4th percentile -Dopplers and CONRAD within normal limits on 07/05/2023 -Growth scan ordered Elevated BP without diagnosis of hypertension -Will continue to monitor. If BP persists, will order tox labs. Dispo: Continue in-house obs care with Dr. Kirsten Grullon MD Addendum: patient ruled in for pre-eclampsia without severe features based on mild ranging BPs more than 4 hrs apart and Pr/Cr 0.3. History: growth, conrad . Exam: US PELVIS > 14 WEEKS Date: 07/11/2023 5:00 PM Ordering provider: IDALIA GRULLON Technique: Pelvic ultrasound is performed via the transabdominal approach. Images are permanently saved in the patient's medical records. Technical quality: Adequate Comparison: Ultrasound from 06/08/2023. Findings: There is a single IUP in cephalic presentation. The placenta is fundal. The CONRAD measures 8.7 cm. The following measurements are made: BPD: 9.0 cm, 36 weeks 4 days HC: 32.6 cm, 37 weeks 0 days AC: 26.5 cm, 30 weeks 5 days FL: 6.3 cm, 32 weeks 3 days EGA: 34 weeks 2 days EFW: 1933 g (4 lbs. 4 oz.) CINDY: 08/20/2023 IMPRESSION Impression: Single IUP in cephalic presentation. Estimated gestational age is 34 weeks 2 days. CONRAD measures 8.7 cm. RL: 781 HS: Y Narrative & Impression History: growth conrad . Exam: US BIOPHYSICAL PROFILE Date: 07/11/2023 5:00 PM Ordering provider: IDALIA GRULLON Technique: Biophysical profile ultrasound is performed. Images are permanently saved in the patient's medical records. Technical quality: Adequate Comparison: ultrasound scans from 06/08/2023 and 07/11/2023. Findings: heart rate is shown at 146 and 155 bpm. The CONRAD measures 10.0 cm. Biophysical profile: Tone: 2 Movement: 2 Breathin Fluid: 2 Total score: 8/8 IMPRESSION Impression: Biophysical profile score is 8/8. RL: 781 HS: Y Idalia Grullon MD 07/11/2023 8:16 PM [facility] Notes Date/Time Note Provider Source 2023-07-16 10:22:13 Formatting of this n ote might be different from the original. Problem: Discharge Planning - Goal: Adequate for discharge Outcome: Adequate for discharge Goal: Mood stable Outcome: Adequate for discharge Problem: Pain Goal: Control of pain at or below patient's documented comfort goal Outcome: Adequate for discharge Goal: Reduction in pain sensation Outcome: Adequate for discharge Problem: Falls, Risk of Goal: Absence of falls Outcome: Adequate for discharge Problem: Infection Risk Goal: Absence of infection Outcome: Adequate for discharge Shaunna Trujillo RN [facility] 2023-07-16 06:00:00 Formatting of this n ote might be different from the original. Problem: Discharge Planning - Goal: Adequate for discharge Outcome: Progressing as expected Goal: Mood stable Outcome: Progressing as expected Problem: Pain Goal: Control of pain at or below patient's documented comfort goal Outcome: Progressing as expected Goal: Reduction in pain sensation Outcome: Progressing as expected Problem: Falls, Risk of Goal: Absence of falls Outcome: Progressing as expected Problem: Infection Risk Goal: Absence of infection Outcome: Progressing as expected Caterina Thompson RN [facility] 2023-07-14 07:35:00 Formatting of this n ote might be different from the original. Problem: Discharge Planning - Goal: Adequate for discharge Outcome: Progressing as expected Goal: Mood stable Outcome: Progressing as expected Problem: Pain Goal: Control of pain at or below patient's documented comfort goal Outcome: Progressing as expected Goal: Reduction in pain sensation Outcome: Progressing as expected Problem: Falls, Risk of Goal: Absence of falls Outcome: Progressing as expected Problem: Infection Risk Goal: Absence of infection Outcome: Progressing as expected Nicolette Day RN [facility] 2023-07-13 20:13:15 Formatting of this n ote might be different from the original. Problem: Discharge Planning - Goal: Adequate for discharge Outcome: Progressing as expected Goal: Mood stable Outcome: Progressing as expected Problem: Pain Goal: Control of pain at or below patient's documented comfort goal Outcome: Progressing as expected Goal: Reduction in pain sensation Outcome: Progressing as expected Problem: Falls, Risk of Goal: Absence of falls Outcome: Progressing as expected Problem: Infection Risk Goal: Absence of infection Outcome: Progressing as expected Stephenie Kevin RN [facility] 2023-07-13 18:17:34 Formatting of this n ote might be different from the original. Problem: Discharge Planning - Goal: Adequate for discharge Outcome: Progressing as expected Goal: Mood stable Outcome: Progressing as expected Problem: Pain Goal: Control of pain at or below patient's documented comfort goal Outcome: Progressing as expected Goal: Reduction in pain sensation Outcome: Progressing as expected Problem: Falls, Risk of Goal: Absence of falls Outcome: Progressing as expected Problem: Infection Risk Goal: Absence of infection Outcome: Progressing as expected Ana Ball RN [facility] 2023-07-12 21:12:54 Formatting of this n ote might be different from the original. Problem: Discharge Planning - Goal: Adequate for discharge Outcome: Progressing as expected Goal: Mood stable Outcome: Progressing as expected Problem: Pain Goal: Control of pain at or below patient's documented comfort goal Outcome: Progressing as expected Goal: Reduction in pain sensation Outcome: Progressing as expected Problem: Falls, Risk of Goal: Absence of falls Outcome: Progressing as expected Problem: Infection Risk Goal: Absence of infection Outcome: Progressing as expected Kathe Grant RN [facility] 2023-07-12 07:26:01 Formatting of this n ote is different from the original. Delivery Date: 07/12/2023 Delivery Time: 6:20 AM DELIVERY BY SECTION Date of Service: : 07/12/2023 at 6:20 AM Admitted for: primary CD at 36 wks due to non-reassuring FHTs (repetitive prolonged decels), Primary Lower uterine tranverse section with no extension, no BTL, Pfannenstiel, Closed with suture, QBL see I/O's, No complications, Findings: nuchal x 1 Delivery Summary [place] Sex: male Weight: 2470 g 1 Minute 5 Minute 10 Minute Totals: 8 9 Primary Indication: Modesto Noriega is a 28 year old female @ 36w4d presented for cramping, admitted for delivery due to repetitive prolonged decels and late decels during monitoring. Patient also ruled in for pre-eclampsia without severe features. Intrapartum course is complicated with FGR. The patient was taken to the operating room for a primary section due to: Nonreassuring Conditon - Prolonged deceleration at 36w4d weeks. Procedures: Primary Lower uterine tranverse section with no extension Specimens Removed: Placenta Surgeon: Idalia Grullon MD Report: Prophylactic antibiotic, Ancef was given before patient was taken to OR. After arrival to the operating room patient was placed in the supine position with left lateral tilt after administration of spinal anesthesia. Laparotomy A pfannenstiel incision was made through the anterior abdominal wall with #10 scalpel. The incision was extended sharply with the #10 scalpel through the subcutaneous tissue to the level of fascia. The fascia was entered sharply with a #10 scalpel (Pfannenstiel) in the midline and extended bluntly. The rectus muscles were in the midline bluntly with digits. The peritoneum was then entered bluntly. The peritoneal incision was then extended superiorly and inferiorly under direct visualization with care being taken to avoid bladder and bowel. No adhesions were noted. The peritoneal incision was enlarged bluntly by lateral traction from the surgeon's and first aid instructor's hand. Delivery A bladder flap was developed by grasping with [place] forcep and enter with Metzenbaun scissor. Then sharp and blunt dissection with Metzenbaum scissor and fingers were performed. A low transverse hysterotomy was made then with #10 scalpel and extended laterally and cephalad with fingers in a low transverse fashion with Manu Vega technique with care being taken to avoid injury to the fetus. The amniotic (membranes) were then entered with spontaneous rupture of membrane, and the amniotic fluid was noted to be clear . The head was delivered manually without aid of vaginal hand. The head was flexed and delivered through the hysterotomy incision in a non-traumatic fashion with aid of fundal pressure applied by the acute care nursing assistant surgeon . The body was delivered with traction on the head along with fundal pressure. After delivery of body-bulb suction was performed from oropharynx and nostril with removal of clear amniotic fluid. Fetus was delivered in cephalic presentation. With delivery the baby, no extension was noted. Placenta was delivered spontaneously with steady traction on cord and manual separation of placenta from uterine wall. Closure Uterine cavity was cleaned after placental delivery with lap sponge x 2. The hysterotomy was closed in one layer with stitches using 1-0 Monocryl with continuous locking stitches. Hemostasis was achieved as needed with electrocautery and 2 figure eight suture ligation. The ovaries/tubes/uterine surface were evaluated. They were found to be normal. Rectus muscle was re-approximated with 2-0 Monocryl. Fascia was closed with running stitches using 0-Biosyn . Hemostasis was checked for and found to be adequate. The subcutaneous tissue was irrigated and hemostasis was achieved where needed with electrocautery. The skin was then closed with subcutaneous stitches using 3-0 Vicryl sutures. The incision was cleaned and covered with a compression bandage and the procedure considered to be complete at this time. Intraoperative Complications: None Uterotonics: 30 units of pitocin mixed in 500 cc of LR Disposition: The patient tolerated the procedure well. She was recovered in the Labor and Delivery Room with routine care in stable condition, with a contracted uterus and normal transvaginal bleeding. The infant was sent to Transition [facility]. The placenta was not sent to pathology. Idalia Grullon MD 07/12/2023 7:31 AM Counts include 234 beds at the [facility] 2023-07-12 07:05:00 Formatting of this n ote might be different from the original. Problem: Discharge Planning - Goal: Adequate for discharge Outcome: Progressing as expected Goal: Mood stable Outcome: Progressing as expected Problem: Pain Goal: Control of pain at or below patient's documented comfort goal Outcome: Progressing as expected Goal: Reduction in pain sensation Outcome: Progressing as expected Problem: Falls, Risk of Goal: Absence of falls Outcome: Progressing as expected Problem: Infection Risk Goal: Absence of infection Outcome: Progressing as expected [facility] 2023-07-11 13:18:00 Formatting of this n ote might be different from the original. Pt stated that she was having blood tinged discharge since appt on Tuesday only with wiping. Pt had cervical check done and was 1cm. Advised pt that it should be expected with cervical check. Pt also c/o cramping since then. Pain is 8/10 last 1-2 minutes, 2-3 x/3hrs. Pt stated that abdomen tightens with cramping. Spoke about [address]. Verbalized FM. [place]: Tylenol which helps. Denies back pain and UTI s/s. Pt stated that she believes that her cervix is changing. Advised pt to go to L&D to be evaluated. Spoke to Darling at L&D. Report given. WANDY DELEON RN 07/11/2023 1:20 PM Wandy Deleon RN [facility] 2023-07-11 12:05:37 Formatting of this n ote might be different from the original. Patient to ED for cramping and tightening to abdomen. Reports she is 36 3 days . Saw Adum in office last Tuesday and was 1 cm dilated. Told to go to ER to see if she has progressed any further. Induction is set for 07/21/23. Report called to Caterina YU. Fermin Espinal RN [facility] 2023-07-11 10:19:31 Formatting of this n ote might be different from the original. Pt is 37 weeks gestational an has had cramping, diarrhea, mucus plug gone and little bleeding. Notifying nurse of triage. Vania Jaramillo [facility] 2023-07-08 10:00:00 Formatting of this n ote might be different from the original. Age: [age] year old GA: 36w0d 1. High-risk in third trimester 2. 36 weeks gestation of VE:/-4, cephalic . -Continue with kick count monitoring daily -Labor precautions given as follows: 1. Go to Labor and Delivery when your contractions are 5-7 minutes apart and you have been able to time them for an hour. If you live more than 30 minutes from the hospital, then go when they are 10 minutes apart and you have been able to time them for an hour. 2. BUT, there are 4 reasons to go to Labor and Delivery REGARDLESS of what else is happening, whether you are sandor or not: 1. If your water breaks - - - it may be a gush or a constant trickle. If you are not sure, always come in to be checked. 2. Bleeding like your period. 3. If your baby's movements are less than 10 in an hour. If you are concerned this might be the case, drink a tall glass of cold fluids, lay down on your side on the couch or your bed and see how long it takes to note 10 movements - if less than 10, this needs to be evaluated immediately. 4. Contractions or Pain that is continuous. Normal labor contractions last only 45 seconds - 1 minute. - POCT URINALYSIS W/O SPECIFIC GRAVITY - NON-STRESS TEST 3. Poor growth affecting management of mother in first trimester, single or unspecified fetus Reactive NST Normal dopplers and CONRAD on 07/05 - Strict FKCs stressed - NON-STRESS TEST Continue with weekly doppler and CONRAD, twice weekly NSTs and weekly visits or PRN Vaishali Curtis MD [facility] 2023-07-05 11:15:00 Formatting of this n ote might be different from the original. Reviewed and noted. Patient of Dr. Curtsi for delivery. Taya Stevens NP 07/05/2023 12:48 PM [facility] 2023-07-05 09:00:00 Formatting of this n ote might be different from the original. Age: [age] year old GA: 35w4d 1. High-risk in third trimester 2. 35 weeks gestation of 3. Poor growth affecting management of mother in first trimester, single or unspecified fetus - No concerns - Reports good movements - NST reactive - Has follow up scan today with MFM PTL precautions and FKC's reviewed with patient Monitor for vaginal bleeding, loss of fluid, and/or contractions - Monitor for symptoms of preeclampsia (headache, visual disturbances, epigastric (under right ribs) pain, and increased blood pressure - If there is a perceived decrease in movement, monitor kick counts. Drink glass of water or juice and rest on left side for approximately two hours. If you feel 10 kicks (movements) over a period of two hours, this is normal. If you do not feel the fetus moving, present to OB clinic or antepartum unit at the [facility] - GC & CHLAMYDIA AMPLIFIED ASSAY - TRICHOMONAS AMPLIFIED ASSAY - POCT URINALYSIS W/O SPECIFIC GRAVITY - NON-STRESS TEST Continue with twice weekly NST ASHLYN in 1 week PRN Vaishali Curtis MD [facility] 2023-07-01 14:47:08 Formatting of this n ote might be different from the original. Name and verified. Pt stated that she is worried that child has PWS. Per Dr. Curtis- there is no testing that can be done at this time. She will have to wait until delivery and speak with director talent. Pt advised. Pt is also worried about baby being born at 38 weeks. Advised pt that at 38 weeks- normally lungs should be fully developed. She may speak with provider more at Tuesday's appt. Verbalized understanding. WANDY DELEON RN 07/01/2023 2:53 PM [facility] 2023-07-01 14:09:05 Formatting of this n ote might be different from the original. Pt called and states that Dr. Curtis informed her that pts baby would deliver early. She is wanting to know why, and if PWS could be an issue. She is wanting to know if the baby could survive without any issues. Please advise. Call back number: [phone] Cata Gramajo [facility] 2023-07-01 13:08:33 Formatting of this n ote might be different from the original. Pt fiance calling on behave of the pt to ask Dr curtis a few questions. They want to know since the baby is being delivered early will the baby come out normal. Marivel Marte [facility] 2023-07-01 11:00:00 Formatting of this n ote might be different from the original. Age: [age] year old GA: 35w0d 1. High-risk in third trimester 2. Insufficient care, third trimester 3. 35 weeks gestation of 4. Poor growth affecting management of mother in first trimester, single or unspecified fetus - No concerns today - reports good movements - NST is reactive - Follow up scan already scheduled - PTL precautions and FKC's reviewed with patient Monitor for vaginal bleeding, loss of fluid, and/or contractions - Monitor for symptoms of preeclampsia (headache, visual disturbances, epigastric (under right ribs) pain, and increased blood pressure - If there is a perceived decrease in movement, monitor kick counts. Drink glass of water or juice and rest on left side for approximately two hours. If you feel 10 kicks (movements) over a period of two hours, this is normal. If you do not feel the fetus moving, present to OB clinic or antepartum unit at the [facility] - POCT URINALYSIS W/O SPECIFIC GRAVITY - NON-STRESS TEST ASHLYN in 1week Continue with twice weekly NSTs Vaishali Curtis MD [facility] 2023-06-28 13:02:44 Formatting of this n ote might be different from the original. See [employer] message for today. Fariba Castellanos RN 06/28/2023 1:02 PM Fariba Castellanos RN [facility] 2023-06-28 13:01:32 Formatting of this n ote might be different from the original. Spoke with patient, had question regarding glucose test that was done today. Informed patient that glucose test was normal and that there was still some test processing. Patient verbalized understanding. Fariba Castellanos RN 06/28/2023 1:02 PM Fariba Castellanos RN [facility] 2023-06-28 12:34:27 Formatting of this n ote might be different from the original. Attempted to contact patient by phone to provide test results, no answer, message left on voicemail to call back. Fariba Castellanos RN 06/28/2023 12:34 PM [facility] 2023-06-28 12:27:00 Formatting of this n ote might be different from the original. Attempted to contact patient by phone to provide test results, no answer, message left on voicemail to call back. Fariba Castellanos RN 06/28/2023 12:27 PM [facility] 2023-06-28 10:00:00 Formatting of this n ote might be different from the original. Age: [age] year old GA: 34w4d NST for IUGR Has no concerns NST is reactive Plan: Continue with twice weekly NST with visits as scheduled - Stress [facility] - Call if any concerns Vaishali Curtis MD [facility] 2023-06-28 09:30:00 Formatting of this n ote might be different from the original. Loaded pt w 50gm fruit punch glucola, no issues. T [facility] 2023-06-28 09:30:00 Formatting of this n ote is different from the original. Images from the original note were not included. Venipuncture collection performed by clean technique on the left anticubitus. Total of 1 attempts were made. Slight pressure and a bandage/dressing were applied to the site(s). The patient experienced no complications. The following specimens were processed according to instructions and sent to [facility] laboratories per lab order on 06/28/2023 : LT BLUE SST 2 RED 1 LAV 2 PPT DK GREEN (LiHep) DK GREEN (SodH) EARL DK BLUE (K2) DK BLUE (S) ACD Blood Culture NIPT/NTD [facility] [place] [facility] 2023-06-24 11:00:00 Formatting of this n ote might be different from the original. Age: [age] year old GA: 34w0d 1. High-risk in third trimester 2. Insufficient care, third trimester PTL precautions and FKC's reviewed with patient Monitor for vaginal bleeding, loss of fluid, and/or contractions - Monitor for symptoms of preeclampsia (headache, visual disturbances, epigastric (under right ribs) pain, and increased blood pressure - If there is a perceived decrease in movement, monitor kick counts. Drink glass of water or juice and rest on left side for approximately two hours. If you feel 10 kicks (movements) over a period of two hours, this is normal. If you do not feel the fetus moving, present to OB clinic or antepartum unit at the [facility]; - She plans to get her labs done on Tuesday 3. Poor growth affecting management of mother in first trimester, single or unspecified 4. 30 weeks gestation of fetus - Reviewed her ultrasound report in detail with with patient, explaining the increased risk of adverse outcome with IUGR and the importance of adhering to the plan of twice weekly NSTs, weekly visit and dopplers. Delivery is recommended for after 37 weeks except indicated otherwise -Stressed daily FKC's - NST was reactive today - URINE CULTURE; Future - TDAP VACCINE, >10 YRS, IM - URINE CULTURE - NON-STRESS TEST Continue with twice weekly NSTs with weekly visits. MFM follow up scans are already scheduled Vaishali Curtis MD [facility] 2023-06-21 10:36:07 Formatting of this n ote is different from the original. Chief Complaint Patient presents with Appointment Patient cancelled appt for NST/PN Reached out to patient due to appt today for NST/OB check with Dr Curtis being cancelled and rescheduled to Tuesday. Pt states that she cancelled appt due to transportation issues. Offered to schedule pt another appt this week due to the need for bi-weekly nst's. Pt states that she cannot come any additional days this week due to transportation. (Pt previously declined Medicaid transportation). Importance stressed to patient of compliance with recommendations. Pt verbalizes understanding. Jaclyn Fernandes RN [facility] 2023-06-20 15:46:22 Formatting of this n ote might be different from the original. Dr. Curtis, Ms. Noriega obtained anatomy ultrasound on 06/17/2023 at 33weeks gestation. Patient has had inconsistent care through related to transportation issues. OB labs have not been obtained. I last saw on 05/31/2023 in clinic and then went to L&D for observation. Prior to that, last visit was 04/07/2023. Ultrasound results below and on chart. IUGR 4% tile. NST scheduled with you on 06/20/2023 for evaluation. I have ordered weekly dopplers / CONRAD and every three week growth ultrasounds. Please send Ms. Noriega for labs once this is completed. The patient's identity was confirmed by the dope maintenance worker before the scan. Her name and date of were verified. Patient referred for US For anatomy but IUGR seen. A detailed ultrasound (54671) was performed for this indication ID #: [id number] [facility] REPORT 1 of 1 visit(s) Date: 06/17/2023 Electronically Signed Final Report by Minerva Gonsalez MD 06/17/2023 12:45 pm Copyright 1990 - 2022 [employer]. All Rights Reserved. [email or web address] [email or web address] 7.882 Page 2 of 5 Biometry - Continued Gestational Age Targeted Anatomy Doppler - Vessels Comments The biometry was consistent with 31w5d, 9 days smaller than the dates provided The adnexa were not seen on todays exam unless otherwise specified No obvious malformations or markers of aneuploidy noted. Views of the anatomy were limited on todays ultrasound by maternal habitus and position. Cord Dopplers show an S/D ratio of 3.0 which is WNL. The CONRAD is WNL. BPP is 8/8. 1) Twice wkly NST till delivery. 2) Weekly CONRAD and cord Dopplers. 3) Q3wkly interval growth. Taya Stevens NP 06/20/2023 3:53 PM \\ [facility] 2023-06-20 15:29:44 Formatting of this n ote might be different from the original. Spoke with patient, informed patient of IUGR and that she will need to have NST done twice weekly. Also, notified patient that she will need to select a OB provider for further care and of additional testing that will need to be done to monitor babys growth. Patient verbalized understanding. Notified [facility] [facility] about getting patient in for NST and transfer of care appt tomorrow. Patient scheduled tomorrow for NST and transfer of care with Dr. Curtis. Fariba Castellanos RN 06/20/2023 3:31 PM Fariba Castellanos RN [facility] 2023-06-20 14:39:50 Formatting of this n ote might be different from the original. Patient is returning call for nurse. Jeremy Jennings [facility] 2023-06-20 14:23:48 Formatting of this n ote might be different from the original. Attempted to contact patient by phone, no answer, message left on voicemail to call back. Fariba Castellanos RN 06/20/2023 2:25 PM Counts include 234 beds at the [facility] 2023-06-20 12:56:45 Formatting of this n ote might be different from the original. Fariba, Please contact Ms. Noriega today to inform that fetus is IUGR at 4% tile. She will need to start NST procedures twice weekly, starting tomorrow. She will require weekly CONRAD and cord dopplers. Also, every third week interval growth ultrasounds. She has had inadequate care, therefore she has not been transferred to OB provider. OB labs have not been obtained either. Please assist in scheduling an NST and visit tomorrow in [place] with OB provider who has room to work her in. She should be able to obtain labs at that visit. Please inform her that this is important and Medicaid does offer rides for patients. She has declined this in the past. Taya Stevens NP 06/20/2023 1:01 PM Counts include 234 beds at the [facility] 2023-06-17 08:45:00 Formatting of this n ote might be different from the original. Reviewed and noted. Fariba Castellanos RN to contact patient regarding bi-weekly NST procedures, weekly dopplers, serial growth ultrasounds, OB provider transfer. Taya Stevens NP 06/20/2023 1:06 PM Counts include 234 beds at the [facility] 2023-06-08 14:54:08 Formatting of this n ote might be different from the original. Report given to GIGI Peña in L&D. Patient taken upstairs by tech. Counts include 234 beds at the [facility] 2023-06-08 14:51:02 Formatting of this n ote might be different from the original. 33 weeks preg. - reports water broke ~1330hrs today. Mentions experiencing contractions every 2 min but "they are little". Hx - HTN Angela Avila RN [facility] - [facility] 2023-05-31 16:15:00 Formatting of this n ote might be different from the original. Age: [age] year old GA: 30w4d Modesto Noriega is a 28 y.o. female who presented to clinic for ASHLYN visit at 30w4d gestation, . Last was at 32w0d per patient. Insufficient care (last visit was at 22w6d gestation on 04/07/2023. Patient has not been able to obtain 28 week labs or anatomy ultrasound related to lack of transportation. Patient stated that "I have been having contractions since yesterday with a bad headache". History of epigastric pain, as well. There is also a PMH of preeclampsia with previous . Insufficient care, third trimester 30 weeks gestation of Uterine size - date discrepancy in third trimester - Endorses positive movement - Denies loss of fluid, vaginal bleeding, vaginal discharge - POCT urinalysis w/o specific gravity; negative results - RPR - Glucose 1 hour post prandial - HIV 1/2 - workup, blood bank - CBC with diff - MFM consult for anatomy ultrasound (patient stated that "I will go". Third trimester education - Monitor for vaginal bleeding, loss of fluid, and/or contractions - Monitor for symptoms of preeclampsia (headache, visual disturbances, epigastric (under right ribs) pain, and increased blood pressure - If there is a perceived decrease in movement, monitor kick counts. Drink glass of water or juice and rest on left side for approximately two hours. If you feel 10 kicks (movements) over a period of two hours, this is normal. If you do not feel the fetus moving, present to OB clinic or antepartum unit at the [facility]. - Continue daily vitamins - Continue healthy diet, light exercise, and increased hydration with water (at least 64 ounces daily) - Monitor for healthy weight gain -Contact clinic for any concerns - Consider director talent, breast and/or bottle feeding, and contraception during this time (plan ahead) - Consider birthing class or private education regarding delivery 4. uterine contractions, antepartum, third trimester - Patient endorsed contractions that "started yesterday" - Contractions are irregular, but "feel like when I had delivery" - Cervical exam fingertip to 1 cm / 30% effaced / floating. - Patient being taken to [facility] labor and delivery in [place] for extended observation and lab draw (except for one hour GTT). - L&D contacted per Fariba Castellanos RN, BSN. 5. headache in third trimester 6. Abdominal pain, epigastric 7. Preeclampsia in period (history of) - Complete metabolic panel - Creatinine U 24 hr - Protein quant urine 24 hr - CBC with diff - BP 121/79 today; labs ordered today in the event that patient could not have labs drawn at other time related to transportation concerns. Baseline. - Aspirin 81mg EC tablet, take one tablet, orally, once daily for prevention of preeclampsia 8. Group B strep bacteriuria - during this 9. Inability to access health care due to transportation insecurity - One vehicle with partner who works long shifts at plant. - Unable to go further than [place] per patient. 10. Obesity in , antepartum - Maintain healthy diet with elevated protein, whole grain foods, vegetables, and fruit - Increase water for hydration - Daily exercise as tolerated RTC in two weeks; sooner as indicated. I have seen and examined the patient and agreed with the note above Taya Stevens NP 05/31/2023 5:13 PM [facility] 2023-05-27 14:57:04 Formatting of this n ote might be different from the original. Spoke with provider on-call Dr. Joshi in regards to patients concerns. Patient notified per provider, patient to take magnesium otc to help with headache, drink plenty of water, continue to take tylenol for relief. Continue monitoring BP and HR. Given ER precautions. Patient verbalized understanding. Fariba Castellanos RN 05/27/2023 2:59 PM Fariba Castellanos RN [facility] 2023-05-27 12:16:21 Formatting of this n ote might be different from the original. Spoke with patient, c/o headache, BP 126/88, HR 108. Headache ongoing approx 4 days. Denies any other symptoms. No loss of fluid. Positive for movement. Has tried taking tylenol for headache, some relief at times. Informed patient to make sure she is staying hydrated, can continue the tylenol for pain, monitor BP and HR. Given ER precautions. Advised patient that I would notify doctor for any other recommendations. Patient verbalized understanding. Fariba Castellanos RN 05/27/2023 12:29 PM T [facility] 2023-05-27 09:52:39 Formatting of this n ote might be different from the original. Patient requested an appointment for May with Taya for a blood pressure check. Called patient and she scheduled for May 31, 2023 with Taya. Please review and see if patient needs to be seen sooner. Kurt Todd [facility]
--- NOTE | 2024-06-10 12:35 | EDPHYS ---
Physician Documentation [facility] Name: Alyx Noriega Age: 29 yrs Sex: Female : 1995 Arrival Date: 06/10/2024 Time: 11:50 Bed DIS1 Private MD: ED Physician Que Garzon HPI: 06/10 12:33 This 29 yrs old Female presents to ER via Ambulatory with complaints of Redness of Eye rn - 2of2. 12:33 The patient is experiencing pain, The patient sustained None. to the right eye. rn Severity of symptoms: At their worst the symptoms were mild in the emergency department the symptoms are unchanged. The patient has not experienced similar symptoms in the past. Patient reports right lower eyelid with swelling and redness that began 2 days ago. Denies trauma. No drainage. Eyeball itself does not hurt. No vision changes.. 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 - Infectious Disease History:: Denies. - Social history:: Smoking status: Patient denies any tobacco usage or history of. - Family history:: not pertinent. - Hospitalizations: : No recent hospitalization is reported. ROS: 12:33 Constitutional: Negative for fever, chills, and weight loss, Eyes: Positive for right rn lower eyelid swelling and redness Exam: 12:33 Constitutional: This is a well developed, well nourished patient who is awake, alert, rn and in no acute distress. Eyes: Pupils equal round and reactive to light, extra-ocular motions intact. Right lower inner eyelid with mild erythema and swelling. Conjunctiva and sclera and cornea all normal appearance. No ocular drainage. Vital Signs: 12:05 BP 134 / 95; Pulse 91; Resp 18; Temp 98.5(O); Pulse Ox 98% on R/A; Weight 90.72 kg; nj1 Height 5 ft. 3 in. ; Pain 7/10; 12:44 BP 121 / 81; Pulse 81; Resp 16; Temp 98.1; Pulse Ox 99% ; me1 12:05 Body Mass Index 35.43 (90.72 kg, 160.02 cm) nj1 12:05 Pain Scale: Adult nj1 MDM: 11:55 Patient medically screened. rn 12:33 Differential diagnosis: stye, hordeolum. Data reviewed: vital signs, nurses notes, and rn as a result, I will discharge patient. Counseling: I had a detailed discussion with the patient and/or guardian regarding the historical points, exam findings, and any diagnostic results supporting the discharge/admit diagnosis, the need for outpatient follow up, to return to the emergency department if symptoms worsen or persist or if there are any questions or concerns that arise at home. Special discussion: I discussed with the patient/guardian in detail that at this point there is no indication for admission to the hospital. It is understood, however, that if the symptoms persist or worsen the patient needs to return immediately for re-evaluation. Administered Medications: No medications were administered Disposition Summary: 06/10/24 12:34 Discharge Ordered Notes: Location: Home rn Problem: new rn Symptoms: have improved rn Condition: Stable rn Diagnosis - Hordeolum externum right lower eyelid rn Followup: rn - With: Private Physician - When: As needed - Reason: Recheck today's complaints, Re-evaluation by your physician Discharge Instructions: - Discharge Summary Sheet rn - Anastacia rn Forms: - Medication Reconciliation Form rn - Antibiotic keg varnisher - Prescription Opioid Use rn - Patient Portal Instructions rn - Leadership Thank You Letter rn Prescriptions: - Erythromycin 5 mg/gram (0.5 %) Ophthalmic ointment - apply 1 centimeter OPHTHALMIC route 2-3 times daily for 7 days; 1 unit; rn Refills: 0, Product Selection Permitted Signatures: Que Garzon MD MD rn Jaco, Norma, RN RN nj1
--- NOTE | 2024-06-10 12:35 | ER ---
Nurse's Notes [facility] Name: Alyx Noriega Age: 29 yrs Sex: Female : 1995 Arrival Date: 06/10/2024 Time: 11:50 Bed DIS1 Private MD: Diagnosis: Hordeolum externum right lower eyelid Presentation: 06/10 12:05 Chief complaint: Patient states: Redness noted to right lower lid since yesterday, me1 uncomfortable, denies drainage. 12:05 Coronavirus screen: Vaccine status: Patient reports being unvaccinated. Ebola Screen: nj1 Patient denies travel to an Ebola-affected area in the 21 days before illness onset. Initial Sepsis Screen: Does the patient meet any 2 criteria? HR > 90 bpm. No. Patient's initial sepsis screen is negative. Does the patient have a suspected source of infection? No. Patient's initial sepsis screen is negative. Risk Assessment: Do you want to hurt yourself or someone else? Patient reports no desire to harm self or others. Onset of symptoms was June 09, 2024. 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 - Infectious Disease History:: Denies. - Social history:: Smoking status: Patient denies any tobacco usage or history of. - Family history:: not pertinent. - Hospitalizations: : No recent hospitalization is reported. Screenin:41 [facility] ED Fall Risk Assessment (Adult) History of falling in the last 3 months, me1 including since admission No falls in past 3 months (0 pts) Confusion or Disorientation No (0 pts) Intoxicated or Sedated No (0 pts) Impaired Gait No (0 pts) Mobility Assist Device Used No (0 pt) Altered Elimination No (0 pt) Score/Fall Risk Level 0 - 2 = Low Risk Maintained a safe environment, Provided non-skid footwear, Hourly rounding (assess needs \T\ fall precautionary measures) done. Abuse screen: Denies threats or abuse. Nutritional screening: No deficits noted. Tuberculosis screening: No symptoms or risk factors identified. Assessment: 12:41 General: Appears comfortable, well groomed, well developed, well nourished, Behavior is me1 calm, cooperative, appropriate for age, Reports Redness noted to right lower lid since yesterday, uncomfortable, denies drainage. Pain: Complains of pain in right lower eyelid Pain does not radiate. Pain currently is 2 out of 10 on a pain scale. Quality of pain is described as tender, Pain began gradually, 1 day ago. Is continuous. Neuro: Level of Consciousness is awake, alert, obeys commands, Oriented to person, place, time, situation, Appropriate for age. Cardiovascular: Patient's skin is warm and dry. Respiratory: Airway is patent Trachea midline Respiratory effort is even, unlabored, Respiratory pattern is regular, symmetrical. GI: No signs and/or symptoms were reported involving the gastrointestinal system. : No signs and/or symptoms were reported regarding the genitourinary system. EENT: No signs and/or symptoms were reported regarding the EENT system. Derm: Skin is intact, is healthy with good turgor, Skin is pink, warm \T\ dry. Musculoskeletal: No signs and/or symptoms reported regarding the musculoskeletal system. Vital Signs: 12:05 BP 134 / 95; Pulse 91; Resp 18; Temp 98.5(O); Pulse Ox 98% on R/A; Weight 90.72 kg; nj1 Height 5 ft. 3 in. ; Pain 7/10; 12:44 BP 121 / 81; Pulse 81; Resp 16; Temp 98.1; Pulse Ox 99% ; me1 12:05 Body Mass Index 35.43 (90.72 kg, 160.02 cm) nj1 12:05 Pain Scale: Adult [facility] ED Course: 11:53 Patient arrived in ED. ra3 11:55 Que Garzon MD is Attending Physician. rn 12:13 Triage completed. nj1 12:14 Arm band placed on. mt1 12:19 Yamilex Medina, RN is Primary Nurse. ri1 12:41 Patient has correct armband on for positive identification. Bed in low position. Call ri1 light in reach. Side rails up X2. Provided Education on: POC. Verbalized understanding. . Client placed on continuous cardiac and pulse oximetry monitoring. NIBP monitoring applied. Pulse ox on. NIBP on. 12:41 No provider procedures requiring assistance completed. Patient did not have IV access me1 during this emergency room visit. Administered Medications: No medications were administered Medication: 12:41 VIS not applicable for this client. me1 Outcome: 12:34 Discharge ordered by . rn 12:47 Discharged to home ambulatory, me1 12:47 Condition: stable 12:47 Discharge instructions given to patient, Instructed on discharge instructions, follow up and referral plans. medication usage, Demonstrated understanding of instructions, follow-up care, medications, Prescriptions given X 1, 12:47 Patient left the ED. me1 Signatures: Que Garzon MD MD rn Jaco, Norma RN RN nj1 Yamilex Medina RN RN me1 N[place] Gan ra3 Corrections: (The following items were deleted from the chart) 12: 12:05 Chief complaint: Patient states: Redness noted to right lower lid since me1 yesterday, uncomfortable, denies drainage. nj1
[2024-06-10 12:54] VITALS: BP 121/81; TEMP 98.1; O2SAT 99
== END 2024-06-10 12:47 | disposition home or self-care (01) ==
LOC: ER 11:50
DX: H00.012 Hordeolum externum right lower eyelid (principal)
CPT/HCPCS: 99283

== ENCOUNTER 2025-01-30 09:11 | Emergency (ER) | payer OTHER, SELFPAY ==
--- OUTSIDE RECORDS SUMMARY | 2025-01-30 09:21 | XMS REPORT | Continuity of Care Document ---
Author Name Unknown Address [address] [facility] [facility] [address] [place] [address] [facility] [place] Address [address] [facility] [facility] 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 Name Role Phone SUNDAYDEE, JAYASHREE Primary Care Physician FANTA Medina Attending Clinician Unavailable [facility] [phone] VAISHALI CURTIS Attending Clinician Unavailable VAISHALI CURTIS Attending Clinician Unavailable OBI-DEE, JAYSAHREE Attending Clinician Unavailab eng OBI-DEE JAYASHREE Attending Clinician Unavailab eng Nurse, [facility] Attending Clinician Un available Vaishali Curtis MD Attending Clinician [phone] Doctor Unassigned, [place] Attending Clinician U MILE Sands Attending Clinician MILE Ramirez Attending Clinician Arlyn moran Pcp, Patient Does Not Have A Attending Clinician TAYA STEVENS Attending Clinician UnavailTAYA Ta Attending Clinician UnavailIDALIA Lee Attending Clinician Unavailable Idalia Grullon MD Attending Clinician [phone] [facility] Attending Clinician Unavailable Ultrasound, [facility] Attending Clinician UnavailFariba Guzman MD Attending Clinician [phone] FARIBA CALHOUN Attending Clinician Unavailable FARIBA CALHOUN Attending Clinician Unavailable Doctor Unassigned, [place] Attending Clinician U latricia , [facility] Lab Attending Clinician Unavailable MINERVA GONSALEZ Attending Clinician Unavailable MINERVA GONSALEZ Attending Clinician Unavailable Minerva Gonsalez MD Attending Clinician [phone] Lab, Ang - Db Attending Clinician Unavailable Emanuel RN, Fariba Attending Clinician Unavailantwon boykin Pob, [facility] Main Attending Clinician Unavailantwon Dhillon MD, Braden Attending Clinician Unavailable BRADEN DHILLON Attending Clinician Unavailable Nurse, [facility] Attending Clinician Unavailable Dom RNJaclyn Attending Clinician Unavailable VAISHALI CURTIS Admitting Clinician Unavailable IDALIA GRULLON Admitting Clinician Unavailable Idalia Grullon MD Admitting Clinician [phone] Vaishali Curtis MD Admitting Clinician [phone] TAYA STEVENS Admitting Clinician Unavaila sherwin Payers Payer Name Policy Type Policy Number Effective Date Expirati on Date Source [facility] RADHA CORBETT [id number] 2022 00:00:00 HTW-RMCHP [id number] 2024 00:00:00 Problems Condition Name Condition Details Condition Category Status Onset Date Resolution Date Last Treatment Date Treating Clinician Comments Source Obesity (BMI 30-39.9) Obesity (BMI 30-39.9) Disease Active 03-23 00:00: 00 [facility] Mild pre-eclamp mireille in third trimester Mild pre-eclamp mireille in third trimester Disease Active 9- 00:00: 00 [facility] Gastroesop hageal reflux disease without esophagiti s Gastroesop hageal reflux disease without esophagiti s Disease Active - 00:00: 00 [facility] with inconclusi ve viability, single or unspecifie d fetus with inconclusi ve viability, single or unspecifie d fetus Disease Active 6-03 00:00: 00 [facility] Encounter for routine follow-up Encounter for routine follow-up Disease Resolve d 2022-10 0- 00:00: 00 2024-03-23 00:00:00 2024-03-23 13:22:44 [facility] Positive depression screening Positive depression screening Disease Resolve d 2022-10 0- 00:00: 00 2024-03-23 00:00:00 2024-03-23 13:23:11 [facility] Depo-Prove ra contracept nell status Depo-Prove ra contracept nell status Disease Resolve d 2022-1 0-11 00:00: 00 2024-03-23 00:00:00 2024-03-23 13:22:49 [facility] Depressed mood with onset Depressed mood with onset Disease Resolve d 2022-0 9-20 00:00: 00 2024-03-23 00:00:00 2024-03-23 13:22:45 [facility] Visit for wound check Visit for wound check Disease Resolve d 2022-0 9-20 00:00: 00 2024-03-23 00:00:00 2024-03-23 13:23:18 [facility] Liveborn infant, of jara , born in hospital by delivery Liveborn , of jara , born in hospital by delivery Disease Resolve d 2022-0 9-12 00:00: 00 2024-03-23 00:00:00 2024-03-23 13:22:35 [facility] Non-reassu ring heart tones complicati ng , antepartum Non-reassu ring heart tones complicati ng , antepartum Disease Resolve d 2022-0 9-11 00:00: 00 2024-03-23 00:00:00 2024-03-23 13:22:38 [facility] Poor growth affecting management of mother in third trimester Poor growth affecting management of mother in third trimester Disease Resolve d 2022-0 9-11 00:00: 00 2024-03-23 00:00:00 2024-03-23 13:23:08 [facility] 36 weeks gestation of 36 weeks gestation of Disease Resolve d 2022-0 9-11 00:00: 00 2024-03-23 00:00:00 2024-03-23 13:22:51 [facility] BV (bacterial vaginosis) BV (bacterial vaginosis) Disease Resolve d 2022-0 9-11 00:00: 00 2024-03-23 00:00:00 2024-03-23 13:23:00 [facility] Severe preeclamps ia, third trimester Severe preeclamps ia, third trimester Disease Resolve d 2022-0 9-11 00:00: 00 2024-03-23 00:00:00 2024-03-23 13:23:15 [facility] BMI 32.0-32.9, adult BMI 32.0-32.9, adult Disease Resolve d 2022-0 8-25 00:00: 00 2024-03-23 00:00:00 2024-03-23 13:22:54 [facility] Insufficie nt care, third trimester Insufficie nt care, third trimester Disease Resolve d 0 8- 00:00: 00 2024-03-23 00:00:00 2024-03-23 13:22:37 [facility] Uterine size-date discrepanc y in third trimester Uterine size-date discrepanc y in third trimester Disease Resolve d 2022-0 8-01 00:00: 00 2024-03-23 00:00:00 2024-03-23 13:22:55 [facility] Preeclamps ia in period Preeclamps ia in period Disease Resolve d 0 8-01 00:00: 00 2024-03-23 00:00:00 2024-03-23 13:23:11 [facility] Group B streptococ enrique bacteriuri a Group B streptococ enrique bacteriuri a Disease Resolve d 0 8-01 00:00: 00 2024-03-23 00:00:00 2024-03-23 13:22:43 [facility] headache in third trimester headache in third trimester Disease Resolve d 2022-0 8-01 00:00: 00 2024-03-23 00:00:00 2024-03-23 13:23:14 [facility] uterine contractio ns, antepartum , third trimester uterine contractio ns, antepartum , third trimester Disease Resolve d 2022-0 8-01 00:00: 00 2024-03-23 00:00:00 2024-03-23 13:22:56 [facility] Inability to access health care due to transporta tion insecurity Inability to access health care due to transporta tion insecurity Disease Resolve d 0 6-08 00:00: 00 2024-03-23 00:00:00 2024-03-23 13:22:39 [facility] Abdominal pain, epigastric Abdominal pain, epigastric Disease Resolve d 0 6-08 00:00: 00 2024-03-23 00:00:00 2024-03-23 13:22:50 [facility] Missed menses Missed menses Disease Resolve d 0 2-08 00:00: 00 2024-03-23 00:00:00 2024-03-23 13:23:01 [facility] examinatio n or test, positive result examinatio n or test, positive result Disease Resolve d 2-08 00:00: 00 2024-03-23 00:00:00 2024-03-23 13:23:12 [facility] History of depression , currently History of depression , currently Disease Resolve d 2-08 00:00: 00 2024-03-23 00:00:00 2024-03-23 13:22:41 [facility] History of gestationa l hypertensi on History of gestationa l hypertensi on Disease Resolve d 6-03 00:00: 00 2024-03-23 00:00:00 2024-03-23 13:22:42 [facility] Obesity in , antepartum Obesity in , antepartum Disease Resolve d 6-03 00:00: 00 2024-03-23 00:00:00 2024-03-23 13:23:07 [facility] Supervisio n of other high risk , antepartum Supervisio n of other high risk , antepartum Disease Resolve d 6-03 00:00: 00 2024-03-23 00:00:00 2024-03-23 13:23:16 [facility] Allergies, Adverse Reactions, Alerts Allergy Name Allergy Type Status Severity Reaction(s) Onset Date Inactive Date Treating Clinician Comments Source NO KNOWN ALLERGIE S Drug Class Active [facility] Social History Social Habit Start Date Stop Date Quantity Comments Source ASSERTION 2022-11-12 00:00:00 [facility] History of tobacco use Cigarette Smoker [facility] Alcoholic beverage intake 2024-12-20 00:00:00 2024-12-20 00:00:00 Current drinker of alcohol (finding) [facility] Alcohol Comment 2024-12-18 00:00:00 2024-12-18 00:00:00 socially [facility] Tobacco use and exposure 2024-12-18 00:00:00 2024-12-18 00:00:00 Smokeless tobacco non-user [facility] History of Social function 2024-04-03 00:00:00 2024-04-03 00:00:00 [facility] Alcohol intake 2023-08-10 00:00:00 2023-08-10 00:00:00 Ex-drinker (finding) [facility] Exposure to SARS-CoV-2 (event) 2023-02-18 00:00:00 2023-02-28 10:37:00 Not sure [facility] Sex assigned at 1995 00:00:00 1995 00:00:00 [facility] Smoking Status Start Date Stop Date Source Occasional tobacco smoker 2024-12-18 00:00:00 [facility] Never smoked tobacco [facility] Medications Ordered Medication Name Filled Medication Name Start Date Stop Date Current Medication? Ordering Clinician Indication Dosage Frequency Signature (SIG) Comments Components Source lisinopriL 5 mg tablet 12-18 00:00: 00 Yes [id number] 5mg Take 1 tablet by mouth in the morning. [facility] SERTraline 25 mg tablet 12-18 00:00: 00 Yes [id number] 25mg Take 1 tablet by mouth in the morning. [facility] medroxyPROG ESTERone (DEPO-PROVE RA) syringe 150 mg 06-18 22:15: 00 06-18 19:22 :00 No [id number] 150mg 150 mg, Intramuscu lar, ONCE, 1 dose, On Tue06/18/24 at 1715, Routine [facility] lisinopriL 5 mg tablet 04-03 00:00: 00 12-18 00:00 :00 No [id number] 5mg Take 1 tablet by mouth in the morning. [facility] SERTraline 25 mg tablet 04-03 00:00: 00 12-18 00:00 :00 No [id number] 25mg Take 1 tablet by mouth in the morning. [facility] medroxyPROG ESTERone (DEPO-PROVE RA) syringe 150 mg 03-23 19:00: 00 03-23 18:17 :00 No [id number] 150mg 150 mg, Intramuscu lar, ONCE, 1 dose, On Tue03/23/24 at 1400, Routine [facility] hydroCHLORO thiazide 12.5 mg tablet 07-29 00:00: 00 08-29 04:59 :00 No [id number] 12.5mg Take 1 tablet by mouth in the morning for 30 days. [facility] hydroCHLORO thiazide 12.5 mg tablet 07-20 00:00: 00 Yes [id number] 12.5mg Take 1 tablet by mouth in the morning. [facility] DULoxetine 20 mg capsule 07-20 00:00: 00 03-23 00:00 :00 No [id number] 20mg Take 1 capsule by mouth in the morning. [facility] hydroCHLORO thiazide (ESIDRIX) tablet 12.5 mg 07-16 23:00: 00 Yes 12.5mg 12.5 mg, Oral, DAILY, First dose on 07/16/23 at 1800, Until Discontinu ed, Routine [facility] hydroCHLORO thiazide 12.5 mg tablet 07-16 00:00: 00 Yes [id number] 12.5mg Take 1 tablet by mouth in the morning. [facility] docusate 100 mg capsule 07-16 00:00: 00 03-23 00:00 :00 No [id number] 200mg Take 2 capsules by mouth once daily as needed for Constipati on. [facility] ferrous sulfate 325 mg (65 mg iron) tablet 07-16 00:00: 00 03-23 00:00 :00 No [id number] 325mg Take 1 tablet by mouth in the morning and 1 tablet in the evening. [facility] ibuprofen 600 mg tablet 07-16 00:00: 00 03-23 00:00 :00 No [id number] 600mg Take 1 tablet by mouth every 6 (six) hours as needed (Pain). Take with food or milk. [facility] gabapentin 300 mg capsule 07-16 00:00: 00 03-23 00:00 :00 No [id number] 300mg Take 1 capsule by mouth in the morning and 1 capsule at noon and 1 capsule in the evening. [facility] HYDROcodone -acetaminop hen 5-325 mg tablet 07-16 00:00: 07-24 04:59 :00 No [id number] 1{tbl} Take 1 tablet by mouth every 6 (six) hours as needed (Pain scale above 4) for up to 7 days. Do not exceed 3 grams of acetaminop hen in 24 hours. Indication s: acute pain [facility] iopamidol (ISOVUE 370-500 mL) injection 80 mL 07-15 01:00: 00 07-15 01:00 :00 No [id number] 80mL 80 mL, Intravenou s, ONCE, 1 dose, On Claudia 07/14/23 at 2000, Routine [facility] butalbital- acetaminoph en-caff (ESGIC) 50-325-40 mg tablet 1 tablet 07-14 21:00: 00 07-14 20:27 :00 No 1{tbl} 1 tablet, Oral, ONCE, 1 dose, On Claudia 07/14/23 at 1600, Routine [facility] magnesium sulfate in water for injection 20 gram/500 mL (4 %) IV infusion 07-14 17:30: 00 Yes 2g/h 2 g/hr (50 mL/hr), IV Infusion, CONTINUOUS , Starting on Tue07/14/23 at 1230, Until Discontinu ed, ZARI [facility] D5W-LR IV infusion 1,000 mL 07-14 17:00: 00 Yes 1000mL at 75 mL/hr, IV Infusion, CONTINUOUS , Starting on Tue07/14/23 at 1200, Until Discontinu ed, ZARI [facility] calcium gluconate 100 mg/mL (10%) injection 1,000 mg 07-14 16:50: 30 Yes 1000mg 1,000 mg, Slow IV Push, PRN - SEE INSTRUCTIO NS, Starting on Tue07/14/23 at 1150, Until Discontinu ed, Routine, magnesium toxicity [facility] magnesium sulfate 4 mEq/mL (50 %) injection 32.48 mEq 07-14 16:50: 30 Yes 4g 32.48 mEq (4 g), Slow IV Push, PRN - SEE INSTRUCTIO NS, Starting on Tue07/14/23 at 1150, Until Discontinu ed, Routine, For seizure activity (patient not on magnesium sulfate) [facility] magnesium sulfate 4 mEq/mL (50 %) injection 16.24 mEq 07-14 16:50: 30 Yes 2g 16.24 mEq (2 g), Slow IV Push, PRN - SEE INSTRUCTIO NS, 2 doses, Starting on Tue07/14/23 at 1150, Until Discontinu ed, Routine, For seizure activity (patient already on magnesium sulfate) [facility] medroxyPROG ESTERone (DEPO-PROVE RA) injection 150 mg 07-14 14:15: 00 Yes 150mg 150 mg, Intramuscu lar, [id number], First dose on Tue07/14/23 at 0915, Until Discontinu ed, Routine [facility] cyclobenzap rine (FLEXERIL) tablet 5 mg 07-14 13:30: 00 07-14 18:53 :27 No 5mg 5 mg, Oral, TID, First dose on Tue07/14/23 at 0830, Until Discontinu ed, Routine [facility] ibuprofen (IBU) tablet 600 mg 07-14 05:00: 00 Yes 600mg 600 mg, Oral, Q6H ABX, First dose on Tue07/14/23 at 0000, Until Discontinu ed, Routine [facility] acetaminoph en (TYLENOL) tablet 650 mg 07-13 19:00: 00 Yes 650mg 650 mg, Oral, Q6H ABX, First dose on Tue07/13/23 at 1400, Until Discontinu ed, Routine [facility] HYDROcodone -acetaminop hen (NORCO 5) 5-325 mg tablet 1 tablet 07-12 23:00: 00 Yes 1{tbl} 1 tablet, Oral, Q6HPRN, Starting on Tue07/12/23 at 1800, Until Discontinu ed, Routine, Pain (scale 7-10), Alternate with Ibuprofen [facility] lactated ringers IV infusion 500 mL 07-12 22:15: 00 Yes 500mL at 250 mL/hr, 500 mL, IV Infusion, CONTINUOUS , Starting on Tue07/12/23 at 1715, Until Discontinu ed, Routine [facility] acetaminoph en ADULT (OFIRMEV) injection 1,000 mg 07-12 19:00: 00 07-12 21:49 :22 No 1000mg 1,000 mg, IV Infusion, at 400 mL/hr Administer over 15 Minutes, Q8H, 3 doses, First dose on Tue07/12/23 at 1400, Last dose on Tue07/13/23 at 0600, Routine
Indicatio n: Perioperat nell Patient [facility] ketorolac (TORADOL) injection 30 mg 07-12 13:30: 00 07-13 13:29 :00 No 30mg 30 mg, Slow IV Push, Q6H ABX, 4 doses, First dose on Tue07/12/23 at 0830, Last dose on Tue07/13/23 at 0230, Routine [facility] gabapentin (NEURONTIN) capsule 300 mg 07-12 13:00: 00 Yes 300mg 300 mg, Oral, TID, First dose on Tue07/12/23 at 0800, Until Discontinu ed, Routine [facility] sodium chloride 0.9 % irrigation solution 07-12 12:53: 00 Yes PRN, Starting on Tue07/12/23 at 0753, Until Discontinu ed, Intra-op [facility] lactated ringers IV infusion 1,000 mL 07-12 12:00: 00 07-12 17:19 :02 No 1000mL at 125 mL/hr, 1,000 mL, IV Infusion, ONCE, 1 dose, On Tue07/12/23 at 0700, Routine [facility] ondansetron (ZOFRAN (PF)) injection 4 mg 07-12 11:45: 00 07-12 12:21 :00 No 4mg 4 mg, Slow IV Push, ONCE, 1 dose, On Tue07/12/23 at 0645, Routine [facility] mupirocin (BACTROBAN OINT) 2 % skin ointment 07-12 11:43: 00 Yes Intra-op [facility] diphenhydrA MINE (BENADRYL) tablet 25 mg 07-12 11:29: 42 07-13 23:13 :54 No 25mg 25 mg, Oral, Q4HPRN, Starting on Tue07/12/23 at 0629, Until 07/13/23 at 1813, Routine, Itching [facility] naloxone (NARCAN) injection 0.4 mg 07-12 11:29: 18 07-14 23:14 :19 No .4mg 0.4 mg, Slow IV Push, PRN - SEE INSTRUCTIO NS, Starting on Tue07/12/23 at 0629, Until Claudia 07/14/23 at 1814, Routine, Analgesia Recovery [facility] rho(D) immune globulin (RHOGAM) syringe 300 mcg 07-12 11:06: 17 Yes 300ug 300 mcg, Intramuscu lar, ONCE, For 1 dose, Conditiona l, Routine [facility] diphenhydrA MINE (BENADRYL) injection 25 mg 07-12 11:04: 41 Yes 25mg 25 mg, Slow IV Push, Q6HPRN, Starting on Tue07/12/23 at 0604, Until Discontinu ed, Routine, Itching [facility] diphenhydrA MINE (BENADRYL) tablet 25 mg 07-12 11:04: 41 Yes 25mg 25 mg, Oral, Q6HPRN, Starting on Tue07/12/23 at 0604, Until Discontinu ed, Routine, Sleep, Itching [facility] ondansetron (ZOFRAN (PF)) injection 4 mg 07-12 11:04: 41 Yes 4mg 4 mg, Slow IV Push, Q8HPRN, Starting on Tue07/12/23 at 0604, Until Discontinu ed, Routine, Nausea and Vomiting (N/V) [facility] bisacodyL (DULCOLAX) suppository 10 mg 07-12 11:04: 41 Yes 10mg 10 mg, Rectal, QDAILYPRN, Starting on Tue07/12/23 at 0604, Until Discontinu ed, Routine, Constipati on [facility] simethicone (GAS RELIEF (SIMETHICON E)) chewable tablet 160 mg 07-12 11:04: 41 Yes 160mg 160 mg, Oral, PC+HSPRN, Starting on Tue07/12/23 at 0604, Until Discontinu ed, Routine, Gas [facility] docusate (COLACE) capsule 200 mg 07-12 11:04: 41 Yes 200mg 200 mg, Oral, QDAILYPRN, Starting on Tue07/12/23 at 0604, Until Discontinu ed, Routine, Constipati on [facility] magnesium hydroxide (MILK OF MAGNESIA) 400 mg/5 mL suspension 30 mL 07-12 11:04: 41 Yes 30mL 30 mL, Oral, QDAILYPRN, Starting on Tue07/12/23 at 0604, Until Discontinu ed, Routine, Constipati on [facility] lactated ringers IV infusion 1,000 mL 07-12 11:04: 41 Yes 1000mL at 125 mL/hr, 1,000 mL, IV Infusion, PRN, 1 dose, Starting on Tue07/12/23 at 0604, Until Discontinu ed, Routine [facility] metroNIDAZO LE (FLAGYL) tablet 500 mg 07-12 10:00: 00 07-15 21:59 :00 No 500mg 500 mg, Oral, Q12H ABX, 7 doses, First dose (after last reorder) on Tue07/12/23 at 0500, Last dose on Tue07/15/23 at 0500, Routine
Reason for Anti-Infec tive: Documented Infection< br>Documen hemalatha Infection Site: Other
O ther site: BV
Dura tion of Therapy: Other (see Comments) [facility] sodium citrate-cit selina acid (BICITRA) 500-334 mg/5 mL solution 30 mL 07-12 09:53: 29 07-12 10:30 :00 No 30mL 30 mL, Oral, PRE-PROCED URE ONCE, 1 dose, Starting on Tue07/12/23 at 0453, Until Tue07/12/23 at 0530, Routine, Surgery/Pr ocedure [facility] lactated ringers IV infusion 500 mL 07-12 06:55: 00 07-12 06:58 :04 No 500mL at 999 mL/hr, 500 mL, IV Infusion, ONCE, 1 dose, On Tue07/12/23 at 0200, STAT [facility] lactated ringers IV infusion 500 mL 07-12 04:22: 00 07-12 04:27 :12 No 500mL at 999 mL/hr, 500 mL, IV Infusion, ONCE, 1 dose, On Tue07/11/23 at 2330, STAT [facility] betamethaso ne acet,sod phos (CELESTONE SOLUSPAN) 6 mg/mL injection 12 mg 07-11 23:00: 00 07-12 11:06 :15 No 12mg 12 mg, Intramuscu lar, Q24H, First dose on Tue07/11/23 at 1800, Until Discontinu ed, Routine [facility] metroNIDAZO LE (FLAGYL) tablet 500 mg 07-11 23:00: 00 07-11 22:04 :00 No 500mg 500 mg, Oral, ONCE, 1 dose, On Tue07/11/23 at 1800, Routine
Reason for Anti-Infec tive: Documented Infection< br>Documen hemalatha Infection Site: Urine
D uration of Therapy: Other (see Comments) [facility] NaCl 0.9% (NS) bolus infusion 1,000 mL 07-11 21:48: 00 07-11 22:05 :00 No 1000mL at 999 mL/hr, 1,000 mL, IV Infusion, ONCE, 1 dose, On Tue07/11/23 at 1700, STAT [facility] OMEPRAZOLE 40 mg capsule 07-07 00:00: 00 04-03 00:00 :00 No [id number] 40mg Take 1 capsule by mouth in the morning [facility] metroNIDAZO LE (FLAGYL) tablet 500 mg 06-08 22:00: 00 06-08 22:16 :00 No 500mg 500 mg, Oral, ONCE, 1 dose, On Tue06/08/23 at 1700, Routine
Reason for Anti-Infec tive: Empiric Therapy for Suspected Infection< br>Empiric Therapy Site: Pelvic
Duration of therapy: 5 days [facility] metroNIDAZO LE (FLAGYL) 500 mg tablet 06-08 00:00: 00 06-26 00:00 :00 No [id number] 500mg Take 1 tablet by mouth every 12 (twelve) hours. [facility] OMEPRAZOLE 40 mg capsule -19 00:00: 00 07-07 00:00 :00 No [id number] 40mg Take 1 capsule by mouth in the morning [facility] PNV 67-iron ps-folate no.1-dha (VITAFOL ULTRA) 29 mg iron- 1 mg-200 mg Cap 04-27 00:00: 00 Yes Take 1 capsule by mouth in the morning [facility] PNV 67-iron ps-folate no.1-dha (VITAFOL ULTRA) 29 mg iron- 1 mg-200 mg Cap 04-27 00:00: 00 03-23 00:00 :00 No Take 1 capsule by mouth in the morning [facility] aspirin 81 mg EC tablet 02-28 00:00: 00 07-16 00:00 :00 No [id number] 81mg Take 1 tablet by mouth in the morning. [facility] omeprazole 40 mg capsule 02-28 00:00: 00 05-18 00:00 :00 No [id number] 40mg Take 1 capsule by mouth in the morning. [facility] PNV 67-iron ps-folate no.1-dha (VITAFOL ULTRA) 29 mg iron- 1 mg-200 mg Cap 01-28 00:00: 00 04-27 00:00 :00 No TAKE 1 CAPSULE BY MOUTH IN THE MORNING [facility] ampicillin 500 mg capsule 24 00:00: 00 02-01 04:59 :00 No [id number] 500mg Take 1 capsule by mouth every 6 (six) hours for 10 days. [facility] cephALEXin 500 mg capsule - 00:00: 00 01-21 00:00 :00 No [id number] 500mg Take 1 capsule by mouth 4 (four) times daily for 7 days. [facility] vit,calc76/ iron/folic (PNV 29-1 ORAL) 2-08 11:19: 04 12-08 00:00 :00 No Take by mouth. [facility] VITAFOL ULTRA 29 mg iron- 1 mg-200 mg Cap 2-08 00:00: 00 01-28 00:00 :00 No TAKE 1 CAPSULE BY MOUTH IN THE MORNING [facility] vit no.130-iron -folic ( VITAMIN) 2- 00:00: 00 01-19 00:00 :00 No [id number] 1{tbl} Take 1 tablet by mouth in the morning. [facility] amoxicillin 875 mg tablet 2- 00:00: 00 01-19 00:00 :00 No TAKE 1 TABLET BY MOUTH EVERY 12 HOURS FOR 10 DAYS [facility] DULoxetine (CYMBALTA) 20 mg capsule 9- 00:00: 00 04-03 00:00 :00 No [id number] 20mg Take 1 capsule by mouth in the morning. [facility] vit,calc76/ iron/folic (PNV 29-1 ORAL) 8-08 16:04: 56 Yes Take by mouth. [facility] DULoxetine (CYMBALTA) 20 mg capsule 8- 00:00: 00 Yes [id number] 20mg Take 1 capsule by mouth in the morning. [facility] norelgestro min-ethinyl estradiol 150-35 mcg/24 hr patch 8- 00:00: 00 12-08 00:00 :00 No [id number] 1{patch } Apply 1 Patch to skin weekly. [facility] SERTraline 25 mg tablet 7- 00:00: 00 06-07 00:00 :00 No [id number] 50mg Take 2 tablets by mouth daily. [facility] omeprazole 40 mg capsule 6- 00:00: 00 02-28 00:00 :00 No [id number] 40mg Take 1 capsule by mouth daily. [facility] Immunizations Ordered Immunization Name Filled Immunization Name Date Status Comments Source TDAP 2023-06-24 00:00:00 Completed [facility] TDAP 2023-06-24 00:00:00 Completed [facility] TDAP 2023-06-24 00:00:00 Completed [facility] TDAP 2023-06-24 00:00:00 Completed [facility] TDAP 2023-06-24 00:00:00 Completed [facility] TDAP 2023-06-24 00:00:00 Completed [facility] TDAP 2023-06-24 00:00:00 Completed [facility] TDAP 2023-06-24 00:00:00 Completed [facility] TDAP 2023-06-24 00:00:00 Completed [facility] TDAP 2023-06-24 00:00:00 Completed [facility] TDAP 2023-06-24 00:00:00 Completed [facility] TDAP 2023-06-24 00:00:00 Completed [facility] TDAP 2023-06-24 00:00:00 Completed [facility] TDAP 2023-06-24 00:00:00 Completed [facility] TDAP 2023-06-24 00:00:00 Completed [facility] TDAP 2023-06-24 00:00:00 Completed [facility] TDAP 2023-06-24 00:00:00 Completed [facility] Influenza Virus Vaccine Quad IM, Preserv and ABX Free 6 MO-64 YRS 2022-12-08 00:00:00 Completed [facility] Influenza Virus Vaccine Quad IM, Preserv and ABX Free 6 MO-64 YRS (FLUCELVAX) 2022-12-08 00:00:00 Completed [facility] Influenza Virus Vaccine Quad IM, Preserv and ABX Free 6 MO-64 YRS (FLUCELVAX) 2022-12-08 00:00:00 Completed [facility] Influenza Virus Vaccine Quad IM, Preserv and ABX Free 6 MO-64 YRS (FLUCELVAX) 2022-12-08 00:00:00 Completed [facility] Influenza Virus Vaccine Quad IM, Preserv and ABX Free 6 MO-64 YRS (FLUCELVAX) 2022-12-08 00:00:00 Completed [facility] Influenza Virus Vaccine Quad IM, Preserv and ABX Free 6 MO-64 YRS (FLUCELVAX) 2022-12-08 00:00:00 Completed [facility] Influenza Virus Vaccine Quad IM, Preserv and ABX Free 6 MO-64 YRS (FLUCELVAX) 2022-12-08 00:00:00 Completed [facility] Influenza Virus Vaccine Quad IM, Preserv and ABX Free 6 MO-64 YRS (FLUCELVAX) 2022-12-08 00:00:00 Completed [facility] Influenza Virus Vaccine Quad IM, Preserv and ABX Free 6 MO-64 YRS (FLUCELVAX) 2022-12-08 00:00:00 Completed [facility] Influenza Virus Vaccine Quad IM, Preserv and ABX Free 6 MO-64 YRS (FLUCELVAX) 2022-12-08 00:00:00 Completed [facility] Influenza Virus Vaccine Quad IM, Preserv and ABX Free 6 MO-64 YRS (FLUCELVAX) 2022-12-08 00:00:00 Completed [facility] Influenza Virus Vaccine Quad IM, Preserv and ABX Free 6 MO-64 YRS (FLUCELVAX) 2022-12-08 00:00:00 Completed Influenza Virus Vaccine Quad IM, Preserv and ABX Free 6 MO-64 YRS 2022-12-08 00:00:00 Completed [facility] Influenza Virus Vaccine Quad IM, Preserv and ABX Free 6 MO-64 YRS 2022-12-08 00:00:00 Completed [facility] Influenza Virus Vaccine Quad IM, Preserv and ABX Free 6 MO-64 YRS 2022-12-08 00:00:00 Completed [facility] Influenza Virus Vaccine Quad IM, Preserv and ABX Free 6 MO-64 YRS 2022-12-08 00:00:00 Completed [facility] Influenza Virus Vaccine Quad IM, Preserv and ABX Free 6 MO-64 YRS 2022-12-08 00:00:00 Completed [facility] Influenza Virus Vaccine Quad IM, Preserv and ABX Free 6 MO-64 YRS 2022-12-08 00:00:00 Completed [facility] Influenza Virus Vaccine Quad IM, Preserv and ABX Free 6 MO-64 YRS 2022-12-08 00:00:00 Completed [facility] Influenza Virus Vaccine Quad IM, Preserv and ABX Free 6 MO-64 YRS 2022-12-08 00:00:00 Completed [facility] Influenza Virus Vaccine Quad IM, Preserv and ABX Free 6 MO-64 YRS 2022-12-08 00:00:00 Completed [facility] Influenza Virus Vaccine Quad IM, Preserv and ABX Free 6 MO-64 YRS 2022-12-08 00:00:00 Completed [facility] Influenza Virus Vaccine Quad IM, Preserv and ABX Free 6 MO-64 YRS 2022-12-08 00:00:00 Completed [facility] Influenza Virus Vaccine Quad IM, Preserv and ABX Free 6 MO-64 YRS 2022-12-08 00:00:00 Completed [facility] Influenza Virus Vaccine Quad IM, Preserv and ABX Free 6 MO-64 YRS 2022-12-08 00:00:00 Completed [facility] Influenza Virus Vaccine Quad IM, Preserv and ABX Free 6 MO-64 YRS 2022-12-08 00:00:00 Completed [facility] Influenza Virus Vaccine Quad IM, Preserv and ABX Free 6 MO-64 YRS 2022-12-08 00:00:00 Completed [facility] Influenza Virus Vaccine Quad IM, Preserv and ABX Free 6 MO-64 YRS 2022-12-08 00:00:00 Completed [facility] Influenza Virus Vaccine Quad IM, Preserv and ABX Free 6 MO-64 YRS 2022-12-08 00:00:00 Completed [facility] Influenza Virus Vaccine Quad IM, Preserv and ABX Free 6 MO-64 YRS 2022-12-08 00:00:00 Completed [facility] Influenza Virus Vaccine Quad IM, Preserv and ABX Free 6 MO-64 YRS 2022-12-08 00:00:00 Completed [facility] Influenza Virus Vaccine Quad IM, Preserv and ABX Free 6 MO-64 YRS 2022-12-08 00:00:00 Completed [facility] Influenza Virus Vaccine Quad IM, Preserv and ABX Free 6 MO-64 YRS 2022-12-08 00:00:00 Completed [facility] Influenza Virus Vaccine Quad IM, Preserv and ABX Free 6 MO-64 YRS 2022-12-08 00:00:00 Completed [facility] Influenza Virus Vaccine Quad IM, Preserv and ABX Free 6 MO-64 YRS 2022-12-08 00:00:00 Completed [facility] Influenza Virus Vaccine Quad IM, Preserv and ABX Free 6 MO-64 YRS 2022-12-08 00:00:00 Completed [facility] Influenza Virus Vaccine Quad IM, Preserv and ABX Free 6 MO-64 YRS 2022-12-08 00:00:00 Completed [facility] Influenza Virus Vaccine Quad IM, Preserv and ABX Free 6 MO-64 YRS 2022-12-08 00:00:00 Completed [facility] Influenza Virus Vaccine Quad IM, Preserv and ABX Free 6 MO-64 YRS 2022-12-08 00:00:00 Completed [facility] Influenza Virus Vaccine Quad IM, Preserv and ABX Free 6 MO-64 YRS 2022-12-08 00:00:00 Completed [facility] Influenza Virus Vaccine Quad IM, Preserv and ABX Free 6 MO-64 YRS 2022-12-08 00:00:00 Completed [facility] Influenza Virus Vaccine Quad IM, Preserv and ABX Free 6 MO-64 YRS 2022-12-08 00:00:00 Completed [facility] Influenza Virus Vaccine Quad IM, Preserv and ABX Free 6 MO-64 YRS 2022-12-08 00:00:00 Completed [facility] Influenza Virus Vaccine Quad IM, Preserv and ABX Free 6 MO-64 YRS 2022-12-08 00:00:00 Completed [facility] Influenza Virus Vaccine Quad IM, Preserv and ABX Free 6 MO-64 YRS 2022-12-08 00:00:00 Completed [facility] Influenza Virus Vaccine Quad IM, Preserv and ABX Free 6 MO-64 YRS 2022-12-08 00:00:00 Completed [facility] Influenza Virus Vaccine Quad IM, Preserv and ABX Free 6 MO-64 YRS 2022-12-08 00:00:00 Completed [facility] Influenza Virus Vaccine Quad IM, Preserv and ABX Free 6 MO-64 YRS 2022-12-08 00:00:00 Completed [facility] Influenza Virus Vaccine Quad IM, Preserv and ABX Free 6 MO-64 YRS 2022-12-08 00:00:00 Completed [facility] TDAP 2022-04-01 00:00:00 Completed [facility] TDAP 2022-04-01 00:00:00 Completed [facility] TDAP 2022-04-01 00:00:00 Completed [facility] TDAP 2022-04-01 00:00:00 Completed [facility] TDAP 2022-04-01 00:00:00 Completed [facility] TDAP 2022-04-01 00:00:00 Completed [facility] TDAP 2022-04-01 00:00:00 Completed [facility] TDAP 2022-04-01 00:00:00 Completed [facility] TDAP 2022-04-01 00:00:00 Completed [facility] TDAP 2022-04-01 00:00:00 Completed [facility] TDAP 2022-04-01 00:00:00 Completed [facility] TDAP 2022-04-01 00:00:00 Completed [facility] TDAP 2022-04-01 00:00:00 Completed [facility] TDAP 2022-04-01 00:00:00 Completed [facility] TDAP 2022-04-01 00:00:00 Completed [facility] TDAP 2022-04-01 00:00:00 Completed [facility] TDAP 2022-04-01 00:00:00 Completed [facility] TDAP 2022-04-01 00:00:00 Completed [facility] TDAP 2022-04-01 00:00:00 Completed [facility] TDAP 2022-04-01 00:00:00 Completed [facility] TDAP 2022-04-01 00:00:00 Completed [facility] TDAP 2022-04-01 00:00:00 Completed [facility] TDAP 2022-04-01 00:00:00 Completed [facility] TDAP 2022-04-01 00:00:00 Completed [facility] TDAP 2022-04-01 00:00:00 Completed [facility] TDAP 2022-04-01 00:00:00 Completed [facility] TDAP 2022-04-01 00:00:00 Completed [facility] TDAP 2022-04-01 00:00:00 Completed [facility] TDAP 2022-04-01 00:00:00 Completed [facility] TDAP 2022-04-01 00:00:00 Completed [facility] TDAP 2022-04-01 00:00:00 Completed [facility] TDAP 2022-04-01 00:00:00 Completed [facility] TDAP 2022-04-01 00:00:00 Completed [facility] TDAP 2022-04-01 00:00:00 Completed [facility] TDAP 2022-04-01 00:00:00 Completed [facility] TDAP 2022-04-01 00:00:00 Completed [facility] TDAP 2022-04-01 00:00:00 Completed [facility] TDAP 2022-04-01 00:00:00 Completed [facility] TDAP 2022-04-01 00:00:00 Completed [facility] TDAP 2022-04-01 00:00:00 Completed [facility] TDAP 2022-04-01 00:00:00 Completed [facility] TDAP 2022-04-01 00:00:00 Completed [facility] TDAP 2022-04-01 00:00:00 Completed [facility] TDAP 2022-04-01 00:00:00 Completed [facility] TDAP 2022-04-01 00:00:00 Completed [facility] TDAP 2022-04-01 00:00:00 Completed [facility] TDAP 2022-04-01 00:00:00 Completed [facility] TDAP 2022-04-01 00:00:00 Completed [facility] TDAP 2022-04-01 00:00:00 Completed [facility] TDAP 2022-04-01 00:00:00 Completed [facility] TDAP 2022-04-01 00:00:00 Completed [facility] SARS-COV-2 COVID-19 PFIZER VACCINE 2021-08-08 00:00:00 Completed [facility] SARS-COV-2 COVID-19 PFIZER VACCINE 2021-08-08 00:00:00 Completed [facility] SARS-COV-2 COVID-19 PFIZER VACCINE 2021-08-08 00:00:00 Completed [facility] SARS-COV-2 COVID-19 PFIZER VACCINE 2021-08-08 00:00:00 Completed [facility] SARS-COV-2 COVID-19 PFIZER VACCINE 2021-08-08 00:00:00 Completed [facility] SARS-COV-2 COVID-19 PFIZER VACCINE 2021-08-08 00:00:00 Completed [facility] SARS-COV-2 COVID-19 PFIZER VACCINE 2021-08-08 00:00:00 Completed [facility] SARS-COV-2 COVID-19 PFIZER VACCINE 2021-08-08 00:00:00 Completed [facility] SARS-COV-2 COVID-19 PFIZER VACCINE 2021-08-08 00:00:00 Completed [facility] SARS-COV-2 COVID-19 PFIZER VACCINE 2021-08-08 00:00:00 Completed [facility] SARS-COV-2 COVID-19 PFIZER VACCINE 2021-08-08 00:00:00 Completed [facility] SARS-COV-2 COVID-19 PFIZER VACCINE 2021-08-08 00:00:00 Completed SARS-COV-2 COVID-19 PFIZER VACCINE 2021-08-08 00:00:00 Completed [facility] SARS-COV-2 COVID-19 PFIZER VACCINE 2021-08-08 00:00:00 Completed [facility] SARS-COV-2 COVID-19 PFIZER VACCINE 2021-08-08 00:00:00 Completed [facility] SARS-COV-2 COVID-19 PFIZER VACCINE 2021-08-08 00:00:00 Completed [facility] SARS-COV-2 COVID-19 PFIZER VACCINE 2021-08-08 00:00:00 Completed [facility] SARS-COV-2 COVID-19 PFIZER VACCINE 2021-08-08 00:00:00 Completed [facility] SARS-COV-2 COVID-19 PFIZER VACCINE 2021-08-08 00:00:00 Completed [facility] SARS-COV-2 COVID-19 PFIZER VACCINE 2021-08-08 00:00:00 Completed [facility] SARS-COV-2 COVID-19 PFIZER VACCINE 2021-08-08 00:00:00 Completed [facility] SARS-COV-2 COVID-19 PFIZER VACCINE 2021-08-08 00:00:00 Completed [facility] SARS-COV-2 COVID-19 PFIZER VACCINE 2021-08-08 00:00:00 Completed [facility] SARS-COV-2 COVID-19 PFIZER VACCINE 2021-08-08 00:00:00 Completed [facility] SARS-COV-2 COVID-19 PFIZER VACCINE 2021-08-08 00:00:00 Completed [facility] SARS-COV-2 COVID-19 PFIZER VACCINE 2021-08-08 00:00:00 Completed [facility] SARS-COV-2 COVID-19 PFIZER VACCINE 2021-08-08 00:00:00 Completed [facility] SARS-COV-2 COVID-19 PFIZER VACCINE 2021-08-08 00:00:00 Completed [facility] SARS-COV-2 COVID-19 PFIZER VACCINE 2021-08-08 00:00:00 Completed [facility] SARS-COV-2 COVID-19 PFIZER VACCINE 2021-08-08 00:00:00 Completed [facility] SARS-COV-2 COVID-19 PFIZER VACCINE 2021-08-08 00:00:00 Completed [facility] SARS-COV-2 COVID-19 PFIZER VACCINE 2021-08-08 00:00:00 Completed [facility] SARS-COV-2 COVID-19 PFIZER VACCINE 2021-08-08 00:00:00 Completed [facility] SARS-COV-2 COVID-19 PFIZER VACCINE 2021-08-08 00:00:00 Completed [facility] SARS-COV-2 COVID-19 PFIZER VACCINE 2021-08-08 00:00:00 Completed [facility] SARS-COV-2 COVID-19 PFIZER VACCINE 2021-08-08 00:00:00 Completed [facility] SARS-COV-2 COVID-19 PFIZER VACCINE 2021-08-08 00:00:00 Completed [facility] SARS-COV-2 COVID-19 PFIZER VACCINE 2021-08-08 00:00:00 Completed [facility] SARS-COV-2 COVID-19 PFIZER VACCINE 2021-08-08 00:00:00 Completed [facility] SARS-COV-2 COVID-19 PFIZER VACCINE 2021-08-08 00:00:00 Completed [facility] SARS-COV-2 COVID-19 PFIZER VACCINE 2021-08-08 00:00:00 Completed [facility] SARS-COV-2 COVID-19 PFIZER VACCINE 2021-08-08 00:00:00 Completed [facility] SARS-COV-2 COVID-19 PFIZER VACCINE 2021-08-08 00:00:00 Completed [facility] SARS-COV-2 COVID-19 PFIZER VACCINE 2021-08-08 00:00:00 Completed [facility] SARS-COV-2 COVID-19 PFIZER VACCINE 2021-08-08 00:00:00 Completed [facility] SARS-COV-2 COVID-19 PFIZER VACCINE 2021-08-08 00:00:00 Completed [facility] SARS-COV-2 COVID-19 PFIZER VACCINE 2021-08-08 00:00:00 Completed [facility] SARS-COV-2 COVID-19 PFIZER VACCINE 2021-08-08 00:00:00 Completed [facility] SARS-COV-2 COVID-19 PFIZER VACCINE 2021-08-08 00:00:00 Completed [facility] SARS-COV-2 COVID-19 PFIZER VACCINE 2021-07-16 00:00:00 Completed [facility] SARS-COV-2 COVID-19 PFIZER VACCINE 2021-07-16 00:00:00 Completed [facility] SARS-COV-2 COVID-19 PFIZER VACCINE 2021-07-16 00:00:00 Completed [facility] SARS-COV-2 COVID-19 PFIZER VACCINE 2021-07-16 00:00:00 Completed [facility] SARS-COV-2 COVID-19 PFIZER VACCINE 2021-07-16 00:00:00 Completed [facility] SARS-COV-2 COVID-19 PFIZER VACCINE 2021-07-16 00:00:00 Completed [facility] SARS-COV-2 COVID-19 PFIZER VACCINE 2021-07-16 00:00:00 Completed [facility] SARS-COV-2 COVID-19 PFIZER VACCINE 2021-07-16 00:00:00 Completed [facility] SARS-COV-2 COVID-19 PFIZER VACCINE 2021-07-16 00:00:00 Completed [facility] SARS-COV-2 COVID-19 PFIZER VACCINE 2021-07-16 00:00:00 Completed [facility] SARS-COV-2 COVID-19 PFIZER VACCINE 2021-07-16 00:00:00 Completed [facility] SARS-COV-2 COVID-19 PFIZER VACCINE 2021-07-16 00:00:00 Completed [facility] SARS-COV-2 COVID-19 PFIZER VACCINE 2021-07-16 00:00:00 Completed [facility] SARS-COV-2 COVID-19 PFIZER VACCINE 2021-07-16 00:00:00 Completed [facility] SARS-COV-2 COVID-19 PFIZER VACCINE 2021-07-16 00:00:00 Completed [facility] SARS-COV-2 COVID-19 PFIZER VACCINE 2021-07-16 00:00:00 Completed [facility] SARS-COV-2 COVID-19 PFIZER VACCINE 2021-07-16 00:00:00 Completed [facility] SARS-COV-2 COVID-19 PFIZER VACCINE 2021-07-16 00:00:00 Completed [facility] SARS-COV-2 COVID-19 PFIZER VACCINE 2021-07-16 00:00:00 Completed [facility] SARS-COV-2 COVID-19 PFIZER VACCINE 2021-07-16 00:00:00 Completed [facility] SARS-COV-2 COVID-19 PFIZER VACCINE 2021-07-16 00:00:00 Completed [facility] SARS-COV-2 COVID-19 PFIZER VACCINE 2021-07-16 00:00:00 Completed [facility] SARS-COV-2 COVID-19 PFIZER VACCINE 2021-07-16 00:00:00 Completed [facility] SARS-COV-2 COVID-19 PFIZER VACCINE 2021-07-16 00:00:00 Completed [facility] SARS-COV-2 COVID-19 PFIZER VACCINE 2021-07-16 00:00:00 Completed [facility] SARS-COV-2 COVID-19 PFIZER VACCINE 2021-07-16 00:00:00 Completed [facility] SARS-COV-2 COVID-19 PFIZER VACCINE 2021-07-16 00:00:00 Completed [facility] SARS-COV-2 COVID-19 PFIZER VACCINE 2021-07-16 00:00:00 Completed [facility] SARS-COV-2 COVID-19 PFIZER VACCINE 2021-07-16 00:00:00 Completed [facility] SARS-COV-2 COVID-19 PFIZER VACCINE 2021-07-16 00:00:00 Completed [facility] SARS-COV-2 COVID-19 PFIZER VACCINE 2021-07-16 00:00:00 Completed [facility] SARS-COV-2 COVID-19 PFIZER VACCINE 2021-07-16 00:00:00 Completed [facility] SARS-COV-2 COVID-19 PFIZER VACCINE 2021-07-16 00:00:00 Completed [facility] SARS-COV-2 COVID-19 PFIZER VACCINE 2021-07-16 00:00:00 Completed [facility] SARS-COV-2 COVID-19 PFIZER VACCINE 2021-07-16 00:00:00 Completed [facility] SARS-COV-2 COVID-19 PFIZER VACCINE 2021-07-16 00:00:00 Completed [facility] SARS-COV-2 COVID-19 PFIZER VACCINE 2021-07-16 00:00:00 Completed [facility] SARS-COV-2 COVID-19 PFIZER VACCINE 2021-07-16 00:00:00 Completed [facility] SARS-COV-2 COVID-19 PFIZER VACCINE 2021-07-16 00:00:00 Completed [facility] SARS-COV-2 COVID-19 PFIZER VACCINE 2021-07-16 00:00:00 Completed [facility] SARS-COV-2 COVID-19 PFIZER VACCINE 2021-07-16 00:00:00 Completed [facility] SARS-COV-2 COVID-19 PFIZER VACCINE 2021-07-16 00:00:00 Completed [facility] SARS-COV-2 COVID-19 PFIZER VACCINE 2021-07-16 00:00:00 Completed [facility] SARS-COV-2 COVID-19 PFIZER VACCINE 2021-07-16 00:00:00 Completed [facility] SARS-COV-2 COVID-19 PFIZER VACCINE 2021-07-16 00:00:00 Completed [facility] SARS-COV-2 COVID-19 PFIZER VACCINE 2021-07-16 00:00:00 Completed [facility] SARS-COV-2 COVID-19 PFIZER VACCINE 2021-07-16 00:00:00 Completed [facility] SARS-COV-2 COVID-19 PFIZER VACCINE 2021-07-16 00:00:00 Completed [facility] SARS-COV-2 COVID-19 PFIZER VACCINE 2021-07-16 00:00:00 Completed [facility] TDAP Unknown Completed [facility] SARS-COV-2 COVID-19 PFIZER VACCINE Unknown Completed [facility] Influenza Virus Vaccine Quad IM, Preserv and ABX Free 6 MO-64 YRS (FLUCELVAX) Unknown Completed [facility] TDAP Unknown Completed [facility] SARS-COV-2 COVID-19 PFIZER VACCINE Unknown Completed [facility] Influenza Virus Vaccine Quad IM, Preserv and ABX Free 6 MO-64 YRS (FLUCELVAX) Unknown Completed [facility] TDAP Unknown Completed [facility] SARS-COV-2 COVID-19 PFIZER VACCINE Unknown Completed [facility] Influenza Virus Vaccine Quad IM, Preserv and ABX Free 6 MO-64 YRS (FLUCELVAX) Unknown Completed [facility] TDAP Unknown Completed [facility] SARS-COV-2 COVID-19 PFIZER VACCINE Unknown Completed [facility] Influenza Virus Vaccine Quad IM, Preserv and ABX Free 6 MO-64 YRS (FLUCELVAX) Unknown Completed [facility] TDAP Unknown Completed [facility] SARS-COV-2 COVID-19 PFIZER VACCINE Unknown Completed [facility] Influenza Virus Vaccine Quad IM, Preserv and ABX Free 6 MO-64 YRS (FLUCELVAX) Unknown Completed [facility] TDAP Unknown Completed [facility] SARS-COV-2 COVID-19 PFIZER VACCINE Unknown Completed [facility] Influenza Virus Vaccine Quad IM, Preserv and ABX Free 6 MO-64 YRS (FLUCELVAX) Unknown Completed [facility] TDAP Unknown Completed [facility] SARS-COV-2 COVID-19 PFIZER VACCINE Unknown Completed [facility] Influenza Virus Vaccine Quad IM, Preserv and ABX Free 6 MO-64 YRS (FLUCELVAX) Unknown Completed [facility] TDAP Unknown Completed [facility] SARS-COV-2 COVID-19 PFIZER VACCINE Unknown Completed [facility] TDAP Unknown Completed [facility] SARS-COV-2 COVID-19 PFIZER VACCINE Unknown Completed [facility] TDAP Unknown Completed [facility] SARS-COV-2 COVID-19 PFIZER VACCINE Unknown Completed [facility] Influenza Virus Vaccine Quad IM, Preserv and ABX Free 6 MO-64 YRS (FLUCELVAX) Unknown Completed [facility] TDAP Unknown Completed [facility] SARS-COV-2 COVID-19 PFIZER VACCINE Unknown Completed [facility] Influenza Virus Vaccine Quad IM, Preserv and ABX Free 6 MO-64 YRS (FLUCELVAX) Unknown Completed [facility] TDAP Unknown Completed [facility] SARS-COV-2 COVID-19 PFIZER VACCINE Unknown Completed [facility] Influenza Virus Vaccine Quad IM, Preserv and ABX Free 6 MO-64 YRS (FLUCELVAX) Unknown Completed [facility] TDAP Unknown Completed [facility] SARS-COV-2 COVID-19 PFIZER VACCINE Unknown Completed [facility] Influenza Virus Vaccine Quad IM, Preserv and ABX Free 6 MO-64 YRS (FLUCELVAX) Unknown Completed [facility] TDAP Unknown Completed [facility] SARS-COV-2 COVID-19 PFIZER VACCINE Unknown Completed [facility] Influenza Virus Vaccine Quad IM, Preserv and ABX Free 6 MO-64 YRS (FLUCELVAX) Unknown Completed [facility] TDAP Unknown Completed [facility] SARS-COV-2 COVID-19 PFIZER VACCINE Unknown Completed [facility] Influenza Virus Vaccine Quad IM, Preserv and ABX Free 6 MO-64 YRS (FLUCELVAX) Unknown Completed [facility] TDAP Unknown Completed [facility] SARS-COV-2 COVID-19 PFIZER VACCINE Unknown Completed [facility] Influenza Virus Vaccine Quad IM, Preserv and ABX Free 6 MO-64 YRS (FLUCELVAX) Unknown Completed [facility] TDAP Unknown Completed [facility] SARS-COV-2 COVID-19 PFIZER VACCINE Unknown Completed [facility] Influenza Virus Vaccine Quad IM, Preserv and ABX Free 6 MO-64 YRS (FLUCELVAX) Unknown Completed [facility] Vital Signs Vital Name Observation Time Observation Value Comments S ource Systolic blood pressure 2024-12-18 16:37:00 136 mm[Hg] [facility] Diastolic blood pressure 2024-12-18 16:37:00 87 mm[Hg] [facility] Heart rate 2024-12-18 16:37:00 72 /min [facility] Body temperature 2024-12-18 16:37:00 36.44 [facility] Body height 2024-12-18 16:37:00 160 cm [facility] Body weight 2024-12-18 16:37:00 86.864 kg [facility] BMI 2024-12-18 16:37:00 33.92 kg/m2 [facility] Systolic blood pressure 2024-06-18 19:19:00 126 mm[Hg] [facility] Diastolic blood pressure 2024-06-18 19:19:00 84 mm[Hg] [facility] Heart rate 2024-06-18 19:19:00 72 /min [facility] Body temperature 2024-06-18 19:19:00 36.78 [facility] Respiratory rate 2024-06-18 19:19:00 18 /min [facility] Body weight 2024-06-18 19:19:00 88.179 kg [facility] BMI 2024-06-18 19:19:00 37.34 kg/m2 [facility] Systolic blood pressure 2024-04-03 19:02:00 137 mm[Hg] [facility] Diastolic blood pressure 2024-04-03 19:02:00 89 mm[Hg] [facility] Heart rate 2024-04-03 19:02:00 100 /min [facility] Body temperature 2024-04-03 19:02:00 36.44 [facility] Respiratory rate 2024-04-03 19:02:00 18 /min [facility] Body height 2024-04-03 19:02:00 153.7 cm [facility] Body weight 2024-04-03 19:02:00 90.22 kg [facility] BMI 2024-04-03 19:02:00 38.21 kg/m2 [facility] Oxygen saturation in Arterial blood by Pulse oximetry 2024-04-03 19:02:00 100 /min [facility] Systolic blood pressure 2024-03-23 18:00:00 134 mm[Hg] [facility] Diastolic blood pressure 2024-03-23 18:00:00 96 mm[Hg] [facility] Heart rate 2024-03-23 17:59:00 88 /min [facility] Body temperature 2024-03-23 17:59:00 36.67 [facility] Respiratory rate 2024-03-23 17:59:00 18 /min [facility] Body height 2024-03-23 17:59:00 160 cm [facility] Body weight 2024-03-23 17:59:00 90.175 kg [facility] BMI 2024-03-23 17:59:00 35.22 kg/m2 [facility] Systolic blood pressure 2023-08-10 16:24:00 122 mm[Hg] [facility] Diastolic blood pressure 2023-08-10 16:24:00 82 mm[Hg] [facility] Heart rate 2023-08-10 16:24:00 90 /min [facility] Respiratory rate 2023-08-10 16:24:00 18 /min [facility] Body height 2023-08-10 16:24:00 161.3 cm [facility] Body weight 2023-08-10 16:24:00 83.008 kg [facility] [facility] 2023-08-10 16:24:00 31.91 kg/m2 [facility] Systolic blood pressure 2023-07-20 18:47:00 131 mm[Hg] [facility] Diastolic blood pressure 2023-07-20 18:47:00 89 mm[Hg] [facility] Heart rate 2023-07-20 18:47:00 71 /min [facility] Body temperature 2023-07-20 18:47:00 36.5 [facility] Respiratory rate 2023-07-20 18:47:00 16 /min [facility] Body height 2023-07-20 18:47:00 161.3 cm [facility] Body weight 2023-07-20 18:47:00 84.823 kg [facility] BMI 2023-07-20 18:47:00 32.61 kg/m2 [facility] Systolic blood pressure 2023-07-16 13:00:00 139 mm[Hg] [facility] Diastolic blood pressure 2023-07-16 13:00:00 88 mm[Hg] [facility] Heart rate 2023-07-16 13:00:00 77 /min [facility] Body temperature 2023-07-16 13:00:00 37.17 [facility] Respiratory rate 2023-07-16 13:00:00 18 /min [facility] Oxygen saturation in Arterial blood by Pulse oximetry 2023-07-16 13:00:00 100 /min [facility] Body height 2023-07-11 17:29:00 161.3 cm [facility] Body weight 2023-07-11 17:29:00 87.998 kg [facility] BMI 2023-07-11 17:29:00 33.83 kg/m2 [facility] Systolic blood pressure 2023-07-13 00:35:00 132 mm[Hg] [facility] Diastolic blood pressure 2023-07-13 00:35:00 77 mm[Hg] [facility] Heart rate 2023-07-13 00:35:00 82 /min [facility] Body temperature 2023-07-13 00:35:00 36.72 [facility] Respiratory rate 2023-07-13 00:35:00 16 /min [facility] Oxygen saturation in Arterial blood by Pulse oximetry 2023-07-12 22:52:00 98 /min [facility] Body height 2023-07-11 17:29:00 161.3 cm [facility] Body weight 2023-07-11 17:29:00 87.998 kg [facility] BMI 2023-07-11 17:29:00 33.83 kg/m2 [facility] Systolic blood pressure 2023-07-08 14:48:00 122 mm[Hg] [facility] Diastolic blood pressure 2023-07-08 14:48:00 82 mm[Hg] [facility] Heart rate 2023-07-08 14:48:00 73 /min [facility] Body temperature 2023-07-08 14:48:00 36.78 [facility] Respiratory rate 2023-07-08 14:48:00 18 /min [facility] Body height 2023-07-08 14:48:00 161.3 cm [facility] Body weight 2023-07-08 14:48:00 88.542 kg [facility] BMI 2023-07-08 14:48:00 34.04 kg/m2 [facility] Oxygen saturation in Arterial blood by Pulse oximetry 2023-07-08 14:48:00 99 /min [facility] Systolic blood pressure 2023-07-05 15:00:00 119 mm[Hg] [facility] Diastolic blood pressure 2023-07-05 15:00:00 79 mm[Hg] [facility] Heart rate 2023-07-05 14:10:00 70 /min [facility] Respiratory rate 2023-07-05 14:10:00 18 /min [facility] Body height 2023-07-05 14:10:00 161.3 cm [facility] Body weight 2023-07-05 14:10:00 88.451 kg [facility] BMI 2023-07-05 14:10:00 34.00 kg/m2 [facility] Systolic blood pressure 2023-07-01 15:57:00 115 mm[Hg] [facility] Diastolic blood pressure 2023-07-01 15:57:00 79 mm[Hg] [facility] Heart rate 2023-07-01 15:57:00 89 /min [facility] Body temperature 2023-07-01 15:57:00 36.72 [facility] Respiratory rate 2023-07-01 15:57:00 18 /min [facility] Body height 2023-07-01 15:57:00 161.3 cm [facility] Body weight 2023-07-01 15:57:00 87.998 kg [facility] BMI 2023-07-01 15:57:00 33.83 kg/m2 [facility] Systolic blood pressure 2023-06-28 15:42:00 123 mm[Hg] [facility] Diastolic blood pressure 2023-06-28 15:42:00 80 mm[Hg] [facility] Heart rate 2023-06-28 15:42:00 76 /min [facility] Body temperature 2023-06-28 15:42:00 36.83 [facility] Respiratory rate 2023-06-28 15:42:00 18 /min [facility] Body height 2023-06-28 15:42:00 161.3 cm [facility] Body weight 2023-06-28 15:42:00 87.998 kg [facility] BMI 2023-06-28 15:42:00 33.83 kg/m2 [facility] Systolic blood pressure 2023-06-24 20:06:00 124 mm[Hg] [facility] Diastolic blood pressure 2023-06-24 20:06:00 84 mm[Hg] [facility] Heart rate 2023-06-24 20:06:00 78 /min [facility] Body temperature 2023-06-24 20:06:00 36.78 [facility] Respiratory rate 2023-06-24 20:06:00 18 /min [facility] Body height 2023-06-24 20:06:00 160 cm [facility] Body weight 2023-06-24 20:06:00 87.726 kg [facility] BMI 2023-06-24 20:06:00 34.26 kg/m2 [facility] Heart rate 2023-06-08 21:15:00 90 /min [facility] Oxygen saturation in Arterial blood by Pulse oximetry 2023-06-08 21:15:00 99 /min [facility] Systolic blood pressure 2023-06-08 21:00:00 116 mm[Hg] [facility] Diastolic blood pressure 2023-06-08 21:00:00 75 mm[Hg] [facility] Respiratory rate 2023-06-08 21:00:00 18 /min [facility] Body temperature 2023-06-08 20:30:00 37 [facility] Body height 2023-06-08 20:30:00 160 cm [facility] Body weight 2023-06-08 20:30:00 86.637 kg [facility] BMI 2023-06-08 20:30:00 33.83 kg/m2 [facility] Systolic blood pressure 2023-06-01 02:15:00 112 mm[Hg] [facility] Diastolic blood pressure 2023-06-01 02:15:00 60 mm[Hg] [facility] Heart rate 2023-06-01 02:15:00 73 /min [facility] Oxygen saturation in Arterial blood by Pulse oximetry 2023-06-01 02:15:00 99 /min [facility] Respiratory rate 2023-06-01 01:00:00 16 /min [facility] Body weight 2023-05-31 23:50:00 86.818 kg 191.4lb [facility] BMI 2023-05-31 23:50:00 32.85 kg/m2 [facility] Systolic blood pressure 2023-05-31 21:13:00 121 mm[Hg] [facility] Diastolic blood pressure 2023-05-31 21:13:00 79 mm[Hg] [facility] Heart rate 2023-05-31 21:13:00 76 /min [facility] Body temperature 2023-05-31 21:13:00 36.67 [facility] Respiratory rate 2023-05-31 21:13:00 16 /min [facility] Body height 2023-05-31 21:13:00 162.6 cm [facility] Body weight 2023-05-31 21:13:00 87.771 kg [facility] BMI 2023-05-31 21:13:00 33.21 kg/m2 [facility] Oxygen saturation in Arterial blood by Pulse oximetry 2023-05-31 21:13:00 100 /min [facility] Systolic blood pressure 2023-04-07 14:52:00 128 mm[Hg] [facility] Diastolic blood pressure 2023-04-07 14:52:00 84 mm[Hg] [facility] Heart rate 2023-04-07 14:52:00 84 /min [facility] Respiratory rate 2023-04-07 14:52:00 18 /min [facility] Body height 2023-04-07 14:52:00 161.3 cm [facility] Body weight 2023-04-07 14:52:00 88.134 kg [facility] BMI 2023-04-07 14:52:00 33.88 kg/m2 [facility] Systolic blood pressure 2023-02-28 15:44:00 127 mm[Hg] [facility] Diastolic blood pressure 2023-02-28 15:44:00 87 mm[Hg] [facility] Heart rate 2023-02-28 15:44:00 83 /min [facility] Body temperature 2023-02-28 15:44:00 36.83 [facility] Respiratory rate 2023-02-28 15:44:00 17 /min [facility] Body height 2023-02-28 15:44:00 161.3 cm [facility] Body weight 2023-02-28 15:44:00 85.73 kg [facility] BMI 2023-02-28 15:44:00 32.95 kg/m2 [facility] Systolic blood pressure 2023-01-19 14:20:00 132 mm[Hg] [facility] Diastolic blood pressure 2023-01-19 14:20:00 89 mm[Hg] [facility] Heart rate 2023-01-19 14:20:00 88 /min [facility] Body temperature 2023-01-19 14:20:00 36.67 [facility] Respiratory rate 2023-01-19 14:20:00 16 /min [facility] Body height 2023-01-19 14:20:00 161.3 cm [facility] Body weight 2023-01-19 14:20:00 84.46 kg [facility] BMI 2023-01-19 14:20:00 32.47 kg/m2 [facility] Oxygen saturation in Arterial blood by Pulse oximetry 2023-01-19 14:20:00 98 /min [facility] Systolic blood pressure 2022-12-08 16:01:00 134 mm[Hg] [facility] Diastolic blood pressure 2022-12-08 16:01:00 89 mm[Hg] [facility] Heart rate 2022-12-08 16:01:00 89 /min [facility] Body temperature 2022-12-08 16:01:00 36.67 [facility] Respiratory rate 2022-12-08 16:01:00 18 /min [facility] Body height 2022-12-08 16:01:00 161.3 cm [facility] Body weight 2022-12-08 16:01:00 83.008 kg [facility] BMI 2022-12-08 16:01:00 31.91 kg/m2 [facility] Systolic blood pressure 2022-07-06 16:12:00 137 mm[Hg] [facility] Diastolic blood pressure 2022-07-06 16:12:00 90 mm[Hg] [facility] Heart rate 2022-07-06 16:12:00 96 /min [facility] Body temperature 2022-07-06 16:12:00 37.06 [facility] Respiratory rate 2022-07-06 16:12:00 18 /min [facility] Body height 2022-07-06 16:12:00 161.3 cm [facility] Body weight 2022-07-06 16:12:00 81.466 kg [facility] BMI 2022-07-06 16:12:00 31.32 kg/m2 [facility] Systolic blood pressure 2022-06-07 21:04:00 130 mm[Hg] [facility] Diastolic blood pressure 2022-06-07 21:04:00 87 mm[Hg] [facility] Heart rate 2022-06-07 21:02:00 75 /min [facility] Body temperature 2022-06-07 21:02:00 36.78 [facility] Respiratory rate 2022-06-07 21:02:00 18 /min [facility] Body height 2022-06-07 21:02:00 161.3 cm [facility] Body weight 2022-06-07 21:02:00 85.276 kg [facility] BMI 2022-06-07 21:02:00 32.78 kg/m2 [facility] Procedures Procedure Date / Time Performed Performing Clinician Source HIGH RISK HPV-THIN PREP 2024-12-18 21:39:00 Chavo Harvey [facility] PAP SMEAR-LIQUID BASED-CP 2024-12-18 21:39:00 Fanta Harvey [facility] POCT TEST 2024-12-18 00:00:00 Fanta Harvey [facility] POCT TEST 2024-03-23 18:02:00 Vaishali Curtis [facility] CT HEAD W CONTRAST 2023-07-15 00:43:00 Adum, Vaishali Tadeo [facility] CT HEAD WO CONTRAST 2023-07-15 00:42:00 Adum, Vaishali Tadeo [facility] SGOT (ASPARTATE AMINO TRANSFER) 2023-07-14 17:16:00 Adum, Vaishali Tadeo [facility] CREATININE 2023-07-14 17:16:00 Adum, Vaishali Tadeo [facility] ALANINE AMINO TRANSFERASE(SGPT 2023-07-14 17:16:00 Adum, Vaishali Tadeo [facility] LACTATE DEHYDROGENASE 2023-07-14 17:16:00 Adum, Vaishali Tadeo [facility] URIC ACID 2023-07-14 17:16:00 Adum, Vaishali Tadeo [facility] CBC WITH DIFF 2023-07-14 17:16:00 Adum, Vaishali Tadeo [facility] CBC WITH DIFF 2023-07-13 09:47:00 Grullon [facility] CBC WITH DIFF 2023-07-13 09:47:00 [facility] HEPATITIS B SURFACE ANTIGEN 2023-07-12 10:03:00 [facility] HB ABO GROUPING 2023-07-12 10:03:00 [facility] RHO (D) IMMUNE GLOBULIN 2023-07-12 10:03:00 [facility] ADC OR MIKE ONLY - RPR 2023-07-12 10:03:00 [facility] HIV 1/2 AG-AB WITH REFLEX 2023-07-12 10:03:00 [facility] HEPATITIS B SURFACE ANTIGEN 2023-07-12 10:03:00 [facility] HB ABO GROUPING 2023-07-12 10:03:00 [facility] RHO (D) IMMUNE GLOBULIN 2023-07-12 10:03:00 [facility] ADC OR MIKE ONLY - RPR 2023-07-12 10:03:00 GrullonIdalia [facility] HIV 1/2 AG-AB WITH REFLEX 2023-07-12 10:03:00 ChaunceyIdalia [facility] URINALYSIS 2023-07-12 00:14:00 ChaunceyIdalia Juan José [facility] PROTEIN CREAT RATIO URINE RANDOM 2023-07-12 00:14:00 ChaunceyIdalia [facility] LACTATE DEHYDROGENASE 2023-07-12 00:14:00 Idalia Grullon [facility] CBC WITH DIFF 2023-07-12 00:14:00 ChaunceyIdalia [facility] URINALYSIS 2023-07-12 00:14:00 ChaunceyIdalia Juan José [facility] PROTEIN CREAT RATIO URINE RANDOM 2023-07-12 00:14:00 ChaunceyIdalia [facility] LACTATE DEHYDROGENASE 2023-07-12 00:14:00 Idalia Grullon [facility] CBC WITH DIFF 2023-07-12 00:14:00 GrullonIdalia [facility] US BIOPHYSICAL PROFILE 2023-07-11 23:33:[facility] 2023-07-11 23:33:11 [facility] PELVIS > 14 WEEKS 2023-07-11 23:32:57 Grullon [facility] US PELVIS > 14 WEEKS 2023-07-11 23:32:57 Chauncey [facility] ADC CLC OR LCC ONLY - WET PREP 2023-07-11 19:54:00 Chauncey [facility] ADC CLC OR LCC ONLY - WET PREP 2023-07-11 19:54:00 Chauncey [facility] SGOT (ASPARTATE AMINO TRANSFER) 2023-07-11 19:02:00 Chauncey [facility] CREATININE 2023-07-11 19:02:00 Chauncey Idalia [facility] ALANINE AMINO TRANSFERASE(SGPT 2023-07-11 19:02:00 Chauncey [facility] URIC ACID 2023-07-11 19:02:00 Idalia Grullon [facility] CBC WITH DIFF 2023-07-11 19:02:00 Idalia Grullon [facility] HB ABO GROUPING 2023-07-11 19:02:00 Idalia Grullon [facility] EXTRA TUBE LT. GREEN 2023-07-11 19:02:00 Idalia Grullon [facility] EXTRA TUBE RED 2023-07-11 19:02:00 Idalia Grullon [facility] SGOT (ASPARTATE AMINO TRANSFER) 2023-07-11 19:02:00 Idalia Grullon [facility] CREATININE 2023-07-11 19:02:00 Idalia Grullon [facility] ALANINE AMINO TRANSFERASE(SGPT 2023-07-11 19:02:00 Idalia Grullon [facility] URIC ACID 2023-07-11 19:02:00 Idalia Grullon [facility] CBC WITH DIFF 2023-07-11 19:02:00 Idalia Grullon [facility] HB ABO GROUPING 2023-07-11 19:02:00 Idalia Grullon [facility] EXTRA TUBE LT. GREEN 2023-07-11 19:02:00 Idalia Grullon [facility] EXTRA TUBE RED 2023-07-11 19:02:00 Idalia Grullon [facility] ASSIGNMENT OF BENEFITS 2023-07-11 17:03:55 Docto r Unassigned, [place] [facility] ASSIGNMENT OF BENEFITS 2023-07-11 17:03:55 Docto r Unassigned, [place] [facility] CONSENT/REFUSAL FOR DIAGNOSIS AND TREATMENT 2023-07-11 17:03:12 Doctor Unassigned, [place] [facility] CONSENT/REFUSAL FOR DIAGNOSIS AND TREATMENT 2023-07-11 17:03:12 Doctor Unassigned, [place] [facility] NON-STRESS TEST 2023-07-08 15:30:30 Adum, Vaishali Tadeo [facility] POCT URINALYSIS W/O SPECIFIC GRAVITY 2023-07-08 00:00:00 Adum, Vaishali Tadeo [facility] SECOND AND THIRD TRIMESTER ULTRASOUND 2023-07-05 16:16:00 Taya Stevens [facility] NON-STRESS TEST 2023-07-05 15:01:00 Adum, Vaishali Tadeo [facility] DSU PRE-OP 2023-07-05 05:01:00 Doctor Unass igned, [place] [facility] POCT URINALYSIS W/O SPECIFIC GRAVITY 2023-07-05 00:00:00 Adum, Vaishali Tadeo [facility] NON-STRESS TEST 2023-07-01 18:21:34 Adum, Vaishali Tadeo [facility] POCT URINALYSIS W/O SPECIFIC GRAVITY 2023-07-01 00:00:00 Adum, Vaishali Tadeo [facility] NON-STRESS TEST 2023-06-28 16:23:32 Adum, Vaishali Tadeo [facility] CBC WITH DIFF 2023-06-28 15:28:00 Taya Stevens [facility] NON-STRESS TEST 2023-06-24 22:07:08 Adum, Vaishali Tadeo [facility] TDAP VACCINE, >11 YRS, IM 2023-06-24 17:42:22 Adum, Vaishali Tadeo [facility] URINE CULTURE 2023-06-24 17:42:00 Adum, Vaishali Tadeo [facility] SECOND AND THIRD TRIMESTER ULTRASOUND 2023-06-17 14:35:00 Taya Stevens [facility] NON-STRESS TEST 2023-06-08 22:51:08 Idalia Grullon m [facility] ADC ONLY - FERN TEST 2023-06-08 20:28:00 Idalia Grullon [facility] ASSIGNMENT OF BENEFITS 2023-06-08 19:39:56 Docto r Unassigned, [place] [facility] CONSENT/REFUSAL FOR DIAGNOSIS AND TREATMENT 2023-06-08 19:39:37 Doctor Unassigned, [place] [facility] ADC CLC OR LCC ONLY - WET PREP 2023-06-01 00:45:00 Adum, Vaishali Tadeo [facility] POCT URINALYSIS W/O SPECIFIC GRAVITY 2023-05-31 00:00[facility]/O SPECIFIC GRAVITY 2023-04-07 14:55:00 Rodney [facility] ASSIGNMENT OF BENEFITS 2023-04-07 14:42:10 Docto r Unassigned, [place] [facility] POCT URINALYSIS W/O SPECIFIC GRAVITY 2023-02-28 00:00:00 Rodney [facility] ASSIGNMENT OF BENEFITS 2023-01-22 15:26:52 Docto r Unassigned, [place] [facility] URINE CULTURE 2023-01-19 14:30:00 Rodney [facility] POCT URINALYSIS W/O SPECIFIC GRAVITY 2023-01-19 00:00:00 Taya Stevens [facility] US FIRST TRIMESTER LESS THAN 14 WEEKS WITH TRANSVAGINAL 2022-12-20 17:48:00 [facility] CBC WITH DIFF 2022-12-11 17:05:00 Rodney [facility] ASSIGNMENT OF BENEFITS 2022-12-11 16:06:02 Docto r Unassigned, [place] [facility] FLU VACC ([id number]), 6 MO-64 YRS, .5ML, IM, QUAD (FLUCELVAX) 2022-12-08 16:15:24 [facility]22-12-08 [facility] W/O SPECIFIC GRAVITY 2022-12-08 00:00:00 Taya Stevens [facility] SECTION Idalia Grullon [facility] SECTION Idalia Grullon [facility] Encounters Start Date/Time End Date/Time Encounter Type Admission Type Attending [facility] Care Facility Care Department Encounter ID Source 2023-05-31 22:52:15 Outpatient P [facility] KARLIE [id number] [facility] 2025-01-04 10:15:00 2025-01-04 10:58:12 Outpatient R FANTA HARVEY [facility] [id number] [facility] 2025-01-02 10:00:00 2025-01-02 10:00:00 Outpatient R FANTA HARVYE [facility] [id number] [facility] 2024-12-25 00:00:00 2024-12-25 09:21:28 Telephone Fanta Harvey [facility] BAND INSTRUMENT REPAIRER [facility] [id number] [id number] [facility] 2024-12-20 00:00:00 2024-12-20 12:50:19 Telephone Fanta Harvey [facility] BAND INSTRUMENT REPAIRER [facility] CHILD [facility] [id number] [id number] [facility] 2024-12-18 10:30:00 2024-12-18 11:23:00 Outpatient R FANTA HARVEY [facility] [id number] [facility] 2024-12-18 10:30:00 2024-12-18 11:23:00 Office Visit Fanta Harvey [facility] BAND INSTRUMENT REPAIRER [facility] [id number] [id number] [facility] 2024-09-10 14:00:00 2024-09-10 14:00:00 Outpatient R [facility] [id number] [facility] 2024-08-31 09:00:00 2024-08-31 09:00:00 Outpatient R VAISHALI CURTIS VIVIAN [facility] [id number] [facility] 2024-07-25 13:00:00 2024-07-25 13:00:00 Outpatient R VAISHALI CURTIS VIVIAN [facility] [id number] [facility] 2024-07-17 13:00:00 2024-07-17 13:00:00 Outpatient R ADUMVAISHALI VIVIAN [facility] [id number] [facility] 2024-07-10 09:00:00 2024-07-10 09:00:00 Outpatient R ADUMVAISHALI VIVIAN [facility] [id number] [facility] 2024-06-26 13:40:00 2024-06-26 13:40:00 Outpatient R OBI-DEE , JAYASHREE OBI-DEE , JAYASHREE [facility] [id number] [facility] 2024-06-18 14:00:00 2024-06-18 14:22:05 Outpatient R ADUMVAISHALI [facility] [id number] [facility] 2024-06-18 14:00:00 2024-06-18 14:22:05 Nurse Visit Nurse, [facility] Vaishali L Nurse, [place] [id number] [facility] 2024-06-15 09:00:00 2024-06-15 09:00:00 Outpatient R ADUMVAISHALI VIVIAN [facility] [id number] [facility] 2024-05-08 00:00:00 2024-06-09 18:20:43 Patient Secure Msg Doctor Unassigned, [place] Doctor Unassigned, [place] [facility] [id number] [id number] [id number] [id number] [facility] 2024-05-31 14:40:00 2024-05-31 14:40:00 Outpatient R OBI-DEE , JAYASHREE OBI-DEE , JAYASHREE [facility] [id number] [facility] 2024-05-08 09:40:00 2024-05-08 09:40:00 Outpatient R OBI-DEE , JAYASHREE OBI-DEE , JAYASHREE [facility] [id number] [facility] 2024-05-01 15:45:00 2024-05-01 15:45:00 Outpatient R VAISHALI CURTIS VIVIAN [facility] [id number] [facility] 2024-04-30 10:40:00 2024-04-30 10:40:00 Outpatient R OBI-DEE , JAYASHREE OBI-DEE , JAYASHREE [facility] [id number] [facility] 2024-04-19 08:40:00 2024-04-19 08:40:00 Outpatient R OBI-DEE , JAYASHREE OBI-DEE , JAYASHREE [facility] [id number] [facility] 2024-04-16 13:40:00 2024-04-16 13:40:00 Outpatient R OBI-DEE , JAYASHREE OBI-DEE , JAYASHREE [facility] [id number] [facility] 2024-04-03 14:20:00 2024-04-03 14:52:34 Outpatient R OBI-DEE , JAYASHREE OBI-DEE , JAYASHREE [facility] [id number] [facility] 2024-04-03 14:20:00 2024-04-03 14:52:34 Office Visit Obi-Dee , Jayashree [facility] [id number] [id number] [facility] 2024-03-23 13:00:00 2024-03-23 13:33:59 Outpatient R VAISHALI CURTIS [facility] [id number] [facility] 2024-03-23 13:00:00 2024-03-23 13:33:59 Office Visit AdVaishali ramsey [facility] [id number] [id number] [facility] 2023-12-27 15:30:00 2023-12-27 15:30:00 Outpatient R VINCENZO-SABA S, MILE VINCENZO-SABA S, MILE [facility] [id number] [facility] 2023-11-10 10:30:00 2023-11-10 10:30:00 Outpatient R KIRSTEN VAISHALI [facility] [id number] [facility] 2023-10-20 00:00:00 2023-10-20 00:00:00 Patient Secure Msg Pcp, Patient Does Not Have A [facility] [id number] [facility] 2023-09-14 00:00:00 2023-09-14 00:00:00 Patient Secure Msg AdVaishali ramsey [facility] 1.2.840.114 350.1.13.10 4.2.7.2.686 [id number] 134 [id number] [facility] 2023-08-30 13:00:00 2023-08-30 13:00:00 Outpatient R KIRSTEN VAISHALI [facility] [id number] [facility] 2023-08-17 11:00:00 2023-08-17 11:00:00 Outpatient R KIRSTEN [facility] [id number] [facility] 2023-08-10 11:15:00 2023-08-10 11:33:50 Outpatient R TAYA STEVENS CHERYAL [facility] [id number] [facility] 2023-08-10 11:15:00 2023-08-10 11:33:50 Routine Visit ElyfredyTaya aguilar [facility] 1.2.840.114 350.1.13.10 4.2.7.2.686 [id number] 134 [id number] [facility] 2023-08-03 13:45:00 2023-08-03 14:00:00 Routine Visit Bianca Curtisian Carlyle [facility] 1.2.840.114 350.1.13.10 4.2.7.2.686 [id number] 134 [id number] [facility] 2023-08-03 13:45:00 2023-08-03 13:45:00 Outpatient R VAISHALI CURTIS [facility] [id number] [facility] 2023-07-29 00:00:00 2023-07-29 00:00:00 [facility] 1.2.840.114 350.1.13.10 4.2.7.2.686 [id number] 134 [id number] [facility] 2023-07-20 13:30:00 2023-07-20 14:07:41 [id number] 2023-07-20 13:30:00 2023-07-20 14:07:41 Nurse Visit AntonioTaya aguilar Devendraroxy Vaishali [facility] 1.2.840.114 350.1.13.10 4.2.7.2.686 [id number] 134 [id number] [facility] 2023-07-11 12:08:00 2023-07-16 09:35:00 Inpatient X IDALIA GRULLON [facility] KARLIE [id number] [facility] 2023-07-11 12:08:00 2023-07-16 09:35:00 Hospital Encounter Idalia Grullon [facility] 1.2.840.114 350.1.13.10 4.2.7.2.686 [id number] [facility] 2023-07-15 10:00:00 2023-07-15 10:00:00 Outpatient R [facility] [id number] [facility] 2023-07-12 09:00:00 2023-07-12 09:00:00 Outpatient R [facility] [id number] [facility] 2023-07-12 00:00:00 2023-07-12 00:00:00 Surgery Grullon, Idalia Can [facility] 1.2.840.114 350.1.13.10 4.2.7.2.686 [id number] [facility] 2023-07-11 00:00:00 2023-07-11 00:00:00 Telephone AdVaishali ramsey [facility] 1.2840.114 350.1.13.10 4.2.7.2.686 [id number] 134 [id number] [facility] 2023-07-08 10:00:00 2023-07-08 10:40:12 Outpatient R VAISHALI CURTIS [facility] [id number] [facility] 2023-07-08 10:00:00 2023-07-08 10:40:12 Routine Visit Room, [facility] Vaishali [facility] 1.2.840.114 350.1.13.10 4.2.7.2.686 [id number] 134 [id number] [facility] 2023-07-07 00:00:00 2023-07-07 00:00:00 Refill Vaishali Curtis [facility] 1.2.840.114 350.1.13.10 4.2.7.2.686 [id number] 134 [id number] [facility] 2023-07-05 11:15:00 2023-07-05 11:27:03 Corner Bead Operator Visit Ultrasound, Fariba Haque [facility] BAND INSTRUMENT REPAIRER [facility] & [facility]ILD [facility] 1.2840.114 350.1.13.10 4.2.7.2.686 [id number] [facility] 2023-07-05 11:15:00 2023-07-05 11:27:03 Outpatient P FARIBA CALHOUN SHANNON [facility] [id number] [facility] 2023-07-05 09:00:00 2023-07-05 09:58:21 Routine Visit Room, [facility] Ad, [facility] 1.2840.114 350.1.13.10 4.2.7.2.686 [id number] 134 [id number] [facility] 2023-07-05 00:00:00 2023-07-05 00:00:00 Orders Only Doctor Unassigned, [place] [facility] 1.2840.114 350.1.13.10 4.2.7.2.686 [id number] [facility] 2023-07-01 11:00:00 2023-07-01 12:03:08 Outpatient R ADUM, [facility] [id number] [facility] 2023-07-01 11:00:00 2023-07-01 12:03:08 Routine Visit Room, [facility] Ad, [facility] 1.2840.114 350.1.13.10 4.2.7.2.686 [id number] 134 [id number] [facility] 2023-07-01 00:00:00 2023-07-01 00:00:00 Telephone Adum, [facility] BUILDING 1.2840.114 350.1.13.10 4.2.7.2.686 [id number] 134 [id number] [facility] 2023-06-28 10:00:00 2023-06-28 11:21:37 Outpatient R KIRSTEN [facility] [id number] [facility] 2023-06-28 10:00:00 2023-06-28 11:21:37 Routine Visit Room, [facility] Ad [facility] 1.2.840.114 350.1.13.10 4.2.7.2.686 [id number] 134 [id number] [facility] 2023-06-28 09:30:00 2023-06-28 09:45:00 Corner Bead Operator Visit 2, [facility] Devendraroxy [facility] BUILDING 1.2.840.114 350.1.13.10 4.2.7.2.686 [id number] [facility] 2023-06-28 00:00:00 2023-06-28 00:00:00 Patient Secure Msg Doctor Unassigned, [place] [facility] 1.840.114 350.1.13.10 4.2.7.2.686 [id number] 134 [id number] [facility] 2023-06-28 00:00:00 2023-06-28 00:00:00 Patient Secure Msg Taya Stevens [facility] 1.840.114 350.1.13.10 4.2.7.2.686 [id number] 134 [id number] [facility] 2023-06-24 11:00:00 2023-06-24 13:49:21 Outpatient R KIRSTEN [facility] [id number] [facility] 2023-06-24 11:00:00 2023-06-24 13:49:21 Routine Visit Room, [facility] BUILDING 1.2.840.114 350.1.13.10 4.2.7.2.686 [id number] 134 [id number] [facility] 2023-06-21 10:00:00 2023-06-21 10:00:00 Outpatient R [facility] [id number] [facility] 2023-06-21 00:00:00 2023-06-21 00:00:00 Telephone [facility] 1.2.840.114 350.1.13.10 4.2.7.2.686 [id number] 134 [id number] [facility] 2023-06-20 16:00:00 2023-06-20 16:00:00 Outpatient R TAYA STEVENS [facility] [id number] [facility] 2023-06-20 00:00:00 2023-06-20 00:00:00 [facility] 1.2.840.114 350.1.13.10 4.2.7.2.686 [id number] 134 [id number] [facility] 2023-06-20 00:00:00 2023-06-20 00:00:00 Telephone [facility] 1.2.840.114 350.1.13.10 4.2.7.2.686 [id number] 134 [id number] [facility] 2023-06-20 00:00:00 2023-06-20 00:00:00 Telephone [facility] 1.2.840.114 350.1.13.10 4.2.7.2.686 [id number] 134 [id number] [facility] 2023-06-17 08:45:00 2023-06-17 09:31:22 Outpatient MINERVA BRADY SANGEETA [facility] [id number] [facility] 2023-06-17 08:45:00 2023-06-17 09:31:22 Corner Bead Operator Visit Ultrasound, Minerva Mcdonald [facility] BAND INSTRUMENT REPAIRER [facility] MATERNAL [facility]ILD [facility] 1.2.840.114 350.1.13.10 4.2.7.2.686 [id number] [facility] 2023-06-15 16:00:00 2023-06-15 16:00:00 Outpatient R ELYTAYA DIEHL CHERYAL [facility] [id number] [facility] 2023-06-08 15:05:00 2023-06-08 17:55:00 Outpatient P IDALIA GRULLON [facility] KARLIE [id number] [facility] 2023-06-08 15:05:00 2023-06-08 17:55:00 Hospital Encounter Idalia Grullon [facility] 1.2.840.114 350.1.13.10 4.2.7.2.686 [id number] [facility] 2023-06-06 00:00:00 2023-06-06 00:00:00 Patient Secure Taya Aden [facility] 1.2.840.114 350.1.13.10 4.2.7.2.686 [id number] 134 [id number] [facility] 2023-06-01 00:00:00 2023-06-01 00:00:00 Patient Secure Taya Aden [facility] 1.2.840.114 350.1.13.10 4.2.7.2.686 [id number] 134 [id number] [facility] 2023-05-31 18:40:00 2023-05-31 21:50:00 Outpatient P VAISHALI CURTIS [facility] KARLIE [id number] [facility] 2023-05-31 18:40:00 2023-05-31 21:50:00 Hospital Encounter Vaishali Curtis [facility] 1.2.840.114 350.1.13.10 4.2.7.2.686 [id number] [facility] 2023-05-31 16:15:00 2023-05-31 16:46:40 Outpatient R [facility]NEY [facility] [id number] [facility] 2023-05-31 16:15:00 2023-05-31 16:46:40 Routine Visit Rodney [facility] 1.2.840.114 350.1.13.10 4.2.7.2.686 [id number] 134 [id number] [facility] 2023-05-27 08:15:00 2023-05-27 08:15:00 Outpatient R LEONARDO Dunham, MILE LEONARDO S, MILE [facility] [id number] [facility] 2023-05-27 00:00:00 2023-05-27 00:00:00 [facility] 1.2.840.114 350.1.13.10 4.2.7.2.686 [id number] 134 [id number] [facility] 2023-05-18 00:00:00 2023-05-18 00:00:00 Refill Rodney [facility] 1.2.840.114 350.1.13.10 4.2.7.2.686 [id number] 134 [id number] [facility] 2023-05-17 11:15:00 2023-05-17 11:15:00 Outpatient P [facility] [id number] [facility] 2023-05-12 11:30:00 2023-05-12 23:59:00 Hospital Encounter TriTamela diehlyal [facility] 1.2.840.114 350.1.13.10 4.2.7.2.686 [id number] [facility] 2023-05-12 00:00:00 2023-05-12 23:59:00 Outpatient R ANTONIOTAYA AGUILAR RODNEY TAYA [facility] [id number] [facility] 2023-05-09 11:00:00 2023-05-09 11:00:00 Outpatient R ANTONIOTAYA AGUILAR RODNEY TAYA [facility] [id number] [facility] 2023-04-27 00:00:00 2023-04-27 00:00:00 [facility] 1.2.840.114 350.1.13.10 4.2.7.2.686 [id number] 134 [id number] [facility] 2023-04-27 00:00:00 2023-04-27 00:00:00 Refill 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 [id number] [facility] 2023-04-13 00:00:00 2023-04-13 00:00:00 Patient Secure Msg [facility] 1.2840.114 350.1.13.10 4.2.7.2.686 [id number] 134 [id number] [facility] 2023-04-13 00:00:00 2023-04-13 00:00:00 Patient Secure Msg Doctor Unassigned, [place] [facility] 1.2.840.114 350.1.13.10 4.2.7.2.686 [id number] [facility] 2023-04-07 10:00:00 2023-04-07 10:29:09 Outpatient R [facility]ODNEY [facility] [id number] [facility] 2023-04-07 10:00:00 2023-04-07 10:29:09 Routine Visit [facility] 1.2840.114 350.1.13.10 4.2.7.2.686 [id number] 134 [id number] [facility] 2023-04-07 00:00:00 2023-04-07 00:00:00 Orders Only Doctor Unassigned, [place] [facility] 1.2840.114 350.1.13.10 4.2.7.2.686 [id number] [facility] 2023-03-29 09:30:00 2023-03-29 09:30:00 Outpatient R ELYCAMDENGISELETAYA AGUILAR ANTONIOJEFFTAYA [facility] [id number] [facility] 2023-03-24 08:00:00 2023-03-24 08:00:00 Outpatient P [facility] [id number] [facility] 2023-03-01 00:00:00 2023-03-01 00:00:00 Patient Secure g Elycamdengiselejeff [facility] 1.2840.114 350.1.13.10 4.2.7.2.686 [id number] 134 [id number] [facility] 2023-02-28 11:00:00 2023-02-28 11:27:15 Outpatient R ANTONIOTAYA AGUILAR ANTONIOTAYA AGUILAR [facility] [id number] [facility] 2023-02-28 11:00:00 2023-02-28 11:27:15 Routine Visit [facility] 1.2.840.114 350.1.13.10 4.2.7.2.686 [id number] 134 [id number] [facility] 2023-02-16 10:00:00 2023-02-16 10:00:00 Outpatient R [facility] [id number] [facility] 2023-02-16 00:00:00 2023-02-16 00:00:00 Telephone Rodney [facility] 1.2.840.114 350.1.13.10 4.2.7.2.686 [id number] 134 [id number] [facility] 2023-02-16 00:00:00 2023-02-16 00:00:00 [facility] 1.2.840.114 350.1.13.10 4.2.7.2.686 [id number] 134 [id number] [facility] 2023-02-07 00:00:00 2023-02-07 00:00:00 Telephone Rodney [facility]IN[facility] 1.2.840.114 350.1.13.10 4.2.7.2.686 [id number] 134 [id number] [facility] 2023-01-31 00:00:00 2023-01-31 00:00:00 Telephone Fariba Castellanos [facility] 1.2.840.114 350.1.13.10 4.2.7.2.686 [id number] 134 [id number] [facility] 2023-01-28 00:00:00 2023-01-28 00:00:00 Refill Taya Stevens [facility] 1.2840.114 350.1.13.10 4.2.7.2.686 [id number] 134 [id number] [facility] 2023-01-26 00:00:00 2023-01-26 00:00:00 Telephone Rodney [facility] 1.20.114 350.1.13.10 4.2.7.2.686 [id number] 134 [id number] [facility] 2023-01-25 09:15:00 2023-01-25 10:24:30 Outpatient R TAYA STEVENS [facility] [id number] [facility] 2023-01-25 09:15:00 2023-01-25 10:24:30 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 1.20.114 350.1.13.10 4.2.7.2.686 [id number] [facility] 2023-01-24 00:00:00 2023-01-24 00:00:00 Telephone Taya Stevens [facility] 1.2840.114 350.1.13.10 4.2.7.2.686 [id number] 134 [id number] [facility] 2023-01-22 10:45:00 2023-01-22 10:45:00 Outpatient R [facility]A [facility]ENS [facility] [id number] [facility] 2023-01-22 00:00:00 2023-01-22 00:00:00 Orders Only Doctor Unassigned, [place] [facility] 1.2.840.114 350.1.13.10 4.2.7.2.686 [id number] [facility] 2023-01-21 00:00:00 2023-01-21 00:00:00 Telephone Rodney [facility] 1.2.840.114 350.1.13.10 4.2.7.2.686 [id number] 134 [id number] [facility] 2023-01-19 09:30:00 2023-01-19 10:23:44 Outpatient R RODNEY TAYA STEVENS [facility] [id number] [facility] 2023-01-19 09:30:00 2023-01-19 10:23:44 [facility]ine [facility] 1.2.840.114 350.1.13.10 4.2.7.2.686 [id number] 134 [id number] [facility] 2023-01-18 15:30:00 2023-01-18 15:30:00 Outpatient R TAYA STEVENS [facility] [id number] [facility] 2023-01-05 10:00:00 2023-01-05 10:00:00 Outpatient R TAYA STEVENS CHERYAL [facility] [id number] [facility] 2022-12-21 00:00:00 2022-12-21 00:00:00 Case [facility] 1.2.840.114 350.1.13.10 4.2.7.2.686 [id number] 134 [id number] [facility] 2022-12-20 10:18:22 2022-12-20 23:59:00 Outpatient R [facility]A [facility]ENS [facility] [id number] [facility] 2022-12-20 10:18:22 2022-12-20 23:59:00 Hospital Encounter Taya Stevens [facility] 1..114 350.1.13.10 4.2.7.2.686 [id number] [facility] 2022-12-16 00:00:00 2022-12-16 00:00:00 Outpatient R TAYA STEVENS CHERYAL 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 [id number] [facility] 2022-12-11 00:00:00 2022-12-11 00:00:00 Orders Only Doctor Unassigned, [place] [facility] 1.114 350.1.13.10 4.2.7.2.686 [id number] [facility] 2022-12-08 10:00:00 2022-12-08 10:26:11 Outpatient R TAYA STEVENS CHERYAL [facility] [id number] [facility] 2022-12-08 10:00:00 2022-12-08 10:26:11 Initial Visit Taya Stevens [facility] 1.114 350.1.13.10 4.2.7.2.686 [id number] 134 [id number] [facility] 2022-08-03 00:00:00 2022-08-03 00:00:00 Patient Secure Msg Braden Dhillon [facility] 1.114 350.1.13.10 4.2.7.2.686 [id number] 134 [id number] [facility] 2022-07-06 10:30:00 2022-07-06 11:30:42 Outpatient R BRADEN DHILLON [facility] [id number] [facility] 2022-07-06 10:30:00 2022-07-06 11:30:42 Routine Visit Braden Dhillon [facility] 1..114 350.1.13.10 4.2.7.2.686 [id number] 134 [id number] [facility] 2022-06-22 16:15:00 2022-06-22 16:15:00 Outpatient R BRADEN DHILLON [facility] [id number] [facility] 2022-06-07 16:15:00 2022-06-07 16:27:50 Outpatient R BRADEN DHILLON [facility] [id number] [facility] 2022-06-07 16:15:00 2022-06-07 16:27:50 Routine Visit Braden Dhillon [facility] 1.114 350.1.13.10 4.2.7.2.686 [id number] 134 [id number] [facility] 2022-06-07 16:15:00 2022-06-07 16:27:50 Outpatient R BRADEN DHILLON [facility] [id number] [facility] 2022-05-22 10:45:00 2022-05-22 11:00:00 Corner Bead Operator Visit Mirian, Deepa Lab Main Alejo Braden [facility] 1.0.114 350.1.13.10 4.2.7.2.686 [id number] [facility] 2022-05-22 10:45:00 2022-05-22 10:45:00 Outpatient R BRADEN DHILLON [facility] [id number] [facility] 2022-05-20 16:15:00 2022-05-20 16:15:00 Outpatient R BRADEN DHILLON [facility] [id number] [facility] 2022-05-06 14:30:00 2022-05-06 14:55:36 Outpatient R BRADEN DHILLON [facility] [id number] [facility] 2022-05-06 14:30:00 2022-05-06 14:55:36 Routine Visit [facility] Braden [facility] 1.2.840.114 350.1.13.10 4.2.7.2.686 [id number] 134 [id number] [facility] 2022-04-28 00:00:00 2022-04-28 00:00:00 Patient Secure Msg [facility] 1.2.840.114 350.1.13.10 4.2.7.2.686 [id number] 134 [id number] [facility] 2022-04-26 16:00:00 2022-04-26 16:00:00 Outpatient R BRADEN DHILLON [facility] [id number] [facility] 2022-04-26 13:00:00 2022-04-26 13:00:00 Outpatient R BRADEN DHILLON [facility] [id number] [facility] 2022-04-21 10:00:00 2022-04-21 10:00:00 Nurse Visit Nurse, Lkj [facility] 1.2.840.114 350.1.13.10 4.2.7.2.686 [id number] 134 [id number] [facility] 2022-04-21 10:00:00 2022-04-21 09:53:48 Outpatient R BRADEN DHILLON 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 1..114 350.1.13.10 4.2.7.2.686 [id number] [facility] 2022-04-02 11:45:00 2022-04-02 11:45:00 Outpatient R BRADEN DHILLON [facility] [id number] [facility] 2022-04-01 08:30:00 2022-04-01 09:43:27 Outpatient R BRADEN DHILLON [facility] [id number] [facility] 2022-04-01 08:30:00 2022-04-01 09:43:27 Initial Visit Braden Dhillon [facility] 1..114 350.1.13.10 4.2.7.2.686 [id number] [facility] 2022-04-01 00:00:00 2022-04-01 00:00:00 Orders Only Doctor Unassigned, [place] [facility] 1..114 350.1.13.10 4.2.7.2.686 [id number] [facility] Results Test Description Test Time Test Comments Results Result [id number]:03:00* Test Item Value Reference Range Interpretation Comme nts POCT PREG (test code = 1605) Negative On board controls acceptable with C Line (test code = 3574) Yes POCT PREG LOT # (test code = 3575) POCT PREG TEST DATE ( test code = 3576) [facility] [id number] 18:03:00* Test Item Value Reference Range Interpretation Comme nts POCT PREG (test code = 1605) Negative On board controls acceptable with C Line (test code = 3574) Yes POCT PREG LOT # (test code = 3575) POCT PREG TEST DATE ( test code = 3576) [facility] [id number] 18:03:00* Test Item Value Reference Range Interpretation Comme nts POCT PREG (test code = 1605) Negative On board controls acceptable with C Line (test code = 3574) Yes POCT PREG LOT # (test code = 3575) POCT PREG TEST DATE ( test code = 3576) [facility] [id number] 18:03:00* Test Item Value Reference Range Interpretation Comme nts POCT PREG (test code = 1605) Negative On board controls acceptable with C Line (test code = 3574) Yes POCT PREG LOT # (test code = 3575) POCT PREG TEST DATE ( test code = 3576) [id number] 11:42:01* Test Item Value Reference Range Interpretation [...] 33.1 g/dL 31.6-35.1 RDW-SD (test code = 81588-1) 43.9 fL 39.0-49.9 RDW-CV (test code = 788-0) 13.5 % 12.0-15.5 PLT (test code = 777-3) 267 See_Comment [Automated message] The system which generated this result transmitted reference range: 166 - 358 10*3/?L. The reference range was not used to interpret this result as normal/abnormal. MPV (test code = 87175-9) 9.2 fL 9.5-12.9 L NRBC/100 WBC (test code = 8405117454) 0.0 See_Comment [Automated message] The system which generated this result transmitted reference range: 0.0 - 10.0 /100 WBCs. The reference range was not used to interpret this result as normal/abnormal. NRBC x10^3 (test code = 7373435593) See_Comment [Automated message] The system which generated this result transmitted reference range: 10*3/?L. The reference range was not used to interpret this result as normal/abnormal. GRAN MAT (NEUT) % (test code = 770-8) 83.2 % IMM GRAN % (test code = 9106391868) 0.70 % LYMPH % (test code = 736-9) 9.9 % MONO % (test code = 5905-5) 6.1 % EOS % (test code = 713-8) 0.0 % BASO % (test code = 706-2) 0.1 % GRAN MAT x10^3(ANC) (test code = 5702798745) 14.35 10*3/uL 1.88-7.09 H IMM GRAN x10^3 (test code = 0303274549) 0.12 10*3/uL 0.00-0.06 H LYMPH x10^3 (test code = 731-0) 1.71 10*3/uL 1.32-3.29 MONO x10^3 (test code = 742-7) 1.05 10*3/uL 0.33-0.92 H EOS x10^3 (test code = 711-2) 0.03-0.39 L BASO x10^3 (test code = 704-7) 0.01-0.07 Lab Interpretation (test code = 97348-9) Abnormal [facility] with Njaqxoedjzlv5521-67-54 11:42:01* Test Item Value Reference Range Interpretation [...] 33.1 g/dL 31.6-35.1 RDW-SD (test code = 14080-1) 43.9 fL 39.0-49.9 RDW-CV (test code = 788-0) 13.5 % 12.0-15.5 PLT (test code = 777-3) 267 See_Comment [Automated message] The system which generated this result transmitted reference range: 166 - 358 10*3/?L. The reference range was not used to interpret this result as normal/abnormal. MPV (test code = 79500-4) 9.2 fL 9.5-12.9 L NRBC/100 WBC (test code = 7322476217) 0.0 See_Comment [Automated message] The system which generated this result transmitted reference range: 0.0 - 10.0 /100 WBCs. The reference range was not used to interpret this result as normal/abnormal. NRBC x10^3 (test code = 4115028545) See_Comment [Automated message] The system which generated this result transmitted reference range: 10*3/?L. The reference range was not used to interpret this result as normal/abnormal. GRAN MAT (NEUT) % (test code = 770-8) 83.2 % IMM GRAN % (test code = 3672070083) 0.70 % LYMPH % (test code = 736-9) 9.9 % MONO % (test code = 5905-5) 6.1 % EOS % (test code = 713-8) 0.0 % BASO % (test code = 706-2) 0.1 % GRAN MAT x10^3(ANC) (test code = 0536017772) 14.35 10*3/uL 1.88-7.09 H IMM GRAN x10^3 (test code = 5801303228) 0.12 10*3/uL 0.00-0.06 H LYMPH x10^3 (test code = 731-0) 1.71 10*3/uL 1.32-3.29 MONO x10^3 (test code = 742-7) 1.05 10*3/uL 0.33-0.92 H EOS x10^3 (test code = 711-2) 0.03-0.39 L BASO x10^3 (test code = 704-7) 0.01-0.07 Lab Interpretation (test code = 96846-9) Abnormal [facility] OR [place]KE ONLY - [id number] 09:05:14* Test Item Value Reference Range Interpretation Comme nts RPR (Qualitative) (test code = 24898-9) Nonreactive Nonreactive Lab Interpretation (test cod e = 25246-1) Normal [facility] OR [place]KE ONLY - [id number] 09:05:14* Test Item Value Reference Range Interpretation Comme nts RPR (Qualitative) (test code = 59666-3) Nonreactive Nonreactive Lab Interpretation (test cod e = 51787-3) Normal [facility] B Surface Blojntv5231-81-47 15:36:07 * Test Item Value Reference Range Interpretation Comme nts HBsAg Semi-Quantitative (fran t code = 5195-3) 0.09 Negative [facility] B Surface Efafgrs1671-43-27 15:36:07 * Test Item Value Reference Range Interpretation Comme nts HBsAg Semi-Quantitative (fran t code = 5195-3) 0.09 Negative [facility] (D) IMMUNE [id number] 13:36:45* Test Item Value Reference Range Interpretation Comme nts RHIG CANDIDATE? (test code = 5188) No- see comment Patient is not a candidate for RhIg- Patient is Rh Positive.Performed at [facility] Laboratory [facility] Blood [address] [place] [address] Free: [phone] No. [id number] [facility] (D) IMMUNE [id number] 13:36:45* Test Item Value Reference Range Interpretation Comme nts RHIG CANDIDATE? (test code = 5188) No- see comment Patient is not a candidate for RhIg- Patient is Rh Positive.Performed at [facility] Laboratory [facility] Blood [address] [place] [address] Free: [phone] No. [id number] [facility] 1/2 AG-AB WITH [id number] 12:18:35* Test Item Value Reference Range Interpretation Comme nts HIV Semi-quantitative (test code = 50596-7) 0.11 Negative SOHEILA (test code = SOHEILA) Non-reactive for HIV-1 antigen and HIV-1/HIV-2 antibodies. ?No laboratory evidence of HIV infection. ?Repeat in 2-4 weeks if acute HIV infection is suspected. [facility] 1/2 AG-AB WITH [id number] 12:18:35* Test Item Value Reference Range Interpretation Comme nts HIV Semi-quantitative (test code = 67908-6) 0.11 Negative SOHEILA (test code = SOHEILA) Non-reactive for HIV-1 antigen and HIV-1/HIV-2 antibodies. ?No laboratory evidence of HIV infection. ?Repeat in 2-4 weeks if acute HIV infection is suspected. [facility] [id number] 10:27:00 * Test Item Value Reference Range Interpretation Comme nts ABO & RH (test code = 20) A Positive IAT (test code = 1185) Negative [facility] [id number] 10:27:00 * Test Item Value Reference Range Interpretation Comme nts ABO & RH (test code = 20) A Positive IAT (test code = 1185) Negative [facility] Vcywrnpemknmc3089-40-98 00:42:06* Test Item Value Reference Range Interpretation Comme nts LDH (test code = 6343807213) 156 U/L 120-246 Lab Interpretation (test cod e = 19567-4) Normal [facility] Bwqlbbxzinlla2738-24-29 00:42:06* Test Item Value Reference Range Interpretation Comme nts LDH (test code = 8831442833) 156 U/L 120-246 Lab Interpretation (test cod e = 00383-6) Normal [facility] with Kiwzcagsezom2792-71-05 00:35:26* Test Item Value Reference Range Interpretation Comme nts WBC (test code = 6690-2) 11.06 See_Comment [Automated [employer]] The system which generated this result [...] 33.0 g/dL 31.6-35.1 RDW-SD (test code = 72864-2) 44.5 fL 39.0-49.9 RDW-CV (test code = 788-0) 13.8 % 12.0-15.5 PLT (test code = 777-3) 267 See_Comment [Automated messa ge] The system which generated this result transmitted reference range: 166 - 358 10*3/?L. The reference range was not used to interpret this result as normal/abnormal. MPV (test code = 29765-5) 8.4 fL 9.5-12.9 L NRBC/100 WBC (test code = 3233179158) 0.0 See_Comment [Automated [employer] ssage] The system which generated this result transmitted reference range: 0.0 - 10.0 /100 WBCs. The reference range was not used to interpret this result as normal/abnormal. NRBC x10^3 (test code = 0104506667) See_Comment [Automated [employer]] The system which generated this result transmitted reference range: 10*3/?L. The reference range was not used to interpret this result as normal/abnormal. GRAN MAT (NEUT) % (test code = 770-8) 83.7 % IMM GRAN % (test code = 8649575628) 0.50 % LYMPH % (test code = 736-9) 12.8 % MONO % (test code = 5905-5) 2.3 % EOS % (test code = 713-8) 0.4 % BASO % (test code = 706-2) 0.3 % GRAN MAT x10^3(ANC) (test code = 7227999226) 9.26 10*3/uL 1.88-7.09 H IMM GRAN x10^3 (test code = 4868152477) 0.06 10*3/uL 0.00-0.06 LYMPH x10^3 (test code = 731-0) 1.42 10*3/uL 1.32-3.29 MONO x10^3 (test code = 742-7) 0.25 10*3/uL 0.33-0.92 L EOS x10^3 (test code = 711-2) 0.04 10*3/uL 0.03-0.39 BASO x10^3 (test code = 704-7) 0.03 10*3/uL 0.01-0.07 Lab Interpretation (test code = 00617-4) Abnormal [facility] with Qfkuwhvtftdu9181-94-70 00:35:26* Test Item Value Reference Range Interpretation [...] 33.0 g/dL 31.6-35.1 RDW-SD (test code = 97683-9) 44.5 fL 39.0-49.9 RDW-CV (test code = 788-0) 13.8 % 12.0-15.5 PLT (test code = 777-3) 267 See_Comment [Automated messa ge] The system which generated this result transmitted reference range: 166 - 358 10*3/?L. The reference range was not used to interpret this result as normal/abnormal. MPV (test code = 27810-6) 8.4 fL 9.5-12.9 L NRBC/100 WBC (test code = 7019927656) 0.0 See_Comment [Automated [employer] ssage] The system which generated this result transmitted reference range: 0.0 - 10.0 /100 WBCs. The reference range was not used to interpret this result as normal/abnormal. NRBC x10^3 (test code = 2858357017) See_Comment [Automated messa ge] The system which generated this result transmitted reference range: 10*3/?L. The reference range was not used to interpret this result as normal/abnormal. GRAN MAT (NEUT) % (test code = 770-8) 83.7 % IMM GRAN % (test code = 3149419321) 0.50 % LYMPH % (test code = 736-9) 12.8 % MONO % (test code = 5905-5) 2.3 % EOS % (test code = 713-8) 0.4 % BASO % (test code = 706-2) 0.3 % GRAN MAT x10^3(ANC) (test code = 1410828781) 9.26 10*3/uL 1.88-7.09 H IMM GRAN x10^3 (test code = 8585013577) 0.06 10*3/uL 0.00-0.06 LYMPH x10^3 (test code = 731-0) 1.42 10*3/uL 1.32-3.29 MONO x10^3 (test code = 742-7) 0.25 10*3/uL 0.33-0.92 L EOS x10^3 (test code = 711-2) 0.04 10*3/uL 0.03-0.39 BASO x10^3 (test code = 704-7) 0.03 10*3/uL 0.01-0.07 Lab Interpretation (test code = 15986-0) [facility] Eygfr2079-86-13 00:04:42* Test Item Value Reference Range Interpretation Comme nts URIC ACID (test code = 2298127630) 4.2 mg/dL 2.9-6.0 Lab Interpretation (test cod e = 73115-6) [facility]Asparate Amin[facility]2023-07-12 00:04:42* Test Item Value Reference Range Interpretation Comme nts AST(SGOT) (test code = 0349928687) 31 U/L 13-40 Lab Interpretation (test cod e = 87955-9) Normal [facility] Transferase (SGPT)2023-07-12 00:04:42* Test Item Value Reference Range Interpretation Comme nts ALTv (test code = 1742-6) 23 U/L 5-35 Lab Interpretation (test cod e = 45527-0) Normal [facility] Cqgob9664-80-55 00:04:42* Test Item Value Reference Range Interpretation Comme [facility] URIC ACID (test code = 6606583900) 4.2 mg/dL 2.9-6.0 Lab Interpretation (test cod e = 63041-2) [facility]Asparate Amino [facility]2023-07-12 00:04:42* Test Item Value Reference Range Interpretation Comme [facility] AST(SGOT) (test code = 6007241977) 31 U/L 13-40 Lab Interpretation (test cod e = 02344-9) Normal [facility] (SGPT)2023-07-12 00:04:42* Test Item Value Reference Range Interpretation Comme nts ALTv (test code = 1742-6) 23 U/L 5-35 Lab Interpretation (test cod e = 34117-5) Normal [facility] Hkrvfwawco3765-23-28 00:04:21* Test Item Value Reference Range Interpretation Comme [facility] CREATININE (test code = 4424623903) 0.46 mg/dL 0.50-1.04 L eGFR (test code = 5312107805) 159.5 mL/min/1.73m2 SOHEILA (test code = SOHEILA) [...] imaging tests). Lab Interpretation (test code = 90623-2) Abnormal [facility] Tdnukybgxb2580-65-84 00:04:21* Test Item Value Reference Range Interpretation Comme nts CREATININE (test code = 3118067528) 0.46 mg/dL 0.50-1.04 L eGFR (test code = 3966449558) 159.5 mL/min/1.73m2 SOHEILA (test code = SOHEILA) [...] imaging tests). Lab Interpretation (test code = 75623-1) Abnormal [facility] WITH [id number] 19:42:18* Test Item Value Reference Range Interpretation Comme nts WBC (test code = 6690-2) 7.45 See_Comment [Automated [employer]] The system which generated this result transmitted reference range: 4.30 - 11.10 10*3/?L. The reference range was not used to interpret this result as normal/abnormal. RBC (test code = 789-8) 3.82 See_Comment L [Automated [employer]] The system which generated this result [...] 33.3 g/dL 31.6-35.1 RDW-SD (test code = 48869-3) 42.7 fL 39.0-49.9 RDW-CV (test code = 788-0) 13.7 % 12.0-15.5 PLT (test code = 777-3) 259 See_Comment [Automated [employer]] The system which generated this result transmitted reference range: 166 - 358 10*3/?L. The reference range was not used to interpret this result as normal/abnormal. MPV (test code = 74770-2) 8.5 fL 9.5-12.9 L NRBC/100 WBC (test code = 8824801767) 0.0 See_Comment [Automated [employer] ssage] The system which generated this result transmitted reference range: 0.0 - 10.0 /100 WBCs. The reference range was not used to interpret this result as normal/abnormal. NRBC x10^3 (test code = 1159463130) See_Comment [Automated messa ge] The system which generated this result transmitted reference range: 10*3/?L. The reference range was not used to interpret this result as normal/abnormal. GRAN MAT (NEUT) % (test code = 770-8) 70.0 % IMM GRAN % (test code = 1065370240) 0.30 % LYMPH % (test code = 736-9) 23.6 % MONO % (test code = 5905-5) 5.2 % EOS % (test code = 713-8) 0.8 % BASO % (test code = 706-2) 0.1 % GRAN MAT x10^3(ANC) (test code = 6830678147) 5.21 10*3/uL 1.88-7.09 IMM GRAN x10^3 (test code = 7304694335) 0.00-0.06 LYMPH x10^3 (test code = 731-0) 1.76 10*3/uL 1.32-3.29 MONO x10^3 (test code = 742-7) 0.39 10*3/uL 0.33-0.92 EOS x10^3 (test code = 711-2) 0.06 10*3/uL 0.03-0.39 BASO x10^3 (test code = 704-7) 0.01-0.07 Lab Interpretation (test code = 05110-2) Abnormal [facility] WITH [id number] 19:42:18* Test Item Value Reference Range Interpretation [...] 33.3 g/dL 31.6-35.1 RDW-SD (test code = 76069-4) 42.7 fL 39.0-49.9 RDW-CV (test code = 788-0) 13.7 % 12.0-15.5 PLT (test code = 777-3) 259 See_Comment [Automated [employer]] The system which generated this result transmitted reference range: 166 - 358 10*3/?L. The reference range was not used to interpret this result as normal/abnormal. MPV (test code = 28606-8) 8.5 fL 9.5-12.9 L NRBC/100 WBC (test code = 7480321831) 0.0 See_Comment [Automated [employer] ssage] The system which generated this result transmitted reference range: 0.0 - 10.0 /100 WBCs. The reference range was not used to interpret this result as normal/abnormal. NRBC x10^3 (test code = 9394085137) See_Comment [Automated [employer]] The system which generated this result transmitted reference range: 10*3/?L. The reference range was not used to interpret this result as normal/abnormal. GRAN MAT (NEUT) % (test code = 770-8) 70.0 % IMM GRAN % (test code = 6381601361) 0.30 % LYMPH % (test code = 736-9) 23.6 % MONO % (test code = 5905-5) 5.2 % EOS % (test code = 713-8) 0.8 % BASO % (test code = 706-2) 0.1 % GRAN MAT x10^3(ANC) (test code = 4199515972) 5.21 10*3/uL 1.88-7.09 IMM GRAN x10^3 (test code = 7583831704) 0.00-0.06 LYMPH x10^3 (test code = 731-0) 1.76 10*3/uL 1.32-3.29 MONO x10^3 (test code = 742-7) 0.39 10*3/uL 0.33-0.92 EOS x10^3 (test code = 711-2) 0.06 10*3/uL 0.03-0.39 BASO x10^3 (test code = 704-7) 0.01-0.07 Lab Interpretation (test code = 37308-7) [facility] Eogwtos4300-52-55 19:35:00* Test Item Value Reference Range Interpretation Comme nts ABO & RH (test code = 20) A Positive IAT (test code = 1185) Negative [facility] and Screen - ONCE [id number] 19:35:00* Test Item Value Reference Range Interpretation Comme nts ABO & RH (test code = 20) A Positive IAT (test code = 1185) Negative [facility] URINALYSIS W/O SPECIFIC [id number] 14:44:00* Test Item Value Reference Range Interpretation [...] = 3257) n/a Negative - Negati ve [facility] URINALYSIS W/O SPECIFIC [id number] 14:44:00* Test Item Value Reference Range Interpretation [...] = 3257) N/A Negative - Negati ve [facility] URINALYSIS W/O SPECIFIC [id number] 16:17:00* Test Item Value Reference Range Interpretation [...] = 3257) n/a Negative - Negati ve [facility] URINALYSIS W/O SPECIFIC [id number] 21:15:00* Test Item Value Reference Range Interpretation [...] = 3257) n/a Negative - Negati ve [facility] URINALYSIS W/O SPECIFIC [id number] 14:56:00* Test Item Value Reference Range Interpretation [...] internal controls Lab Interpretation (test code = 05352-6) Abnormal [facility] URINALYSIS W/O SPECIFIC [id number] 15:41:00* Test Item Value Reference Range Interpretation [...] = 3257) n/a Negative - Negati ve [facility] URINALYSIS W/O SPECIFIC [id number] 14:25:00* Test Item Value Reference Range Interpretation [...] = 3257) NEGATIVE Negative - Negati ve [facility] WITH [id number] 17:15:24* Test Item Value Reference Range Interpretation Comme nts WBC (test code = 6690-2) 8.26 See_Comment [Automated messa ge] The system which generated this result transmitted reference range: 4.30 - 11.10 10*3/?L. The reference range was not used to interpret this result as normal/abnormal. RBC (test code = 789-8) 4.57 See_Comment [Automated messa ge] The system which [...] 32.8 g/dL 31.6-35.1 RDW-SD (test code = 16640-1) 42.5 fL 39.0-49.9 RDW-CV (test code = 788-0) 12.9 % 12.0-15.5 PLT (test code = 777-3) 328 See_Comment [Automated messa ge] The system which generated this result transmitted reference range: 166 - 358 10*3/?L. The reference range was not used to interpret this result as normal/abnormal. MPV (test code = 67019-8) 8.0 fL 9.5-12.9 L NRBC/100 WBC (test code = 1270922440) 0.0 See_Comment [Automated [employer] ssage] The system which generated this result transmitted reference range: 0.0 - 10.0 /100 WBCs. The reference range was not used to interpret this result as normal/abnormal. NRBC x10^3 (test code = 3958505777) See_Comment [Automated [employer]] The system which generated this result transmitted reference range: 10*3/?L. The reference range was not used to interpret this result as normal/abnormal. GRAN MAT (NEUT) % (test code = 770-8) 63.5 % IMM GRAN % (test code = 0025550092) 0.20 % LYMPH % (test code = 736-9) 28.1 % MONO % (test code = 5905-5) 5.9 % EOS % (test code = 713-8) 1.8 % BASO % (test code = 706-2) 0.5 % GRAN MAT x10^3(ANC) (test code = 5448724681) 5.24 10*3/uL 1.88-7.09 IMM GRAN x10^3 (test code = 9952303990) 0.00-0.06 LYMPH x10^3 (test code = 731-0) 2.32 10*3/uL 1.32-3.29 MONO x10^3 (test code = 742-7) 0.49 10*3/uL 0.33-0.92 EOS x10^3 (test code = 711-2) 0.15 10*3/uL 0.03-0.39 BASO x10^3 (test code = 704-7) 0.04 10*3/uL 0.01-0.07 Lab Interpretation (test code = 57299-1) [facility] SPECIFIC [id number] 16:10:00* Test Item Value Reference Range Interpretation [...] = 3257) N/A Negative - [facility] ve [facility] [id number] 16:09:00* Test Item Value Reference Range Interpretation Comme nts POCT PREG (test code = 1605) Positive On board controls acceptable with C Line (test code = 3574) Yes POCT PREG LOT # (test code = 3575) POCT PREG TEST DATE ( test code = 3576) [facility] History and Physical Notes Date/Time Note Provider [...] tenderness or edema : SVE /-2 by RADIO PERFORMER OF LABORATORY, PATHOLOGY, AND RADIOLOGY DATA Lab [...] Y Idalia Grullon MD 07/11/2023 8:16 PM T [facility] Notes Date/Time Note Provider Source 2024-12-25 09:20:03 Pt returned call, would like to know pap smear results. Informed pap smear came back negative. Verbalized understanding. Mariana Napier LVN 12/25/2024 9:21 AM [facility] 2024-12-25 09:06:48 Patient returning missed call. Please call back CE COPY SELECTOR Rachel Jennings [facility] 2024-12-25 08:54:38 Called pt, no answer. Left vm. Mariana Napier LVN 12/25/2024 8:55 AM [facility] 2024-12-25 08:38:35 Modesto Noriega is a 29 year old female Patient called for results review from labs taken 12/18/24 Please contact pt at [phone] (home) CE COPY SELECTOR Wandy Busch [facility] 2024-12-20 12:48:24 Called pt, reports wanting to know pap smear/HPV results. Informed HPV came back negative and that pap smear results can take up to 2 weeks to results and she should she the results in MyChart. Verbalized understanding. Mariana Napier LVN 12/20/2024 12:50 PM [facility] 2024-12-20 11:44:45 Modesto Noriega is a 29 year old female Pt wants to know lab results from 12/18. Please call pt at [phone] (home) Johnson [facility] 2023-07-16 10:22:13 Formatting of this n ote [...] Outcome: Adequate for discharge Shaunna Trujillo RN [facility] 2023-07-16 06:00:00 Formatting of this n [...] Absence of infection Outcome: Progressing as expected EL Thompson RN [facility] 2023-07-14 07:35:00 Formatting of this n [...] Outcome: Progressing as expected Nicolette Day RN [facility] 2023-07-13 20:13:15 Formatting of this n [...] Outcome: Progressing as expected Stephenie Kevin RN [facility] 2023-07-13 18:17:34 Formatting of this n [...] Outcome: Progressing as expected Ana Ball RN [facility] 2023-07-12 21:12:54 Formatting of this n [...] Outcome: Progressing as expected Kathe Grant RN [facility] 2023-07-12 07:26:01 Formatting of this n [...] complications, Findings: nuchal x 1 Delivery Summary [place] Sex: male Weight: 2470 g 1 Minute [...] by lateral traction from the surgeon's and collections assistant's hand. Delivery A bladder flap was developed by grasping with Armenian forcep and enter with Metzenbaun scissor. Then [...] aid of fundal pressure applied by the assistant golf coach surgeon . The body was delivered with [...] The placenta was not sent to pathology. dIalia Grullon MD 07/12/2023 7:31 AM [facility] 2023-07-12 07:05:00 Formatting of this n ote [...] Absence of infection Outcome: Progressing as expected [facility] 2023-07-11 13:18:00 Formatting of this n [...] that abdomen tightens with cramping. Spoke about Emmet Kerr. Verbalized FM. [place]: Tylenol which helps. Denies back pain and UTI s/s. Pt stated that she believes that her cervix is changing. Advised pt to go to L&D to be evaluated. Spoke to Darling at L&D. Report given. WANDY DELEON RN 07/11/2023 1:20 PM Wandy Deleon RN [facility] 2023-07-11 12:05:37 Formatting of this n [...] called to Caterina YU. Fermin Espinal RN [facility] 2023-07-11 10:19:31 Formatting of this n ote might be different from the original. Pt is 37 weeks gestational an has had cramping, diarrhea, mucus plug gone and little bleeding. Notifying nurse of triage. Vania Jaramillo [facility] 2023-07-08 10:00:00 Formatting of this n [...] weekly visits or PRN Vaishali Curtis MD [facility] 2023-07-05 11:15:00 Formatting of this n ote might be different from the original. Reviewed and noted. Patient of Dr. Curtis for delivery. Taya Stevens NP 07/05/2023 12:48 PM [facility]fusion 2023-07-05 09:00:00 Formatting of this n ote [...] OB clinic or antepartum unit at the [facility] - GC & CHLAMYDIA AMPLIFIED ASSAY - TRICHOMONAS AMPLIFIED ASSAY - POCT URINALYSIS W/O SPECIFIC GRAVITY - NON-STRESS TEST Continue with twice weekly NST ASHLYN in 1 week PRN Vaishali Curtis MD [facility] 2023-07-01 14:47:08 Formatting of this n ote might be different from the original. Name and verified. Pt stated that she is worried that child has PWS. Per Dr. Curtis- there is no testing that can be done at this time. She will have to wait until delivery and speak with casing in line feeder. Pt advised. Pt is also worried about baby being born at 38 weeks. Advised pt that at 38 weeks- normally lungs should be fully developed. She may speak with provider more at Tuesday's appt. Verbalized understanding. WANDY DELEON RN 07/01/2023 2:53 PM [facility]fusion 2023-07-01 14:09:05 Formatting of this n ote might be different from the original. Pt called and states that Dr. Curtis informed her that pts baby would deliver early. She is wanting to know why, and if PWS could be an issue. She is wanting to know if the baby could survive without any issues. Please advise. Call back number: [phone] Cata Gramajo [facility] 2023-07-01 13:08:33 Formatting of this n ote might be different from the original. Pt fiance calling on behave of the pt to ask Dr curtis a few questions. They want to know since the baby is being delivered early will the baby come out normal. Marivel Marte [facility] 2023-07-01 11:00:00 Formatting of this n [...] OB clinic or antepartum unit at the [facility] - POCT URINALYSIS W/O SPECIFIC GRAVITY - NON-STRESS TEST ASHLYN in 1week Continue with twice weekly NSTs Vaishali Curtis MD [facility] 2023-06-28 13:02:44 Formatting of this n ote might be different from the original. See [email or web address] message for today. Fariba Castellanos RN 06/28/2023 1:02 PM Fariba Castellanos RN [facility] 2023-06-28 13:01:32 Formatting of this n ote might be different from the original. Spoke with patient, had question regarding glucose test that was done today. Informed patient that glucose test was normal and that there was still some test processing. Patient verbalized understanding. Fariba Castellanos RN 06/28/2023 1:02 PM Fariba Castellanos RN [facility] 2023-06-28 12:34:27 Formatting of this n ote might be different from the original. Attempted to contact patient by phone to provide test results, no answer, message left on voicemail to call back. Fariba Castellanos RN 06/28/2023 12:34 PM T [facility] 2023-06-28 12:27:00 Formatting of this n ote might be different from the original. Attempted to contact patient by phone to provide test results, no answer, message left on voicemail to call back. Fariba Castellanos RN 06/28/2023 12:27 PM T [facility] 2023-06-28 10:00:00 Formatting of this n ote might be different from the original. Age: [age] year old GA: 34w4d NST for IUGR Has no concerns NST is reactive Plan: Continue with twice weekly NST with visits as scheduled - Stress [facility]'s - Call if any concerns Vaishali Curtis MD T [facility] 2023-06-28 09:30:00 Formatting of this n ote might be different from the original. Loaded pt w 50gm fruit punch glucola, no issues. T [facility] 2023-06-28 09:30:00 Formatting of this n ote is different from the original. Images from the original note were not included. Venipuncture collection performed by clean technique on the left anticubitus. Total of 1 attempts were made. Slight pressure and a bandage/dressing were applied to the site(s). The patient experienced no complications. The following specimens were processed according to instructions and sent to [facility] laboratories per lab order on 06/28/2023 : LT BLUE SST 2 RED 1 LAV 2 PPT DK GREEN (LiHep) DK GREEN (SodH) EARL DK BLUE (K2) DK BLUE (S) ACD Blood Culture NIPT/NTD [facility] 2023-06-24 11:00:00 Formatting of this n ote [...] OB clinic or antepartum unit at the [facility]; - She plans to [...] with twice weekly NSTs with weekly visits. M follow up scans are already scheduled Vaishali Curtis MD [facility] 2023-06-21 10:36:07 Formatting of this n [...] recommendations. Pt verbalizes understanding. Jaclyn Fernandes RN [facility] 2023-06-20 15:46:22 Formatting of this n [...] The patient's identity was confirmed by the control clerk food and beverage before the scan. Her name and date of were verified. Patient referred for US For anatomy but IUGR seen. A detailed ultrasound (29514) was performed for this indication ID #: [id number] [facility] REPORT 1 of 1 visit(s) Date: 06/17/2023 Electronically Signed Final Report by Minerva Gonsalez MD 06/17/2023 12:45 pm © Copyright 1990 - 2022 [employer]. All Rights Reserved. [email or web address] Zaida 7.882 Page 2 of 5 Biometry [...] WNL. The CONRAD is WNL. BPP is 8. 1) Twice wkly NST till delivery. 2) Weekly CONRAD and cord Dopplers. 3) Q3wkly interval growth. Taya Stevens NP 06/20/2023 3:53 PM \\ [facility] 2023-06-20 15:29:44 Formatting of this n [...] monitor babys growth. Patient verbalized understanding. Notified [facility] about getting patient in for NST and transfer of care appt tomorrow. Patient scheduled tomorrow for NST and transfer of care with Dr. Curtis. Fariba Castellanos RN 06/20/2023 3:31 PM Fariba Castellanos RN [facility] 2023-06-20 14:39:50 Formatting of this n ote might be different from the original. Patient is returning call for nurse. Jeremy Jennings [facility] 2023-06-20 14:23:48 Formatting of this n ote might be different from the original. Attempted to contact patient by phone, no answer, message left on voicemail to call back. Fariba Castellanos RN 06/20/2023 2:25 PM [facility] 2023-06-20 12:56:45 Formatting of this n ote [...] scheduling an NST and visit tomorrow in [place] with OB provider who has room to work her in. She should be able to obtain labs at that visit. Please inform her that this is important and Medicaid does offer rides for patients. She has declined this in the past. Taya Stevens NP 06/20/2023 1:01 PM [facility] 2023-06-17 08:45:00 Formatting of this n ote might be different from the original. Reviewed and noted. Fariba Castellanos RN to contact patient regarding bi-weekly NST procedures, weekly dopplers, serial growth ultrasounds, OB provider transfer. Taya Stevens NP 06/20/2023 1:06 PM [facility] 2023-06-08 14:54:08 Formatting of this n ote might be different from the original. Report given to GIGI Peña in L&D. Patient taken upstairs by [place]. T [facility] 2023-06-08 14:51:02 Formatting of this n ote might be different from the original. 33 weeks preg. - reports water broke ~1330hrs today. Mentions experiencing contractions every 2 min but "they are little". Hx - HTN Angela Avila RN [facility] - [facility] 2023-05-31 16:15:00 Formatting of this n [...] OB clinic or antepartum unit at the [facility]. - Continue daily vitamins - Continue healthy diet, light exercise, and increased hydration with water (at least 64 ounces daily) - Monitor for healthy weight gain -Contact clinic for any concerns - Consider casing in line feeder, breast and/or bottle feeding, and contraception during this time (plan ahead) - Consider birthing class or private education regarding delivery 4. uterine contractions, antepartum, third trimester - Patient endorsed contractions that "started yesterday" - Contractions are irregular, but "feel like when I had delivery" - Cervical exam fingertip to 1 cm / 30% effaced / floating. - Patient being taken to [facility] labor and delivery in [place] for extended observation and lab draw (except [...] plant. - Unable to go further than [place] per patient. 10. Obesity in , antepartum - Maintain healthy diet with elevated protein, whole grain foods, vegetables, and fruit - Increase water for hydration - Daily exercise as tolerated RTC in two weeks; sooner as indicated. I have seen and examined the patient and agreed with the note above Taya Stevens NP 05/31/2023 5:13 PM [facility] 2023-05-27 14:57:04 Formatting of this n [...] RN 05/27/2023 2:59 PM Fariba Castellanos RN [facility] 2023-05-27 12:16:21 Formatting of this n [...] Fariba Castellanos RN 05/27/2023 12:29 PM T [facility] 2023-05-27 09:52:39 Formatting of this n ote might be different from the original. Patient requested an appointment for May with Taya for a blood pressure check. Called patient and she scheduled for May 31, 2023 with Taya. Please review and see if patient needs to be seen sooner. T Kurt Todd [facility]
[2025-01-30 10:08] LABS: Influenza A Ag Negative; Influenza B Ag Negative; SARS-CoV-2 Antigen Rapid Res Negative (Negative)
--- NOTE | 2025-01-30 11:26 | ER ---
Nurse's Notes [facility] Name: Alyx Noriega Age: 29 yrs Sex: Female : 1995 Arrival Date: 01/30/2025 Time: 09:11 Bed 18 Private MD: Diagnosis: Acute upper respiratory infection, unspecified Presentation: 01/30 09:28 Chief complaint: Patient states: Had N/V/D throughout the weekend with cough. Still has ll1 cough and body aches. diagnosed with flu Tuesday. Coronavirus screen: Client denies travel out of the [place] in the last 14 days. congestion, cough unrelated to allergies, Client presents with at least one sign or symptom that may indicate coronavirus-19. Standard/surgical mask placed on the client. Ebola Screen: Patient denies travel to an Ebola-affected area in the 21 days before illness onset. Initial Sepsis Screen: Does the patient meet any 2 criteria? No. Patient's initial sepsis screen is negative. Does the patient have a suspected source of infection? No. Patient's initial sepsis screen is negative. Risk Assessment: Do you want to hurt yourself or someone else? Patient reports no desire to harm self or others. Onset of symptoms was January 26, 2025. 09:28 Method Of Arrival: Ambulatory ll1 09:28 Acuity: SHAWN 4 ll1 Triage Assessment: 09:30 General: Appears uncomfortable, Behavior is calm, cooperative, appropriate for age, ll1 Reports feeling ill for fatigue for. Respiratory: Reports cough that is. GI: Reports diarrhea, nausea, vomiting. Historical: - Allergies: 09:27 No Known Allergies; ll1 - PMHx: 09:27 HTN during ; ll1 - PSHx: 09:27 section; ll1 - Immunization history:: Adult Immunizations up to date. - Infectious Disease History:: Denies. - Social history:: Smoking status: Patient denies any tobacco usage or history of. - Family history:: not pertinent. - Hospitalizations: : No recent hospitalization is reported. Screenin:[address] [facility] ED Fall Risk Assessment (Adult) History of falling in the last 3 months, kc6 including since admission No falls in past 3 months (0 pts) Confusion or Disorientation No (0 pts) Intoxicated or Sedated No (0 pts) Impaired Gait No (0 pts) Mobility Assist Device Used No (0 pt) Altered Elimination No (0 pt) Score/Fall Risk Level 0 - 2 = Low Risk Oriented to surroundings, Maintained a safe environment, Educated pt \T\ family on fall prevention, incl call for assistance when getting out of bed. Abuse screen: Denies threats or abuse. Denies injuries from another. Nutritional screening: No deficits noted. Tuberculosis screening: No symptoms or risk factors identified. Assessment: 09:44 General: Appears in no apparent distress. comfortable, well groomed, well developed, kc6 Behavior is calm, cooperative, appropriate for age, Reports feeling ill for > 3 days. Pain: Denies pain. Neuro: Level of Consciousness is awake, alert, obeys commands, Oriented to person, place, time, situation, Appropriate for age. Cardiovascular: Capillary refill < 3 seconds. Respiratory: Reports cough that is productive, Airway is patent Trachea midline Respiratory effort is even, unlabored, Respiratory pattern is regular, symmetrical. GI: Abdomen is round non-distended, Bowel sounds present X 4 quads. Abd is soft and non tender X 4 quads. Reports diarrhea, nausea, vomiting, Patient currently denies abdominal pain. : No signs and/or symptoms were reported regarding the genitourinary system. EENT: Reports nasal congestion. Derm: No signs and/or symptoms reported regarding the dermatologic system. Skin is intact, is healthy with good turgor, Skin is pink, warm \T\ dry. Musculoskeletal: No signs and/or symptoms reported regarding the musculoskeletal system. Circulation, motion, and sensation intact. Range of motion: intact in all extremities. 10:47 Reassessment: Patient appears in no apparent distress at this time. No changes from kc6 previously documented assessment. Patient and/or family updated on plan of care and expected duration. Pain level reassessed. Patient is alert, oriented x 3, equal unlabored respirations, skin warm/dry/pink. Vital Signs: 09:28 Resp 17; Temp 99.5(O); Weight 86.18 kg; Height 5 ft. 3 in. ; Pain 9/10; ll1 09:45 BP 132 / 82; Pulse 90; Pulse Ox 99% on R/A; kc6 09:28 Body Mass Index 33.66 (86.18 kg, 160.02 cm) ll1 09:28 Pain Scale: Adult ll1 ED Course: 09:19 Patient arrived in ED. im 09:20 Que Garzon MD is Attending Physician. rn 09:27 Arm band placed on Patient placed in an exam room, on a stretcher. ll1 09:30 Triage completed. ll1 09:43 Raya Reaves, RN is Primary Nurse. kc6 09:43 COVID swab sent to lab. Flu and/or RSV swab sent to lab. Patient maintains SpO2 kc6 saturation greater than 95% on room air. 09:44 Patient has correct armband on for positive identification. Bed in low position. Call kc6 light in reach. Side rails up X 1. Adult w/ patient. Pulse ox on. NIBP on. Door closed. Noise minimized. Lights dimmed. Pillow given. Verbal reassurance given. 11:44 No provider procedures requiring assistance completed. Patient did not have IV access kc6 during this emergency room visit. Administered Medications: No medications were administered Medication: 11:45 VIS not applicable for this client. kc6 Outcome: 11:26 Discharge ordered by . rn 11:44 Discharged to home ambulatory, with family, with significant other, kc6 11:44 Condition: good 11:44 Discharge instructions given to patient, Instructed on discharge instructions, follow up and referral plans. Demonstrated understanding of instructions, follow-up care, 11:45 Patient left the ED. kc6 Signatures: Que Garzon MD MD rn Lewis, Lynsay, RN RN 1 Raya Reaves, GIGI RN [email or web address] Madyson Nieves Corrections: (The following items were deleted from the chart) 09:46 09:45 BP 132 / 82; kc6 kc6
--- NOTE | 2025-01-30 11:26 | EDPHYS ---
Physician Documentation [facility] Name: Alyx Noriega Age: 29 yrs Sex: Female : 1995 Arrival Date: 01/30/2025 Time: 09:11 Bed 18 Private MD: ED Physician Que Garzon HPI: 01/30 09:37 This 29 yrs old Female presents to ER via Ambulatory with complaints of Flu Symptoms. rn 09:37 The patient or guardian reports cough, flu symptoms. Onset: The symptoms/episode rn began/occurred yesterday. Severity of symptoms: At their worst the symptoms were mild, in the emergency department the symptoms are unchanged. Modifying factors: The symptoms are alleviated by nothing, the symptoms are aggravated by nothing. Patient here with and son, all have flulike symptoms, was diagnosed with flu 2 days ago. Patient reports cough congestion and myalgias. Denies shortness of breath.. Historical: - Allergies: 09:27 No Known Allergies; ll1 - PMHx: 09:27 HTN during ; ll1 - PSHx: 09:27 section; ll1 - Immunization history:: Adult Immunizations up to date. - Infectious Disease History:: Denies. - Social history:: Smoking status: Patient denies any tobacco usage or history of. - Family history:: not pertinent. - Hospitalizations: : No recent hospitalization is reported. ROS: 09:37 Constitutional: Negative for fever, positive for chills and myalgia ENT: Positive for rn runny nose and congestion Cardiovascular: Negative for chest pain, palpitations, and edema, Respiratory: Positive for cough, negative for shortness of breath Abdomen/GI: Negative for abdominal pain, nausea, vomiting, diarrhea, and constipation, MS/Extremity: Negative for injury and deformity, Neuro: Positive for headache and generalized malaise Exam: 09:37 Constitutional: This is a well developed, well nourished patient who is awake, alert, rn and in no acute distress. ENT: Nasal drainage, no stridor, dry mucous membranes Cardiovascular: Regular rate and rhythm. No pulse deficits. Respiratory: No increased work of breathing, no retractions or nasal flaring. Skin: No cyanosis Neuro: Awake and alert, GCS 15 Vital Signs: 09:28 Resp 17; Temp 99.5(O); Weight 86.18 kg; Height 5 ft. 3 in. ; Pain 9/10; ll1 09:45 BP 132 / 82; Pulse 90; Pulse Ox 99% on R/A; kc6 09:28 Body Mass Index 33.66 (86.18 kg, 160.02 cm) ll1 09:28 Pain Scale: Adult ll1 MDM: 09:20 Medical Screening Exam initiated rn 11:25 Differential Diagnosis: Influenza Upper Respiratory Infection Viral Syndrome. Data rn reviewed: vital signs, nurses notes, lab test result(s), and as a result, I will discharge patient. Counseling: I had a detailed discussion with the patient and/or guardian regarding the historical points, exam findings, and any diagnostic results supporting the discharge/admit diagnosis, lab results, the need for outpatient follow up, to return to the emergency department if symptoms worsen or persist or if there are any questions or concerns that arise at home. Special discussion: I discussed with the patient/guardian in detail that at this point there is no indication for admission to the hospital. It is understood, however, that if the symptoms persist or worsen the patient needs to return immediately for re-evaluation. ED course: COVID and flu testing negative but early in illness, family member already with confirmed influenza and his symptoms started first. Most likely same viral syndrome. Either way no indication for antibiotics or admission at this time. I have personally reviewed all of the results, including but not limited to blood tests deemed necessary to safely discharge this patient at this time. All results given to and printed out for patient. I personally went over all the results with the patient and answered all questions. Patient will follow-up with PCP and or specialist as discussed. Return precautions given and understood.. 01/30 09:31 Order name: COVID-19 Ag + Flu A+B Ag; Complete Time: 10:09 rn Administered Medications: No medications were administered Disposition Summary: 01/30/25 11:26 Discharge Ordered Notes: Location: Home rn Problem: new rn Symptoms: have improved rn Condition: Stable rn Diagnosis - Acute upper respiratory infection, unspecified rn Followup: rn - With: Private Physician - When: As needed - Reason: Recheck today's complaints, Re-evaluation by your physician Discharge Instructions: - Discharge Summary Sheet rn - Upper Respiratory Infection, Adult rn - Viral Respiratory Infection rn Forms: - Medication Reconciliation Form rn - Antibiotic iv rn - Prescription Opioid Use rn - Patient Portal Instructions rn - Leadership Thank You Letter rn - Work release form kc6 Signatures: Dispatcher [employer] Que Luo MD MD rn Lewis, Lynsay, RN RN ll1 Campbell, Kaitlyn RN RN kc6
[2025-01-30 11:57] VITALS: TEMP 99.5
[2025-01-30 11:59] VITALS: BP 132/82; O2SAT 99
== END 2025-01-30 11:45 | disposition home or self-care (01) ==
LOC: ER 09:11
DX: J06.9 Acute upper respiratory infection, unspecified (principal); Z11.52 Encounter for screening for COVID-19
CPT/HCPCS: 36415; 87428; 99283